=== PATIENT | male | born 1975 | race Two or more races ===

== ENCOUNTER 2021-11-24 13:25 | Outpatient (CLI) | payer OTHER, SELFPAY ==
--- NOTE | ~2021-11-24 | XR_ITS ---
EXAM: XR knee RT min 4V DATE: 11/24/2021 14:03 HISTORY: TWISTING KNEE INJURY PAIN MEDIAL SIDE . COMPARISON: None available. FINDINGS: Normal mineralization. No fracture or dislocation. No lytic or blastic lesion. Mild medial and lateral joint space narrowing. Mild tricompartmental osteophytosis. Enthesopathy at the patellar tendon insertion. No erosion or periosteal change. Large volume joint effusion. Soft tissues within normal limits. IMPRESSION: Large right knee joint effusion. Mild tricompartmental osteoarthritis. Reviewed, dictated and finalized at location K. IMPRESSION: Large right knee joint effusion. Mild tricompartmental osteoarthrit is.
== END 2021-11-24 13:26 | disposition home or self-care (01) ==
LOC: ANHLAB 13:40 → ANHIMG 13:41
PROVIDERS: Visit Provider Nurse Practitioner
DX: M25.461 Effusion, right knee (principal)
CPT/HCPCS: 73564

== ENCOUNTER 2021-12-14 16:50 | Outpatient (CLI) | payer OTHER, SELFPAY ==
--- NOTE | ~2021-12-14 | MR_ITS ---
EXAMINATION: MR knee RT wo con DATE: 12/14/2021 17:40 INDICATION: Right knee pain. Twisting injury 3 weeks ago with persistent swelling, decreased range of motion, unable to extend completely. TECHNIQUE: Magnetic resonance imaging (MRI) of the right knee was performed without intravenous contr ast. Sequences included axial PD-weighted FS FSE, coronal PD-weighted FSE and PD-weighted FS FSE, sag ittal PD-weighted FSE, and sagittal T2-weighted FS FSE. COMPARISON: X-ray right knee 11/24/2021 FINDINGS: Medial compartment: Vertically oriented tear of the posterior horn, medial meniscus, likely with interposed granulation t issue. Mild diffuse thinning of cartilage and osteophytosis. Lateral compartment: Mild fraying of the meniscal apex, without focal tear. Mild diffuse cartilage thinning and osteophyto sis. Patellofemoral compartment: Full-thickness cartilage signal abnormality on the medial facet, with elevated flap of cartilage. Whit r full-thickness lateral facet cartilage fissure. Retinacula are intact. Ligaments and tendons: Abnormal signal and thickening in the ACL, with discontinuity of the ligament fibers. Mild thickening with abnormal signal superficial and deep to the proximal MCL. PCL and LCL are intact. Abnormal sign al and irregularity of the semimembranous tendon. Minimal abnormal signal superficial and deep to the IT band. Remaining flexor and extensor tendons are intact. Fluid: Moderate volume joint fluid. Osseous/other: Marrow edema in the medial condyle with scattered marrow hyperintensity in the posterior lateral tibi al plateau. IMPRESSION: 1. High-grade ACL tear. 2. Vertical tear of the posterior horn, medial meniscus, with some healing change. 3. Partial MCL tear. 4. Semimembranosus strain. 5. Mild strain/inflammation of the IT band. 6. Moderate knee joint effusion. 7. Moderate chondromalacia patellae, with a displaced cartilage flap along the medial facet. Reviewed, dictated and finalized at location K. IMPRESSION: 1. High-grade ACL tear. 2. Vertical tear of the posterior horn, medial meniscus, with some healing navarro ge. 3. Partial MCL tear. 4. Semimembranosus strain. 5. Mild strain/inflammation of the IT band. 6. Moderate knee joint effusion. 7. Moderate chondromalacia patellae, with a displaced cartilage flap along the medial facet.
== END 2021-12-14 16:51 | disposition home or self-care (01) ==
PROVIDERS: Visit Provider Orthopaedic Surgery
DX: S83.511A Sprain of anterior cruciate ligament of right knee, initial encounter (principal); S83.241A Other tear of medial meniscus, current injury, right knee, initial encounter; M25.461 Effusion, right knee; S83.411A Sprain of medial collateral ligament of right knee, initial encounter; X58.XXXA Exposure to other specified factors, initial encounter
CPT/HCPCS: 73721

== ENCOUNTER → 2022-06-30 15:58 | Outpatient (CLI) | payer OTHER, SELFPAY ==
--- NOTE | ~2022-06-30 | MR_ITS ---
MRI of the right knee Clinical history: Effusion, prior ACL reconstruction Technique: Coronal proton density and proton density-weighted images, sagittal proton-density and T2 fat-sat images, and axial proton-density fat-saturated images were acquired. COMPARISON: 12/14/2021 Findings: Patient is status post ACL reconstruction. Graft appears to be intact, with low signal fibe rs with normal orientation. Posterior cruciate ligament is intact, though mildly buckled in appearanc e. There is approximately 12 mm anterior translation of the tibia. Medial collateral ligament is intact, soft tissue edema about the MCL. Lateral collateral ligament co mplex is intact. Popliteus tendon is intact. There is complex tearing of the posterior horn of the medial meniscus, with both radial and horizonta l tear components. There is horizontal/oblique tear involving the posterior horn and body of the late ral meniscus. Articular cartilage in the lateral compartment is well preserved. There is focal moderate chondromala simran of the medial femoral condyle, with subchondral cystic change and reactive marrow edema. Femoral trochlear cartilage is intact. There is a grade 3 chondral lesion along the medial patellar facet. There is diffuse thickening of the patellar tendon, with increased signal at the distal portion, efraín cially in the central portion. There is also abnormal signal and irregularity in the patella. Distal quadriceps tendon is intact. Small joint effusion present. No Green's cyst. Impression: Status post ACL reconstruction. ACL graft appears intact, however there is buckled appearance of the PCL with 12 mm anterior translation of the tibia. Correlate for ACL laxity. Marked thickening and increased signal of the distal patellar tendon especially, with full-thickness tearing at the central portion of the distal patellar tendon. These findings could reflect postoperat candace change related to ACL graft harvesting versus the possibility of traumatic patellar tendon tear. Correlate with clinical history and patient's symptomatology. Complex tearing of the posterior horn of the medial meniscus, as detailed above. Horizontal/oblique tear of the posterior horn and body of the lateral meniscus. Soft tissue edema about the MCL. Correlate for grade 1 sprain versus reactive soft tissue edema due t o underlying meniscal tear. Focal moderate chondromalacia the medial femoral condyle with underlying subchondral cystic change an d reactive marrow edema. Small joint effusion. Reviewed, dictated and finalized at location . 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 ACL graft appears intact, however there is belle led appearance of the PCL with 12 mm anterior translation of the tibia. Correla te for ACL laxity. Marked thickening and increased signal of the distal patellar tendon especially , with full-thickness tearing at the central portion of the distal patellar ten don. These findings could reflect postoperative change related to ACL graft sarina vesting versus the possibility of traumatic patellar tendon tear. Correlate wit h clinical history and patient's symptomatology. Complex tearing of the posterior horn of the medial meniscus, as detailed above . Horizontal/oblique tear of the posterior horn and body of the lateral meniscus. Soft tissue edema about the MCL. Correlate for grade 1 sprain versus reactive s oft tissue edema due to underlying meniscal tear. Focal moderate chondromalacia the medial femoral condyle with underlying subcho ndral cystic change and reactive marrow edema. Small joint effusion.
== END ==
DX: M25.461 Effusion, right knee (principal); Z98.890 Other specified postprocedural states; S83.231A Complex tear of medial meniscus, current injury, right knee, initial encounter; X58.XXXA Exposure to other specified factors, initial encounter; S83.281A Other tear of lateral meniscus, current injury, right knee, initial encounter
CPT/HCPCS: 73721

== ENCOUNTER → 2023-01-03 11:33 | Outpatient (CLI) | payer OTHER, SELFPAY ==
--- NOTE | ~2023-01-03 | MR_ITS ---
EXAMINATION: MR knee RT wo con DATE: 01/03/2023 12:17 INDICATION: Right knee pain 5 months post ACL reconstruction TECHNIQUE: Magnetic resonance imaging (MRI) of the right knee was performed without intravenous contr ast. Sequences included coronal PD-weighted FSE, coronal PD-weighted FS FSE, sagittal T2-weighted FS E, sagittal PD-weighted FS FSE and axial PD weighted fat saturated FSE. COMPARISON: None. FINDINGS: Medial compartment: Complex tear of the posterior body and posterior horn of the medial meniscus. There is prominent suba rticular edema-like and cystlike changes underlying a region of partial-thickness chondral ulceration and deep fissuring at the lateral half of the anterior to central weightbearing medial femoral condy le. Lateral compartment: There is a longitudinal tear extending obliquely to the inferior articular surface of the body and po sterior horn of the lateral meniscus. There is some additional mild fraying along the inner free edge of the body and posterior horn. Small focus of susceptibility artifact in the posterior recess likel y related to prior arthroscopy which obscures a small region of the cartilage along the posterior garrett ghtbearing lateral femoral condyle. Articular cartilage is otherwise normal. Patellofemoral compartment: Deep chondral fissuring at the lateral margin of the lateral patellar facet. Small region of deep cho ndral ulceration at the central aspect of the medial patellar facet with additional deep fissuring al ok the medial margin of the medial facet. Trochlear cartilage is normal. Ligaments and tendons: Anterior cruciate ligament reconstruction utilizing a patellar tendon autograft with sagittally orien james defect extending the length of the patellar tendon and small shallow osteotomies at the central p atellar and intertibial footplates of the tendon. The ligament graft appears intact with low signal a nd normal orientation relative to Blumensaat line. The posterior cruciate ligament is normal. The med ial collateral ligament and fibular collateral ligament complex are normal. Quadriceps tendon is norm al. The visualized medial and lateral hamstring tendons as well as the iliotibial band are normal. Fluid: Physiologic amount of fluid in the joint space. No loose osteochondral bodies identified. Osseous/other: Bone alignment is normal. No fracture or pathologic marrow replacing process. Sagittally oriented pos toperative scarring along skin and subcutaneous tissues of the anterior knee. Additional postoperativ e scarring along likely arthroscopy port tracks at the medial and lateral aspect of Hoffa's fat pad. IMPRESSION: 1. Intact patellar tendon autograft utilizing anterior cruciate ligament reconstruction. 2. Medial and lateral meniscal tears. 3. Mild osteoarthritis with high-grade chondromalacia in the medial compartment and with moderate gra de chondromalacia in the patellofemoral compartment. Reviewed, dictated and finalized at location A. IMPRESSION: 1. Intact patellar tendon autograft utilizing anterior cruciate ligament recons truction. 2. Medial and lateral meniscal tears. 3. Mild osteoarthritis with high-grade chondromalacia in the medial compartment and with moderate grade chondromalacia in the patellofemoral compartment.
== END ==
PROVIDERS: PCP Orthopaedic Surgery Sports Medicine; Visit Provider Orthopaedic Surgery Sports Medicine
DX: S83.281A Other tear of lateral meniscus, current injury, right knee, initial encounter (principal); S83.241A Other tear of medial meniscus, current injury, right knee, initial encounter; M17.11 Unilateral primary osteoarthritis, right knee; Z98.890 Other specified postprocedural states; X58.XXXA Exposure to other specified factors, initial encounter
CPT/HCPCS: 73721

== ENCOUNTER → 2023-01-26 12:26 | Outpatient (CLI) | payer OTHER, SELFPAY ==
--- NOTE | ~2023-01-26 | XR_ITS ---
EXAMINATION: XR knee RT min 4V DATE: 01/26/2023 12:41 INDICATION: Right knee pain TECHNIQUE: Four views of the right knee were obtained. COMPARISON: MRI, 01/03/2023 FINDINGS: Alignment is normal. No fracture or osteochondral lesion. There is mild tricompartmental os teoarthritis. There is edema of the patellar tendon. A small knee joint effusion is present. Surgical changes are noted. Soft tissues are unremarkable. IMPRESSION: 1. Edema of the patellar tendon. Small knee joint effusion. Reviewed, dictated and finalized at location F.
== END ==
PROVIDERS: PCP Orthopaedic Surgery; Visit Provider Orthopaedic Surgery
DX: M25.561 Pain in right knee (principal); M25.461 Effusion, right knee
CPT/HCPCS: 73564

== ENCOUNTER → 2023-04-21 15:05 | Outpatient (CLI) | payer OTHER, SELFPAY ==
--- NOTE | ~2023-04-21 | XR_ITS ---
EXAMINATION: XR wrist LT min 3V DATE: 04/21/2023 15:17 INDICATION: Left wrist pain. TECHNIQUE: 4 views of left wrist were obtained. COMPARISON: None. FINDINGS: Bone alignment is normal. No fracture. There is mild osteoarthritis of first carpometacarpa l joint and first interphalangeal joint. IMPRESSION: 1. Mild polyarticular osteoarthritis. Reviewed, dictated and finalized at location A. RIOR PANELER
--- NOTE | ~2023-04-21 | XR_ITS ---
EXAMINATION: XR shoulder LT min 2V DATE: 04/21/2023 15:16 INDICATION: Left shoulder pain. TECHNIQUE: 4 views of left shoulder were obtained. COMPARISON: None. FINDINGS: Bone alignment is normal. No fracture. There is mild osteoarthritis of glenohumeral joint a nd acromioclavicular joint. IMPRESSION: 1. Mild polyarticular osteoarthritis. Reviewed, dictated and finalized at location A. ICAL GARMENT FITTER
== END ==
PROVIDERS: PCP Family Medicine; Visit Provider Family Medicine
DX: M19.032 Primary osteoarthritis, left wrist (principal); M19.012 Primary osteoarthritis, left shoulder
CPT/HCPCS: 73030; 73110

== ENCOUNTER 2023-04-25 15:59 | Outpatient (CLI) | payer OTHER, SELFPAY ==
[2023-04-25 19:24] LABS: Hematocrit 50.8 % (42.0-52.0); Mean Corpuscular HGB Conc 33.5 g/dl (32-36); Mean Corpuscular Hemoglobin 28.3 pg (26-34); Mean Corpuscular Volume 84.7 fl (80-100); Mean Platelet Volume 9.5 fl (7.4-10.4); Platelet Count Result 289 k/mm3 (150-375); Red Cell Distribution Width 12.4 % (11.5-14.5); White Blood Count 8.5 K/mm3 (4.5-10.0)
[2023-04-25 21:06] LABS: Alanine Aminotransferase 35 U/L (6-50); Albumin Level 4.8 g/dL (3.5-5.1); Alkaline Phosphatase 81 U/L (38-126); Anion Gap 11 mmol/L (8-16); Aspartate Amino Transferase 39 U/L (17-59); Bilirubin,Total 0.9 mg/dL (0.2-1.3); Blood Urea Nitrogen 12 mg/dL (9-20); Calcium 9.8 mg/dL (8.4-10.2); Carbon Dioxide 27 mmol/L (22-30); Chloride 101 mmol/L (98-107); Cholesterol 209 mg/dL (0-200); Estimated Glomerular Filt Rate > 60; Glucose 99 mg/dL (65-110); HDL Direct 50 mg/dL; Potassium 4.1 mmol/L (3.4-5.0); Sodium 139 mmol/L (137-145); Triglycerides 121 mg/dL (<150)
[2023-04-25 21:26] LABS: LDL Cholesterol Direct 123 mg/dL
[2023-04-25 21:46] LABS: Prostate Specific Antigen 0.9 ng/mL (< OR = 4.0)
[2023-04-25 21:54] LABS: Folic Acid 4.3 ng/mL (2.76->20)
[2023-04-25 22:17] LABS: Hemoglobin A1C 5.4 % (<5.7)
[2023-04-28 17:10] LABS: Vitamin D 1,25 (OH)2 Total 62 pg/mL (18-72); Vitamin D2 1,25 (OH)2 <8 pg/mL; Vitamin D3 1,25 (OH)2 62 pg/mL
== END 2023-04-25 16:00 | disposition home or self-care (01) ==
PROVIDERS: PCP Family Medicine; Visit Provider Family Medicine
DX: E53.8 Deficiency of other specified B group vitamins (principal); E55.9 Vitamin D deficiency, unspecified; E66.9 Obesity, unspecified; Z12.5 Encounter for screening for malignant neoplasm of prostate; Z79.899 Other long term (current) drug therapy; R73.09 Other abnormal glucose; Z13.1 Encounter for screening for diabetes mellitus
CPT/HCPCS: 36415; 80053; 80061; 82607; 82652; 82746; 83036; 84153; 84443; 85027; G0103

== ENCOUNTER 2023-05-09 08:28 | Outpatient (CLI) | payer OTHER, SELFPAY ==
--- NOTE | ~2023-05-09 | MR_ITS ---
MRI of the right knee Clinical history: Osteochondral lesion Technique: Coronal proton density and proton density-weighted images, sagittal proton-density and T2 fat-sat images, and axial proton-density fat-saturated images were acquired. COMPARISON: 01/03/2023 Findings: Patient is status post ACL reconstruction surgery. ACL graft is intact, with normal orienta tion and signal. Posterior cruciate ligament is intact. Medial collateral ligament and the lateral co llateral ligament complex are intact. Popliteus tendon is intact, with prominent tendinosis near its proximal insertion. There is progressive complex tearing of the posterior horn of the medial meniscus, probably extending into the body segment. There is horizontal undersurface tear of the body segment of the lateral meni scus, similar to prior exam. There is high-grade chondromalacia of the medial femoral condyle with focal cortical irregularity and subchondral cystic change, similar overall to prior exam. Articular cartilage in the lateral compart ment and along the femoral trochlea is well preserved. There are focal grade 4 chondral fissures samantha g the patella. Extensor mechanism is intact. No joint effusion or Green's cyst. Impression: Progressive complex tearing of the posterior horn of the medial meniscus, probably extending to the b kendra segment. Stable horizontal undersurface tear of the body segment of the lateral meniscus. High-grade chondromalacia medial femoral condyle with some chondral cystic change and reactive marrow edema, similar overall appearance to prior exam. Focal areas of grade IV chondromalacia patella, similar to prior exam. ACL graft is intact. Reviewed, dictated and finalized at [facility]. 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 Stable horizontal undersurface tear of the body segment of the lateral meniscus . High-grade chondromalacia medial femoral condyle with some chondral cystic navarro ge and reactive marrow edema, similar overall appearance to prior exam. Focal areas of grade IV chondromalacia patella, similar to prior exam. ACL graft is intact.
== END 2023-05-09 08:29 ==
PROVIDERS: PCP Family Medicine
DX: S83.281D Other tear of lateral meniscus, current injury, right knee, subsequent encounter (principal); S83.231D Complex tear of medial meniscus, current injury, right knee, subsequent encounter; X58.XXXD Exposure to other specified factors, subsequent encounter
CPT/HCPCS: 73721

== ENCOUNTER 2023-07-19 16:08 | Outpatient (CLI) | payer OTHER, SELFPAY ==
--- NOTE | ~2023-07-19 | MR_ITS ---
EXAMINATION: MR shoulder LT wo con DATE: 07/19/2023 16:43 INDICATION: Left shoulder pain . TECHNIQUE: Magnetic resonance imaging (MRI) of the left shoulder was performed without intravenous co ntrast. Sequences included axial PD-weighted FS FSE, coronal oblique PD-weighted FS FSE and T2-weight ed FS FSE, and sagittal oblique T2-weighted FS FSE and T1-weighted FSE. COMPARISON: X-ray left shoulder 04/21/2023. FINDINGS: Examination is mildly limited by motion and multiple sequences. Coracoacromial arch: No significant anterolateral downsloping of the type II acromion. No significant inferior AC joint os teophytosis or acromial tip enthesopathy. No significant subacromial or subcoracoid narrowing. Rotator cuff: 3 mm focal rim rent type tear at the insertion of the supraspinous tendon. Supraspinatus and infraspi natus thickening with abnormal intrasubstance signal. Focal fatty infiltration of the posterior aspec t of the supraspinatus. The teres minor and subscapularis are intact. Biceps tendon and glenoid labrum: Focal superoposterior aspect of the labrum. Long head of biceps tendon is intact. Fluid: No significant fluid collection. Bones/cartilage: Mild degenerative change at the AC joint and glenohumeral joint. Degenerative subcortical cysts in th e superolateral aspect of the humeral head, marrow signal otherwise benign and homogenous. IMPRESSION: 3 mm rim rent type tear of the supraspinatus, in a background of moderate supraspinatus and infraspin atus tendinopathy. Focal fatty atrophy of the supraspinatus. Tiny focal tear of the superoposterior aspect of the labrum. Reviewed, dictated and finalized at location K. UTER SYSTEMS INTEGRATOR IMPRESSION: 3 mm rim rent type tear of the supraspinatus, in a background of moderate supra spinatus and infraspinatus tendinopathy. Focal fatty atrophy of the supraspinat us. Tiny focal tear of the superoposterior aspect of the labrum.
== END 2023-07-19 16:09 | disposition home or self-care (01) ==
LOC: ANHIMG 16:11
PROVIDERS: PCP Family Medicine; Visit Provider Family Medicine
DX: S43.432D Superior glenoid labrum lesion of left shoulder, subsequent encounter (principal); X58.XXXD Exposure to other specified factors, subsequent encounter
CPT/HCPCS: 73221

== ENCOUNTER 2024-02-20 07:52 | Outpatient (CLI) | payer OTHER, SELFPAY ==
--- NOTE | ~2024-02-20 | MR_ITS ---
MRI of the right knee Clinical history: Swelling Technique: Coronal proton density and STIR images, sagittal proton-density and STIR images, and axial proton-density fat-saturated images were acquired. COMPARISON: 05/09/2023 Findings: Patient is again status post ACL reconstruction surgery, though there is increased hardware , possibly status post graft revision. ACL graft appears intact, though diffusely somewhat hyperinten se. Posterior cruciate ligament intact. Medial collateral ligament and the lateral collateral ligamen t complex are intact. Popliteus tendon is intact. There is complex tearing of the posterior horn and body of the medial meniscus, overall similar to pr ior exam. No definite lateral meniscal tear seen. Status post interval placement of osteochondral plug at the medial femoral condyle, at site of the pr eviously noted high-grade chondromalacia. There is thin T2 hyperintense signal along the base of the plug, no gross evidence of instability. Stable patchy chondromalacia of the patella. Extensor mechanism is intact. No Green's cyst. Small joint effusion. Impression: Status post interval posterior osteochondral plug at the medial femoral condyle, at site of previousl y noted high-grade chondral malacia. No gross evidence of instability. Status post ACL graft, with possible interval revision since prior exam, with increased hardware, giuseppe ecially at the proximal tibia. Correlate with surgical history. Increased signal of the ACL graft cou ld reflect impingement, though there is no evidence of recurrent tear. Stable complex tearing of the posterior horn and body of medial meniscus. Stable chondromalacia patella. Reviewed, dictated and finalized at [facility]. Impression: Status post interval posterior osteochondral plug at the medial femoral condyle , at site of previously noted high-grade chondral malacia. No gross evidence of instability. Status post ACL graft, with possible interval revision since prior exam, with i ncreased hardware, especially at the proximal tibia. Correlate with surgical hi story. Increased signal of the ACL graft could reflect impingement, though ther e is no evidence of recurrent tear. Stable complex tearing of the posterior horn and body of medial meniscus. Stable chondromalacia patella.
== END 2024-02-20 07:53 | disposition home or self-care (01) ==
LOC: GOSHIMG 07:55
DX: S83.231D Complex tear of medial meniscus, current injury, right knee, subsequent encounter (principal); M22.41 Chondromalacia patellae, right knee; X58.XXXD Exposure to other specified factors, subsequent encounter; Z98.890 Other specified postprocedural states
CPT/HCPCS: 73721

== ENCOUNTER 2024-05-15 07:52 | Outpatient (CLI) | payer OTHER, SELFPAY ==
[2024-05-15 14:29] LABS: Hematocrit 49.9 % (42.0-52.0); Mean Corpuscular HGB Conc 32.1 g/dl (32-36); Mean Corpuscular Volume 87.4 fl (80-100); Mean Platelet Volume 10.3 fl (7.4-10.4); Platelet Count Result 252 k/mm3 (150-375); Red Blood Count 5.71 M/mm3 (4.6-6.20); Red Cell Distribution Width 12.6 % (11.5-14.5); White Blood Count 7.1 K/mm3 (4.5-10.0)
[2024-05-15 14:42] LABS: Alanine Aminotransferase 23 U/L (6-50); Albumin Level 4.4 g/dL (3.5-5.1); Alkaline Phosphatase 72 U/L (38-126); Anion Gap 5 mmol/L (4-12); Aspartate Amino Transferase 48 U/L (17-59); Bilirubin,Total 0.8 mg/dL (0.2-1.3); Blood Urea Nitrogen 12 mg/dL (9-20); Calcium 9.4 mg/dL (8.4-10.2); Carbon Dioxide 25 mmol/L (22-30); Chloride 106 mmol/L (98-107); Cholesterol 180 mg/dL (0-200); Estimated Glomerular Filt Rate > 60; Glucose 126 mg/dL (65-110); HDL Direct 43 mg/dL; Potassium 3.8 mmol/L (3.4-5.0); Sodium 136 mmol/L (137-145); Triglycerides 94 mg/dL (<150)
[2024-05-15 14:52] LABS: LDL Cholesterol Direct 102 mg/dL
[2024-05-15 14:58] LABS: Hemoglobin A1C 5.6 % (<5.7)
[2024-05-15 14:59] LABS: Vitamin D 25 Hydroxy 30.9 ng/mL
[2024-05-15 15:06] LABS: Prostate Specific Antigen 0.6 ng/mL (< OR = 4.0)
[2024-05-18 12:24] LABS: Lipoprotein A 60 nmol/L
--- OUTSIDE RECORDS SUMMARY | 2024-05-22 05:23 | XMS_ITS | Encounter Summary ---
Author Organization [facility] Address [address] [place] [address] Phone Care Team Providers Care Data Compiler Name Role Phone No, Physician Primary Care Provider [phone] Zach Reyez PT Unavailable Unavailable Teresa Leach PT Unavailable [phone] Hussain Lopez RETAIL CLIENT MANAGER Unavailable Unavailabl e Encounter Details Date Type Department Care Team (Late st Contact Info) Description 03/01/2024 Orders Only [facility] Orthopaedic Surgery [address] [place] [address] [place] [address] [place] [address] Right knee pain, unspecified chronicity Social History Tobacco Use Types Packs/Day Years Used Date Smoking Tobacco: Never Passive Smoke Exposure: Never Smokeless Tobacco: Never AUDIT-C Answer Date Recorded Q1: How often do you have a drink containing alc ohol? 2-3 times a week 09/13/2023 Q2: How many drinks containi ng alcohol do you have on a typical day when you are drinking? 3 or 4 09/13/2023 Q3: How often do you have si x or more drinks on one occasion? Monthly 09/13/2023 Personal Safety Answer Date Recorded Have you ever been in or are you currently in a harmful physical or emotional relationship or is someone making you feel afraid or unsafe? 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 Gender Identity Not on file Sexual Orientation Not on file documented as of this encounter Plan of Treatment Not on file documented as of this encounter Procedures Procedure Name Priority Date/Time Associated Diagnosis Comments MRI KNEE RIGHT WO CONTRAST Schedule Routine, Read Routine (OP Routine) 03/01/2024 11:59 AM CDT Right knee pain, unspecified chronicity documented in this encounter Results * MRI Knee Right WO Contrast (03/01/2024 11:59 AM CDT) Anatomical Region Laterality Modality Lower Extremities Right Magnetic Reson ance us Mikey Hawkins MD IMG MRI PROCEDURES Final Re sult documented in this encounter Visit Diagnoses Diagnosis Right knee pain, unspecified chronicity documented in this encounter Care Teams Data Compiler Relationship Specialty Start Date End Date No, Physician PCP - General 12/21/21 Zach Reyez, PT Physical Therapist Physical Therapy 01/20/22 [place] [address] [place] [address] Physical Therapist Physical Therapy 01/30/22 Hussain Lopez, TRIPP Endless Track Vehicle Supervisor Physical Therapy 02/03/22 documented as of this encounter
--- OUTSIDE RECORDS SUMMARY | 2024-05-22 05:23 | XMS_ITS | Encounter Summary ---
Author Organization [facility] Healthcare Address [address] [place] [address] Care Team Providers Care Circulation Man Name Role Phone No, Physician Primary Care Provider [phone] Zach Reyez PT Unavailable Unavailable Teresa Leach PT Unavailable [phone] Hussain Lopez DIRECTOR PUBLIC POLICY Unavailable Unavailabl e Reason for Visit * Reason Comments PT Treatment * Consultation (Routine) - Authorized Specialty Diagnoses / Procedures Referred By Contac t Referred To Contact Physical Therapy Diagnoses Osteochondral [place] [id number] [place] [address] Phone: tel: fax: [facility] at [facility] [id number] [place] [address] [address] [place] [address] Phone: tel: fax: Referral ID Status Reason Start Date Expiration Date Visits Requested Visits Authorized [id number] Authorized Specialty Services Required 09/15/2023 10/14/2024 24 24 Encounter Details Date Type Department Care Team (Late st Contact Info) Description 03/16/2024 4:15 PM CDT Therapy [facility] at [address] [address] [place] [address] [place], [place] [id number] Osteochondral defect of femoral condyle (Primary Dx) Social History Tobacco Use Types Packs/Day Years [...] on file 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 / male Referring Practitioner: Mikey Hawkins MD MD Follow-Up: 09/26/23 Diagnosis(es): 1. Osteochondral defect of femoral condyle Date of Onset: 09/16/2023 Visit #: 20 Progress Report Due: Visit #20 Date: 03/16/2024 Start Time: 4:15 pm End Time: 5:00 pm Start Pain: 1-07/02 End Pain: -07/02 SUBJECTIVE: Pt reports he has been doing a lot better with walking and general weight bearing activities. He has not been using the greeting card writer brace as he felt that increased his pain. He is still being cautious about progressing squatting/bending/lifting activities. Pt reports Dr Hawkins discussed with him that he will not be able to achieve full knee ext due to surgery. OBJECTIVE: Gait: Pt amb with less antalgic gait R knee/LE. Effusion: mod swelling R knee today Knee ROM: (03/16/24) (ROM decreased due to increased swelling) Left: Right: - Extension 0?? (-3)?? - supine/seated Flexion 140?? 135?? Prone knee flexion with strap:(L knee 130 degrees) Muscle Length: Tight hamstring, gastroc and quad mm Lower Extremity Strength: 5/5 throughout TREATMENT: TREATMENT 1) bike for 5 min for warm up 2) reviewed HEP per flow sheet with verbal and manual cues. See also modifications/additions 3) reassessed R knee ROM: see above Exercise/ Activity 12/01 12/13 01/12 02/02 02/23 03/16 BFR Bike 5 min X 5 min 10 min X 5 min 5 min Seated knee ext 90-20 degrees, 10# x20 X 90-20, 10# bilat to unilat 90-0# x10 10# 3x10 bilat with unilat ecc Seated knee ext bilat conc and unilat ecc 90-20 degrees x20 Leg press 3 plates bilat x 10 reps 1 plate unilat x 10 (full ROM today) X 4.5 plates 3x20 bilat to unilat With greeting card writer brace 4 plates 2x20 reps 5 plates bilat 4x10 SLS with opp LE triplanar sliders init X x 10 each direction SL lift Init with 0# with greeting card writer brace (reaching hip height for now) 0# x10 Standing TKE with band X20 with black band Mini squats on BOSU and air ex Init x 10 (much quivering noted) Not today Long sitting VMO bj/quad contraction Long sitting hip adductor stretch Supine knee flexion Supine SLR SLR all planes Prone knee flexion with strap X modified with opp LE on floor X Supine/SL hip adduction with strap for lateral hamstring/ITB Init x3 X Prone hip ext with knee flexed X Seated knee ext 5# x20 with VMO bj/ball squeeze Supine SAQ Standing leg curl Standing heel raises partial weight bearing Standing TKE with band X Prone hangs X X Heel props Patellar mobs and MFR to quad/adductors and knee ext mobs X X X Flowsheet [place]: X = performed, x = times/multiply, s = seconds, ea = each, st = stretch SL= side lying, SLS= single leg stance Timed Treatment: Thera ex for 45 minutes: see above Un-timed Treatment: none Total of Timed Treatment Codes: 45 minutes Total Treatment Time: 45 minutes ASSESSMENT: Patient is able to weight bear with amb and light ex without pain. Goals: Short Term Goals: 2 weeks Pt to be indep with HEP to be able to: improve bed mobility and transfers, achieved Decrease gait deviations, progressing weight bearing status per MD's orders, progressing Pt to be able to transfer in an and out of bed, get dressed and shower with normal pain free mobility, achieved Drop Wire Aliner Goals: 12 weeks Pt to continue to be indep with HEP to be able to: return to an exercise program with normal pain free mobility, progressing Normalize gait to be able to walk 1-2 hours with normal pain free mobility, progressing Pt to have WNL R knee ROM to be able to work a full work week on his feet with normal pain free mobility, progressing Pt to have 5/5 strength throughout LE mm to be able to amb stairs and cotton picker operator 30# with normal pain free mobility, progressing PLAN: Continue skilled physical therapy per plan of care Teresa Leach, [facility] AT [address] [address] Dept: [phone] Dept documented in this encounter Plan of Treatment Not on file documented as of this encounter Visit Diagnoses Diagnosis Osteochondral defect of femoral condyle- Primary documented in this encounter Care Teams Circulation Man Relationship Specialty Start Date End Date No, Physician PCP - General 12/21/21 Zach Reyez, PT Physical Therapist Physical Therapy 01/20/22 [place] [address] [place] [address] Physical Therapist Physical Therapy 01/30/22 Hussain Lopez, DIRECTOR PUBLIC POLICY Paper Tube Machine Operator Physical Therapy 02/03/22 documented as of this encounter
--- OUTSIDE RECORDS SUMMARY | 2024-05-22 05:23 | XMS_ITS | Encounter Summary ---
Author Organization [facility] Address [address] [place] [address] Phone Care Team Providers Care Sole Stitcher Hand Name Role Phone No, Physician Primary Care Provider [phone] Zach Reyez PT Unavailable Unavailable Teresa Leach PT Unavailable [phone] Hussain Lopez MANAGER OF CASE MANAGEMENT Unavailable Unavailabl e Reason for Referral * Diagnostic Imaging (Routine) - Closed Specialty Diagnoses / Procedures Referred By Contac t Referred To Contact Diagnoses Osteochondral defect of femoral condyle Procedures XR Knee Right 1 [place] [id number] [place] [address] Phone: tel: fax: [facility] Referral ID Status Reason Start Date Expiration Date Visits Re quested Visits Authorized [id number] Closed 05/09/2024 06/08/2025 1 1 O SOFTWARE ENGINEER Reason for Visit * Reason Comments Follow-up Encounter Details Date Type Department Care Team (Latest Contact Info) Description 05/10/2024 4:20 PM VIDEO SOFTWARE ENGINEER Office Visit [facility] Orthopaedic Surgery [address] [place] [id number] [place] [id number] [place], [place] [id number] Osteochondral defect of femoral condyle (Primary Dx); 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 ESTABLISHED PATIENT VISIT INTERIM HISTORY: Returns to the office now almost eight months status post right knee opening wedge high tibial osteotomy and osteochondral allograft to the medial femoral condyle. He was last in the office on February. He has continued with some physical therapy, and now can walk at a normal pace without much issue. He does still endorse some discomfort if he walks at a faster pace. Also endorses some grinding and clicking sensations localized to the lateral joint. No real swelling, no instability otherwise. Has stopped taking meloxicam. Believes he was overall improving. With regard to his left shoulder, he is also improving and has no complaints today. PHYSICAL EXAMINATION: Age-appropriate male sitting on examination table in no acute distress. Nonlabored breathing symmetric chest rise on room air. He was spoken word. Focused examination of the right knee demonstrates no gross deformity. Surgical incisions are well healed without signs of infection including erythema, induration, or fluctuance. He has mild tenderness palpation over the lateral femoral condyle, no tenderness medially either over the joint line or medial femoral condyle. Range motion is from 0-130 degrees without pain. Mild crepitus laterally. Grossly neurovascularly intact distally. REVIEW OF IMAGING: Plain films of the knee were reviewed by Dr. Hawkins today which demonstrates healed high tibial osteotomy and medial femoral condyle osteochondral allograft. Alignment is maintained. IMPRESSION: 48-year-old male now almost eight months status post right knee opening wedge high tibial osteotomyand osteochondral allograft to the medial femoral condyle, doing well and progressing appropriately. TREATMENT PLAN: At this point in time, he will continue with physical therapy and eating exercises. We encouraged him to continue with exercises such as the stationary bike. We will see him back in the office in sixmonths' time, no plain films needed. Jose White MD Resident, Department of Orthopaedic Surgery [facility] in [place] Dr. Jose White dictating using [employer]. Dictation variances may occur I was present for the critical portion of the history, physical examination, and participated in the radiographic review and medical decision making for this patient. I agree with the findings in [place] of the above residence/fellow dictating using sfilatino software. Professor of Orthopaedic Surgery Director, Sports Medicine Fellowship [facility] . O SOFTWARE ENGINEER documented in this encounter Plan of Treatment Not on file documented as of this encounter Results * XR Knee Right 1 or 2 Views (05/10/2024 4:52 PM VIDEO SOFTWARE ENGINEER) Anatomical Region Laterality Modality Lower Extremities, Knee Right Computed Radiography 05/10/2024 4:56 PM VIDEO SOFTWARE ENGINEER Impressions 05/10/2024 4:56 PM VIDEO SOFTWARE ENGINEER Healing instrumented right high tibial osteotomy. Healing osteochondral allograft to the medial femoral condyle. Electronically signed by: Shane Sprague M.D. Narrative 05/10/2024 4:56 PM VIDEO SOFTWARE ENGINEER EXAMINATION: XR KNEE RIGHT 1 OR 2 VIEWS HISTORY: Knee pain FINDINGS: 2 views of the right knee were performed with comparison made to 02/09/2024. ??There is a healing instrumented right high tibial osteotomy. ??Instrumentation is intact. ??Osteochondral allograft to the medial femoral condyle is also likely healing. There is a trace effusion. ??There is no acute fracture. Procedure Note Shane Sprague MD PhD - 05/10/2024 EXAMINATION: XR KNEE RIGHT 1 OR 2 VIEWS HISTORY: Knee pain FINDINGS: 2 views of the right knee were performed with comparison made to 02/09/2024. There is a healing instrumented right high tibial osteotomy. Instrumentation is intact. Osteochondral allograft to the medial femoral condyle is also likely healing. There is a trace effusion. There is no acute fracture. IMPRESSION: Healing instrumented right high tibial osteotomy. Healing osteochondral allograft to the medial femoral condyle. Electronically signed by: Shane Sprague M.D. 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
--- OUTSIDE RECORDS SUMMARY | 2024-05-22 05:23 | XMS_ITS | Encounter Summary ---
Author Organization [facility] Healthcare Address [address] [place] [address] Care Team Providers Care Safety Assistant Name Role Phone No, Physician Primary Care Provider Zach Reyez PT Unavailable Unavailable Teresa Leach PT Unavailable [phone] Hussain Lopez GENERAL COUNSELOR Unavailable Unavailabl e Reason for Visit * Reason Comments PT Initial Eval * Consultation (Routine) - Authorized Specialty Diagnoses / Procedures Referred By Contac t Referred To Contact Physical Therapy Diagnoses Osteochondral [place] [id number] [place] [address] Phone: tel: fax: [facility] at [address] [place] [address] Phone: tel: fax: Referral ID Status Reason Start Date Expiration Date Visits Requested Visits Authorized [id number] Authorized Specialty Services Required 09/15/2023 10/14/2024 24 24 Encounter Details Date Type Department Care Team (Late st Contact Info) Description 03/30/2024 4:45 PM HAND PATCHER Therapy 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 / male Referring Practitioner: Mikey Hawkins MD MD Follow-Up: none scheduled Referring Diagnosis: 1. Nontraumatic complete tear of rotator cuff, unspecified laterality Date of Onset: No date available Date: 03/30/2024 Start Time: 4:45 pm End Time: 5:30 pm Start Pain: 210 End Pain: 210 Medical screening was completed and the patient is appropriate for physical therapy. SUBJECTIVE: History: Onset/Injury: 01/2023 pain started L shoulder, had PT in apr 2023. Then he got an injection in 2022 and then again 6 weeks ago and stopped PT due to feeling better. He reports he doesn't have muchpain since injection but would like to review the strengthening again due to feeling weak and painful into flexion and abd and reaching for things on a higher shelf and has not tried lifting heavy objects Chief Complaint: see above Previous therapy for this condition? Yes What were the dates of the prior therapy? 05/14 What was the outcome of the prior therapy? Decreased pain after injection with PT Pain Description: Location: L ant/lateral shoulder Quality: Aching , Dull, and Throbbing Current Intensity: 2/10 Minimal Intensity: 0/10 but usually has some level of soreness Maximal Intensity: 4-5/10 (was an 8/10 prior to recent injection) (using 0-10 numerical scale) Aggravating factors: see above Relieving factors: change of position, rest Function: Prior Level of Function: independent with ADLs (household/community activities, driving, and all work-related responsibilities). Patient Goals: All ADLs without pain or limitation. 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 Yes Patient is able to transfer independently or modified independently? Yes Fall Risk Screening: Is the patient > 65 year of age? (48 y.o. ) Is the reason for the visit related to balance or falls? No Does the patient have a history of neurological impairment? No Stay Independent Brochure Score: N/A (> 4 helps identify those at risk for falls) Is this patient a fall risk?: No. Posture: Spinal Alignment: flat thoracic spine Scapular Alignment: slight scapular elevation L Cervical Clearing: (-) Active ROM: * = increase in symptoms, ER and IR = external and internal rotation, abd = abduction, NT = not tested Active Range of Motion: (standing) Flexion: Left 0-150?? Right WNL?? Abduction: Left 0-162?? Right WNL?? Functional Abd/ER: Left WNL with pain Right WNL IR up back: Left T8 Right T8 Movement Faults: sone delayed upward scapular rotation Strength: * = increase in symptoms, ER and IR= external and internal rotation, NT = not tested Strength (Manual Muscle Test) Shoulder flex: left 4/5 right 5/5 Abduction: Left 4+/5 Right 5/5 Supraspinatus: Left 4+/5 Right 5/5 ER: Left 4-/5 Right 4+/5 IR: Left 5/5 Right 5/5 Scapular Serratus: Left 4+/5 Right 5/5 Mid Trapezius: Left 3+/5 Right 4/5 Low Trapezius: Left 3+ /5 Right 4/5 Passive ROM: * = increase in symptoms, ER and IR = external and internal rotation, abd= abduction, NT = not tested Passive Range of Motion (supine) Shoulder Flexion: Left 0-160?? Right NT?? Abduction: Left 0-120?? (pain/pinching) Right NT?? ER at side: Left 0-75?? Right NT?? ER at 90/90: Left 0-90?? Right NT?? IR at 90/90: Left 0-65?? Right NT?? Muscle Length: Slightly Stiff pecs and lats Mobility Joint Play: good overall mobility TREATMENT: TREATMENT 1) instructed in HEP per flow sheet to address above problems. 2) instructed in proper posture and UE mechanics Exercise/ Activity Date: 03/30 Date: Date: Date: Date: Date: SL ER 7 oz x10 1# x10 Prone sh ext with ER 7oz x15 Prone Hori abd 0# x15 Seated ER at 90 abd with arm on table 2# x15 Standing shoulder flex, abd, scaption 7 oz x15 Row with band Init with black band Flowsheet [place]: X = performed, x = times/multiply, s = seconds, ea = each, st = stretch Timed Treatment: Therapeutic Exercise for 25 minutes Un-Timed Treatment: Initial Evaluation-Low Complexity No modalities performed at this date Total of Timed Treatment Codes: 25 minutes Total Treatment Time: 45 minutes ASSESSMENT: Impression: Patient is a 48 y.o. male referred by Mikey Hawkins MD to physical therapy for the followin. Nontraumatic complete tear of rotator cuff, unspecified laterality Physical Impairments: scapular strength, rotator cuff strength, and movement impairment(s). Functional Limitations: lifting, reaching, and ADL functions. Patient will benefit from skilled PT to address the above physical impairments and functional limitations. Factors Impacting Physical Therapy: Comorbidities impacting physical therapy treatment: none Personal factors: None. No personal factors, living environment, or support system considerations impacting the physical therapy plan of care. Persons Involved:Patient Patient/Patient Family Understands and Agrees: Yes Prognosis: good Goals: Short Term Goals: 2 weeks Pt to be indep with HEP to be able to:have intermittent vs constant daily pain with self care Pt to have improved posture and UE mechanics [facility] Goals: 12 weeks Pt to be indep with HEP to be able to perform all household activities with normal pain free mobility Pt to have 4+/5 to 5/5 strength throughout L shoulder to be able to lift 30-50# with normal pain free mobility Pt to have WNL AROM throughout L shoulder to be able to reach overhead onto shelf with normal pain free mobility PLAN: Frequency/Duration: 1 time every 1-2 weeks for 8-12 weeks. Patient will receive the following treatments: [x] Home Exercise Program [x] Therapeutic Exercise [x] Therapeutic Activity [x] Manual Therapy PRN [x] Gait Training PRN [x] Neuromuscular Re-Education PRN [x] Modalities PRN Thank you for this referral. Teresa Leach, PT [facility] AT [address] [place] [address] Dept: [phone] Dept PATCHER documented in this encounter Plan of Treatment Not on file documented as of this encounter Visit Diagnoses Diagnosis Nontraumatic complete tear of rotator cuff, unspecified laterality- Primary documented in this encounter Orders Outpatient Referral Count Last Ordered Date Fir st Ordered Date AMB REFERRAL ORDER TO PHYSICAL THERAPY 1 documented in this encounter Care Teams Safety Assistant Relationship Specialty Start Date End Date No, Physician PCP - General 12/21/21 Zach Reyez, PT Physical Therapist Physical Therapy 01/20/22 [place] [address] [place] [address] Physical Therapist Physical Therapy 01/30/22 Hussain Lopez, TRIPP Plating Technician Physical Therapy 02/03/22 documented as of this encounter
--- OUTSIDE RECORDS SUMMARY | 2024-05-22 05:23 | XMS_ITS | Encounter Summary ---
Author Organization [facility] Address [address] [place] [address] Phone Care Team Providers Care Sign Language Interpreter Name Role Phone No, Physician Primary Care Provider [phone] Zach Reyez PT Unavailable Unavailable Teresa Leach PT Unavailable [phone] Hussain Lopez BROOM WORKER Unavailable Unavailabl e Reason for Referral * Consultation (Routine) - Pending Review Specialty Diagnoses / Procedures Referred By Contac t Referred To Contact Physical Therapy Diagnoses Nontraumatic complete tear of rotator [place], [place] [address] [place] [address] Phone: tel: fax: [facility] at [facility] [address] [place] [address] Phone: tel: fax: Referral ID Status Reason Start Date Expiration Date Visits Requested Visits Authorized [id number] Pending Review Evaluate and Treat 03/23/2024 04/22/2025 24 24 Question Answer PTRFR PT Evaluate and Treat Therapy options discussed with patient? Yes Location provided for therapy services is: Patient requested/Patient preferred Please select the performing region: [facility] [[id number]] Please select the performing department: [facility] [[id number]] # of visits: 24 Comments SHOULD[facility] REHABIL[facility] Zayda Torres 1975 03/23/24 Dx: full-thickness tear of his rotator cuf Continue RC strengthening exercises with the avoidance of overhead lifting as necessary Physical Therapy Evaluation and Treatment Twice Weekly for 6 Weeks Rotator cuff strengthening exercises ROM Modalities prn Home exercise program For all PT reports that require a signature-please fax to [phone] For all other PT progress notes-please fax to [phone] Mikey Hawkins MD Encounter Details Date Type Department Care Team (Late st Contact Info) Description 03/23/2024 Orders Only [facility] Orthopaedic Surgery [address] [place] [address] [place] [address] [place], [place] [id number] Nontraumatic complete tear of rotator cuff, unspecified [...] on file 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 Gender Identity Not on file Sexual Orientation Not on file documented as of this encounter Plan of Treatment Scheduled Referrals Name Type Priority Associated Diagnoses Orde r Schedule Ambulatory referral order to Physical Therapy - Outpatient Referral Routine Nontraumatic complete tear of rotator cuff, unspecified laterality Expected: 04/06/2024 (Approximate), Expires: 03/23/2025 documented as of this encounter Visit Diagnoses Diagnosis Nontraumatic complete tear of rotator cuff, unspecified laterality- Primary documented in this encounter Care Teams Sign Language Interpreter Relationship Specialty Start Date End Date No, Physician PCP - General 12/21/21 Zach Reyez, PT Physical Therapist Physical Therapy 01/20/22 [place] [address] [place] [address] Physical Therapist Physical Therapy 01/30/22 Hussain Lopez PTA Boat Engine Mechanic Physical Therapy 02/03/22 documented as of this encounter
--- OUTSIDE RECORDS SUMMARY | 2024-05-22 05:23 | XMS_ITS | Clinical Summary ---
Author Organization [facility] Address [address] [place] [address] Care Team Providers Care Rn Transition Name Role Phone No, Physician Primary Care Provider [phone] Zach Reyez PT Unavailable Unavailable Teresa Leach PT Unavailable [phone] Hussain Lopez PARAMEDIC INSTRUCTOR Unavailable Unavailabl e Allergies No known active allergies Medications ketorolac (TORADOL) 10 mg tablet Take 1 tablet (10 mg total) by mouth every 6 (six) hours as needed for pain 20 tablet 09/15/2023 Active oxyCODONE-acetam inophen (PERCOCET) 10-325 mg per tabletIndication s:Pain Take 1 tablet by mouth every 4 (four) hours as needed for pain 30 tablet 09/15/2023 Active aspirin 81 mg enteric coated tablet Take 1 tablet (81 mg total) by mouth daily 30 tablet 09/16/2023 Active traMADoL (ULTRAM) 50 mg tablet Take 1 tablet (50 mg total) by mouth every 6 (six) hours 30 tablet 09/30/2023 Active HYDROcodone-acet aminophen (NORCO) 5-325 mg per tabletIndication s:Pain Take 1 tablet by mouth every 6 (six) hours as needed for pain 30 tablet 02/23/2024 Active meloxicam (MOBIC) 15 mg tablet TAKE 1 TABLET(15 MG) BY MOUTH DAILY 30 tablet 04/04/2024 Active Active Problems Problem Noted Date Diagnosed Date Pain 09/16/2023 Osteochondral lesion 02/04/2023 Popping of right knee joint 01/20/2023 Chronic pain of right knee 01/20/2023 S/P arthroscopy of right knee 07/22/2022 Arthrofibrosis of knee joint, right 07/06/2022 Overview (07/06/2022): Added automatically from request for surgery [id number] Effusion of right knee 02/25/2022 S/P ACL reconstruction 01/28/2022 S/P medial meniscus repair of right knee S/P lateral meniscus repair of left knee Complete tear of right ACL, subsequent encounter 01/01/2022 Overview (01/01/2022): Added automatically from request for surgery [id number] Complex tear of medial menis cus of right knee as current injury 01/01/2022 Overview (01/01/2022): Added automatically from request for surgery [id number] Elbow pain 05/05/2016 Arthralgia of shoulder 09/06/2013 Encounters Date Type Department Care Team Description 05/10/2024 4:30 PM BATTERY STACKER - 05/10/2024 11:59 PM BATTERY STACKER Hospital Encounter [facility] [address] [place] [address] Osteochondral defect of femoral condyle Discharge Disposition: Discharge to home or self care 05/10/2024 4:20 PM BATTERY STACKER Office Visit [facility] Orthopaedic Surgery [address] [place] [address] [address] [place] [phone] Mikey Hawkins MD Osteochondral defect of femoral condyle (Primary Dx); 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 04/01/2024 Plan of Care Documentation [facility] at [address] [place] [address] 03/30/2024 4:45 PM BATTERY STACKER Therapy [facility] at [address] [place] [address] Teresa Leach, PT Nontraumatic complete tear of rotator cuff, unspecified laterality (Primary Dx) 03/23/2024 Orders Only [facility] Orthopaedic Surgery [id number] [place] [address] [address] [place] [address] Mikey Hawkins MD Nontraumatic complete tear of rotator cuff, unspecified laterality (Primary Dx) 03/16/2024 4:15 PM CDT Therapy [facility] at [facility] [id number] [place] [address] [place] [address] Teresa Leach, PT Osteochondral defect of femoral condyle (Primary Dx) 03/01/2024 4:00 PM CDT Office Visit [facility] Orthopaedic Surgery [address] [place] [address] [address] [place] [phone] Mikey Hawkins MD 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 (Primary Dx); Nontraumatic complete tear of rotator cuff, unspecified laterality 03/01/2024 Orders Only [facility] Orthopaedic Surgery [facility] [place] [address] Mikey Hawkins MD Right knee pain, unspecified chronicity 02/24/2024 11:30 AM CDT Therapy [facility] at [address] [place] [address] Teresa Leach, PT Osteochondral defect of femoral condyle (Primary Dx) from Last 3 Months Surgical History Surgery Date Site/Laterality Comments ROTATOR CUFF REPAIR 05/23/2013 - 05/22/2014 Right x2, 2014 ANTERIOR CRUCIATE LIGAMENT REPAIR 01/15/2022 Right reconstruction KNEE ARTHROSCOPY W/ DEBRIDEMENT 07/09/2022 Right KNEE SURGERY 02/11/2023 Right Chondroplasty Family History Medical History Relation Name Comments Anesthesia problems Neg Hx Social History Tobacco Use Types Packs/Day Years [...] on file Legal 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 Gender Identity Not on file Sexual Orientation Not on file Obstetrics History Last Filed Vital Signs Vital Sign Reading Time Taken Comments Blood Pressure 92/60 09/16/2023 3:25 PM CDT Pulse 79 09/16/2023 3:35 PM CDT Temperature 36.3 ??C (97.3 ??F) 09/16/2023 3:20 PM CD T Respiratory Rate 18 09/16/2023 3:35 PM CDT Oxygen Saturation 99% 09/16/2023 3:35 PM CDT Inhaled Oxygen Concentration - - Weight 89.4 kg (197 lb) 03/01/2024 4:22 PM CDT Height 175.3 cm (5' 9 ) 03/01/2024 4:22 PM CDT Body Mass Index 29.09 03/01/2024 4:22 PM CDT Plan of Treatment Health Maintenance Due Date Last Done Comments Colon Cancer Screening-Colonoscopy 1975 Depression Screening 1975 Hepatitis C Screening 1974 DTaP/Tdap/Td Vaccine (1 - Tdap) 1985 Hepatitis B Screening 1992 Regular Well Visit/Exam 18-64 1992 Covid-19 Vaccine (2 - 2023-2 5 season) 2024 04/15/2021 Influenza Vaccine (#1) 2024 Pneumococcal vaccine <65 Aged Out No longer eligible based on patient's age to complete this topic Medical Devices Implanted Type Area Cloth Desizing Range Tender Device Identifier Shelf Expiration Date Model / Serial / Lot Joint [employer] Allograft Aseptic Fresh Graft Bone Right Medial Femoral [id number] - [id number] Implanted:Qty: 1 on 09/16/2023 by Mikey Hawkins MD at [facility] Graft Right: Knee Joint [employer] 09/20/2023 [id number] / / [id number] [employer] 9mm Tibia Low Profile Plate Bone Titanium 6.5mm Cancellous 4.5mm [id number]-13287o-70.0 - [id number] Implanted:Qty: 1 on 09/16/2023 by Mikey Hawkins MD at [facility] [place] Plate Right: Tibia [employer] [id number] 05/22/2028 AR-69497T-7 9.0 / / [id number] [employer] 4.5mm 40mm Tibia Cortical Screw Bone Titanium Opening Wedge Ar-86207-57 - [id number] Implanted:Qty: 1 on 09/16/2023 by Mikey Hawkins MD at [facility] Screw Right: Tibia [employer] [id number] 09/20/2027 AR-76000-54 / / [id number] [employer] 4.5mm 38mm Tibia Cortical Screw Bone Titanium Opening Wedge Ar-26979-31 - [id number] Implanted:Qty: 1 on 09/16/2023 by Mikey Hawkins MD at [facility] Screw Right: Tibia [employer] [id number] 02/20/2028 AR-22188-23 / / [id number] [employer] 6.5mm 65mm Tibia Cancellous Screw Bone Titanium Opening Wedge Ar-88639-72 - [id number] Implanted:Qty: 1 on 09/16/2023 by Mikey Hawkins MD at [facility] Screw Right: Tibia [employer] [id number] 02/19/2027 AR-78695-54 / / [id number] [employer] 6.5mm 60mm Tibia Cancellous Screw Bone Titanium Opening Wedge Ar-67543-20 - [id number] Implanted:Qty: 1 on 09/16/2023 by Mikey Hawkins MD at [facility] Screw Right: Tibia [employer] [id number] 10/20/2026 AR-86132-99 / / [id number] [employer] Implant Menicus Repair Fiberstitch Curved Ar-4570 - [id number] Implanted:Qty: 1 on 01/15/2022 by Antonio Suh IV, MD at [facility] Right: Knee [employer] 12/20/2025 AR-4570 / / [id number] [employer] Implant Menicus Repair Fiberstitch Curved Ar-4570 - [id number] Implanted:Qty: 1 on 01/15/2022 by Antonio Suh IV, MD at [facility] Right: Knee [employer] 01/20/2026 AR-4570 / / [id number] [employer] Screw Fastthread Biocomposite Interference 8mm X 20mm Ar-4020c-08 - [id number] Implanted:Qty: 1 on 01/15/2022 by Antonio Suh IV, MD at [facility] Right: Knee [employer] 09/19/2024 AR-4020C-08 / / [id number] [employer] Screw Fastthread Biocomposite Interference 10mm X 20mm Ar-4020c-10 - [id number] Implanted:Qty: 1 on 01/15/2022 by Antonio Suh IV, MD at [facility] Right: Knee [employer] 02/19/2025 AR-4020C-10 / / [id number] Procedures Procedure Name Priority Date/Time Associated Diagnosis Comments XR KNEE RIGHT 1 OR 2 VIEWS Schedule Routine, Read Routine (OP Routine) 05/10/2024 4:52 PM BATTERY STACKER Osteochondral defect of femoral condyle MRI KNEE RIGHT WO CONTRAST Schedule Routine, Read Routine (OP Routine) 03/01/2024 11:59 AM CDT Right knee pain, unspecified chronicity from Last 3 Months Results * XR Knee Right 1 or 2 Views (05/10/2024 4:52 PM BATTERY STACKER) Anatomical Region Laterality Modality Lower Extremities, Knee Right Computed Radiography 05/10/2024 4:56 PM BATTERY STACKER Impressions 05/10/2024 4:56 PM BATTERY STACKER Healing instrumented right high tibial osteotomy. Healing osteochondral allograft to the medial femoral condyle. Electronically signed by: Shane Sprague M.D. Narrative 05/10/2024 4:56 PM BATTERY STACKER EXAMINATION: XR KNEE RIGHT 1 OR 2 [...] condyle. Electronically signed by: Shane Sprague M.D. Mikey Hawkins MD IMG XR PROCEDURES Final Res ult * MRI Knee Right WO Contrast (03/01/2024 11:59 AM CDT) Anatomical Region Laterality Modality Lower Extremities Right Magnetic Reson ance Mikey Hawkins MD IMG MRI PROCEDURES Final Re sult from Last 3 Months Insurance [facility] Advance Directives For more information, please contact: [phone] * Full Code (Latest Code Status on File) Date Activated Date Inactivated Comments 09/16/2023 2:47 PM 09/16/2023 7:57 PM * Full Code Date Activated Date Inactivated Comments 07/09/2022 12:57 PM 07/09/2022 6:09 PM * Full Code Date Activated Date Inactivated Comments 01/15/2022 5:38 PM 01/15/2022 10:38 PM Care Teams Rn Transition Relationship Specialty Start Date End Date No, Physician PCP - General 12/21/21 Zach Reyez, PT Physical Therapist Physical Therapy 01/20/22 [place] [address] [place] [address] Physical Therapist Physical Therapy 01/30/22 Hussain Lopez, TRIPP Head Tennis Coach Physical Therapy 02/03/22
--- OUTSIDE RECORDS SUMMARY | 2024-05-22 05:23 | XMS_ITS | Encounter Summary ---
Author Organization [facility] Address [address] [place] [address] Phone Care Team Providers Care Sales Representative Printing Supplies Name Role Phone No, Physician Primary Care Provider [phone] Zach Reyez PT Unavailable Unavailable Teresa Leach PT Unavailable [phone] Hussain Lopez LABORATORY CHIEF Unavailable Unavailabl e Reason for Visit * Reason Comments Follow-up Encounter Details Date Type Department Care Team (Late st Contact Info) Description 03/01/2024 4:00 PM CDT Office Visit [facility] Orthopaedic Surgery [address] [place] [phone] [place] [address] [address] [place] [address] 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 (Primary Dx); Nontraumatic complete tear of rotator cuff, unspecified laterality Social History Tobacco Use Types Packs/Day Years [...] on file 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 ESTABLISHED PATIENT VISIT INTERIM HISTORY: He returns following his MRI that showed his osteochondral plug of the medial femoral condyle with no evidence of grossly stability. There was no evidence of recurrent injury to his ACL. His medial meniscus was stable compared to his prior examination. 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 He also complains of recurrent pain in the left shoulder. Has a history of a full-thickness tear of his rotator cuff. He did well for approximately 6 months. He has pain with overhead activities as well as any sleeps on the shoulder at night. He would like to consider a repeat subacromial injection has had excellent relief when he received 1 several months ago. PHYSICAL EXAMINATION: Right knee range motion is approximately 5-125 degrees of knee flexion. He has no tenderness over the medial femoral condyle to direct palpation. He has endpoint with anterior drawer and Ed testing. He has no tenderness over the HTO site Under sterile conditions the left shoulder was injected via this lateral approach with 1 cc of Depo-Medrol, 40 milligrams/cc, and 5 cc of 1% lidocaine. This is into the subacromial space. He tolerated the procedure well complication and was apprised of risks for flare reaction. REVIEW OF IMAGING: His MRI was reviewed and is consistent with the above findings. IMPRESSION: Full-thickness tear left supraspinatus Status post osteochondral implantation right medial femoral condyle with high tibial osteotomy TREATMENT PLAN: He is to continue to use his medial tube lancer brace as necessary for pain control. He can wean out of it as he improves. He can use meloxicam as necessary. He is to avoid high impact activities. We discussed the benefits of aqua therapy. He has returned to see me in the next 2 months for follow-up. He is comfortable with this plan. In terms of his shoulder, I recommended he resume his rotator cuffstrengthening exercises with the avoidance of overhead lifting as necessary. He is notify me for any increasing pain, loss of motion, or loss of strength. I was present for the critical portion of the history, physical examination, and participated in the radiographic review and medical decision making for this patient. I agree with the findings in [place] of the above residence/fellow dictating using [employer] Direct software. Professor of Orthopaedic Surgery Director, Sports Medicine Fellowship [facility] documented in this encounter Plan of Treatment Not on file documented as of this encounter Visit Diagnoses Diagnosis 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- Primary Nontraumatic complete tear of rotator cuff, unspecified laterality documented in this encounter Care Teams Sales Representative Printing Supplies Relationship Specialty Start Date End Date No, Physician PCP - General 12/21/21 Zach Reyez, PT Physical Therapist Physical Therapy 01/20/22 [place] [address] [place] [address] Physical Therapist Physical Therapy 01/30/22 Hussain Lopez PTA Jewel Bearing Grinder Physical Therapy 02/03/22 documented as of this encounter
--- OUTSIDE RECORDS SUMMARY | 2024-05-22 05:23 | XMS_ITS | Encounter Summary ---
Author Organization [facility] Address [address] [place] [address] Care Team Providers Care Coil Maker Name Role Phone No, Physician Primary Care Provider [phone] Zach Reyez PT Unavailable Unavailable Teresa Leach PT Unavailable [phone] Hussain Lopez VISUAL ARTS TEACHER Unavailable Unavailabl e Reason for Referral * Diagnostic Imaging (Routine) - Closed Specialty Diagnoses / Procedures Referred By Contac t Referred To Contact Diagnoses Osteochondral defect of femoral condyle Procedures XR Knee Right 1 [place] [address] [place] [address] Phone: tel: fax: [facility] [place] Referral ID Status Reason Start Date Expiration Date Visits Re quested Visits Authorized [id number] Closed 05/09/2024 06/08/2025 1 1 GER SITE Reason for Visit * Diagnostic Imaging (Routine) - Closed Specialty Diagnoses / Procedures Referred By Contac t Referred To Contact Diagnoses Osteochondral defect of femoral condyle Procedures XR Knee Right 1 [place] [address] [place] [address] Phone: tel: fax: [facility] Referral ID Status Reason Start Date Expiration Date Visits Re quested Visits Authorized [id number] Closed 05/09/2024 06/08/2025 1 1 Encounter Details Date Type Department Care Team (Latest Contact Info) Description 05/10/2024 4:30 PM MANAGER SITE - 05/10/2024 11:59 PM MANAGER SITE Hospital Encounter [facility] [address] [place] [address] Osteochondral defect of femoral condyle Discharge Disposition: Discharge to home or self care Social History Tobacco Use Types Packs/Day Years [...] on file Legal Sex Male 6:31 AM MANAGER SITE Gender Identity Not on file Sexual Orientation Not on file documented as of this encounter Medications at Time of Discharge aspirin 81 mg enteric coated tablet Take 1 tablet (81 mg total) by mouth daily 30 tablet 09/16/2023 09/15/2024 HYDROcodone-aceta minophen (NORCO) 5-325 mg per tabletIndications :Pain Take 1 tablet by mouth every 6 (six) hours as needed for pain 30 tablet 02/23/2024 ketorolac (TORADOL) 10 mg tablet Take 1 tablet (10 mg total) by mouth every 6 (six) hours as needed for pain 20 tablet 09/15/2023 meloxicam (MOBIC) 15 mg tablet TAKE 1 TABLET(15 MG) BY MOUTH DAILY 30 tablet 04/04/2024 oxyCODONE-acetami nophen (PERCOCET) 10-325 mg per tabletIndications :Pain Take 1 tablet by mouth every 4 (four) hours as needed for pain 30 tablet 09/15/2023 traMADoL (ULTRAM) 50 mg tablet Take 1 tablet (50 mg total) by mouth every 6 (six) hours 30 tablet 09/30/2023 documented as of this encounter Discharge Disposition Disposition Code Departure Means Destination Discharge to home or self care documented in this encounter Plan of Treatment Not on file documented as of this encounter Procedures Procedure Name Priority Date/Time Associated Diagnosis Comments XR KNEE RIGHT 1 OR 2 VIEWS Schedule Routine, Read Routine (OP Routine) 05/10/2024 4:52 PM MANAGER SITE Osteochondral defect of femoral condyle documented in this encounter Results * XR Knee Right 1 or 2 Views (05/10/2024 4:52 PM MANAGER SITE) Anatomical Region Laterality Modality Lower Extremities, Knee Right Computed Radiography 05/10/2024 4:56 PM MANAGER SITE Impressions 05/10/2024 4:56 PM MANAGER SITE Healing instrumented right high tibial osteotomy. Healing osteochondral allograft to the medial femoral condyle. Electronically signed by: Shane Sprague M.D. Narrative 05/10/2024 4:56 PM MANAGER SITE EXAMINATION: XR KNEE RIGHT 1 OR 2 [...] Visit Diagnoses Diagnosis Osteochondral defect of femoral condyle documented in this encounter Care Teams Coil Maker Relationship Specialty Start Date End Date No, Physician PCP - General 12/21/21 Zach Reyez, PT Physical Therapist Physical Therapy 01/20/22 [place] [address] [place] [address] Physical Therapist Physical Therapy 01/30/22 Hussain Lopez, TRIPP Sorter Lumber Straightener Physical Therapy 02/03/22 documented as of this encounter
--- OUTSIDE RECORDS SUMMARY | 2024-05-22 05:23 | XMS_ITS | Encounter Summary ---
Author Organization [facility] Healthcare Address [address] [place] [address] Care Team Providers Care Application Packaging Consultant Name Role Phone No, Physician Primary Care Provider [phone] Zach Reyez PT Unavailable Unavailable Teresa Leach PT Unavailable Hussain Lopez VITREO RETINAL SURGEON Unavailable Unavailabl e Encounter Details Date Type Department Care Team (Late st Contact Info) Description 04/01/2024 Plan of Care Documentation [facility] at [facility] [address] [facility] [address] [place], [place] [id number] Social History Tobacco Use Types Packs/Day Years [...] on file 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
--- OUTSIDE RECORDS SUMMARY | 2024-05-22 05:23 | XMS_ITS | Referral Summary ---
Author Organization [facility] Address [address] [place] [address] Care Team Providers Care Cma Name Role Phone No, Physician Primary Care Provider [phone] Zach Reyez PT Unavailable Unavailable Teresa Leach PT Unavailable [phone] Hussain Lopez CLERICAL ADMINISTRATIVE ASSISTANT Unavailable Unavailabl e Encounters Date Type Department Care Team Description 05/10/2024 4:30 PM BREAK OUT WORKER - 05/10/2024 11:59 PM BREAK OUT WORKER Hospital Encounter [facility] [address] [place] [address] [phone] Osteochondral defect of femoral condyle Discharge Disposition: Discharge to home or self care 05/10/2024 4:20 PM BREAK OUT WORKER Office Visit [facility] [address] [place] [address] [address] [place] [address] Mikey Hawkins MD Osteochondral defect of femoral condyle (Primary Dx); 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 04/01/2024 Plan of Care Documentation [facility] at [address] [place] [address] [phone] 03/30/2024 4:45 PM BREAK OUT WORKER Therapy [facility] at [address] [place] [address] [phone] Teresa Leach, PT Nontraumatic complete tear of rotator cuff, unspecified laterality (Primary Dx) 03/23/2024 Orders Only [facility] [address] [place] [address] [address] [place] [phone] Mikey Hawkins MD Nontraumatic complete tear of rotator cuff, unspecified laterality (Primary Dx) 03/16/2024 4:15 PM CDT Therapy [facility] at [address] [place] [phone] Teresa Leach, PT Osteochondral defect of femoral condyle (Primary Dx) 03/01/2024 Orders Only [facility] [address] [place] [phone] Mikey Hawkins MD Right knee pain, unspecified chronicity 03/01/2024 4:00 PM CDT Office Visit [facility] [address] [place] [address] [address] [place] [phone] Mikey Hawkins MD 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 (Primary Dx); Nontraumatic complete tear of rotator cuff, unspecified laterality 02/24/2024 11:30 AM CDT Therapy [facility] at [address] [address] Teresa Leach, PT Osteochondral defect of femoral condyle (Primary Dx) from Last 3 Months Allergies No known active allergies Medications ketorolac [...] (07/06/2022): Added automatically from request for surgery [id number] Effusion of right knee 02/25/2022 S/P ACL reconstruction 01/28/2022 S/P medial meniscus repair of right knee S/P lateral meniscus repair of left knee Complete tear of right ACL, subsequent encounter 01/01/2022 Overview (01/01/2022): Added automatically from request for surgery [id number] Complex tear of medial menis cus of right knee as current injury 01/01/2022 Overview (01/01/2022): Added automatically from request for surgery [id number] Elbow pain 05/05/2016 Arthralgia of shoulder 09/06/2013 Social History Tobacco Use Types Packs/Day Years [...] on file Legal Sex 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 Gender Identity Not on file Sexual Orientation Not on file Last Filed Vital Signs Vital Sign Reading [...] 03/01/2024 4:22 PM CDT Plan of Treatment Not on file Medical Devices Implanted Type Area Spot Welder Line Device Identifier Shelf Expiration Date Model / Serial / Lot Joint [employer] Allograft Aseptic Fresh Graft Bone Right Medial Femoral [id number] - [id number] Implanted:Qty: 1 on 09/16/2023 by Mikey Hawkins MD at [facility] Graft Right: Knee Joint [employer] 09/20/2023 [id number] / / [id number] [employer] 9mm Tibia Low Profile Plate Bone Titanium 6.5mm Cancellous 4.5mm [id number]-92.0 - [id number] Implanted:Qty: 1 on 09/16/2023 by Mikey Hawkins MD at [facility] Plate Right: Tibia [employer] [id number] 05/22/2028 AR-34488N-5 9.0 / / [id number] [employer] 4.5mm 40mm Tibia Cortical Screw Bone Titanium Opening Wedge Ar-64524-58 - [id number] Implanted:Qty: 1 on 09/16/2023 by Mikey Hawkins MD at [facility] [place] Screw Right: Tibia [employer] [id number] 09/20/2027 AR-56545-52 / / [id number] [employer] 4.5mm 38mm Tibia Cortical Screw Bone Titanium Opening Wedge Ar-43307-79 - [id number] Implanted:Qty: 1 on 09/16/2023 by Mikey Hawkins MD at [facility] Screw Right: Tibia [employer] [id number] 02/20/2028 AR-74633-99 / / [id number] [employer] 6.5mm 65mm Tibia Cancellous Screw Bone Titanium Opening Wedge Ar-68376-29 - [id number] Implanted:Qty: 1 on 09/16/2023 by Mikey Hawkins MD at [facility] Screw Right: Tibia [employer] [id number] 02/19/2027 AR-69382-46 / / [id number] [employer] 6.5mm 60mm Tibia Cancellous Screw Bone Titanium Opening Wedge Ar-84625-63 - [id number] Implanted:Qty: 1 on 09/16/2023 by Mikey Hawkins MD at [facility] Screw Right: Tibia [employer] [id number] 10/20/2026 AR-05676-23 / / [id number] [employer] Implant Menicus Repair Fiberstitch Curved Ar-4570 - [id number] Implanted:Qty: 1 on 01/15/2022 by Antonio Suh IV, MD at [facility] Right: Knee [employer] 12/20/2025 AR-4570 / / [id number] [employer] Implant Menicus Repair Fiberstitch Curved Ar-4570 - [id number] Implanted:Qty: 1 on 01/15/2022 by Antonio Suh IV, MD at [facility] Right: Knee [employer] 01/20/2026 AR-4570 / / [id number] [employer] Screw Fastthread Biocomposite Interference 8mm X 20mm Ar-4020c-08 - [id number] Implanted:Qty: 1 on 01/15/2022 by Antonio Suh IV, MD at [facility] Right: Knee [employer] 09/19/2024 AR-4020C-08 / / [id number] [employer] Screw Fastthread Biocomposite Interference 10mm X 20mm Ar-4020c-10 - [id number] Implanted:Qty: 1 on 01/15/2022 by Antonio Suh IV, MD at [facility] Right: Knee [employer] 02/19/2025 AR-4020C-10 / / [id number] Procedures Procedure Name Priority Date/Time Associated Diagnosis Comments XR KNEE RIGHT 1 OR 2 VIEWS Schedule Routine, Read Routine (OP Routine) 05/10/2024 4:52 PM BREAK OUT WORKER Osteochondral defect of femoral condyle MRI KNEE RIGHT WO CONTRAST Schedule Routine, Read Routine (OP Routine) 03/01/2024 11:59 AM CDT Right knee pain, unspecified chronicity from Last 3 Months Results * XR Knee Right 1 or 2 Views (05/10/2024 4:52 PM BREAK OUT WORKER) Anatomical Region Laterality Modality Lower Extremities, Knee Right Computed Radiography 05/10/2024 4:56 PM BREAK OUT WORKER Impressions 05/10/2024 4:56 PM BREAK OUT WORKER Healing instrumented right high tibial osteotomy. Healing osteochondral allograft to the medial femoral condyle. Electronically signed by: Shane Sprague M.D. Narrative 05/10/2024 4:56 PM BREAK OUT WORKER EXAMINATION: XR KNEE RIGHT 1 OR 2 [...] Re sult from Last 3 Months Insurance [facility] Member Subscriber Plan / Payer (Ef fective 2016-Present) Name:Zayda Torres Relation to Subscriber:Self Name:Zayda Torres Payer ID:[id number] (NAIC) Type:[facility] [employer] Address: [address] Advance Directives For more information, please contact: [phone] * Full Code (Latest Code Status on File) Date Activated Date Inactivated Comments 09/16/2023 2:47 PM 09/16/2023 7:57 PM * Full Code Date Activated Date Inactivated Comments 07/09/2022 12:57 PM 07/09/2022 6:09 PM * Full Code Date Activated Date Inactivated Comments 01/15/2022 5:38 PM 01/15/2022 10:38 PM Care Teams Cma Relationship Specialty Start Date End Date No, Physician PCP - General 12/21/21 Zach Reyez, PT Physical Therapist Physical Therapy 01/20/22 [place] [address] [place] [address] Physical Therapist Physical Therapy 01/30/22 Hussain Lopez, TRIPP Section Gang Worker Physical Therapy 02/03/22
--- OUTSIDE RECORDS SUMMARY | 2024-05-22 05:24 | XMS_ITS | Encounter Summary ---
Author Organization [facility] Healthcare Address [address] [place] [address] Care Team Providers Care Tool Worker Name Role Phone No, Physician Primary Care Provider [phone] Zach Reyez PT Unavailable Unavailable Teresa Leach PT Unavailable [phone] Hussain Lopez MEDICAL AUDITOR Unavailable Unavailabl e Reason for Visit * Reason Comments PT Treatment * Consultation (Routine) - Authorized Specialty Diagnoses / Procedures Referred By Contac t Referred To Contact Physical Therapy Diagnoses Osteochondral [place] [address] [place] [address] Phone: tel: fax: [facility] at [facility] [id number] [place] [address] [address] [place] [address] Phone: tel: fax: Referral ID Status Reason Start Date Expiration Date Visits Requested Visits Authorized [id number] Authorized Specialty Services Required 09/15/2023 10/14/2024 24 Encounter Details Date Type Department Care Team (Late st Contact Info) Description 12/14/2023 5:[address] 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 / male Referring Practitioner: Mikey Hawkins MD MD Follow-Up: 09/26/23 Diagnosis(es): 1. Osteochondral defect of femoral condyle Date of Onset: 09/16/2023 Visit #: 15 Progress Report Due: Visit #20 Date: 12/14/2023 Start Time: 5:30 pm End Time: 6:15 pm Start Pain: 1-2/10 End Pain: 1-2/10 SUBJECTIVE: Pt reports pain and swelling continue with increased activity level, being on feet too long. He sawDr Shruthi who offered him an injection but declined and today plans on reaching out to him for a injection due to continued swelling and medial knee pain and is to start back to work tomorrow. OBJECTIVE: Gait: Pt amb with or without one crutch with antalgic gait in R stance phase Effusion: Mild to Moderate R knee today,decreased from last visit Knee ROM: (12/02/23) (ROM decreased due to increased swelling) Left: Right: - Extension 0?? (-1)?? Prior to and 0 to +1degrees after stretching/ex - supine/seated Flexion 140?? 130?? Prone knee flexion with strap:(L knee 130 degrees) Muscle Length: Tight hamstring, gastroc and quad mm Lower Extremity Strength: Manual Muscle Test (MMT) Left: Right: - Knee extension 5/5 5/5 - Knee flexion 5/5 5/5 - Hip flexors 5/5 5/5 - Hip abduction 5/5 5/5 - Hip adduction 5/5 5/5 - Hip extension 5/5 5/5 Palpation: Quad contraction: good (+) with decreased VMO contraction TREATMENT: TREATMENT 1) reviewed HEP per flow sheet with verbal and manual cues. Pt wants to hold on all exercises todayexcept ROM to prevent increased swelling since he is back to work tomorrow 2) performed manual rx manual knee ext mobs, knee ext with passive gastroc stretch, and patellar mobs, scar massage 3) measured knee ext ROM: see above 4) pt required no cues with proper gait 5) applied vasopneumatic with ice for 15 min at high pressure and 34 degrees Exercise/ Activity 10/30 11/08 11/17 11/27 12/01 12/13 Bike 10 min 5 min 5 min 5 min 5 min X 5 min E stim Long sitting gastroc stretch xX Long sitting quad contraction X Long sitting VMO bj/quad contraction 10 reps, 10 sec holds Long sitting hip adductor stretch Supine knee flexion X with strap X X Supine SLR X 2# x10 1#-2# x10 SLR all planes X 2# Prone knee flexion with strap X with strap X and added opp LE on floor X X Prone AROM knee flexion Standing leg curl Standing leg curl Prone hip ext with knee flexed Prone over counter hip ext Seated knee ext X 2# x15 3# x15 5# x20 5# x20 5# x20 with VMO bj/ball squeeze Supine SAQ 2# x15 3# x20 5# x20 Standing leg curl 0# x15 Standing heel raises partial weight bearing Init x10 X Standing TKE with band Init with blue band Long sitting ankle PF with band LAQ (assisted) (PROM) X Seated hip flexion Prone hangs X home 2# x 5 min Verbally reviewed X Heel props Verbally reviewed Patellar mobs and MFR to quad/adductors and knee ext mobs X X X Effleurage Flowsheet [place]: X = performed, x = times/multiply, s = seconds, ea = each, st = stretch SL= side lying, SLS= single leg stance Timed Treatment: Thera ex for 15 minutes: see above Manual rx for 15 min: see above Un-timed Treatment: ice Total of Timed Treatment Codes: 30 minutes Total Treatment Time: 45 minutes ASSESSMENT: Patient 's ROM and swelling improved today. Goals: Short Term Goals: 2 weeks Pt to be indep with HEP to be able to: improve bed mobility and transfers, achieved Decrease gait deviations, progressing weight bearing status per MD's orders, progressing Pt to be able to transfer in an and out of bed, get dressed and shower with normal pain free mobility, achieved Oil Dipper Goals: 12 weeks Pt to continue to be indep with HEP to be able to: return to an exercise program with normal pain free mobility, progressing, Normalize gait to be able to walk 1-2 hours with normal pain free mobility, progressing Pt to have WNL R knee ROM to be able to work a full work week on his feet with normal pain free mobility, progressing Pt to have 5/5 strength throughout LE mm to be 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 AT [address] [address] Dept: [phone] Dept documented in this encounter Plan of Treatment Not on file documented as of this encounter Visit Diagnoses Diagnosis Osteochondral defect of femoral condyle- Primary documented in this encounter Care Teams Tool Worker Relationship Specialty Start Date End Date No, Physician PCP - General 12/21/21 Zach Reyez, PT Physical Therapist Physical Therapy 01/20/22 [place] [address] [place] [address] Physical Therapist Physical Therapy 01/30/22 Hussain Lopez, MEDICAL AUDITOR Striker Off Physical Therapy 02/03/22 documented as of this encounter
--- OUTSIDE RECORDS SUMMARY | 2024-05-22 05:24 | XMS_ITS | Encounter Summary ---
Author Organization [facility] Healthcare Address [address] [place] [address] Care Team Providers Care Creative Services Designer Name Role Phone No, Physician Primary Care Provider [phone] Zach Reyez PT Unavailable Unavailable Teresa Leach PT Unavailable [phone] Hussain Lopez ROCK SPLITTER Unavailable Unavailabl e Reason for Visit * Reason Comments PT Initial Eval * Consultation (Routine) - Authorized Specialty Diagnoses / Procedures Referred By Contac t Referred To Contact Physical Therapy Diagnoses Osteochondral [place] [address] [place] [address] Phone: tel: fax: [facility] at [facility] [id number] [place] [address] [address] [place] [address] Phone: tel: fax: Referral ID Status Reason Start Date Expiration Date Visits Requested Visits Authorized [id number] Authorized Specialty Services Required 09/15/2023 10/14/2024 24 24 Encounter Details Date Type Department Care Team (Late st Contact Info) Description 09/21/2023 5:00 PM CDT Therapy [facility] at [address] [address] [place] [address] [place] [address] Osteochondral defect of femoral condyle (Primary Dx) [...] on file 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 / male Referring Practitioner: Mikey Hawkins MD MD Follow-Up: 09/26/23 Referring Diagnosis: 1. Osteochondral defect of femoral condyle Date of Onset: No date available Date: 09/21/2023 Start Time: 5:00 pm End Time: 5:45 pm Start Pain:6/10 End Pain: 6/10 Medical screening was completed and the patient is appropriate for physical therapy. SUBJECTIVE: History: Onset/Injury: 09/16/23 R knee surgery for HIGH TIBIAL OSTEOTOMY/OSTEOCHONDRAL ALLOGRAFT Chief Complaint: pt taking percacet and toradol Previous therapy for this condition? Yes What were the dates of the prior therapy? 01/22/2022-11/10/22 What was the outcome of the prior therapy? Pain continued. Pt had an osteochondral defect Pain Description: Location: medial and lateral knee pain Quality: Aching and Dull Current Intensity: 3/10 Minimal Intensity: 3/10 Maximal Intensity: 5/10 (using 0-10 numerical scale) Aggravating factors: weight bearing, and general mobility of R leg Function: Prior Level of Function: independent with ADLs (household/community activities, driving, and all work-related responsibilities). 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 Patient Reported Outcome Measure: Knee Injury and Osteoarthritis Outcome Score: 8.9% OBJECTIVE: Outpatient Transfer Needs Assessment: Patient is [...] Is this patient a fall risk?: No. Posture/Alignment: Pt stands with crutches and long leg brace R LE NWB Gait: Pt amb with crutches and long leg brace NWB R LE Effusion: moderate Knee ROM: * = increase in symptoms, NT=not tested Left: Right: - Extension 0?? (-)2?? - supine Flexion 140?? 57?? Muscle Length: Tight hamstring, gastroc and quad mm Lower Extremity Strength: * = increase in symptoms, NT = not tested Manual Muscle Test (MMT) Left: Right: - Knee extension 5/5 3-/5 - Knee flexion 5/5 3-/5 - Hip flexors 5/5 5/5 - Hip abduction 5/5 3-/5 - Hip adduction 5/5 3-/5 - Hip extension 5/5 3-/5 Palpation: Incision is not visible but there is no active drainage TREATMENT: TREATMENT 1) instructed in HEP per flow sheet to address above problems. 2) removed acr wrap and replaces with compressogrip size F for calf and size G for knee/thigh 3) encouraged pt to continue use of ice at home Exercise/ Activity Date: 09/20 Date: Date: Date: Date: Date: Long sitting gastroc stretch X Long sitting quad contraction X Long sitting hip adductor stretch X Supine knee flexion X Supine SLR X Seated knee ext X Long sitting ankle PF with band X LAQ X Patellar mobs and MFR to quad/adductors X Flowsheet [place]: X = performed, x = times/multiply, s = seconds, ea = each, st = stretch SL= side lying, SLS= single leg stance Timed Treatment: Therapeutic Exercise for 30 minutes Un-Timed Treatment: Initial Evaluation-Low Complexity None performed this date Total of Timed Treatment Codes: 30 minutes Total Treatment Time: 45 minutes ASSESSMENT: Impression: Patient is a 48 y.o. male referred by Mikey Hawkins MD to physical therapy for the followin. Osteochondral defect of femoral condyle Physical Impairments: decreased knee ROM, decreased strength, impaired motor control, decreased flexibility, swelling, and non weight bearing gait R LE with crutches Functional Limitations: sitting, standing, walking, stairs, kneeling, squatting, bending, lifting, twisting, transfers, sleeping, nut threader, self-care ADLs, dressing, bathing, recreational activity, and jumping Patient will benefit from skilled PT to address the above physical impairments and functional limitations. Factors Impacting Physical Therapy: Comorbidities impacting physical therapy treatment: none Personal factors: None. Patient alert and oriented x4. No living environment considerations affecting plan of care. No support system considerations affecting plan of care. Barriers & Interventions: None - No Interventions Required. Persons Involved:Patient Patient/Patient Family Understands and Agrees: Yes Prognosis: good Goals: Short Term Goals: 2 weeks Pt to be indep with HEP to be able to: Decrease gait deviations, progressing weight bearing status per MD's orders Pt to be able to transfer in an and out of bed, get dressed and shower with normal pain free mobility Lmsw Goals: 12 weeks Pt to continue to be indep with HEP to be able to: return to an exercise program with normal pain free mobility Normalize gait to be able to walk 1-2 hours with normal pain free mobiliy Pt to have WNL R knee ROM to be able to work a full work week on his feet with normal pain free mobiliy Pt to have 5/5 strength throughout LE mm to be able to amb stairs and pick out hand 30# with normal pain free mobility PLAN: Frequency/Duration: 1-2 times per week for 8-12 weeks. Patient will receive the following treatments: [x] Home Exercise Program [x] Therapeutic Exercise [x] Therapeutic Activity [x] Manual Therapy PRN [x] Gait Training PRN [x] Neuromuscular Re-Education PRN [x] Modalities PRN Thank you for this referral. Teresa Leach, PT [facility] AT [place] [id number] [facility] [address] [facility] [address] Dept: [phone] Dept documented in this encounter Plan of Treatment Not on file documented as of this encounter Visit Diagnoses Diagnosis Osteochondral defect of femoral condyle- Primary documented in this encounter Orders Outpatient Referral Count Last Ordered Date Fir st Ordered Date AMB REFERRAL ORDER TO PHYSICAL THERAPY 1 documented in this encounter Care Teams Creative Services Designer Relationship Specialty Start Date End Date No, Physician PCP - General 12/21/21 Zach Reyez, PT Physical Therapist Physical Therapy 01/20/22 [place] [address] [place] [address] Physical Therapist Physical Therapy 01/30/22 Hussain Lopez, ROCK SPLITTER Balance Engineer Physical Therapy 02/03/22 documented as of this encounter
--- OUTSIDE RECORDS SUMMARY | 2024-05-22 05:24 | XMS_ITS | Encounter Summary ---
Author Organization [facility] Healthcare Address [address] [place] [address] Care Team Providers Care Channel Cementer Insole Machine Name Role Phone No, Physician Primary Care Provider [phone] Zach Reyez PT Unavailable Unavailable Teresa Leach PT Unavailable [phone] Hussain Lopez SLACK LINE YARDER Unavailable Unavailabl e Reason for Visit * Auth/Cert (Routine) Specialty Diagnoses / Procedures Referred By Danny t Referred To Contact Diagnoses Osteochondral lesion Osteochondral lesion [M89.9, M94.9] Procedures AZ ARTHROSCOPY KNEE OSTEOCHONDRAL ALLOGRAFT AZ OSTEOTOMY TIBIA RIGHT ARTHROTOMY KNEE OSTEOCHONDRAL ALLOGRAFT MEDIAL FEMORAL CONDYLE, OPEN HIGH TIBIAL OSTEOTOMY- OPENING WEDGE RIGHT Referral ID Status Reason Start Date Expiration Date Visits Re quested Visits Authorized [id number] 1 1 Encounter Details Date Type Department Care Team (Latest Contact Info) Description 09/16/2023 9:52 AM CDT - 09/16/2023 3:56 PM CDT Hospital Encounter [facility] [address] [place] [address] Mikey Hawkins MD [address] [place] [id number] Pain (Primary Dx) Discharge Disposition: Discharge to home or self [...] on file 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 Gender Identity Not on file Sexual [...] CDT Inhaled Oxygen Concentration - - Weight 89.6 kg (197 lb 8 oz) 09/16/2023 10:18 AM CDT Height 175.3 cm (5' 9 ) 09/16/2023 10:18 AM CDT Body Mass Index 29.17 09/16/2023 10:18 AM CDT documented in this encounter Discharge Instructions * Discharge Instructions* Mikey Tong MD - 09/16/2023 2:39 PM CDT Diagnosis: Right Medial femoral OCD Procedure: Right Medial femoral condyle OATs and Right proximal tibia valgus producing osteotomy Significant Findings: R femoral condyle OCD Condition on Discharge: Stable Discharge: Home Activity: Keep right lower extremity elevated for 3 days Rest today, increase activity tomorrow as tolerated Non Weight bearing Right lower extremity In HKB at all time unlocked to 0-40 degress of flexion Use the following Assistive Devices: Keep right lower elevated as much as possible over the next two weeks Diet: Light diet, advance to regular as tolerated In case of nausea or vomiting, reduce diet to clear liquids. As you are able to tolerated fluids, gradually increase your diet to solid foods. If nausea and/or vomiting continue, call your doctor. Do not drink alcoholic beverages for 24 hours. Medications: Medications have been prescribed because of today???s procedures. Continue Home Medications as you were taking them. Wound Care: Keep dressing dry. Contact your doctor if the dressing becomes wet or soiled. You may remove the dressing in 3 days. Do not remove steri strips, let them fall off on their own. You may shower after the dressing is removed, but do not rub or scrub over the wound. Do not soak in a tub. Apply ice to operative site for the next 6 weeks. Please follow Pre-printed instructions for: Dr. Hawkins Make an appointment to see: Dr. Hawkins as scheduled. Notify your doctor for excessive bleeding from the wound, constant or increasing pain, fever over 100 degrees, numbness, tingling or changes in the color of the extremity, difficulty breathing, difficulty urinating or any concerns. If you are unable to reach your doctor please call the [facility] [phone]. Your physician or designated telephone service representative will contact you. documented in this encounter Medications at Time of Discharge aspirin 81 mg enteric coated tablet Take 1 tablet (81 mg total) by mouth daily 30 tablet 09/16/2023 5 ketorolac (TORADOL) 10 mg tablet Take 1 tablet (10 mg total) by mouth every 6 (six) hours as needed for pain 20 tablet 09/15/2023 oxyCODONE-acetaminop hen (PERCOCET) 10-325 mg per tabletIndications:Pa in Take 1 tablet by mouth every 4 (four) hours as needed for pain 30 tablet 09/15/2023 HYDROcodone-acetamin ophen (NORCO) 5-325 mg per tabletIndications:Pa in Take 1 tablet by mouth every 6 (six) hours as needed for pain 30 tablet 05/05/2023 4 meloxicam (MOBIC) 15 mg tablet Take 1 tablet (15 mg total) by mouth daily 30 tablet 09/06/2023 4 ondansetron ODT (ZOFRAN-ODT) 4 mg disintegrating tablet Take 1 tablet (4 mg total) by mouth every 8 (eight) hours as needed for nausea or vomiting 12 tablet 09/15/2023 documented as of this encounter Ordered Prescriptions Prescription Sig Dispense Quantity Refills Last Filled Start Date End Date aspirin 81 mg enteric coated tablet Take 1 tablet (81 mg total) by mouth daily 30 tablet 09/16/2023 09/15/2024 documented in this encounter Discharge Disposition Disposition Code Departure Means Destination Comment s Discharge to home or self care documented in this encounter Progress Notes * Allie Harris NP - 09/16/2023 10:46 AM CDT Zayda Torres [phone] 09/16/2023 Surgeons and Role: * Mikey Hawkins MD - Primary Block Type: Femoral/IPACK Procedure: RIGHT ARTHROTOMY KNEE OSTEOCHONDRAL ALLOGRAFT MEDIAL FEMORAL CONDYLE, OPEN HIGH TIBIAL OSTEOTOMY- OPENING WEDGE (R), RIGHT (R) Anesthesiologist: Jono Catheter and pump education completed with patient and family member present. Written instructions provided. POD #1 Date: 09/17/23 1515 Basal Rate: 6 Bolus Frequency: q 2 hrs Pain Scale: 3 Frequency of PO pills: alternating between NSAID and Narcotic Catheter site free from erythema, drainage, not dislodged, not leaking. Comments: Reviewed use of pain pump and narcotics. POD #2 Date: 09/18/23 1800 Basal Rate: 6 Bolus Frequency: q hr Pain Scale: 3 Frequency of PO pills: 1 tab every 6 hrs Catheter site free from erythema, drainage, not dislodged, not leaking. POD #3 Date: 09/19/23 Catheter removed without difficulty at home. Site free from erythema or edema per pt. Allie Harris NP documented in this encounter H&P Notes * Mikey Hawkins MD - 09/16/2023 9:02 AM CDT Outpatient Pre-Procedure History and Physical Subjective Patient is a 48 y.o. male with chief complaint of right knee pain. Indication For Procedure: right knee osteochondral defect Pre-op Diagnosis * Osteochondral lesion [M89.9, M94.9] Planned Procedure RIGHT ARTHROTOMY KNEE OSTEOCHONDRAL ALLOGRAFT MEDIAL FEMORAL CONDYLE, OPEN HIGH TIBIAL OSTEOTOMY- OPENING WEDGE (R), RIGHT (R) HPI: History reviewed. No pertinent past medical history. Past Surgical History: Procedure Laterality Date ANTERIOR CRUCIATE LIGAMENT REPAIR Right 01/15/2022 reconstruction KNEE ARTHROSCOPY W/ DEBRIDEMENT Right 07/09/2022 KNEE SURGERY Right 02/11/2023 Chondroplasty ROTATOR CUFF REPAIR Right 2013 No medications prior to admission. No Known Allergies Social History Tobacco Use Smoking status: Never Passive exposure: Never Smokeless tobacco: Never Substance and Sexual Activity Drug use: Not Currently Sexual activity: Yes Partners: Female Alcohol Use: Alcohol Misuse (09/13/2023) AUDIT-C Frequency of Alcohol Consumption: 2-3 times a week Average Number of Drinks: 3 or 4 Frequency of Binge Drinking: Monthly Social History Substance and Sexual Activity Drug Use Not Currently Vitals: 09/13/23 0845 Weight: 88.5 kg (195 lb) Height: 175.3 cm (5' 9 ) Review of Systems: Review of systems per HPI and otherwise all other systems are negative Physical exam: Lungs: clear to auscultation bilaterally Heart: regular rate and rhythm, S1, S2 normal, no murmur, click, rub or gallop Neurologic: Alert and oriented x4, grossly intact Mikey Hawkins MD documented in this encounter Miscellaneous Notes * Brief Op Note - Mikey Hawkins MD - 09/16/2023 12:06 PM CDT Operative Progress Note Surgical Team: Surgeons and Role: * Mikey Hawkins MD - Primary * Mikey Tong MD - Resident - Assisting * Segun Olvera DO - Fellow Anesthesiologist: Flakito De La Cruz MD THREAD WINDER AUTOMATIC: Yanira Tejeda CRNA Glove Operator: Sandra Nichols RN Scrub: Marnie Salcido RN DATE OF SURGERY : 09/16/2023 Preoperative Diagnosis: Pre-op Diagnosis * Osteochondral lesion [M89.9, M94.9] Postoperative Diagnosis: Post-op Diagnosis * Osteochondral lesion [M89.9, M94.9] Procedure(s): Procedure(s) (LRB): RIGHT ARTHROTOMY KNEE OSTEOCHONDRAL ALLOGRAFT MEDIAL FEMORAL CONDYLE, OPEN HIGH TIBIAL OSTEOTOMY- OPENING WEDGE (Right) Operative Findings: Chondral defect medial femoral condyle Estimated Blood Loss: 25 mL Intraoperative Fluids: 1600 mls Specimens: No specimen collected in procedure Implants: Implant Name Type Inv. Item Serial No. Central Sterile Technician Lot No. [id number] No. Used Action [employer] Allograft Aseptic Fresh Graft Bone Right Medial Femoral [id number] - [id number] [employer] Allograft Aseptic Fresh Graft Bone Right Medial Femoral [id number] [employer] [id number] Right 1 Implanted [employer] 9mm Tibia Low Profile Plate Bone Titanium 6.5mm Cancellous 4.5mm [id number] - [id number] [employer] 9mm Tibia Low Profile Plate Bone Titanium 6.5mm Cancellous 4.5mm [id number] [employer] [id number] Right 1 Implanted [employer] 4.5mm 38mm Tibia Cortical Screw Bone Titanium Opening Wedge [id number] - [id number] [employer] 4.5mm 38mm Tibia Cortical Screw Bone Titanium Opening Wedge [id number] [employer] Right1 Implanted [employer] 6.5mm 65mm Tibia Cancellous Screw Bone Titanium Opening Wedge [id number] - [id number] 6.5mm 65mm Tibia Cancellous Screw Bone Titanium Opening Wedge [id number] [employer] [id number] Right 1 Implanted [employer] 6.5mm 60mm Tibia Cancellous Screw Bone Titanium Opening Wedge [id number] - [id number] 6.5mm 60mm Tibia Cancellous Screw Bone Titanium Opening Wedge [id number] [employer] Inc [id number] Right 1 Implanted [employer] 4.5mm 40mm Tibia Cortical Screw Bone Titanium Opening Wedge [id number] - [id number] [employer] 4.5mm 40mm Tibia Cortical Screw Bone Titanium Opening Wedge [id number] [employer] Inc [id number] Right 1 Implanted Blood/Blood Products Transfused: 0 mls Complications: None Condition on Discharge from the operating room was stable Mikey Hawkins MD Date: 09/16/2023 Time: 2:05 PM TEACHING ATTESTATION : I was present and directly participated in the entire procedure (including opening and closing). * Perioperative Nursing Note - Yvette Sharpe RN - 09/16/2023 10:20 AM CDT Pt's will pick pt up and care for pt for 24 hours post surgery. Crutches given, sized and pt. used them in pre-op. Verbalized feeling safe on them. * Op Note - Mikey Hawkins MD - 09/16/2023 12:00 AM CDT PREOP DIAGNOSES 1. Chondral defect, right medial femoral condyle. 2. Varus alignment, right knee. PROCEDURES DONE 1. Open osteochondral allograft implantation right medial femoral condyle with 18 mm osteochondral allograft plug. 2. Medial opening wedge high tibial osteotomy. POSTOP DIAGNOSES 1. Chondral defect, right medial femoral condyle. 2. Varus alignment, right knee. SURGEON Mikey Hawkins MD. TRUCK SALES MANAGER Segun Olvera D.O. SECOND QUILL FIXER Mikey Tong MD. ANESTHESIA General endotracheal. FLUIDS 1600 mL crystalloid. ESTIMATED BLOOD LOSS Minimal. SPECIMENS None. COMPLICATIONS None apparent. INDICATION The patient is a 48-year-old male with a history of pain along the medial aspect of the right knee.Previous MRI and arthroscopic examination was consistent with an osteochondral defect of the right medial femoral condyle. He presents at this time for an osteochondral allograft implant with openingwedge high tibial osteotomy because of the varus alignment he exhibited on long cassette radiographs. He was apprised of the nature of the operation as well as the risks associated with the procedureincluding bleeding, infection, anesthesia complications, neurovascular injury, motion loss, and persistent pain, delayed union, malunion and nonunion. Informed consent was obtained. PROCEDURE After adequate anesthesia was obtained, a timeout was performed confirming that the right lower extremity was correct operative side. The limb was prepped with DuraPrep and draped in a sterile fashion. A midline longitudinal incision was made followed by a medial parapatellar arthrotomy using a midvastus split. The patella was everted. The articular cartilage was pristine with the exception of the defect in the mid medial femoral condyle. This measured 18 mm in diameter using the Ar[employer] sizing dowels. A guidepin was drilled through the center of the 18 mm dowel and the defect was scored. This was then reamed to a depth of 9- 10 mm using the Arthrex reamer over the guidewire. The base of the defect was drilled with a 2 mm drill. There was a abundant bleeding evident with no obvious cyst formation. The previously sized osteochondral jean-claude condyle sized to the patient was then placed in the Ar[employer] cutting jig and an 18 mm cylindrical dowel was harvested using the coring reamer. It was cut to a depth of between 9 and 11 mm based on the depths of the defect. The defect was then dilated 1 mm and the graft was thoroughly irrigated with pulsatile lavage and then manually manipulated in place and then packed into position using the impaction tamps until the plug was flush with the surrounding articular cartilage. The knee was cycled from 0-90 degrees of flexion. There was no mechanical impingement or displacement of the graft. The wound was copiously irrigated with pulsatile lavage.The arthrotomy was closed with azprga-rl-fyvnb suture of #1 Vicryl. The skin incision was extended distally. The pes anserine and MCL were then sharply reflected off the medial proximal tibia using aneedle-tipped Bovie and a Stockton elevator. Two guide pins were then drilled in oblique angle just proximal to the insertion of the patellar tendon and the tibial tubercle aiming to the tip of the fibulaas confirmed with both AP and lateral fluoroscopic images. The Ar[employer]rex cutting guide was placed on these pins that were then cut short. An oscillating saw was then used to perform an osteotomy of theproximal tibia above the insertion of the patellar tendon across approximately 95% of the proximal tibia leaving the lateral cortical hinge intact. The osteotomy was noted to be somewhat springy whenthe osteotome was used to open it. The wedge osteotome was then gently impacted into the osteotomy until the opening wedge was to 9 mm based on preoperative calculations to place his mechanical axis at the 50th percentile of the articular surface of the proximal tibia. A 9 mm Arthrex Puddu titaniumplate was then placed into the osteotomy as far posterior as possible. It was held in place with two 6.5 mm unicortical cancellous screws proximally and two 4.5 mm bicortical screws distally. Excellent fixation was achieved. AP and lateral fluoroscopic images were obtained to confirm adequate placement of the plate. There was no obvious disruption of the lateral tibial cortical hinge. The wound was copiously irrigated with pulsatile lavage. The cancellous bone taken from the jean-claude condyle used previously was then morcellized and packed into the osteotomy. The pes anserine and MCL were then reapproximated to the proximal tibia using dqybog-id-gqsdz suture of #1 Vicryl. The subcutaneous layer was closed with a combination of both 2-0 and 3-0 Monocryl, and the skin was closed with a running subcuticular suture of 4-0 Monocryl. A Prineo dressing with Dermabond was then applied to the wounds and a sterile compressive dressing was used over the wound as well. The limb was then wrapped with combination of Webril and an Lizandro wrap. The knee was placed in a hinged knee brace open from 0- 40 degrees of flexion. The patient was awakened, extubated, and transferred to the recovery room in stable condition. There were no complications evident. I was present during the operation from the induction of anesthesia through final dressing placement. Job ID/Internal Job ID: [id number] * Perioperative Nursing Note - Almaz Simon RN - 09/15/2023 11:39 AM CDT We are pleased that you and your doctor have chosen [facility] for your surgery. We hope the following information will help make your visit a pleasant one. The name of the building is [facility] in [place]. Directions to facility (address is [address] [place] [address] [address] [facility] exit. Zip [address] When you enter the building, look directly to your left, you will see 2 glass double doors. These double doors say [address]. Go through those double doors and check in with the call center receptionist. Pt. Needs crutches and needs to learn how to use them. Bring pillows, leave in car. Patient has ice/gel packs for home. Shower the night before and morning of surgery with anti-bacterial soap such as Dial or Phisohex/ Hibiclens. Any soap that says Anti-bacterial. Change linens and pillow cases on bed. Wear clean pajamas to bed. This is for infection prevention. All jewelry and piercings MUST be removed prior to arrival for surgery. Leave jewelry and valuables at home EXCEPT Strategic Marketing Specialist's license and Insurance card. You may bring your cell phone, family will hold onto it while you have your procedure. Wear loose-fitting clothes. Something with an elastic waist on the bottom, such as gym shorts or sweat pants depending on the weather. T-shirt on top or a shirt with a loose sleeve unless you are having shoulder surgery then wear a loose fitting button down shirt or a shirt that zips up the front. You may have clear liquids on the day of surgery until two hours before your arrival to the Orthopedic center-[id number]. Acceptable clear liquids include water, clear sports drinks, unsweetened tea, blackcoffee or clear soda. Do Not drink Milk, creamer or Alcohol. You MUST STOP drinking two hours before you arrive to the Orthopedic center. No gums, mints, candy, cough drops, CBD oil, marijuana or chewing tobacco. No ice or water. You may brush your teeth, just make sure you spit it all out. For medications that the Nurse Practitioner instructed you to take on the morning of surgery, take the medications with a few sips of water. Hold Ibuprofen, Aleve, Advil, Motrin, Naproxen and any aspirin containing products until after surgery. If you need something for pain you may take Tylenol. Pt's. spouse will be with patient and care for patient for the first 24 hours post-op. Pt. Instructed to arrive at 0945 for 1145 procedure. Procedure is scheduled for 3 hour(s). Explained to patient, if you develop any symptoms of fever, chills, headache, cough, sore throat, body aches or is exposed to anyone that has been diagnosed, tested or quarantined for the COVID-19 you will not be allowed to enter the building or to have your surgery per anesthesia's guidelines. Explained to patient to please call the morning of surgery, any time after 5:30 a.m. if you or your caregiver develops any of these symptoms or is exposed to anyone that has been diagnosed, tested or quarantined for COVID-19. Pt. Reports understanding. Once your physician has completed your surgery, he will call your caregiver to notify them your surgery is complete, and you are heading to the Recovery room. Your caregiver will not be called back to be with you until you are awake and ready for discharge. The nurse who is caring for you will callyour caregiver to come back to be with you for discharge instructions. Explained to patient that the self-serve cafe is across the [place] from the surgery center. Explainedto patient if their caregiver would like anything to eat or drink, they may bring their own or purchase it from the refreshment area. * Pre-Procedure Instructions - Radha Juarez NP - 09/13/2023 1:26 PM CDT Center for Preoperative Assessment and Planning CPAP Clinic Location: [facility] The night before your surgery: * Do not eat anything after midnight the night before your procedure. The morning of your surgery: * You may have clear liquids on your surgery day. You must stop drinking two hours before you arrive to the surgery facility. Acceptable clear liquids include water, clear sports drinks, black coffee, tea, or clear soda. DO NOT drink any milk, creamer, or alcohol. * Your surgeon's office may have provided additional instructions or restrictions. Please follow those instructions. * You may brush your teeth and rinse your mouth out. * Do not glue your dentures. * Do not wear jewelry, body piercings, makeup, hairpins, false eyelashes or contact lenses to the hospital. * Leave any valuables at home or with your family. * If you have an implantable device with a remote, bring the remote with you on the day of surgery. * If you use home oxygen, bring your portable oxygen tank with you on the day of surgery Outpatient Surgery: * You must have a responsible adult drive you home and stay with you for 24 hours after your surgery * You cannot be alone at home or in a hotel * Please call your surgeon's office if you do not have someone to drive you home and/or stay with you after surgery Instructions For Your Medications: Pre-Surgery Instructions: Medication Instructions HYDROcodone-acetaminophen (NORCO) 5-325 mg per tablet Take on day of surgery if needed meloxicam (MOBIC) 15 mg tablet Take morning of surgery- unless directed otherwise by surgeons office General Instructions For Medications: * You may continue your non-steroidal anti-inflammatory medication: Meloxicam For medications that you are instructed to take on the morning of surgery, take the medications with a few sips of water. Stop all of these medications 7-14 days prior to your surgery: Vitamin E, Herbal medicines, Diet Pills If you have pain, you may take tylenol (acetaminophen). Do not take more than 6 tablets or 3000 mg (3 g) within a 24 period. Call your surgeon and the CPAP clinic if any of the following happens before surgery: Any changes in your health You have a fever You have any signs of an infection (chest, urinary tract or tooth) You have been to the Emergency Room or were in the hospital You have started taking any new medications You have questions about a bowel prep or special diet before surgery You have symptoms of COVID-19 such as a new or worsening cough, shortness of breath, fever, body aches, loss of taste or smell, diarrhea or vomiting, or sore throat. You have a household contact with COVID-19. You test positive for COVID-19. * Perioperative Nursing Note - Nguyễn Crowley RN - 09/13/2023 8:49 AM CDT Center for Preoperative Assessment and Planning Perioperative Nursing Note Telephone Preoperative Evaluation ([facility]) - TELEPHONE ONLY, NO PHYSICAL EXAM Date: 09/13/23 This assessment was completed with the patient. Vitals: 09/13/23 0845 Weight: 88.5 kg (195 lb) Height: 175.3 cm (5' 9 ) CHEST CIRCUMFERENCE: NA Social History Tobacco Use Smoking Status Never Passive exposure: Never Smokeless Tobacco Never Substance and Sexual Activity Drug Use Not Currently Alcohol Use Q1: How often do you have a drink containing alcohol?: 2-3 times a week Q2: How many drinks containing alcohol do you have on a typical day when you are drinking?: 3 or 4 Q3: How often do you have six or more drinks on one occasion?: Monthly Outpatient Medications Marked as Taking for the 09/16/23 encounter (Hospital Encounter) Medication Sig Dispense Refill HYDROcodone-acetaminophen (NORCO) 5-325 mg per tablet Take 1 tablet by mouth every 6 (six) hours asneeded for pain 30 tablet 0 meloxicam (MOBIC) 15 mg tablet Take 1 tablet (15 mg total) by mouth daily 30 tablet 0 Implants Type Not Specified [employer] Implant Menicus Repair Fiberstitch Curved [id number] - [id number] - Implanted (Right) Knee Inventory item: [employer] [place] Meniscal Repair Curved 2 0 Fiberwire Fiberstitch [id number] Model/Cat number: [id number] Central Sterile Technician: [employer] Lot number: [id number] As of 01/15/2022 Status: Implanted [employer] Implant Menicus Repair Fiberstitch Curved Ar-[id number] - [id number] - Implanted (Right) Knee Inventory item: [employer] [place] Meniscal Repair Curved 2 0 Fiberwire Fiberstitch AR-[id number] Model/Cat number: [id number] Central Sterile Technician: [employer] Lot number: [id number] As of 01/15/2022 Status: Implanted [employer] Screw Fastthread Biocomposite Interference 8mm X 20mm [id number]-08 - [id number] - Implanted (Right) Knee Inventory item: [employer] Screw Fastthread Biocomposite Interference 8mm X 20mm AR-4020C-08 Model/Cat number: [id number] Central Sterile Technician: [employer] Lot number: [id number] As of 01/15/2022 Status: Implanted [employer] Screw Fastthread Biocomposite Interference 10mm X 20mm [id number]-10 - [id number] - Implanted (Right) Knee Inventory item: [employer] Screw Fastthread Biocomposite Interference 10mm X 20mm AR-4020C-10 Model/Cat number: [id number] Central Sterile Technician: [employer] Lot number: [id number] As of 01/15/2022 Status: Implanted SKIN Piercings Remaining: No Wound (LDAs) Type of Wound (LDA): (denies) SCREENINGS Adriel index score: 95 NUTRITION PATIENT CARE PLANNING Advance Directives (For Healthcare) Have you reviewed your Advance Directive and is it valid for this stay?: Not applicable Advance Directive: Patient does not have advance directive Information Provided on Healthcare Directives: No Pre-existing DNR/DNI Order: No Patient Requests Assistance: No Communication/Hosted Services Analyst Needs Communication Needs: None Assistive Devices/DME: None Hearing - Right Ear: Functional Hearing - Left Ear: Functional Discharge Planning Type of Residence: Private residence Living Arrangements: Spouse/significant other Support Systems: Spouse/significant other Assistance Needed: His will drive him and help care for him after surgery. Patient expects to be discharged to:: Private residence FRAME EXPANDER NO ADDITIONAL COMMENTS/ FOLLOW UP * Pre-Procedure Instructions - Nguyễn Crowley RN - 09/13/2023 8:48 AM CDT [facility] PRE-SURGICAL NURSING INSTRUCTIONS Telephone Assessment General Information Discussed with Patient: Surgery location provided to patient. Arrival time and surgical time will be provided to the patient by their surgeon. You should wear clothing that is clean, loose, comfortable and easy to get in and out of on the dayof surgery. You should remove nail coverings, artificial nails and nail kinyarwanda prior to the day of surgery. You should leave your valuables and any jewelry at home. No metal or piercings are allowed in the operating room. You should bring your insurance card, a photo ID (example: Strategic Marketing Specialist's License) and a method of payment for any insurance copay, deductible or copay for discharge medications. You should bring a complete, up-to-date, list of all your medications on the day of surgery, including any over the counter medications or supplements you may take. Please note on your medication list, the last date & time you took each medication. The healthcare team, on the day of surgery, will ask for this information. You should bring your Advanced Directive and/or Living Will with you on the day of surgery if you have not verified a copy is already in your Epic Chart. If you are having surgery at [facility], please arrive on the day of surgery with the name and phone number of your local 24 hour pharmacy. Due to evening discharges, your routine pharmacy may be closed. In order to obtain your prescriptions that evening, your surgeon may need to send prescriptions to this pharmacy or have you take prescriptions to this pharmacy when you are discharged. Without this information, you may not be able to obtain your prescriptions that evening. A Guide for Patients Having Surgery: Your Pathway to Excellent Care OUR GOAL IS TO PROVIDE YOU WITH EXCELLENT CARE Use this guide to learn about what you can do before, during and after surgery to help your recovery. You are the most important person on your health care team. By becoming informed and involved, you can contribute to the success of your surgery. If your surgeon's directions are different than those in this guide, talk with your nurse or surgeon to confirm the information. It is important that you understand how to take care of yourself at home after surgery. Be sure to bring this guide with you on the day of surgery and take it home with you after surgery. Write down questions for your nurse or surgeon on the last page of this booklet. Important pages to be reviewed BEFORE surgery: Page 1: QR codes for Surgery Center maps Page 3: Types of Anesthesia Page 5: Tips for the day & night before surgery Page 6: When to stop eating BEFORE surgery and examples of clear liquids Page 7-10: Preventing Infection: Chlorhexidine Gluconate (CHG) Bathing Instructions You may access A Guide for Patients Having Surgery: Your Pathway to Excellent Care by the followinglink: [email or web address] How To Prepare Your Skin For Surgery Below is the Pre-Surgical Bathing Protocol you should follow for your surgery. If your surgeon provides you different bathing instructions, please follow your surgeon's orders. 2 Day CHG Bathing Protocol (no nasal ointment) PREVENTING INFECTION (DECOLONIZATION): Decolonization is the use of a topical antiseptic soap and sometimes a nasal ointment to remove bacteria (germs) from the skin's surface. Antiseptic soap: Chlorhexidine gluconate or CHG (brand name: Hibiclens??) Before surgery, your entire body must be thoroughly cleaned. CHG helps to reduce the bacteria on your skin. You may be given one or more bottles of CHG or you may be asked to obtain from your preferred pharmacy. Be sure to ask your pharmacist if you need help finding this product. SHOWERING WITH ANTISEPTIC SOAP (CHG) What You Need For Each Shower 60 mL (?? cup) of CHG 2 clean washcloths CHG Bathing Instructions First, shampoo and rinse your hair with your own shampoo (no conditioners). Do this so the antiseptic soap isn't washed off by your shampoo. Wash face with warm water. Turn off shower and stand away from the water. Use 2 clean washcloths to apply the antiseptic soap to all areas as described below: Pour 30 mL (1/8 cup) of CHG on washcloth #1: Using washcloth- start at jawline and firmly massage the soap into the skin in a circular motion to clean neck, shoulders, chest, back, both armpits, arms, hands and abdomen. Finish with legs and feet. Pour 30 mL (1/8 cup) of CHG on washcloth #2: Using washcloth- firmly massage the soap into the skinin a circular motion to clean groin area, perineum and buttocks. (Do not use CHG on genital area.) [place] Points: The CHG antiseptic soap will not bubble or lather very much. If you get soap in your eyes, ears or mouth, rinse well with cool water. When finished, leave the soap on your skin for 2 minutes before rinsing. Dry off with a clean fresh towel. Wear clean clothes or pajamas to sleep in. After showering DO NOT put on deodorant, hair products or conditioners, lotions or creams, powders,Vaseline or any non-essential products. If you cannot reach the surgical site, such as the back, please have someone help you. Shaving: You may shave your face, legs and underarms during your evening shower before you apply the CHG antiseptic soap. Be careful not to cut or lesvia your skin. Avoid shaving on the day of surgery. Deodorant: None the day of surgery. 2-Day CHG Bathing Protocol The Evening Before Surgery: Take a shower with Antiseptic soap (CHG). Follow the steps for ???Showering with Antiseptic Soap (CHG)?? above. Change all linens on your bed so you are sleeping in clean fresh sheets and pillowcases. Remove nail coverings, artificial nails and nail kinyarwanda. The Morning of Surgery: Take a shower with Antiseptic soap (CHG). Follow the steps for ???Showering with Antiseptic Soap (CHG)?? above. Put clean clothes on after you shower. Travel/Exposure Screening: Travel Screening Have you traveled outside the [place] in the last 6 months?: No Exposure Screening Have you been exposed to anyone who is sick in the last 30 days?: No Have you been exposed to or tested positive for COVID-19 within the last 10 days?: No Infectious Disease Screening Are you having any of the following:: None As of 03/16/2022 any COVID TESTING required for surgery will be set up by your surgeon's office. Please reach out to your surgeon's office if you develop any COVID symptoms, test positive for COVID or are exposed to a COVID positive person. If you have questions, please call the [facility] Staff at [phone], Tuesday-Tuesday 8am-4:30pm. All patients should read the below section: COVID 19 Updates & Visitor Policy: Please access [email or web address] for the most updated information. Information on [facility] the [facility]: Please view [email or web address] (Patient & Visitor Information) for additional details regarding Advanced Directive forms, AWARE, directions, parking information, lodging, Internet access, dining and more. Information on [facility] or [facility] ([facility]): Please view [email or web address] (Patient and Visitor Information) for parking/directions and more. For MyChart information, to activate account or password recovery, please go to [email or web address] or call [phone] (toll-free: [phone]), Tue- Tuesday 8am-5pm. Information for Suicide Prevention: National Suicide Prevention Lifeline (0-799- 586-JSOC (2230)) or call or text [employer]ed. Chat resources: [employer]. Surgery Times: For patients having [facility] @ [facility], if your surgeon's office has not notified you of your surgery time by NOON THE BUSINESS DAY BEFORE your surgery, please call the surgery center [phone]. [facility] ([facility]) does not provide arrival times for the day of surgery or provide the duration of surgery. This information is provided by your surgeon'soffice or by the center where you are having surgery. We appreciate your understanding. documented in this encounter Plan of Treatment Not on file documented as of this encounter Procedures Procedure Name Priority Date/Time Associated Diagnosis Comments FL FLUOROSCOPY < 1 HOUR IP Routine 09/16/2023 2:04 PM CDT Pain ARTHROTOMY KNEE OSTEOCHONDRAL ALLOGRAFT 09/16/2023 11:45 AM CDT Osteochondral lesion Special Needs JRF ALLOGRAFT - [id number] Femoral Condyle, Medial Right. Graft ID [id number] to be delivered 09/15 by 0630. Ordered 09/12/23 documented in this encounter Results * FL Fluoroscopy < 1 Hour (09/16/2023 2:04 PM CDT) Narrative [facility] - 09/16/2023 2:05 PM CDT The images from this study are not interpreted by Radiology. ??Please refer to the physician's procedure / OR operative note. us Mikey Hawkins MD IMG FLUOROSCOPY PROCEDURES Final Result [facility] documented in this encounter Visit Diagnoses Diagnosis Osteochondral lesion- Primary Pain Generalized pain documented in this encounter Admitting Diagnoses Diagnosis Osteochondral lesion documented in this encounter Administered Medications Inactive Administered Medications - up to 3 most recent administrations Medication Order MAR Action Action Date Dose Rate Site BUPivacaine preservative free 1,000 mg/500 mL (0.2%) infusion (premix) Continuous Rate (mL/hr): 6 mL, Intermittent Bolus (mL): none, REVIEW SCHEDULING COORDINATOR Bolus (mL): 4, REVIEW SCHEDULING COORDINATOR Bolus Lockout (minutes/hours): 30 Minutes, Catheter Site: Saphenous, Catheter Side: Right, perineural, Continuous, Starting on Tue09/16/23 at 1530, Until Tue09/16/23 at 2001, 500 mL, Indications: Pain Treatment Adjunct, RoutineIndications:Pain Treatment Adjunct New Bag 09/16/2023 2:53 PM CDT Lactated Ringer's (LR) infusion 30 mL/hr, intravenous, Continuous, Starting on Tue09/16/23 at 1030, Pre-Op, Use a 500 ml bag for End Stage Renal Disease Patients Restarted 09/16/2023 12:24 PM CDT Rate/Dose Verify 09/16/2023 11:42 AM CDT 30 mL/ hr New Bag 09/16/2023 10:26 AM CDT 30 mL/hr 30 mL/hr lidocaine (PF) (XYLOCAINE) 10 mg/mL (1 %) preservative free injection 2-10 mg 2-10 mg (0.2-1 mL), subcutaneous, Once as needed, pain with IV placement, Starting on Tue09/16/23 at 0953, For 1 dose, Pre-Op, Administer volume needed to infiltrate IV site. Given 09/16/2023 10:25 AM CDT 2 mg Left Hand oxyCODONE-acetaminophen (PERCOCET) 5-325 mg per tablet 2 tablet 2 tablet, oral, Once, On Tue09/16/23 at 1530, For 1 dose, Phase I & Post-op Floor, Indications: PainIndications:Pain Given 09/16/2023 2:57 PM CDT 2 tablets documented in this encounter Discontinued Medications Medication Sig Discontinue Reason Start Date End Da te ondansetron (ZOFRAN) 4 mg tablet Take 1 tablet (4 mg total) by mouth every 8 (eight) hours as needed for nausea Error 02/11/2023 09/13/2023 HYDROcodone-acetaminophe n (NORCO) 5-325 mg per tabletIndications:Pain Take 1 tablet by mouth every 6 (six) hours as needed for pain Error 02/11/2023 09/13/2023 meloxicam (MOBIC) 15 mg tablet Take 1 tablet (15 mg total) by mouth daily Error 05/05/2023 09/13/2023 documented as of this encounter Active and Recently Administered Medications Times are shown in CDT. Scheduled Medication Order 09/14/2023 09/15/2023 09/16/2023 ceFAZolin (ANCEF) 2,000 mg/50 mL in dextrose (premix) 2,000 mg (COMPLETED) 2,000 mg, intravenous, at 100 mL/hr, Administer over 30 Minutes, Once, On Tue09/16/23 at 1030, For 1 dose, Pre-Op, Administer within 60 minutes of incision. Duplex bag - activate before hanging., Indications: Prophylaxis, Surgical 1151 (Given - Provid er: Yanira Tejeda CRNA) oxyCODONE-acetaminophen (PERCOCET) 5-325 mg per tablet 2 tablet (COMPLETED) 2 tablet, oral, Once, On Tue09/16/23 at 1530, For 1 dose, Phase I & Post-op Floor, Indications: Pain 1457 (Given - Provid er: Arline Hardin RN) scopolamine patch 72 hour 1 patch 1 patch, transdermal, Administer over 72 Hours, Once, On Tue09/16/23 at 1030, For 1 dose, Pre-Op, Apply to beach-chair position shoulder surgery patients, and to patients with a history of PONV and/or Motion Sickness. Do NOT administer to patients with a history of BPH or Glaucoma. Consult Anesthesiologist with any questions. In case of urinary retention, remove patch immediately and clean patch site with alcohol., Indications: Motion Sickness, Prevention of Motion Sickness, Prevention of Post-Operative Nausea and Vomiting 1030 (Due) Continuous Medication Order 09/14/2023 09/15/2023 09/16/2023 BUPivacaine preservative free 1,000 mg/500 mL (0.2%) infusion (premix) Continuous Rate (mL/hr): 6 mL, Intermittent Bolus (mL): none, REVIEW SCHEDULING COORDINATOR Bolus (mL): 4, REVIEW SCHEDULING COORDINATOR Bolus Lockout (minutes/hours): 30 Minutes, Catheter Site: Saphenous, Catheter Side: Right, perineural, Continuous, Starting on Tue09/16/23 at 1530, Until Tue09/16/23 at 2002, 500 mL, Indications: Pain Treatment Adjunct, Routine 1453 (New Bag - Prov ider: Arline Hardin RN - Comment: tubing remains unclamped and negative blood return upon aspiraton/verfied 2 rns ( nii))1545 (Continued after Discharge - Provider: Arline Hardin RN) Lactated Ringer's (LR) infusion 30 mL/hr, intravenous, Continuous, Starting on Tue09/16/23 at 1030, Pre-Op, Use a 500 ml bag for End Stage Renal Disease Patients 0956 (Due)1026 (New Bag - Provider: Yvette Sharpe RN)1142 (Rate/Dose Verify - Provider: Yanira Tejeda CRNA)1223 (Paused - Provider: Yanira Tejeda CRNA - Comment: Switch to gravity)1224 (Restarted - Provider: Yanira Tejeda CRNA)1355 (Anesthesia Volume Adjustment - Provider: Yanira Tejeda CRNA)1436 (Stopped - Provider: Arline Hardin RN) Lactated Ringer's (LR) infusion 125 mL/hr, intravenous, Continuous, Starting on Tue09/16/23 at 1530, Phase I 1436 (Continued from OR - Provider: Arline Hardin RN - Comment: 400 ml to start)1545 (Stopped - Provider: Arline Hardin RN) PRN Medication Order 09/14/2023 09/15/202309/16/2023 diphenhydrAMINE (BENADRYL) 50 mg/mL injection 12.5 mg 12.5 mg, intravenous, Administer over 1 Minutes, Every 5 min PRN, itching, other, For Nausea, administer 25 mg IV., Starting on Tue09/16/23 at 1446, For 4 doses, Phase I, Max cumulative dose 50 mg., Indications: Itching fentaNYL (SUBLIMAZE) preservative free syringe 25 mcg 25 mcg, intravenous, Every 10 min PRN, 1st line for pain, Starting on Tue09/16/23 at 1446, For 4 doses, Phase I, Notify anesthesiologist if total PACU dose reaches 100 mcg AND pain score 5/10 or more. When patient able to tolerate PO, proceed to 2nd line analgesic agent for pain management., Indications: Pain hydrALAZINE (APRESOLINE) injection 5 mg 5 mg, intravenous, Administer over 2 Minutes, Every 5 min PRN, high blood pressure, Starting on Tue09/16/23 at 1446, Phase I, Max cumulative dose 20 mg. Dose if systolic BP greater than 180 AND heart rate less than 70., Indications: hypertension HYDROcodone-acetaminophen (NORCO) 5-325 mg per tablet 1 tablet 1 tablet, oral, Every 30 min PRN, 2nd line for pain, Starting on Tue09/16/23 at 1446, For 2 doses, Phase I, Indications: Pain labetaloL (NORMODYNE,TRANDATE) injection 5 mg 5 mg, intravenous, Every 5 min PRN, high blood pressure, Starting on Tue09/16/23 at 1446, For 4 doses, Phase I, Max cumulative dose 20 mg. Dose if systolic blood pressure greater than 180 AND HR greater than 70. Lactated Ringer's (LR) irrigation (CANCELED) As needed, Starting on Tue09/16/23 at 1342, Intra-Op 1342 (Given - Provid er: Mikey Hawkins MD) lidocaine (PF) (XYLOCAINE) 10 mg/mL (1 %) preservative free injection 2-10 mg (COMPLETED) 2-10 mg (0.2-1 mL), subcutaneous, Once as needed, pain with IV placement, Starting on Tue09/16/23 at 0953, For 1 dose, Pre-Op, Administer volume needed to infiltrate IV site. 1025 (Given - Provid er: Yvette Sharpe RN) meperidine (DEMEROL) preservative free injection 12.5 mg 12.5 mg, intravenous, Administer over 5 Minutes, Every 10 min PRN, shivering, Starting on Tue09/16/23 at 1446, For 2 doses, Phase I, Max cumulative dose 25 mg., Indications: Shivering naloxone (NARCAN) 0.4 mg/mL injection 0.04-0.4 mg 0.04-0.4 mg, intravenous, Once as needed, other, excessive sedation/respiratory depression, Starting on Tue09/16/23 at 1446, For 1 dose, Phase I, Dilute 0.4 mg with 9 mL NS (final concentration 0.04 mg/mL). For respiratory depression (respiratory rate less than 6), administer 0.4 mg IVP over 30 seconds. For excessive sedation administer 0.04 mg (1 mL) every 1 minute until desired level of alertness. Consult with Anesthesiologist before administration. Administer 40 mics at a time. For IV, administer over 30 seconds., Indications: Opioid Toxicity ondansetron (ZOFRAN) injection 4 mg 4 mg, intravenous, Administer over 2 Minutes, Once as needed, nausea, vomiting, Starting on Tue09/16/23 at 1446, For 1 dose, Phase I, Proceed to prochlorperazine if ondansetron has been given within the last 6 hours. prochlorperazine (COMPAZINE) injection 5 mg 5 mg, intravenous, Administer over 2 Minutes, Once as needed, nausea, vomiting, May give second 5 mg dose if nausea not improved after 15 minutes., Starting on Tue09/16/23 at 1446, For 2 doses, Phase I, If nausea/vomiting not relieved by ondansetron within 30 minutes or if ondansetron has been given within the last 6 hours. sodium chloride 0.9% flush 0.5-20 mL 0.5-20 mL, intra-catheter, As needed, line care, Flush [place] Block Hep [place]ocks to keep vein open., Starting on Tue09/16/23 at 0953, Pre-Op, Flush volume based on line type and size. Flush before and after each use. , Indications: Flushing sodium chloride 0.9% irrigation (CANCELED) As needed, Starting on Tue09/16/23 at 1342, Intra-Op 1342 (Given - Provid er: Mikey Hawkins MD) documented in this encounter Orders Medications Ordered That John ht Not Have Been Administered Count Last Ordered Date First Ordered Date ceFAZolin (ANCEF) 2,000 mg/5 0 mL in dextrose (premix) 2,000 mg 1 09/16/2023 diphenhydrAMINE (BENADRYL) 5 0 mg/mL injection 12.5 mg 1 09/16/2023 fentaNYL (SUBLIMAZE) preserv ative free syringe 25 mcg 1 09/16/2023 hydrALAZINE (APRESOLINE) injection 5 mg 1 0 09/16/2023 HYDROcodone-acetaminophen (N ORCO) 5-325 mg per tablet 1 tablet 1 09/16/2023 labetaloL (NORMODYNE,TRANDAT E) injection 5 mg 1 09/16/2023 Lactated Ringer's (LR) infusion 1 Lactated Ringer's (LR) irrigation 1 024 meperidine (DEMEROL) preserv ative free injection 12.5 mg 1 09/16/2023 naloxone (NARCAN) 0.4 mg/mL injection 0.04-0.4 mg 1 09/16/2023 ondansetron (ZOFRAN) injection 4 mg 1 09/15 prochlorperazine (COMPAZINE) injection 5 mg 1 09/16/2023 scopolamine patch 72 hour 1 patch 1 024 sodium chloride 0.9% flush 0.5-20 mL 1 08/22 sodium chloride 0.9% irrigation 1 Diet Count Last Ordered Date First Orde red Date ADULT DISCHARGE DIET 1 09/16/2023 Nursing Count Last Ordered Date First Orde red Date ACTIVITY 2 09/16/2023 APPLY ICE TO AFFECTED AREA 1 09/16/2023 DISCHARGE INSTRUCTIONS 7 09/16/2023 ELEVATE EXTREMITY 1 09/16/2023 NURSING COMMUNICATION 3 09/16/2023 PATIENT MAY SHOWER 1 09/16/2023 WOUND CARE 3 09/16/2023 Discharge Count Last Ordered Date First Orde red Date DISCHARGE PATIENT 1 09/16/2023 documented in this encounter Care Teams Channel Cementer Insole Machine Relationship Specialty Start Date End Date No, Physician PCP - General 12/21/21 Zach Reyez, PT Physical Therapist Physical Therapy 01/20/22 [place] [id number] [place] [address] Physical Therapist Physical Therapy 01/30/22 Hussain Lopez, SL[employer]ER Software Reverse Engineer Physical Therapy 02/03/22 documented as of this encounter
--- OUTSIDE RECORDS SUMMARY | 2024-05-22 05:24 | XMS_ITS | Encounter Summary ---
Author Organization [facility] Healthcare Address [address] [place] [address] Care Team Providers Care Touch Up Painter Name Role Phone No, Physician Primary Care Provider [phone] Zach Reyez PT Unavailable Unavailable Teresa Leach PT Unavailable [phone] Hussain Lopez STEEL FINISHER Unavailable Unavailabl e Reason for Visit * Reason Comments PT Treatment * Consultation (Routine) - Authorized Specialty Diagnoses / Procedures Referred By Contac t Referred To Contact Physical Therapy Diagnoses Osteochondral [place] [id number] [place] [address] Phone: tel: fax: [facility] at [facility] [address] [place] [address] [address] [place] [address] Phone: tel: fax: Referral ID Status Reason Start Date Expiration Date Visits Requested Visits Authorized [id number] Authorized Specialty Services Required 09/15/2023 10/14/2024 24 24 Encounter Details Date Type Department Care Team (Late st Contact Info) Description 10/12/2023 1:00 PM CDT Therapy [facility] at [address] [address] [place] [address] [place], [place] [id number] Osteochondral defect of femoral condyle (Primary Dx) [...] file 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 / male Referring Practitioner: Mikey Hawkins MD MD Follow-Up: 09/26/23 Diagnosis(es): 1. Osteochondral defect of femoral condyle Date of Onset: 09/16/2023 Visit #: 7 Progress Report Due: Visit #10 Date: 10/12/2023 Start Time: 1:00 pm End Time: 1:45 pm Start Pain: 3 End Pain: 07/30 SUBJECTIVE: Pt reports ant/lat knee pain continues with quad contraction, but lower leg pain is decreasing, tissue mobility and swelling are improving OBJECTIVE: Gait: Pt amb with crutches and long leg brace NWB R LE (brace unlocked fully now) Effusion: Moderate R knee only. Knee ROM: (10/12/23) after manual rx and stretching Left: Right: - Extension 0?? (-)1?? - supine/seated Flexion 140?? 120?? Prone knee flexion with strap: 0-130 degrees Muscle Length: Tight hamstring, gastroc and quad mm Lower Extremity Strength: Manual Muscle Test (MMT) Left: Right: - Knee extension 5/5 4/5 - Knee flexion 5/ 4/5 - Hip flexors / 5/5 - Hip abduction / 3+/5 - Hip adduction / 3+/5 - Hip extension 5/ 3+/5 Palpation: Incision: healing well Quad contraction: good (-) TREATMENT: TREATMENT 1) reviewed HEP per flow sheet with verbal and manual cues; emphasis still on end-range knee ext ROM 2) performed manual rx for effleurage massage and patellar mobs, MFR to sourrounding knee tissue, manual knee ext mobs and gastroc stretch with manual knee ext 3) applied heat pack to quad and knee with prone quad stretch and knee flexion ROM 4) not needed today: e stim to quads with long sitting, seated knee ext and supine SLR (10/10 on/off sec, 18 min, 38 MA) --not today ;applied vasopneumatic with ice for 15 min at 34 degrees and med pressure (pt to ice athome) Exercise/ Activity Date: 09/20 Date: 09/22 Date: 09/27 Date: 09/29 Date: 10/04 Date: 10/06 10/11 E stim Init with long sitting quad bj, seated LAQ and supine SLR No e stim today Long sitting gastroc stretch X X X x3 X with manual self knee ext X Long sitting quad contraction X X X X X 6 min with e stim X Long sitting VMO bj/quad contraction init Long sitting hip adductor stretch X X Supine knee flexion X X X Supine SLR X X X 6 min with e stim X SLR all planes Instructed for home Reviewed X Prone knee flexion with strap Init 0-52 X 0-75 Manual x3 X Prone AROM knee flexion X Prone hip ext with knee flexed X Seated knee ext X X AROM x10 X x10 6 min with 2# X Long sitting ankle PF with band X X home LAQ (assisted) (PROM) X X X 10 X 92 degrees X Seated hip flexion init Prone hangs 1# with heat pack x 5 min 1 lb, 5 min X home Heel props X X X home Patellar mobs and MFR to quad/adductors and knee ext mobs X X X X Effleurage R distal LE Foot>knee X Flowsheet [place]: X = performed, x = times/multiply, s = seconds, ea = each, st = stretch SL= side lying, SLS= single leg stance Timed Treatment: Thera ex for 25 minutes: see above Manual rx for 20 min: see above Un-timed Treatment: Heat pack Total of Timed Treatment Codes: 45 minutes Total Treatment Time: 45 minutes ASSESSMENT: Patient remains stiff at his endpoint of extension but shows significant progress with his knee flexion today Goals: Short Term Goals: 2 weeks Pt to be indep with HEP to be able to: improve bed mobility and transfers, achieved Decrease gait deviations, progressing weight bearing status per MD's orders, progressing Pt to be able to transfer in an and out of bed, get dressed and shower with normal pain free mobility, achieved Lacer And Tier Goals: 12 weeks Pt to continue to [...] to be able to amb stairs and fish bait picker 30# with normal painfree mobility PLAN: Continue skilled physical therapy per plan of care Teresa Leach, JACOB [facility] [place] [address] Dept: [phone] Dept documented in this encounter Plan of Treatment Not on file documented as of this encounter Visit Diagnoses Diagnosis Osteochondral defect of femoral condyle- Primary documented in this encounter Care Teams Touch Up Painter Relationship Specialty Start Date End Date No, Physician PCP - General 12/21/21 Zach Reyez, PT Physical Therapist Physical Therapy 01/20/22 [place] [address] [place] [address] Physical Therapist Physical Therapy 01/30/22 Hussain Lopez, STEEL FINISHER Mill Operator Head Physical Therapy 02/03/22 documented as of this encounter
--- OUTSIDE RECORDS SUMMARY | 2024-05-22 05:24 | XMS_ITS | Encounter Summary ---
Author Organization [facility] Address [address] [place] [address] Phone Care Team Providers Care Engineer Technician Name Role Phone No, Physician Primary Care Provider [phone] Zach Reyez PT Unavailable Unavailable Teresa Leach PT Unavailable [phone] Hussain Lopez PUDDLER PILE DRIVING Unavailable Unavailabl e Encounter Details Date Type Department Care Team (Late st Contact Info) Description 04/28/2023 Plan of Care Documentation [facility] Occupational Therapy [address] [place] [address] Social History Tobacco Use Types Packs/Day Years Used Date Smoking Tobacco: Never Passive Smoke Exposure: Never Smokeless Tobacco: Never AUDIT-C Answer Date Recorded Q1: How often do you have a drink containing alc ohol? 2-4 times a month 02/09/2023 Q2: How many drinks containi ng alcohol do you have on a typical day when you are drinking? 1 or 2 02/09/2023 Q3: How often do you have si x or more drinks on one occasion? Never 02/09/2023 Personal Safety Answer Date Recorded Have you ever been in or are you currently in a harmful physical or emotional relationship or is someone making you feel afraid or unsafe? 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
--- OUTSIDE RECORDS SUMMARY | 2024-05-22 05:24 | XMS_ITS | Encounter Summary ---
Author Organization [facility] Address [address] [place] [address] Phone Care Team Providers Care It Account Manager Name Role Phone No, Physician Primary Care Provider [phone] Zach Reyez PT Unavailable Unavailable Teresa Leach PT Unavailable [phone] Hussain Lopez TOOL REPAIRER Unavailable Unavailabl e Reason for Referral * Diagnostic Imaging (Routine) - Closed Specialty Diagnoses / Procedures Referred By Contac t Referred To Contact Diagnoses Osteochondral defect of femoral condyle Procedures XR Knee Right 1 [place] [address] [place] [address] Phone: tel: fax: [facility] Orthopedic Center Referral ID Status Reason Start Date Expiration Date Visits Re quested Visits Authorized [id number] Closed 09/20/2023 10/19/2024 1 1 Reason for Visit * Reason Comments Follow-up Post-op Encounter Details Date Type Department Care Team (Latest Contact Info) Description 09/26/2023 4:00 PM CDT Office Visit [facility] Orthopaedic Surgery [address] 2nd [address] [place] [id number] [place] [address] [place], [place] [id number] Osteochondral defect of femoral condyle (Primary Dx) [...] on file 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 ESTABLISHED PATIENT VISIT INTERIM HISTORY: Patient is a 44-year-old male 10 days status post an open OCD allograft to right medial femoral condyle an opening wedge high tibial osteotomy. Overall the patient is doing very well his pain is wellcontrolled. He does have some pain along his mid incision. He denies any erythema acute increase inpain or any trauma. He has been working with physical therapy and obtain 57?? of flexion. PHYSICAL EXAMINATION: Focused physical examination right knee: Dressings were removed and incision is intact without erythema or drainage Range of motion of the knee is 0 to 50 Sensation intact to light touch over all distributions Warm well perfused distal REVIEW OF IMAGING: I have ordered reviewed three-view x-rays of the right knee which straight a stable allograft and stable hardware. There is interval healing of the osteotomy IMPRESSION: Patient is a 44-year-old male 10 days status post an open OCD allograft to the right medial femoralcondyle and opening wedge high tibial osteotomy progressing approach TREATMENT PLAN: We discussed with the patient what went on in the surgery. He overall is doing very well at this point and there is no concern for his incision. His pain is well controlled but we are going to prescribe the patient some meloxicam and tramadol for his nighttime pain. Patient can begin to increase his range of motion of his knee and we will set his hinged knee brace to 70??. Patient return to clinic in 4 weeks. Mikey Tong MD MS PGY-5, Orthopaedic Surgery [facility] P: [phone] I was present for the critical portion of the history, physical examination, and participated in the radiographic review and medical decision making for this patient. I agree with the findings in thereport of the above residence/fellow dictating using [email or web address] software. Professor of Orthopaedic Surgery Director, Sports Medicine Fellowship [facility] Orthopa[facility]ics documented in this encounter Plan of Treatment Not on file documented as of this encounter Results * XR Knee Right 1 or 2 Views (09/26/2023 4:16 PM CDT) Anatomical Region Laterality Modality Lower Extremities, Knee Right Computed Radiography 09/26/2023 4:56 PM CDT Impressions 09/26/2023 4:56 PM CDT 1. ??Interval osteochondral allograft placement at the right medial femoral condyle. ?? 2. ??Interval internally fixated opening medial tibial wedge osteotomy. Electronically signed by: Dominick Matthews MD Narrative 09/26/2023 4:56 PM CDT EXAMINATION: XR KNEE RIGHT 1 OR 2 VIEWS HISTORY: Osteochondral defect, right femoral condyle FINDINGS: 2 views of the right knee are compared to the examinations dated 01/26/2023 and 02/03/2023. There has been interval open osteochondral defect allograft placement at the right medial femoral condyle and opening wedge tibial osteotomy (medially). ??This osteotomy is internally fixated by an anteromedial plate and screws. ??Alignment is improved. ??There is minimal articular surface incongruence (<1 mm each) at the mesial and medial margins of the allograft. ??Moderate to severe anteromedial soft tissue swelling. ??Small right knee joint effusion. ??Joint spaces remain normal. ??No acute fracture. Procedure Note Dominick Matthews MD - 09/26/2023 EXAMINATION: XR KNEE RIGHT 1 OR 2 VIEWS HISTORY: Osteochondral defect, right femoral condyle FINDINGS: 2 views of the right knee are compared to the examinations dated 01/26/2023 and 02/03/2023. There has been interval open osteochondral defect allograft placement at the right medial femoral condyle and opening wedge tibial osteotomy (medially). This osteotomy is internally fixated by an anteromedial plate and screws. Alignment is improved. There is minimal articular surface incongruence (<1 mm each) at the mesial and medial margins of the allograft. Moderate to severe anteromedial soft tissue swelling. Small right knee joint effusion. Joint spaces remain normal. No acute fracture. IMPRESSION: 1. Interval osteochondral allograft placement at the right medial femoral condyle. 2. Interval internally fixated opening medial tibial wedge osteotomy. Electronically signed by: Dominick Matthews MD us Mikey Hawkins MD IMG XR PROCEDURES Final Res ult documented in this encounter Visit Diagnoses Diagnosis Osteochondral defect of femoral condyle- Primary Osteochondral defect of femoral condyle documented in this encounter Discontinued Medications Medication Sig Discontinue Reason Start Date End Da te ondansetron ODT (ZOFRAN-ODT) 4 mg disintegrating tablet Take 1 tablet (4 mg total) by mouth every 8 (eight) hours as needed for nausea or vomiting Therapy completed 09/15/2023 09/26/2023 documented as of this encounter Care Teams It Account Manager Relationship Specialty Start Date End Date No, Physician PCP - General 12/21/21 Zach Reyez, PT Physical Therapist Physical Therapy 01/20/22 [place] [address] [place] [address] Physical Therapist Physical Therapy 01/30/22 Hussain Lopez, TRIPP Composition Weatherboard Applier Physical Therapy 02/03/22 documented as of this encounter
--- OUTSIDE RECORDS SUMMARY | 2024-05-22 05:24 | XMS_ITS | Encounter Summary ---
Author Organization [facility] Address [address] [place] [address] Phone Care Team Providers Care Moderate Needs Teacher Name Role Phone No, Physician Primary Care Provider [phone] Zach Reyez PT Unavailable Unavailable Teresa Leach PT Unavailable [phone] Hussain Lopez SITE PHYSICIAN Unavailable Unavailabl e Encounter Details Date Type Department Care Team (Late st Contact Info) Description 09/19/2023 Telephone [facility] Orthopaedic Surgery [address] [place] [address] Sylvia Persaud CMA Social History Tobacco Use Types Packs/Day Years [...] on file 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 No answer, lvm explaining this along with call back number. documented in this encounter Plan of Treatment Not on file documented as of this encounter Visit Diagnoses Not on filedocumented in this encounter Care Teams Moderate Needs Teacher Relationship Specialty Start Date End Date No, Physician PCP - General 12/21/21 Zach Reyez, PT Physical Therapist Physical Therapy 01/20/22 [place] [address] [place] [address] Physical Therapist Physical Therapy 01/30/22 Hussain Lopez, TRIPP Pipeline Inspector Physical Therapy 02/03/22 documented as of this encounter
--- OUTSIDE RECORDS SUMMARY | 2024-05-22 05:24 | XMS_ITS | Encounter Summary ---
Author Organization [facility] Healthcare Address [address] [place] [address] Care Team Providers Care Land Development Project Manager Name Role Phone No, Physician Primary Care Provider [phone] Zach Reyez PT Unavailable Unavailable Teresa Leach PT Unavailable [phone] Hussain Lopez SURFACE LOGGING SYSTEMS LOGGER Unavailable Unavailabl e Reason for Visit * Reason Comments PT Treatment * Consultation (Routine) - Authorized Specialty Diagnoses / Procedures Referred By Contac t Referred To Contact Physical Therapy Diagnoses Osteochondral [place] [address] [place] [address] Phone: tel: fax: [facility] at [facility] [address] [place] [address] [address] [place] [address] Phone: tel: fax: Referral ID Status Reason Start Date Expiration Date Visits Requested Visits Authorized [id number] Authorized Specialty Services Required 09/15/2023 10/14/2024 24 24 Encounter Details Date Type Department Care Team (Late st Contact Info) Description 02/03/2024 4:15 PM CDT Therapy [facility] at [address] [address] [place] [address] [place], [place] [id number] Osteochondral defect of femoral condyle (Primary Dx) [...] on file 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 / male Referring Practitioner: Mikey Hawkins MD MD Follow-Up: 09/26/23 Diagnosis(es): 1. Osteochondral defect of femoral condyle Date of Onset: 09/16/2023 Visit #: 18 Progress Report Due: Visit #20 Date: 02/03/2024 Start Time: 4:20 pm End Time: 5:05 pm Start Pain: 1-2 End Pain: 1-2 SUBJECTIVE: Pt reports R ant/medial knee pain with gait. Pt only using bike mainly and not using LE machines athis gym due to the pain. With the stabilizing knee brace, the lateral knee pain decreases. When pt sifts weight more laterally it decreases his medial knee pain Pt has less pain in the am and increased pain in the evening after work when swelling is increased. He has been cautious with strengthening weight bearing to not cause pain and swelling. OBJECTIVE: Gait: Pt amb with improved mechanics level surfaces. He stopped laterally shifting to unload medial knee which was causing lateral knee pain. Effusion: mod swelling R knee today Knee ROM: (02/03/24) (ROM decreased due to increased swelling) Left: Right: - Extension 0?? (-5)?? Prior to and 0 degrees after stretching/ex - supine/seated Flexion 140?? 135?? Prone knee flexion with strap:(L knee 130 degrees) Muscle Length: Tight hamstring, gastroc and quad mm Lower Extremity Strength: 5/5 throughout TREATMENT: TREATMENT 1) bike for 10 min for warm up 2) reviewed HEP per flow sheet with verbal and manual cues. Init seated knee ext 90-20 and leg press, bilat/unilat (pt again for the 2nd time pt does not had medial knee pain with leg press!!!) 3) performed manual rx for manual knee ext mobs, knee ext with passive gastroc stretch, and patellar mobs, scar massage 4) reviewed proper gait Exercise/ Activity 11/27 12/01 12/13 01/12 02/02 BFR Bike 5 min 5 min X 5 min 10 min X Seated knee ext 90-20 degrees, 10# x20 X 90-20, 10# bilat to unilat Leg press 3 plates bilat x 10 reps 1 plate unilat x 10 (full ROM today) X 4.5 plates 3x20 bilat to unilat Long sitting VMO bj/quad contraction Long sitting hip adductor stretch Supine knee flexion X Supine SLR SLR all planes Prone knee flexion with strap X X modified with opp LE on floor X Supine/SL hip adduction with strap for lateral hamstring/ITB Init x3 X Prone hip ext with knee flexed X Seated knee ext 5# x20 5# x20 with VMO bj/ball squeeze Supine SAQ 5# x20 Standing leg curl Standing heel raises partial weight bearing X Standing TKE with band Init with blue band X Prone hangs X X Heel props Patellar mobs and MFR to quad/adductors and knee ext mobs X X X X Flowsheet [place]: X = performed, x = times/multiply, s = seconds, ea = each, st = stretch SL= side lying, SLS= single leg stance Timed Treatment: Thera ex for 35 minutes: see above Manual rx for 5 min: see above Un-timed Treatment: Lateral knee tape x 3 min Total of Timed Treatment Codes: 40 minutes Total Treatment Time: 45 minutes ASSESSMENT: [...] shower with normal pain free mobility, achieved Process Lead Goals: 12 weeks Pt to continue to [...] to be able to amb stairs and hand picker 30# with normal pain free mobility, progressing PLAN: Continue skilled physical therapy per plan of care Teresa Leach, JACOB [facility] AT [address] [address] Dept: [phone] Dept documented in this encounter Plan of Treatment Not on file documented as of this encounter Visit Diagnoses Diagnosis Osteochondral defect of femoral condyle- Primary documented in this encounter Care Teams Land Development Project Manager Relationship Specialty Start Date End Date No, Physician PCP - General 12/21/21 Zach Reyez, PT Physical Therapist Physical Therapy 01/20/22 [place] [address] [place] [address] Physical Therapist Physical Therapy 01/30/22 Hussain Lopez, TRIPP Energy Efficient Site Manager Physical Therapy 02/03/22 documented as of this encounter
--- OUTSIDE RECORDS SUMMARY | 2024-05-22 05:24 | XMS_ITS | Encounter Summary ---
Author Organization [facility] Healthcare Address [address] [place] [address] Care Team Providers Care Water Service Supervisor Name Role Phone No, Physician Primary Care Provider [phone] Zach Reyez PT Unavailable Unavailable Teresa Leach PT Unavailable Hussain Lopez SENIOR POLICY ASSOCIATE Unavailable Unavailabl e Encounter Details Date Type Department Care Team (Late st Contact Info) Description 01/14/2024 Plan of Care Documentation [facility] at [facility] [address] [place], [place] [id number] Social History Tobacco Use Types Packs/Day Years [...] on file 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
--- OUTSIDE RECORDS SUMMARY | 2024-05-22 05:24 | XMS_ITS | Encounter Summary ---
Author Organization [facility] Healthcare Address [address] [address] Care Team Providers Care Soft Top Installer Name Role Phone No, Physician Primary Care Provider [phone] Zach Reyez PT Unavailable Unavailable Teresa Leach PT Unavailable [phone] Hussain Lopez MARINE MECHANIC Unavailable Unavailabl e Reason for Referral * Diagnostic Imaging (Routine) - Closed Specialty Diagnoses / Procedures Referred By Danny cannon Referred To Contact Diagnoses S/P arthroscopy of right knee Osteochondral defect of femoral condyle Procedures XR Knee Right 1 [place] [address] [place] [address] Phone: tel: fax: [facility] Referral ID Status Reason Start Date Expiration Date Visits Re quested Visits Authorized [id number] Closed 11/11/2023 12/10/2024 1 1 Reason for Visit * Diagnostic Imaging (Routine) - Closed Specialty Diagnoses / Procedures Referred By Contsom t Referred To Contact Diagnoses S/P arthroscopy of right knee Osteochondral defect of femoral condyle Procedures XR Knee Right 1 [place] [address] [place] [address] Phone: tel: fax: [facility] Referral ID Status Reason Start Date Expiration Date Visits Re quested Visits Authorized [id number] Closed 11/11/2023 12/10/2024 1 1 Encounter Details Date Type Department Care Team (Latest Contact Info) Description 11/14/2023 4:10 PM CDT - 11/14/2023 11:59 PM CDT Hospital Encounter [facility] [id number] [place] [id number] S/P arthroscopy of right knee; Osteochondral defect of femoral condyle Discharge Disposition: [...] on file 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 Gender Identity Not on file Sexual Orientation Not on file documented as of this encounter Medications at Time of Discharge aspirin 81 mg enteric coated tablet Take 1 tablet (81 mg total) by mouth daily 30 tablet 09/16/2023 09/15/2024 ketorolac (TORADOL) 10 mg tablet Take 1 tablet (10 mg total) by mouth every 6 (six) hours as needed for pain 20 tablet 09/15/2023 oxyCODONE-acetami nophen (PERCOCET) 10-325 mg per tabletIndications :Pain Take 1 tablet by mouth every 4 (four) hours as needed for pain 30 tablet 09/15/2023 traMADoL (ULTRAM) 50 mg tablet Take 1 tablet (50 mg total) by mouth every 6 (six) hours 30 tablet 09/30/2023 HYDROcodone-aceta minophen (NORCO) 5-325 mg per tabletIndications :Pain Take 1 tablet by mouth every 6 (six) hours as needed for pain 30 tablet 05/05/2023 11/18/2023 meloxicam (MOBIC) 15 mg tablet Take 1 tablet (15 mg total) by mouth daily 30 tablet 09/06/2023 02/15/2024 meloxicam (MOBIC) 15 mg tablet Take 1 tablet (15 mg total) by mouth daily 30 tablet 11 09/26/2023 04/04/2024 documented as of this encounter Discharge Disposition Disposition Code Departure Means Destination Discharge to home or self care documented in this encounter Plan of Treatment Not on file documented as of this encounter Procedures Procedure Name Priority Date/Time Associated Diagnosis Comments XR KNEE RIGHT 1 OR 2 VIEWS Schedule Routine, Read Routine (OP Routine) 11/14/2023 4:49 PM CDT S/P arthroscopy of right knee Osteochondral defect of femoral condyle documented in this encounter Results * XR Knee Right 1 or 2 Views (11/14/2023 4:49 PM CDT) Anatomical Region Laterality Modality Lower Extremities, Knee Right Computed Radiography 11/14/2023 4:52 PM CDT Impressions 11/14/2023 4:52 PM CDT 1. ??Unchanged right medial femoral condyle osteochondral allograft and high medial tibial opening wedge osteotomy. Electronically signed by: Omid Parsons MD Narrative 11/14/2023 4:52 PM CDT EXAMINATION: Right knee one or 2 views HISTORY: ??Osteochondral lesion FINDINGS: Comparison 10/20/2023 The right medial femoral condyle osteochondral allograft and high medial tibial opening wedge osteotomy with plate and screw fixation appear unchanged. 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 Soft tissue swelling and knee joint effusion appear relatively unchanged. ??There is no acute fracture. Procedure Note Omid Parsons MD - 11/14/2023 EXAMINATION: Right knee one or 2 views HISTORY: Osteochondral lesion FINDINGS: Comparison 10/20/2023 The right medial femoral condyle osteochondral allograft and high medial tibial opening wedge osteotomy with plate and screw fixation appear unchanged. 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 Soft tissue swelling and knee joint effusion appear relatively unchanged. There is no acute fracture. IMPRESSION: 1. Unchanged right medial femoral condyle osteochondral allograft and high medial tibial opening wedge osteotomy. Electronically signed by: Omid Parsons MD us Mikey Hawkins MD IMG XR PROCEDURES Final Res ult documented in this encounter Visit Diagnoses Diagnosis S/P arthroscopy of right knee Other postprocedural status Osteochondral defect of femoral condyle documented in this encounter Care Teams Soft Top Installer Relationship Specialty Start Date End Date No, Physician PCP - General 12/21/21 Zach Reyez, PT Physical Therapist Physical Therapy 01/20/22 [place] [address] [place] [address] Physical Therapist Physical Therapy 01/30/22 Hussain Lopez PTA [facility] Physical Therapy 02/03/22 documented as of this encounter
--- OUTSIDE RECORDS SUMMARY | 2024-05-22 05:24 | XMS_ITS | Encounter Summary ---
Author Organization [facility] Healthcare Address [address] [place] [address] Care Team Providers Care Inspector Final Assembly Electrical Name Role Phone No, Physician Primary Care Provider [phone] Zach Reyez PT Unavailable Unavailable Teresa Leach PT Unavailable [phone] Hussain Lopez COOK JELLY Unavailable Unavailabl e Reason for Visit * Reason Comments PT Treatment * Consultation (Routine) - Authorized Specialty Diagnoses / Procedures Referred By Contac t Referred To Contact Physical Therapy Diagnoses Osteochondral [place] [id number] [place] [address] Phone: tel: fax: [facility] at [facility] [id number] [place] [address] [address] [place] [address] Phone: tel: fax: Referral ID Status Reason Start Date Expiration Date Visits Requested Visits Authorized [id number] Authorized Specialty Services Required 09/15/2023 10/14/2024 24 24 Encounter Details Date Type Department Care Team (Late st Contact Info) Description 09/28/2023 4:00 PM CDT Therapy [facility] at [address] [address] [place] [address] [place], [place] [id number] Osteochondral defect of femoral condyle (Primary Dx) [...] on file 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 / male Referring Practitioner: Mikey Hawkins MD MD Follow-Up: 09/26/23 Diagnosis(es): 1. Osteochondral defect of femoral condyle Date of Onset: 09/16/2023 Visit #: 3 Progress Report Due: Visit #10 Date: 09/28/2023 Start Time: 4:00 pm End Time: 5:15 pm Start Pain: End Pain: -11/29 SUBJECTIVE: Pt reports Dr Hawkins unlocked knee brace to 70 degrees and pt to unlock it 10 degrees every week. Pt is progressing, swelling decreasing but still painful and with some swelling OBJECTIVE: Gait: Pt amb with crutches and long leg brace NWB R LE, brace unlocked to 70 degrees Effusion: Moderate R thigh, knee and lower leg (but visibly decreasing swelling and bruising) Knee ROM: (09/28/23) Left: Right: - Extension 0?? (-)6?? (Encourage pt to work more on ext) - supine/seated Flexion 140?? 72?? Prone knee flexion with strap: 0-52 Muscle Length: Tight hamstring, gastroc and quad mm Lower Extremity Strength: Manual Muscle Test (MMT) Left: Right: - Knee extension 5/5 3-/5 - Knee flexion 5/5 3-/5 - Hip flexors 5/5 5/5 - Hip abduction 5/5 3-/5 - Hip adduction 5/5 3-/5 - Hip extension 5/5 3-/5 Palpation: Incision: healing well Quad contraction: fair (+) TREATMENT: TREATMENT 1) reviewed HEP per flow sheet with verbal and manual cues. Init prone knee flex/quad stretch with strap, with heat pack to ant thigh 2) performed manual rx for effleurage massage and patellar mobs, and Myofascial release to lateral thigh and knee 3) applied vasopneumatic with ice for 15 min at 34 degrees and med pressure Exercise/ Activity Date: 09/20 Date: 09/22 Date: 09/27 Date: Date: Date: E stim Long sitting gastroc stretch X X X Long sitting quad contraction X X X Long sitting hip adductor stretch X X Supine knee flexion X X Supine SLR X X SLR all planes Instructed for home Prone knee flexion with strap Init 0-52 Seated knee ext (AA ROM) X X AROM x10 Long sitting ankle PF with band X X home LAQ (assisted) (PROM) X X X 10 Seated hip flexion init Heel props X X Patellar mobs and MFR to quad/adductors X X X Flowsheet [place]: X = performed, x = times/multiply, s = seconds, ea = each, st = stretch SL= side lying, SLS= single leg stance Timed Treatment: Thera ex for 40 minutes: see above Manual rx for 20 min: see above Un-timed Treatment: Heat pack, ice Total of Timed Treatment Codes: 60 minutes Total Treatment Time: 75 minutes ASSESSMENT: Goals: Short Term Goals: 2 weeks Pt to be indep with HEP to be able to: Decrease gait deviations, progressing weight bearing status per MD's orders Pt to be able to transfer in an and out of bed, get dressed and shower with normal pain free mobility Numerical Control Tool Programmer Goals: 12 weeks Pt to continue to [...] to be able to amb stairs and fiber picker 30# with normal pain free mobility PLAN: Continue skilled physical therapy per plan of care Teresa Leach, PT [facility] AT [address] [place] [address] Dept: [phone] Dept documented in this encounter Plan of Treatment Not on file documented as of this encounter Visit Diagnoses Diagnosis Osteochondral defect of femoral condyle- Primary documented in this encounter Care Teams Inspector Final Assembly Electrical Relationship Specialty Start Date End Date No, Physician PCP - General 12/21/21 Zach Reyez, PT Physical Therapist Physical Therapy 01/20/22 [place] [address] [place] [address] Physical Therapist Physical Therapy 01/30/22 Hussain Lopez, TRIPP Assistant Chief Train Dispatcher Physical Therapy 02/03/22 documented as of this encounter
--- OUTSIDE RECORDS SUMMARY | 2024-05-22 05:24 | XMS_ITS | Encounter Summary ---
Author Organization [facility] Healthcare Address [address] [place] [address] Care Team Providers Care Evaluation Engineer Name Role Phone No, Physician Primary Care Provider [phone] Zach Reyez PT Unavailable Unavailable Teresa Leach PT Unavailable [phone] Hussain Lopez BEEF CATTLE FARM WORKER Unavailable Unavailabl e Reason for Visit * Reason Comments PT Treatment * Consultation (Routine) - Authorized Specialty Diagnoses / Procedures Referred By Contac t Referred To Contact Physical Therapy Diagnoses Osteochondral [place] [id number] [place] [address] Phone: tel: fax: [facility] at [facility] [id number] [place] [address] [address] [place] [address] Phone: tel: fax: Referral ID Status Reason Start Date Expiration Date Visits Requested Visits Authorized [id number] Authorized Specialty Services Required 09/15/2023 10/14/2024 24 24 Encounter Details Date Type Department Care Team (Late st Contact Info) Description 09/23/2023 5:15 PM CDT Therapy [facility] at [address] [address] [place] [address] [place], [place] [phone] Osteochondral defect of femoral condyle (Primary Dx) [...] on file 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 / male Referring Practitioner: Mikey Hawkins MD MD Follow-Up: 09/26/23 Diagnosis(es): 1. Osteochondral defect of femoral condyle Date of Onset: 09/16/2023 Visit #: 2 Progress Report Due: Visit #10 Date: 09/23/2023 Start Time: 5:20 pm End Time: 6:20 Start Pain: 4-8/10 End Pain: 4-8/10 SUBJECTIVE: Pt had had a lot of soreness and did not work on ROM yesterday and today. When he stands, his leg is very sore. He has been resting more, elevating and using OBJECTIVE: Gait: Pt amb with crutches and long leg brace NWB R LE Effusion: Moderate R thigh, knee and lower leg Knee ROM: (09/21/23) Left: Right: - Extension 0?? (-)2?? - supine Flexion 140?? 72?? Muscle Length: Tight hamstring, gastroc and quad mm Lower Extremity Strength: * = increase in symptoms, NT = not tested Manual Muscle Test (MMT) Left: Right: - Knee extension 5/5 3-/5 - Knee flexion 5/5 3-/5 - Hip flexors 5/5 5/5 - Hip abduction 5/5 3-/5 - Hip adduction 5/5 3-/5 - Hip extension 5/5 3-/5 Palpation: Incision is not visible due to dressing but there is no active drainage Quad contraction: fair (+) TREATMENT: TREATMENT 1) reviewed HEP per flow sheet with verbal and manual cues. 2) performed manual rx for effleurage massage and patellar mobs 3) applied vasopneumatic with ice for 10 min at 34 degrees and low pressure Exercise/ Activity Date: 09/20 Date: 09/22 Date: Date: Date: Date: Long sitting gastroc stretch X X Long sitting quad contraction X X Long sitting hip adductor stretch X X Supine knee flexion X X Supine SLR X Seated knee ext (AA ROM) X X Long sitting ankle PF with band X X LAQ (assisted) (PROM) X X Heel props X Patellar mobs and MFR to quad/adductors X X Flowsheet [place]: X = performed, x = times/multiply, s = seconds, ea = each, st = stretch SL= side lying, SLS= single leg stance Timed Treatment: Thera ex for 20 minutes: see above Manual rx for 25 min: see above Un-timed Treatment: ice Total of Timed Treatment Codes: 45 minutes Total Treatment Time: 65 minutes ASSESSMENT: Goals: Short Term Goals: 2 weeks Pt to be indep with HEP to be able to: Decrease gait deviations, progressing weight bearing status per MD's orders Pt to be able to transfer in an and out of bed, get dressed and shower with normal pain free mobility [facility] Goals: 12 weeks Pt to continue to [...] to be able to amb stairs and case picker 30# with normal pain free mobility PLAN: Continue skilled physical therapy per plan of care Teresa Leach, PT [facility] AT [facility] [place] [address] [address] Dept: [phone] Dept documented in this encounter Plan of Treatment Not on file documented as of this encounter Visit Diagnoses Diagnosis Osteochondral defect of femoral condyle- Primary documented in this encounter Care Teams Evaluation Engineer Relationship Specialty Start Date End Date No, Physician PCP - General 12/21/21 Zach Reyez, PT Physical Therapist Physical Therapy 01/20/22 [place] [address] [place] [address] Physical Therapist Physical Therapy 01/30/22 Hussain Lopez, BEEF CATTLE FARM WORKER Reception Centre Manager Physical Therapy 02/03/22 documented as of this encounter
--- OUTSIDE RECORDS SUMMARY | 2024-05-22 05:24 | XMS_ITS | Encounter Summary ---
Author Organization [facility] Healthcare Address [address] [place] [address] Care Team Providers Care Freight Weigher Name Role Phone No, Physician Primary Care Provider [phone] Zach Reyez PT Unavailable Unavailable Teresa Leach PT Unavailable [phone] Hussain Lopez MICROSTRATEGY ARCHITECT DEVELOPER Unavailable Unavailabl e Reason for Visit * Reason Comments PT Treatment Encounter Details Date Type Department Care Team (Late st Contact Info) Description 01/13/2024 5:45 PM CDT Therapy [facility] at [facility] [address] [facility] [address] [place] [address] [place] [address] [place] [address] Osteochondral defect of femoral condyle (Primary Dx) [...] on file 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 / male Referring Practitioner: Mikey Hawkins MD MD Follow-Up: 09/26/23 Diagnosis(es): 1. Osteochondral defect of femoral condyle Date of Onset: 09/16/2023 Visit #: 17 Progress Report Due: Visit #20 Date: 01/13/2024 Start Time: 5:45 pm End Time: 6:45 pm Start Pain: 1-2/10 End Pain: 1-2/10 SUBJECTIVE: Pt reports pain in lateral knee near fibular head especially as the day progresses. He is able to bike. Mainly weight bearing is what bothers him. No longer with c/o's medial knee pain. He also feels he just needs to build strength at this point. He also feels he doesn't have full extension OBJECTIVE: Gait: Pt amb with pelvic drop in L stance phase with late stance phase to early swing phase R with R hip IR/add. Also note, medial/lateral knee shift through mid stance R to heel rise R. Effusion: Mild to mod swelling R knee today Knee ROM: (01/14/24) (ROM decreased due to increased swelling) Left: Right: - Extension 0?? (-1)?? Prior to and 0 to +1degrees after stretching/ex - supine/seated Flexion 140?? 135?? [...] contraction: good (+) with decreased VMO contraction Tenderness inferior to fibular head/proximal peroneal, as well as distal ITB TREATMENT: TREATMENT 1) bike for 10 min for warm up 2) reviewed HEP per flow sheet with verbal and manual cues. Init seated knee ext 90-20 and leg press, bilat/unilat (today for the first time since previous surgery that pt has not had medial knee pain with walking or the leg press!!!), as well as full ext on leg press bilat and unilat!! 3) performed manual rx for fascial manipulation to post/lateral densifications in hamstring and gastroc mm, manual knee ext mobs, knee ext with passive gastroc stretch, and patellar mobs, scar massage 4) reviewed proper gait 5) applied lateral knee taping distal to fibular head to support peroneal mm origin 6) not today: applied vasopneumatic with ice for 15 min at high pressure and 34 degrees Exercise/ Activity 11/27 12/01 12/13 01/12 BFR Bike 5 min 5 min X 5 min 10 min Seated knee ext 90-20 degrees, 10# x20 Leg press 3 plates bilat x 10 reps 1 plate unilat x 10 (full ROM today) Long sitting VMO bj/quad contraction Long sitting hip adductor stretch Supine knee flexion X Supine SLR SLR all planes Prone knee flexion with strap X X modified with opp LE on floor Supine/SL hip adduction with strap for lateral hamstring/ITB Init x3 Prone hip ext with knee flexed Seated knee ext 5# x20 5# x20 with VMO bj/ball squeeze Supine SAQ 5# x20 Standing leg curl Standing heel raises partial weight bearing X Standing TKE with band Init with blue band X Prone hangs X Heel props Patellar mobs and MFR to quad/adductors and knee ext mobs X X X Flowsheet [place]: X = performed, x = times/multiply, s = seconds, ea = each, st = stretch SL= side lying, SLS= single leg stance Timed Treatment: Thera ex for 30 minutes: see above Manual rx for 10 min: see above Gait for 5 min Un-timed Treatment: Lateral knee tape x 3 min Total of Timed Treatment Codes: 45 minutes Total Treatment Time: 60 minutes ASSESSMENT: Patient 's ROM and swelling [...] shower with normal pain free mobility, achieved [facility] Goals: 12 weeks Pt to continue to [...] be able to amb stairs and pick and shovel worker 30# with normal pain free mobility, progressing PLAN: Continue skilled physical therapy per plan of care Teresa Leach, JAC[facility] AT [address] [address] Dept: [phone] Dept documented in this encounter Plan of Treatment Not on file documented as of this encounter Visit Diagnoses Diagnosis Osteochondral defect of femoral condyle- Primary documented in this encounter Care Teams Freight Weigher Relationship Specialty Start Date End Date No, Physician PCP - General 12/21/21 Zach Reyez, PT Physical Therapist Physical Therapy 01/20/22 [place] [address] [place] [address] Physical Therapist Physical Therapy 01/30/22 Hussain Lopez PTA [facility] 02/03/22 documented as of this encounter
--- OUTSIDE RECORDS SUMMARY | 2024-05-22 05:24 | XMS_ITS | Encounter Summary ---
Author Organization [facility] Address [address] [place] [address] Phone Care Team Providers Care Wine Fermenter Name Role Phone No, Physician Primary Care Provider [phone] Zach Reyez PT Unavailable Unavailable Teresa Leach PT Unavailable [phone] Hussain Lopez ACCOUNTS RECEIVABLE REPRESENTATIVE Unavailable Unavailabl e Reason for Referral * Consultation (Routine) - Pending Review Specialty Diagnoses / Procedures Referred By Contsom t Referred To Contact Physical Therapy Diagnoses Left shoulder [place], [place] [id number] [place] [address] Phone: tel: fax: [facility] at [facility] [address] [address] [place] [address] Phone: tel: fax: Referral ID Status Reason Start Date Expiration Date Visits Requested Visits Authorized [id number] Pending Review Specialty Services Required 09/05/2023 10/04/2024 24 24 Question Answer PTRFR PT Evaluate and Treat Please select the performing region: [facility] [[id number]] Please select the performing department: [facility] OP PT ST[facility] [[id number]] # of visits: 24 Comments SHOULDER REHABILITATION Zayda Torres 1975 09/05/23 Dx:L Shoulder Rotator Cuff strain Physical Therapy Evaluation and Treatment Twice Weekly for 6 Weeks Rotator cuff strengthening exercises ROM Modalities prn Home exercise program For all PT reports that require a signature-please fax to [phone] For all other PT progress notes-please fax to [phone] Mikey Hawkins MD * Diagnostic Imaging (Routine) - Authorized Specialty Diagnoses / Procedures Referred By Contac t Referred To Contact Diagnoses Left shoulder pain, unspecified chronicity Procedures XR Shoulder Left 2+ [place] [address] [place] [address] Phone: tel: fax: [facility] Referral ID Status Reason Start Date Expiration Date V isits Requested Visits Authorized [id number] Authorized 09/05/2023 10/04/2024 1 1 Reason for Visit * Reason Comments Pain Encounter Details Date Type Department Care Team (Late st Contact Info) Description 09/05/2023 3:50 PM CDT Office Visit [facility] Orthopaedic Surgery [address] [place] [address] [place] [address] [place] [address] Left shoulder pain, unspecified chronicity (Primary Dx); Nontraumatic complete tear of rotator [...] on file 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 He denies any prior history of discomfort. He has pain with overhead activities as well as weakness. He has been doing physical therapy exercises he will strengthen the rotator cuff but has had minimal relief. He has not use medication on regular basis. He has beenable continue to exercise. He localizes the pain along the anterolateral aspect of the left shoulder with some radiation to the mid arm. He denies any numbness, paresthesias or distal motor weakness.He has no contralateral symptoms he has had a prior right rotator cuff repair done by Dr. Estevez years ago PAST MEDICAL HISTORY He has no past medical history of Acute respiratory failure requiring reintubation (CMS/HCC) (HCC),Awareness under anesthesia, Delayed emergence from general anesthesia, Hard to intubate, Malignant hyperthermia, Motion sickness, PONV (postoperative nausea and vomiting), Postoperative delirium, Pseu docholinesterase deficiency, or Sleep apnea. PAST SURGICAL HISTORY He has a past surgical history that includes Rotator cuff repair (Right, 2013); Anterior cruciate ligament repair (Right, 12/2021); and Knee surgery (Right, 2022). INITIAL REVIEW OF MEDICATIONS He has a current medication list which includes the following prescription(s): hydrocodone-acetaminophen, hydrocodone-acetaminophen, meloxicam, and ondansetron. DRUG ALLERGIES He has no known allergies. SOCIAL HISTORY He reports that he has never smoked. He has never been exposed to tobacco smoke. He has never used smokeless tobacco. He reports current drug use. Frequency: 2.00 times per week. Drug: Alcohol. Patient reports consuming alcoholic drinks , with a daily consumption of drinks. Patient denies daily consumption of 6 or more alcoholic drinks at one occasion. FAMILY HISTORY His family history is not on file. REVIEW OF SYSTEMS ROS PHYSICAL EXAMINATION: On examination, he is 5 ft 9 in tall, 195 lb. He is excellent physical condition. He is nontender range motion of the cervical spine. There is no periscapular atrophy or scapular winging. He has prominence but no tenderness over the left AC joint. There is no pain with cross-body adduction. Active elevation 160??. Active external rotation arm to side is to 60??. Internal rotation is symmetrical to approximately T8. He has positive Alan and positive Neer impingement sign. He has a positive Speed's test. He is weakness to both thumbs down abduction and external rotation testing. He has negative lift-off test. Negative belly press test. His neurovascular exam is intact to the left upper extremity. REVIEW OF IMAGING: Four views left shoulder show early osteoarthritis the glenohumeral and acromioclavicular joints. His MRI was reviewed consistent with a 3 mm rent of the anterior supraspinatus with surrounding tendinopathy. He is also known to have degenerative tearing of the posterior labrum. IMPRESSION: Full-thickness tear left anterior supraspinatus with associated rotator cuff tendinopathy Asymptomatic labral tear left shoulder Asymptomatic acromioclavicular arthropathy TREATMENT PLAN: I discussed treatment options with him. At this point he would like to continue conservative treatment in order to potentially avoid surgery. We discussed the role of a subacromial injection of corticosteroid preparation. He would like to proceed in that fashion.The left subacromial space was injected under sterile conditions with 1 cc of Depo-medrol (40 mg/cc) and 5 cc of 1% lidocaine. The patient tolerated the procedure without complication and was apprised of the risk for a flare reaction. He was given a prescription for rotator cuff strengthening. He is avoid overhead lifting if possible. I have also recommended the use of an [id number] NSAID for pain control. He is return in 6-8 weeks to reassess his progress. Should he have symptomatic improvement that continued conservativebed. If not then surgical intervention will be considered. All questions answered prior to him leaving the office I was present for the critical portion of the history, physical examination, and participated in the radiographic review and medical decision making for this patient. I agree with the findings in thereport of the above residence/fellow dictating using [employer] Direct software. Professor of Orthopaedic Surgery Director, Sports Medicine Fellowship [facility] Orthopa[facility]ics documented in this encounter Plan of Treatment Scheduled Orders Name Type Priority Associated Diagnoses Orde r Schedule XR Shoulder Left 2+ View Imaging Schedule Routine, Read Routine (OP Routine) Left shoulder pain, unspecified chronicity Expected: 09/05/2023, Expires: 09/04/2024 Scheduled Referrals Name Type Priority Associated Diagnoses Orde r Schedule Ambulatory referral order to Physical Therapy - Outpatient Referral Routine Left shoulder pain, unspecified chronicity Expected: 09/12/2023, Expires: 09/04/2024 documented as of this encounter Visit Diagnoses Diagnosis Left shoulder pain, unspecified chronicity- Primary Nontraumatic complete tear of rotator cuff, unspecified laterality documented in this encounter Care Teams Wine Fermenter Relationship Specialty Start Date End Date No, Physician PCP - General 12/21/21 Zach Reyez, PT Physical Therapist Physical Therapy 01/20/22 [place] [address] [place] [address] Physical Therapist Physical Therapy 01/30/22 Hussain Lopez PTA Piece Worker Physical Therapy 02/03/22 documented as of this encounter
--- OUTSIDE RECORDS SUMMARY | 2024-05-22 05:24 | XMS_ITS | Encounter Summary ---
Author Organization [facility] Address [address] [place] [address] Care Team Providers Care Marine Cargo Inspector Name Role Phone No, Physician Primary Care Provider [phone] Zach Reyez PT Unavailable Unavailable Teresa Leach PT Unavailable [phone] Hussain Lopez FACER OPERATOR Unavailable Unavailabl e Reason for Referral * Diagnostic Imaging (Routine) - Closed Specialty Diagnoses / Procedures Referred By Contac t Referred To Contact Diagnoses S/P arthroscopy of right knee Procedures XR Knee Right 1 [place] [address] [place] [address] Phone: tel: fax: [facility] Referral ID Status Reason Start Date Expiration Date Visits Re quested Visits Authorized [id number] Closed 10/19/2023 11/17/2024 1 1 Reason for Visit * Diagnostic Imaging (Routine) - Closed Specialty Diagnoses / Procedures Referred By Danny t Referred To Contact Diagnoses S/P arthroscopy of right knee Procedures XR Knee Right 1 [place] [address] [place] [address] Phone: tel: fax: [facility] Referral ID Status Reason Start Date Expiration Date Visits Re quested Visits Authorized [id number] Closed 10/19/2023 11/17/2024 1 1 Encounter Details Date Type Department Care Team (Latest Contact Info) Description 10/20/2023 1:57 PM CDT - 10/20/2023 11:59 PM CDT Hospital Encounter [facility] [address] [place] [address] [place] [address] [place] [address] S/P arthroscopy of right knee Discharge Disposition: Discharge to home or self [...] file 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 ??Unchanged right medial femoral condyle osteochondral allograft and high medial tibial opening wedge osteotomy Electronically signed by: Rao Omer MD, PHD Narrative 10/20/2023 2:20 PM CDT EXAMINATION: Right knee one or 2 views HISTORY: ??Osteochondral lesion FINDINGS: 2 radiographs of the right knee are compared to prior radiographs from 09/26/2023. ??The right medial femoral condyle osteochondral allograft and high medial tibial opening wedge osteotomy with plate and screw fixation appear unchanged. ??Joint spaces are normal. ??Soft tissue swelling and knee joint effusion appear unchanged. ??There is no acute fracture. Procedure Note Rao Omer MD PhD - 10/20/2023 EXAMINATION: Right knee one or 2 views HISTORY: Osteochondral lesion FINDINGS: 2 radiographs of the right knee are compared to prior radiographs from 09/26/2023. The right medial femoral condyle osteochondral allograft and high medial tibial opening wedge osteotomy with plate and screw fixation appear unchanged. Joint spaces are normal. Soft tissue swelling and knee joint effusion appear unchanged. There is no acute fracture. IMPRESSION: 1. Unchanged right medial femoral condyle osteochondral allograft and high medial tibial opening wedge osteotomy Electronically signed by: Rao Omer MD, PHD us Mikey Hawkins MD IMG XR PROCEDURES Final Res ult documented in this encounter Visit Diagnoses Diagnosis S/P arthroscopy of right knee Other postprocedural status documented in this encounter Care Teams Marine Cargo Inspector Relationship Specialty Start Date End Date No, Physician PCP - General 12/21/21 Zach Reyez, PT Physical Therapist Physical Therapy 01/20/22 [place] [address] [place] [address] Physical Therapist Physical Therapy 01/30/22 Hussain Lopez PTA Construction Project Manager Physical Therapy 02/03/22 documented as of this encounter
--- OUTSIDE RECORDS SUMMARY | 2024-05-22 05:24 | XMS_ITS | Encounter Summary ---
Author Organization [facility] Address [address] [place] [address] Phone Care Team Providers Care Continuous Mining Machine Lode Miner Name Role Phone No, Physician Primary Care Provider [phone] Zach Reyez PT Unavailable Unavailable Teresa Leach PT Unavailable [phone] Hussain Lopez SAND AND GRAVEL PLANT OPERATOR Unavailable Unavailabl e Reason for Referral * Durable Medical Equipment (Routine) - Authorized Specialty Diagnoses / Procedures Referred By Danny t Referred To Contact Diagnoses 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 S/P arthroscopy of right knee Right knee pain, unspecified chronicity Procedures Miscellaneous DME [place] [address] [place] [address] Phone: tel: fax: [facility] (All Locations) Referral ID Status Reason Start Date Expiration Date V isits Requested Visits Authorized [id number] Authorized 02/09/2024 03/10/2025 1 1 * MRI/CAT/PET Scan (Routine) - Pending Review Specialty Diagnoses / Procedures Referred By Contac t Referred To Contact Radiology Diagnoses Right knee pain, unspecified chronicity Procedures MRI [place] [address] [place] [address] Phone: tel: fax: External Order Referral ID Status Reason Start Date Expiration Date V isits Requested Visits Authorized [id number] Pending Review 02/09/2024 03/10/2025 1 1 * Diagnostic Imaging (Routine) - Pending Review Specialty Diagnoses / Procedures Referred By Contac t Referred To Contact Diagnoses 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 S/P arthroscopy of right knee Procedures XR Knee Right 1 [place] [address] [place] [address] Phone: tel: fax: [facility] Referral ID Status Reason Start Date Expiration Date V isits Requested Visits Authorized [id number] Pending Review 02/07/2024 03/08/2025 1 1 Reason for Visit * Reason Comments Follow-up Encounter Details Date Type Department Care Team (Late st Contact Info) Description 02/09/2024 4:30 PM CDT Office Visit [facility] Orthopaedic Surgery [address] [place] [address] [place] [address] [place] [address] 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 The patients measurements are as followed: Knee offset: 3 Knee width: 112 Thigh: 20 Calf: 15 The patient decided that they would like to order the brace at this time. The patient will be notified when the brace is in stock in order to schedule an appointment for fitting. * Mikey Hawkins MD - 02/09/2024 4:30 PM CDT Images from the original note were not included. ESTABLISHED PATIENT VISIT INTERIM HISTORY: He is now 5 months out from his high tibial osteotomy and osteochondral allograft. He had little relief following the intra-articular corticosteroid injection. He tried a variety of braces that causesome increased irritation along the lateral aspect of the knee. He continues to have pain along the anteromedial aspect of the joint. He has no pain at the HTO side. He has no swelling or any mechanical symptoms. He has been taking meloxicam as well as hydrocodone which helps relieve some of his pain. PHYSICAL EXAMINATION: On examination, he walks normal gait. His surgical wounds are well healed. He has no effusion. Passive knee range motion is 0-130 degrees flexion. He has no crepitus on active extension. He has mild tenderness over the medial femoral condyle with the knee flexed 90??. He has no palpable tenderness over the HTO site. His neurovascular exam is unchanged. REVIEW OF IMAGING: X-rays were obtained which shows interval healing of the HTO with no change in alignment his hardware. There is also interval healing of his osteochondral allograft and decreased soft tissue swelling. IMPRESSION: Status post osteochondral allograft implantation right medial femoral condyle with persistent pain Status post opening wedge high tibial osteotomy TREATMENT PLAN: An MRI be obtained in order to assess the status of his graft given the amount of discomfort he is having this far from surgery. In addition he will be placed in a medial professional bass fisherman brace in order to help relieve some compressive force across the allograft with weight-bearing. Was also given a renewal of his meloxicam and hydrocodone. He will be apprised of the results of the MRI as soon as they are available. I was present for the critical portion of the history, physical examination, and participated in the radiographic review and medical decision making for this patient. I agree with the findings in thereport of the above residence/fellow dictating using [employer] software. Professor of Orthopaedic Surgery Director, Sports Medicine Fellowship [facility] documented in this encounter Plan of Treatment Not on file documented as of this encounter Results * MRI Knee Right WO Contrast (03/01/2024 11:59 AM CDT) Anatomical Region Laterality Modality Lower Extremities Right Magnetic Reson ance us Mikey Hawkins MD IMG MRI PROCEDURES Final Re sult * XR Knee Right 1 or 2 Views (02/09/2024 4:52 PM CDT) Anatomical Region Laterality Modality Lower Extremities, Knee Right Computed Radiography 02/09/2024 5:01 PM CDT Impressions 02/09/2024 5:01 PM CDT 1. ??Healing proximal tibia wedge osteotomy with intact internal fixation. 2. ??Healing medial femoral condyle osteochondral allograft. 3. ??Decreased soft tissue swelling and decreased joint effusion. Electronically signed by: Gui Weeks D.O. Narrative 02/09/2024 5:01 PM CDT EXAMINATION: XR KNEE RIGHT 1 OR 2 VIEWS HISTORY: right knee pain FINDINGS: Comparison is made to 12/10/2023 radiograph. Medial right tibial wedge osteotomy with anteromedial plate screw fixation construct is intact and unchanged position. There appears to be mild interval progression healing at the osteotomy site. Unchanged appearance of medial femoral condylar osteochondral allograft. Trace knee joint effusion is decreased compared to prior. Prepatellar soft tissue swelling is also decreased. Procedure Note Gui Weeks, DO - 02/09/2024 EXAMINATION: XR KNEE RIGHT 1 OR 2 VIEWS HISTORY: right knee pain FINDINGS: Comparison is made to 12/10/2023 radiograph. Medial right tibial wedge osteotomy with anteromedial plate screw fixation construct is intact and unchanged position. There appears to be mild interval progression healing at the osteotomy site. Unchanged appearance of medial femoral condylar osteochondral allograft. Trace knee joint effusion is decreased compared to prior. Prepatellar soft tissue swelling is also decreased. IMPRESSION: 1. Healing proximal tibia wedge osteotomy with intact internal fixation. 2. Healing medial femoral condyle osteochondral allograft. 3. Decreased soft tissue swelling and decreased joint effusion. Electronically signed by: Gui Weeks D.O. 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
--- OUTSIDE RECORDS SUMMARY | 2024-05-22 05:24 | XMS_ITS | Encounter Summary ---
Author Organization [facility] Address [address] [place] [address] Phone Care Team Providers Care Fine Grade Operator Name Role Phone No, Physician Primary Care Provider [phone] Zach Reyez PT Unavailable Unavailable Teresa Leach PT Unavailable [phone] Hussain Lopez AIRLINE SECURITY REPRESENTATIVE Unavailable Unavailabl e Reason for Referral * Diagnostic Imaging (Routine) - Closed Specialty Diagnoses / Procedures Referred By Contac t Referred To Contact Diagnoses S/P arthroscopy of right knee Procedures XR Knee Right 1 [place] [address] [place] [address] Phone: tel: fax: [facility] Referral ID Status Reason Start Date Expiration Date Visits Re quested Visits Authorized [id number] Closed 11/25/2023 12/24/2024 1 1 Reason for Visit * Reason Comments Follow-up Post-op Encounter Details Date Type Department Care Team (Latest Contact Info) Description 12/12/2023 3:50 PM CDT Office Visit [facility] Orthopaedic Surgery [address] [address] 2[address] [place] [id number] [place] [address] [place], [place] [id number] S/P arthroscopy of right knee (Primary Dx); Primary localized osteoarthrosis of the knee, right; 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 ESTABLISHED PATIENT VISIT INTERIM HISTORY: He returns approximately 3 months status post right knee high tibial osteotomy and medial femoral condyle osteochondral allograft. He is doing well overall. He continues to have some medial sided knee pain and tightness. He says that he feels he has been improving slowly with physical therapy. He says that when he wakes in the morning his swelling is pretty minimal but with increased activity he is noticed more swelling recently. PHYSICAL EXAMINATION: On evaluation of the right knee, there is mild tenderness to palpation over the medial joint line. Prior incisions are well healed. He has a small joint effusion. ROM is 0-135 degrees. Lower extremity alignment is neutral. Ed and posterior drawer testing is stable. The knee is stable to varus/valgus stress at 0/30 degrees of flexion. Saurabh's testing is negative. There is no patellofemoralcrepitus. He is neurovascularly intact distally. REVIEW OF IMAGING: Three views of the right knee were obtained today and independently reviewed by Dr. Hawkins. They demonstrate No evidence of fracture or dislocation. There is evidence of prior high tibial osteotomy with interval healing. There is also evidence of medial femoral condyle osteochondral allograft whichalso is incorporating appropriately without complete healing compared to prior radiographs. IMPRESSION: Three months status post right knee HTO and medial femoral condyle osteochondral allograft, doing well TREATMENT PLAN: Overall he is doing well with mild swelling of the knee joint with excellent improvement in his knee range of motion. We discussed either performing aspiration of the knee corticosteroid injection for his mild knee swelling and pain versus icing and continued meloxicam and compression. The patient elected for more conservative management now as his symptoms are pretty mild. He will start going back to work part-time and will let us know in the next few days if he needs an aspiration injection. Otherwise he will follow up with us in 8 weeks for repeat radiographs and evaluation. Mart Geiger M.D. Department of Orthopaedic Surgery, PGY-4 [facility] in [facility] Dr. Mart Geiger dictating using [employer]. Dictation variances may occur. I was present for the critical portion of the history, physical examination, and participated in the radiographic review and medical decision making for this patient. I agree with the findings in thereport of the above residence/fellow dictating using [employer] software. Professor of Orthopaedic Surgery Director, Sports Medicine Fellowship [facility] Orthopaedics documented in this encounter Plan of Treatment Not on file documented as of this encounter Results * XR Knee Right 1 or 2 Views (12/12/2023 4:37 PM CDT) Anatomical Region Laterality Modality Lower Extremities, Knee Right Computed Radiography 12/12/2023 4:41 PM CDT Impressions 12/12/2023 4:41 PM CDT 1. ??Healing internally fixated medial right tibial wedge osteotomy. 2. ??Healing medial femoral condylar osteochondral allograft. Electronically signed by: Louie Pelletier M.D. Narrative 12/12/2023 4:41 PM CDT XR KNEE RIGHT 1 OR 2 VIEWS HISTORY: ??Tibial osteotomy. FINDINGS: ??2 views of the right knee are obtained and compared with 11/14/2023. There is redemonstrated internally fixated proximal right tibial osteotomy. ??Hardware is intact. ??There is progressive incorporation of wedge allograft. ??There is no acute fracture. ??Unchanged medial femoral condylar osteochondral allograft. ??Unchanged small joint effusion and prepatellar soft tissue swelling. Procedure Note Louie Pelletier MD - 12/12/2023 XR KNEE RIGHT 1 OR 2 VIEWS HISTORY: Tibial osteotomy. FINDINGS: 2 views of the right knee are obtained and compared with 11/14/2023. There is redemonstrated internally fixated proximal right tibial osteotomy. Hardware is intact. There is progressive incorporation of wedge allograft. There is no acute fracture. Unchanged medial femoral condylar osteochondral allograft. Unchanged small joint effusion and prepatellar soft tissue swelling. IMPRESSION: 1. Healing internally fixated medial right tibial wedge osteotomy. 2. Healing medial femoral condylar osteochondral allograft. Electronically signed by: Louie Pelletier M.D. 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
--- OUTSIDE RECORDS SUMMARY | 2024-05-22 05:24 | XMS_ITS | Encounter Summary ---
Author Organization 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 Office Visit [facility] Orthopaedic Surgery [address] [place] [address] [place] [address] [facility] [address] [place] [address] Osteochondral defect of femoral condyle (Primary Dx) [...] on file 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 ESTABLISHED PATIENT VISIT INTERIM HISTORY: He is now 3 months out from his surgery. Apparently he was denied and osteochondral allograft to medial femoral condyle because the defect was too small. He continues to have pain with exercise as well as pain at night. Denies any mechanical locking or catching. PHYSICAL EXAMINATION: On examination, he walks normal gait. He has well-healed portals right knee. He is a mild effusion right knee. There is tenderness over the medial femoral condyle with the knee flexed 90??. He has diffuse quadriceps atrophy. Passive range motion 0-120 degrees of flexion. His neurovascular exam is intact. REVIEW OF IMAGING: Not performed IMPRESSION: Osteochondral defect right medial femoral condyle TREATMENT PLAN: We will appeal the decision by the insurance company regarding his defect. We discussed the role ofusing an autograft from the contralateral knee as a surgical option. In the meantime, he was given a refill of meloxicam as well as hydrocodone number 30 he is to avoid any high impact activities. Hewas encouraged to do low-impact aerobic exercise such as cycling and swimming. He will be apprised once any further decisions were made by the insurance company. I was present for the critical portion of the history, physical examination, and participated in the radiographic review and medical decision making for this patient. I agree with the findings in thereport of the above residence/fellow dictating using [employer] Direct software. Professor of Orthopaedic Surgery Director, Sports Medicine Fellowship [facility] Orthopaedics NT LEAD TEACHER documented in this encounter Plan of Treatment Not on file documented as of this encounter Visit Diagnoses Diagnosis Osteochondral defect of femoral condyle- Primary documented in this encounter Discontinued Medications Medication Sig Discontinue Reason Start Date End Da te meloxicam (MOBIC) 15 mg tablet Take 1 tablet (15 mg total) by mouth daily 04/01/2023 05/05/2023 documented as of this encounter Care Teams Evaluator Relationship Specialty Start Date End Date No, Physician PCP - General 12/21/21 Zach Reyez, PT Physical Therapist Physical Therapy 01/20/22 [place] [address] [place] [address] Physical Therapist Physical Therapy 01/30/22 Hussain Lopez, TRIPP Surgery Aide Physical Therapy 02/03/22 documented as of this encounter
--- OUTSIDE RECORDS SUMMARY | 2024-05-22 05:24 | XMS_ITS | Encounter Summary ---
Author Organization [facility] Address [address] [place] [address] Care Team Providers Care Circuits Engineer Name Role Phone No, Physician Primary Care Provider [phone] Zach Reyez PT Unavailable Unavailable Teresa Leach PT Unavailable [phone] Hussain Lopez HAND ETCHER Unavailable Unavailabl e Reason for Visit * Auth/Cert (Routine) Specialty Diagnoses / Procedures Referred By Danny t Referred To Contact Diagnoses Osteochondral lesion Osteochondral lesion [M89.9, M94.9] Procedures [place] ARTHROSCOPY KNEE OSTEOCHONDRAL ALLOGRAFT [place] OSTEOTOMY TIBIA RIGHT ARTHROTOMY KNEE OSTEOCHONDRAL ALLOGRAFT MEDIAL FEMORAL CONDYLE, OPEN HIGH TIBIAL OSTEOTOMY- OPENING WEDGE RIGHT Referral ID Status Reason Start Date Expiration Date Visits Re quested Visits Authorized [id number] 1 1 Encounter Details Date Type Department Care Team (Late st Contact Info) Description 09/16/2023 11:45 AM CDT - 09/16/2023 2:45 PM CDT Surgery [facility] Operating [facility] at the [facility] [address] [place] [address] Mikey Hawkins MD [address] [place] [address] RIGHT ARTHROTOMY KNEE OSTEOCHONDRAL ALLOGRAFT MEDIAL FEMORAL CONDYLE, OPEN HIGH TIBIAL OSTEOTOMY- OPENING WEDGE Surgery Details Date/Time Status Location OR Service Patient Class Case Class Case Type Trauma Case? 09/16/2023 11:45 AM Posted [facility] OPERATING ROOM OR 3 Orthopaedics Outpatient Elective Panel 1 Procedure LRB Anes Op Region Wound Class Comments RIGHT ARTHROTOMY KNEE OSTEOC HONDRAL ALLOGRAFT MEDIAL FEMORAL CONDYLE, OPEN HIGH TIBIAL OSTEOTOMY- OPENING WEDGE Right Choice Knee Class I - Clean Surgeon Surgeon Role Service Panel Mikey Hawkins MD Primary Orthopaedics 1 Segun Olvera DO Fellow Orthopaedics 1 Mikey Tong MD Resident - Assisting Orthopae dics 1 Special Needs JRF ALLOGRAFT - [id number] Femoral Condyle, Medial Right. Graft ID [id number] to be delivered 09/15 by 0630. 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 Your physician or designated outreach representative will contact you. documented in this encounter Medications at Time of Discharge aspirin 81 mg enteric coated tablet Take 1 tablet (81 mg total) by mouth daily 30 tablet 09/16/2023 ketorolac (TORADOL) 10 mg tablet Take 1 [...] for nausea or vomiting 12 tablet 09/15/2023 4 documented as of this encounter Ordered Prescriptions [...] in this encounter Progress Notes * Allie Harris, JAMAL - 09/16/2023 10:46 AM CDT Zayda Torres [id number] 09/16/2023 Surgeons and Role: * Mikey Hawkins [...] Fellow Anesthesiologist: Flakito De La Cruz MD FISH CHECKER: Yanira Tejdea CRNA Boat Loader Helper: Sandra Nichols RN Scrub: Marnie Salcido RN [...] Implant Name Type Inv. Item Serial No. Systems Spec Lot No. LRB No. Used Action [employer] Allograft Aseptic Fresh Graft Bone Right Medial Femoral [id number] - [id number] [employer] Allograft Aseptic Fresh Graft Bone Right Medial Femoral [id number] [employer] [id number] Right 1 Implanted [employer] 9mm Tibia Low Profile Plate Bone Titanium 6.5mm Cancellous 4.5mm [id number] - [id number] [employer] 9mm Tibia Low Profile Plate Bone Titanium 6.5mm Cancellous 4.5mm [id number] [employer] [id number] Right 1 Implanted [employer] 4.5mm 38mm Tibia Cortical Screw Bone Titanium Opening Wedge [id number] - [id number] [employer] 4.5mm 38mm Tibia Cortical Screw Bone Titanium Opening Wedge [id number] [employer] Right1 Implanted [employer] 6.5mm 65mm Tibia Cancellous Screw Bone Titanium Opening Wedge [id number] - [id number] INC 6.5mm 65mm Tibia Cancellous Screw Bone Titanium Opening Wedge [id number] [employer] [id number] Right 1 Implanted [employer] 6.5mm 60mm Tibia Cancellous Screw Bone Titanium Opening Wedge AR-[id number] - [id number] [employer] 6.5mm 60mm Tibia Cancellous Screw Bone Titanium Opening Wedge [id number]-[id number] [employer] [id number] Right 1 Implanted [employer] 4.5mm 40mm Tibia Cortical Screw Bone Titanium Opening Wedge AR-[id number] - [id number] [employer] 4.5mm 40mm Tibia Cortical Screw Bone Titanium Opening Wedge [id number]-[id number] [employer] [id number] Right 1 Implanted Blood/Blood Products Transfused: 0 [...] alignment, right knee. SURGEON Mikey Hawkins MD. FRONT END MECHANIC Segun Olvera D.O. SECOND JOB COACH/JOB DEVELOPER Mikey Tong MD. ANESTHESIA General endotracheal. FLUIDS [...] with pulsatile lavage.The arthrotomy was closed with [id number] suture of #1 Vicryl. The skin incision [...] then reapproximated to the proximal tibia using [id number]-kt-[id number] suture of #1 Vicryl. The subcutaneous layer [...] final dressing placement. Job ID/Internal Job ID: [id number] * Perioperative Nursing Note - Almaz Simon RN - 09/15/2023 11:39 AM CDT We are pleased that you and your doctor have chosen [facility] for your surgery. We hope the following information will help make your visit a pleasant one. The name of the building is [facility] in [place]. Directions to facility (address is [address] [place] [address] [address] [place]. Zip [address] When you enter the building, look directly to your left, you will see 2 glass double doors. These double doors say [address]. Go through those double doors and check in with the legal receptionist. Pt. Needs crutches and needs to [...] Leave jewelry and valuables at home EXCEPT Insulation Hoseman's license and Insurance card. You may bring [...] Preoperative Assessment and Planning CPAP Clinic Location: [facility] CPAP The night before your surgery: * Do [...] COVID-19. * Perioperative Nursing Note - Nguyễn Crowley, RN - 09/13/2023 8:49 AM CDT Center for Preoperative Assessment and Planning Perioperative Nursing Note Telephone Preoperative Evaluation ([facility]) - TELEPHONE ONLY, NO PHYSICAL EXAM Date: [...] Implant Menicus Repair Fiberstitch Curved Ar-[id number] - [id number] - Implanted (Right) Knee Inventory item: [employer] Logan Meniscal Repair Curved 2 0 Fiberwire Fiberstitch AR-4570 Model/Cat number: [id number] Spec: [employer] Lot number: [id number] As of 01/15/2022 Status: Implanted [employer] Implant Menicus Repair Fiberstitch Curved Ar-4570 - [id number] - Implanted (Right) Knee Inventory item: [employer] Logan Meniscal Repair Curved 2 0 Fiberwire Fiberstitch AR-4570 Model/Cat number: [id number] Spec: [employer] Lot number: [id number] As of 01/15/2022 Status: Implanted [employer] Screw Fastthread Biocomposite Interference 8mm X 20mm [id number] - [id number] - Implanted (Right) Knee Inventory item: [employer] Screw Fastthread Biocomposite Interference 8mm X 20mm [id number] Model/Cat number: [id number] Spec: [employer] Lot number: [id number] As of 01/15/2022 Status: Implanted [employer] Screw Fastthread Biocomposite Interference 10mm X 20mm Ar-[id number]-10 - [id number] - Implanted (Right) Knee Inventory item: [employer] Screw Fastthread Biocomposite Interference 10mm X 20mm [id number] Model/Cat number: [id number] Spec: [employer] Lot number: [id number] As of 01/15/2022 Status: Implanted SKIN Piercings [...] DNR/DNI Order: No Patient Requests Assistance: No Communication/Bead Wire Insulator Needs Communication Needs: None Assistive Devices/DME: None Hearing - Right Ear: Functional Hearing - Left Ear: Functional Discharge Planning Type of Residence: Private residence Living Arrangements: Spouse/significant other Support Systems: Spouse/significant other Assistance Needed: His will drive him and help care for him after surgery. Patient expects to be discharged to:: Private residence UX MANAGER NO ADDITIONAL COMMENTS/ FOLLOW UP * Pre-Procedure [...] remove nail coverings, artificial nails and nail bhutanese prior to the day of surgery. You should leave your valuables and any jewelry at home. No metal or piercings are allowed in the operating room. You should bring your insurance card, a photo ID (example: Insulation Hoseman's License) and a method of payment for [...] Chart. If you are having surgery at [facility], please arrive on the day of [...] Pathway to Excellent Care by the followinglink: [email or web address] How To Prepare Your Skin For Surgery [...] Remove nail coverings, artificial nails and nail bhutanese. The Morning of Surgery: Take a shower [...] questions, please call the CPAP Staff at [phone], Tuesday-Tuesday 8am-4:30pm. All patients should read the below section: COVID 19 Updates & Visitor Policy: Please access [email or web address] for the most updated information. Information on [facility]: Please view [email or web address] (Patient & Visitor Information) for additional details regarding Advanced Directive forms, AWARE, directions, parking information, lodging, Internet access, dining and more. Information on [facility] or [facility] ([facility]): Please view [email or web address] (Patient and Visitor Information) for parking/directions and more. For MyChart information, to activate account or password recovery, please go to [email or web address] or call [phone] (toll-free: [phone]), Tue- Tuesday 8am-5pm. Information for Suicide Prevention: National Suicide Prevention Lifeline (1-710- 498-FOHT (3155)) or call or text 272. Chat resources: [email or web address]. Surgery Times: For patients having surgery @ The [facility], if your surgeon's office has not notified you of your surgery time by NOON THE BUSINESS DAY BEFORE your surgery, please call the surgery center [phone]. The Center for Preoperative Assessment & Planning [...] Osteochondral lesion Special Needs JRF ALLOGRAFT - [id number] Femoral Condyle, Medial Right. Graft ID [id number] to be delivered 09/15 by 0630. Ordered [...] Diagnosis Osteochondral lesion- Primary Pain Generalized pain Osteochondral lesion documented in this encounter Admitting Diagnoses Diagnosis Osteochondral lesion documented in this encounter Administered Medications Inactive Administered Medications - up to 3 most recent administrations Medication Order MAR Action Action Date Dose Rate Site BUPivacaine preservative free 1,000 mg/500 mL (0.2%) infusion (premix) Continuous Rate (mL/hr): 6 mL, Intermittent Bolus (mL): none, WEB ANALYTICS SPECIALIST Bolus (mL): 4, WEB ANALYTICS SPECIALIST Bolus Lockout (minutes/hours): 30 Minutes, Catheter Site: Saphenous, Catheter Side: Right, perineural, Continuous, Starting on Tue09/16/23 at 1530, Until Tue09/16/23 at 2002, 500 mL, Indications: Pain Treatment Adjunct, RoutineIndications:Pain [...] 10:26 AM CDT 30 mL/hr 30 mL/hr Lactated Ringer's (LR) irrigation As needed, Starting on Tue09/16/23 at 1342, Intra-Op Given 09/16/2023 1:42 PM CDT 3,000 mL Surgical Site lidocaine (PF) (XYLOCAINE) 10 mg/mL (1 %) [...] Given 09/16/2023 2:57 PM CDT 2 tablets sodium chloride 0.9% irrigation As needed, Starting on Tue09/16/23 at 1342, Intra-Op Given 09/16/2023 1:42 PM CDT 500 mL Surgical Site documented in this encounter Discontinued Medications Medication [...] (mL/hr): 6 mL, Intermittent Bolus (mL): none, WEB ANALYTICS SPECIALIST Bolus (mL): 4, WEB ANALYTICS SPECIALIST Bolus Lockout (minutes/hours): 30 Minutes, Catheter Site: [...] 0956 (Due)1026 (New Bag - Provider: Yvette Sharpe, YURIY)1142 (Rate/Dose Verify - Provider: Yanira Tejeda CRNA)1223 [...] Arline Hardin RN) PRN Medication Order 09/14/2023 09/15/2023 09/16/2023 diphenhydrAMINE (BENADRYL) 50 mg/mL injection 12.5 mg [...] mL, intra-catheter, As needed, line care, Flush Duarte Block Hep Locks to keep vein open., [...] 1 09/16/2023 Lactated Ringer's (LR) infusion 1 meperidine (DEMEROL) preserv ative free injection 12.5 mg 1 09/16/2023 naloxone (NARCAN) 0.4 mg/mL injection 0.04-0.4 mg 1 09/16/2023 ondansetron (ZOFRAN) injection 4 mg 1 09/15 prochlorperazine (COMPAZINE) injection 5 mg 1 09/16/2023 scopolamine patch 72 hour 1 patch 1 024 sodium chloride 0.9% flush 0.5-20 mL 1 08/22 Diet Count Last Ordered Date First Orde [...] 09/16/2023 documented in this encounter Care Teams Circuits Engineer Relationship Specialty Start Date End Date No, Physician PCP - General 12/21/21 Zach Reyez, PT Physical Therapist Physical Therapy 01/20/22 [place] [address] [place] [address] Physical Therapist Physical Therapy 01/30/22 Hussain Lopez, HAND ETCHER Triage Assistant Physical Therapy 02/03/22 documented as of this encounter
--- OUTSIDE RECORDS SUMMARY | 2024-05-22 05:24 | XMS_ITS | Encounter Summary ---
Author Organization [facility] Healthcare Address [address] [place] [address] Care Team Providers Care Hearing Screener Name Role Phone No, Physician Primary Care Provider [phone] Zach Reyez PT Unavailable Unavailable Teresa Leach PT Unavailable Hussain Lopez BULK PLANT AGENT Unavailable Unavailabl e Encounter Details Date Type Department Care Team (Late st Contact Info) Description 09/22/2023 Plan of Care Documentation [facility] at [facility] [address] [facility] [address] [place], [place] [id number] Social History Tobacco Use Types Packs/Day Years [...] on file 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
--- OUTSIDE RECORDS SUMMARY | 2024-05-22 05:24 | XMS_ITS | Encounter Summary ---
Author Organization [facility] Healthcare Address [address] [place] [address] Care Team Providers Care Order Expediter Name Role Phone No, Physician Primary Care Provider [phone] Zach Reyez PT Unavailable Unavailable Teresa Leach PT Unavailable [phone] Hussain Lopez PICKING CREW SUPERVISOR Unavailable Unavailabl e Reason for Visit * Reason Comments PT Treatment * Consultation (Routine) - Authorized Specialty Diagnoses / Procedures Referred By Contac t Referred To Contact Physical Therapy Diagnoses [place]ochondral [place] [id number] [place] [address] Phone: tel: fax: [facility] at [address] [place] [address] Phone: tel: fax: Referral ID Status Reason Start Date Expiration Date Visits Requested Visits Authorized [id number] Authorized Specialty Services Required 09/15/2023 10/14/2024 24 24 Encounter Details Date Type Department Care Team (Late st Contact Info) Description 10/24/2023 5:00 PM CDT Therapy [facility] at [address] [address] Hussain Lopez PTA Osteochondral defect of femoral condyle (Primary Dx) [...] on file Legal 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 Physical Therapy Visit Patient Name: Zayda Torres Date of : 1975 Age/Sex: 48 y.o. / male Referring Practitioner: Mikey Hawkins MD MD Follow-Up: 09/26/23 Diagnosis(es): 1. Osteochondral defect of femoral condyle Date of Onset: 09/16/2023 Visit #: 9 Progress Report Due: Visit #10 Date: 10/24/2023 Start Time: 510pm End Time: 600pm Start Pain: 2/10 End Pain: 2/10 SUBJECTIVE: Pt says his surgeon was pleased with his progress but wants him to continue NWB for another month and progress strengthening; no other issues following his last session OBJECTIVE: Gait: Pt amb with crutches and long leg brace NWB R LE (brace unlocked fully now) Effusion: Moderate R knee only. Knee ROM: (10/12/23) after manual rx and stretching Left: Right: - Extension 0?? (-)2?? - supine/seated Flexion 140?? 130?? Prone knee flexion with strap: 0-130 degrees Muscle Length: Tight hamstring, gastroc and quad mm Lower Extremity Strength: Manual Muscle Test (MMT) Left: Right: - Knee extension 5/5 4/5 - Knee flexion 5/5 4/5 - Hip flexors 5/5 5/5 - Hip abduction 5/5 3+/5 - Hip adduction 5/5 3+/5 - Hip extension 5/5 3+/5 Palpation: Incision: healing well Quad contraction: good (-) TREATMENT: TREATMENT 1) reviewed HEP per flow sheet with verbal and manual cues; emphasis still on end-range knee ext ROM 2) performed manual rx for effleurage massage and patellar mobs and manual knee ext mobs 3) took ROM measurements of knee flexion and extension 4) not needed today: e stim to quads with long sitting, seated knee ext and supine SLR (10/10 on/off sec, 18 min, 38 MA) --applied vasopneumatic with ice for 15 min at 34 degrees and med pressure Exercise/ Activity 10/11 10/18 10/23 E stim No e stim today Long sitting gastroc stretch X Long sitting quad contraction X X X Long sitting VMO bj/quad contraction Long sitting hip adductor stretch Supine knee flexion Strap Supine SLR X X 2 lb x20 SLR all planes X X Prone knee flexion with strap X Manual x3 Prone AROM knee flexion X x10 Prone hip ext with knee flexed X Seated knee ext X 5 min, 5 lb Long sitting ankle PF with band LAQ (assisted) (PROM) Active, pain with Manual resist Seated hip flexion Prone hangs home 2 lb, 5 min Heel props home Patellar mobs and MFR to quad/adductors and knee ext mobs Patellar mobilization X Effleurage R mid calf >> knee Flowsheet [place]: X = performed, x = times/multiply, s = seconds, ea = each, st = stretch SL= side lying, SLS= single leg stance Timed Treatment: Thera ex for 25 minutes: see above Manual rx for 5 min: see above Un-timed Treatment: Game Ready Vasopneumatic for 15 minutes: R knee inflammation management Total of Timed Treatment Codes: 30 minutes Total Treatment Time: 45 minutes ASSESSMENT: Patient remains stiff at his endpoint of extension which could be due to his lingering knee swelling; pain noted initially with manual resisted LAQ, then felt even with an unresisted eccentric LAQ inmid-range on patient's lateral aspect of his proximal tibia; unable to complete SLR in regular Swiss E-Stim regiment due to a temporary power outage in the clinic on this date Goals: Short Term Goals: 2 weeks Pt to be indep with HEP to be able to: improve bed mobility and transfers, achieved Decrease gait deviations, progressing weight bearing status per MD's orders, progressing Pt to be able to transfer in an and out of bed, get dressed and shower with normal pain free mobility, achieved Fire Extinguisher Technician Goals: 12 weeks Pt to continue to [...] to be able to amb stairs and picking supervisor 30# with normal pain free mobility PLAN: Continue skilled physical therapy per plan of care Hussain Lopez PTA [facility] AT [address] [address] Dept: [phone] Dept documented in this encounter Plan of Treatment Not on file documented as of this encounter Visit Diagnoses Diagnosis Osteochondral defect of femoral condyle- Primary documented in this encounter Care Teams Order Expediter Relationship Specialty Start Date End Date No, Physician PCP - General 12/21/21 Zach Reyez, PT Physical Therapist Physical Therapy 01/20/22 [place] [address] [place] [address] Physical Therapist Physical Therapy 01/30/22 Hussain Lopez PTA Hay Rake Operator Physical Therapy 02/03/22 documented as of this encounter
--- OUTSIDE RECORDS SUMMARY | 2024-05-22 05:24 | XMS_ITS | Encounter Summary ---
Author Organization [facility] Healthcare Address [address] [place] [place] [address] Care Team Providers Care Manager Corporate Communications Name Role Phone No, Physician Primary Care Provider [phone] Zach Reyez PT Unavailable Unavailable Teresa Leach PT Unavailable [phone] Hussain Lopez TECHNICIAN SUBMARINE CABLE EQUIPMENT Unavailable Unavailabl e Reason for Visit * Reason Comments PT Treatment * Consultation (Routine) - Authorized Specialty Diagnoses / Procedures Referred By Contac t Referred To Contact Physical Therapy Diagnoses Osteochondral [place] [id number] [place] [address] Phone: tel: fax: [facility] at [facility] [id number] [place] [address] [address] [place] [address] Phone: tel: fax: Referral ID Status Reason Start Date Expiration Date Visits Requested Visits Authorized [id number] Authorized Specialty Services Required 09/15/2023 10/14/2024 24 24 Encounter Details Date Type Department Care Team (Late st Contact Info) Description 12/23/2023 4:45 PM CDT Therapy [facility] ST[facility] at [address] [address] [place] [address] [place], [place] [id number] Osteochondral defect of femoral condyle (Primary Dx) [...] on file 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 Physical Therapy Visit Patient Name: Zayda Torres Date of : 1975 Age/Sex: 48 y.o. / male Referring Practitioner: Mikey Hawkins MD MD Follow-Up: 09/26/23 Diagnosis(es): 1. Osteochondral defect of femoral condyle Date of Onset: 09/16/2023 Visit #: 16 Progress Report Due: Visit #20 Date: 12/23/2023 Start Time: 4:45 pm End Time: 5:35 pm Start Pain: 1-210 End Pain: 1-210 SUBJECTIVE: Pt reports he had his knee injection this week. He feels the swelling and medial knee pain is decreasing but still there. He is also having ant/lat knee pain that extends some into ant/lat lower leg. OBJECTIVE: Gait: Pt amb without crutch with antalgic gait in R stance phase with slight knee valgus. Effusion: Mild swelling R knee today,decreased from last visit Knee [...] with decreased VMO contraction TREATMENT: TREATMENT 1) bike for 10 min for warm up 2) reviewed HEP per flow sheet with verbal and manual cues. To continue to perform mostly open chain exercises. Biking and stretching due to continued swelling 3) performed manual rx for fascial manipulation to post/lateral densifications in hamstring and gastroc mm, manual knee ext mobs, knee ext with passive gastroc stretch, and patellar mobs, scar massage 4) reviewed proper gait 5) applied vasopneumatic with ice [...] leg stance Timed Treatment: Thera ex for 5 minutes: see above Manual rx for 20 min: see above Gait for 5 min Un-timed Treatment: ice Total of Timed Treatment Codes: 30 minutes Total Treatment Time: 50 minutes ASSESSMENT: Patient 's ROM and swelling [...] shower with normal pain free mobility, achieved Brick Tosser Goals: 12 weeks Pt to continue to [...] to be able to amb stairs and seed cone picker 30# with normal pain free mobility, progressing PLAN: Continue skilled physical therapy per plan of care Teresa Leach, PT [facility] AT [address] [address] Dept: [phone] Dept documented in this encounter Plan of Treatment Not on file documented as of this encounter Visit Diagnoses Diagnosis Osteochondral defect of femoral condyle- Primary documented in this encounter Care Teams Manager Corporate Communications Relationship Specialty Start Date End Date No, Physician PCP - General 12/21/21 Zach Reyez, PT Physical Therapist Physical Therapy 01/20/22 [place] [address] [place] [address] Physical Therapist Physical Therapy 01/30/22 Hussain Lopez, TRIPP Fertilizer Mixer Physical Therapy 02/03/22 documented as of this encounter
--- OUTSIDE RECORDS SUMMARY | 2024-05-22 05:24 | XMS_ITS | Encounter Summary ---
Author Organization [facility] Healthcare Address [address] [place] [address] Care Team Providers Care Welder First Class Name Role Phone No, Physician Primary Care Provider [phone] Zach Reyez PT Unavailable Unavailable Teresa Leach PT Unavailable [phone] Hussain Lopez TREASURY MANAGER Unavailable Unavailabl e Reason for Visit * Reason Comments PT Treatment * Consultation (Routine) - Authorized Specialty Diagnoses / Procedures Referred By Contac t Referred To Contact Physical Therapy Diagnoses Osteochondral [place] [address] [place] [address] Phone: tel: fax: [facility] at [facility] [id number] [place] [address] [address] [place] [address] Phone: tel: fax: Referral ID Status Reason Start Date Expiration Date Visits Requested Visits Authorized [id number] Authorized Specialty Services Required 09/15/2023 10/14/2024 24 24 Encounter Details Date Type Department Care Team (Late st Contact Info) Description 11/28/2023 5:30 PM CDT Therapy [facility] at [address] [address] [place] [address] [place], [place] [id number] Osteochondral defect of femoral condyle (Primary Dx) [...] on file Legal Sex Male 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 Physical Therapy Visit Patient Name: Zayda Torres Date of : 1975 Age/Sex: 48 y.o. / male Referring Practitioner: Mikey Hawkins MD MD Follow-Up: 09/26/23 Diagnosis(es): No diagnosis found. Date of Onset: 09/16/2023 Visit #: 13 Progress Report Due: Visit #20 Date: 11/28/2023 Start Time: 5:30 pm End Time: 6:30 pm Start Pain: 1-2/10 End Pain: 1-2/10 SUBJECTIVE: Pt reports pain and swelling increasing daily. He is still taking miloxicam, and hydrocodone PRN atnight to sleep. The pain and swelling are increasing as he puts more weight on it. Pt started transitioning to 75% WB over the weekend. He also gets some swelling and pain with bike riding without resistance. He is progressing his time on the bike. OBJECTIVE: Gait: Pt amb with crutches without brace with 75% weight bearing R LE. Effusion: Moderate R knee today, slightly increased from last visit/ Knee ROM: (11/28/23) (ROM decreased due to increased swelling) Left: Right: - Extension 0?? (-)4?? Prior to and 0 after stretching/ex - supine/seated Flexion 140?? 136?? Prone knee flexion with strap:(L knee 136 degrees) Muscle Length: Tight hamstring, gastroc and quad mm Lower Extremity Strength: Manual Muscle Test (MMT) Left: Right: - Knee extension 5/5 4/5 - Knee flexion 5/5 4/5 - Hip flexors 5/5 5/5 - Hip abduction 5/5 4+/5 - Hip adduction 5/5 4+/5 - Hip extension 5/5 4+/5 Palpation: Quad contraction: good TREATMENT: TREATMENT 1) reviewed HEP per flow sheet with verbal and manual cues, see progression of weights, and added standing TKE with blue band with 75% weight bearing 2) performed manual rx manual knee ext mobs, knee ext with passive gastroc stretch, and patellar mobs 3) measured knee ROM: see above 4) pt required no cues with proper gait 75% weight bearing R LE with crutches 5) applied vasopneumatic with ice for 15 min at high pressure and 34 degrees Exercise/ Activity 10/18 10/23 10/30 11/08 11/17 78 Bike 10 min 5 min 5 min 5 min E stim Long sitting gastroc stretch xX Long sitting quad contraction X X X Long sitting VMO bj/quad contraction 10 reps, 10 sec holds Long sitting hip adductor stretch Supine knee flexion Strap X with strap X X Supine SLR X 2 lb x20 X 2# x10 1#-2# x10 SLR all planes X X 2# Prone knee flexion with strap Manual x3 X with strap X and added opp LE on floor X X Prone AROM knee flexion x10 Standing leg curl Standing leg curl Prone hip ext with knee flexed Prone over counter hip ext Seated knee ext 5 min, 5 lb X 2# x15 3# x15 5# x20 5# x20 Supine SAQ 2# x15 3# x20 5# x20 Standing leg curl 0# x15 Standing heel raises partial weight bearing Init x10 X Standing TKE with band Init with blue band Long sitting ankle PF with band LAQ (assisted) (PROM) Active, pain with Manual resist X Seated hip flexion Prone hangs 2 lb, 5 min X home 2# x 5 min Verbally reviewed Heel props Verbally reviewed Patellar mobs and MFR to quad/adductors and knee ext mobs Patellar mobilization X X X Effleurage R mid calf >> knee Flowsheet [place]: X = performed, x = times/multiply, s = seconds, ea = each, st = stretch SL= side lying, SLS= single leg stance Timed Treatment: Thera ex for 30 minutes: see above Manual rx for 15 [...] shower with normal pain free mobility, achieved Brazing Machine Tender Goals: 12 weeks Pt to continue to [...] to be able to amb stairs and mixing picker tender 30# with normal pain free mobility, progressing PLAN: Continue skilled physical therapy per plan of care Teresa Leach, PT [facility] AT [address] [address] Dept: [phone] Dept documented in this encounter Plan of Treatment Not on file documented as of this encounter Visit Diagnoses Diagnosis Osteochondral defect of femoral condyle- Primary documented in this encounter Care Teams Welder First Class Relationship Specialty Start Date End Date No, Physician PCP - General 12/21/21 Zach Reyez, PT Physical Therapist Physical Therapy 01/20/22 [place] [address] [place] [address] Physical Therapist Physical Therapy 01/30/22 Hussain Lopez TREASURY MANAGER Credit Products Officer Physical Therapy 02/03/22 documented as of this encounter
--- OUTSIDE RECORDS SUMMARY | 2024-05-22 05:24 | XMS_ITS | Encounter Summary ---
Author Organization [facility] Healthcare Address [address] [place] [address] Care Team Providers Care Deck Supervisor Name Role Phone No, Physician Primary Care Provider [phone] Zach Reyez PT Unavailable Unavailable Teresa Leach PT Unavailable [phone] Hussain Lopez GEOLOGICAL SPECIALIST Unavailable Unavailabl e Reason for Visit * Reason Comments PT Treatment * Consultation (Routine) - Authorized Specialty Diagnoses / Procedures Referred By Contac t Referred To Contact Physical Therapy Diagnoses Osteochondral [place] [address] [place] [address] Phone: tel: fax: [facility] at [facility] [id number] [place] [address] [address] [place] [address] Phone: tel: fax: Referral ID Status Reason Start Date Expiration Date Visits Requested Visits Authorized [id number] Authorized Specialty Services Required 09/15/2023 10/14/2024 24 24 Encounter Details Date Type Department Care Team (Late st Contact Info) Description 02/24/2024 11:[address] 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 / male Referring Practitioner: Mikey Hawkins MD MD Follow-Up: 09/26/23 Diagnosis(es): 1. Osteochondral defect of femoral condyle Date of Onset: 09/16/2023 Visit #: 19 Progress Report Due: Visit #20 Date: 02/24/2024 Start Time: 11:25 am End Time: 12:15 am Start Pain: 1-2/10 End Pain: 1-2/10 SUBJECTIVE: Pt saw Dr Hawkins and was prescribed an kiln car unloader brace. He just got the kiln car unloader brace today before coming in today for PT. So far he feels it helps. He feels the pain comes on with end range knee extin late stance phase. Pain level in the morning was 5/10. Now it's 1-2/10. He was able to do a few mini squats fairly well. Pt awaiting recent MRI results OBJECTIVE: Gait: Pt amb with less antalgic gait R knee/LE. Effusion: mod swelling R knee today Knee ROM: (02/03/24) (ROM decreased due to increased swelling) Left: Right: - Extension 0?? (-5)?? Prior to and (-) 2 degrees after stretching/ex - supine/seated Flexion 140?? 135?? Prone knee flexion with strap:(L knee 130 degrees) Muscle Length: Tight hamstring, gastroc and quad mm Lower Extremity Strength: 5/5 throughout TREATMENT: TREATMENT 1) bike for 10 min for warm up 2) reviewed HEP per flow sheet with verbal and manual cues. See also additions/modifications (some with use of kiln car unloader brace) 3) performed manual rx for manual knee ext mobs, knee ext with passive gastroc stretch, and patellar mobs 4) reassessed R knee ROM: see above Exercise/ Activity 12/01 12/13 01/12 02/02 02/23 BFR Bike 5 min X 5 min 10 min X 5 min Seated knee ext 90-20 degrees, 10# x20 X 90-20, 10# bilat to unilat 90-0# x10 Seated knee ext bilat conc and unilat ecc 90-20 degrees x20 Leg press 3 plates bilat x 10 reps 1 plate unilat x 10 (full ROM today) X 4.5 plates 3x20 bilat to unilat With kiln car unloader brace 4 plates 2x20 reps SLS with opp LE triplanar sliders init SL lift Init with 0# with kiln car unloader brace (reaching hip height for now) Mini squats on BOSU and air ex Init x 10 (much quivering noted) Long sitting VMO bj/quad contraction Long sitting [...] 40 minutes: see above Manual rx for 5 min: see above Un-timed Treatment: none Total of Timed Treatment Codes: 45 minutes Total Treatment Time: 50 minutes ASSESSMENT: Patient 's gait and ability to do closed chain exercises improved with kiln car unloader brace. R LE easily fatigues with ex. Goals: Short Term Goals: 2 weeks Pt to be indep with HEP to be able to: improve bed mobility and transfers, achieved Decrease gait deviations, progressing weight bearing status per MD's orders, progressing Pt to be able to transfer in an and out of bed, get dressed and shower with normal pain free mobility, achieved City Dispatcher Goals: 12 weeks Pt to continue to [...] able to amb stairs and cotton picker 30# with normal pain free mobility, progressing PLAN: Continue skilled physical therapy per plan of care Teresa Leach, [facility] AT [place] [address] Dept: [phone] Dept documented in this encounter Plan of Treatment Not on file documented as of this encounter Visit Diagnoses Diagnosis Osteochondral defect of femoral condyle- Primary documented in this encounter Care Teams Deck Supervisor Relationship Specialty Start Date End Date No, Physician PCP - General 12/21/21 Zach Reyez, PT Physical Therapist Physical Therapy 01/20/22 [place] [address] [place] [address] Physical Therapist Physical Therapy 01/30/22 Hussain Lopez, TRIPP Fancy Needleworker Physical Therapy 02/03/22 documented as of this encounter
--- OUTSIDE RECORDS SUMMARY | 2024-05-22 05:24 | XMS_ITS | Encounter Summary ---
Author Organization [facility] Healthcare Address [address] [place] [address] Care Team Providers Care Industrial Boilermaker Name Role Phone No, Physician Primary Care Provider [phone] Zach Reyez PT Unavailable Unavailable Teresa Leach PT Unavailable [phone] Hussain Lopez BLAST FURNACE BLOWER Unavailable Unavailabl e Reason for Referral * Diagnostic Imaging (Routine) - Closed Specialty Diagnoses / Procedures Referred By Contac t Referred To Contact Diagnoses S/P arthroscopy of right knee Procedures XR Knee Right 1 [place] [address] [place] [address] Phone: tel: fax: [facility] [place] Referral ID Status Reason Start Date Expiration Date Visits Re quested Visits Authorized Closed 11/25/2023 12/24/2024 1 1 Reason for Visit * Diagnostic Imaging (Routine) - Closed Specialty Diagnoses / Procedures Referred By Danny t Referred To Contact Diagnoses S/P arthroscopy of right knee Procedures XR Knee Right 1 [place] [address] [place] [address] Phone: tel: fax: 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 Gender Identity Not on file Sexual Orientation [...] hours as needed for pain 30 tablet 11/18/2023 02/23/2024 meloxicam (MOBIC) 15 mg tablet Take 1 [...] VIEWS Schedule Routine, Read Routine (OP Routine) 12/12/2023 4:37 PM CDT S/P arthroscopy of right knee [...] status documented in this encounter Care Teams Industrial Boilermaker Relationship Specialty Start Date End Date No, Physician PCP - General 12/21/21 Zach Reyez, PT Physical Therapist Physical Therapy 01/20/22 [place] [address] [place] [address] Physical Therapist Physical Therapy 01/30/22 Hussain Lopez, BLAST FURNACE BLOWER Door To Door Salesman Physical Therapy 02/03/22 documented as of this encounter
--- OUTSIDE RECORDS SUMMARY | 2024-05-22 05:24 | XMS_ITS | Encounter Summary ---
Author Organization [facility] Healthcare Address [address] [place] [address] Care Team Providers Care Wheelage Clerk Name Role Phone No, Physician Primary Care Provider [phone] Zach Reyez PT Unavailable Unavailable Teresa Leach PT Unavailable [phone] Hussain Lopez VALIDATION SPECIALIST Unavailable Unavailabl e Reason for Visit * Reason Comments PT Treatment * Consultation (Routine) - Authorized Specialty Diagnoses / Procedures Referred By Contac t Referred To Contact Physical Therapy Diagnoses Osteochondral [place] [address] [place] [address] Phone: tel: fax: [facility] at [facility] [id number] [place] [address] [address] [place] [address] Phone: tel: fax: Referral ID Status Reason Start Date Expiration Date Visits Requested Visits Authorized [id number] Authorized Specialty Services Required 09/15/2023 10/14/2024 24 24 Encounter Details Date Type Department Care Team (Late st Contact Info) Description 09/30/2023 6:[address] [facility] at [address] [address] [place] [address] [place], [place] [id number] Osteochondral defect of femoral condyle (Primary Dx) [...] on file Legal Sex Male 6:31 AM MATERIAL SPECIALIST Gender Identity Not on file Sexual Orientation Not on file documented as of this encounter Progress Notes * Teresa Leach, PT - 09/30/2023 6:15 PM CDT STAR: Sports Therapy and Rehabilitation [facility] Physical Therapy Visit Patient Name: Zayda Torres Date of : 1975 Age/Sex: 48 y.o. / male Referring Practitioner: Mikey Hawkins MD MD Follow-Up: 09/26/23 Diagnosis(es): 1. Osteochondral defect of femoral condyle Date of Onset: 09/16/2023 Visit #: Visit count could not be calculated. Make sure you are using a visit which is associated with an episode. Progress Report Due: Visit #10 Date: 09/30/2023 Start Time: 6:15 pm End Time: 7:00 pm Start Pain: End Pain: SUBJECTIVE: Pt reports ROM, swelling, and pain are improving slowly. OBJECTIVE: Gait: Pt amb with crutches and long leg brace NWB R LE, brace unlocked to 80 degrees Effusion: Moderate R thigh, knee and lower leg (but visibly decreasing swelling and bruising) Knee ROM: (09/30/23) Left: Right: - Extension 0?? (-)5?? - supine/seated Flexion 140?? 92?? Prone knee flexion with strap: 0-45 Muscle Length: Tight hamstring, gastroc and quad [...] flow sheet with verbal and manual cues. performed prone knee flex/quad stretch with strap, with heat pack to ant thigh, followed by seated knee flexion with heat pack to ant thigh, as well as prone hangs with heat pack to post knee 2) performed manual rx for effleurage massage and patellar mobs, and Myofascial release to lateral thigh and knee 3) applied vasopneumatic with ice for 15 min at 34 degrees and med pressure Exercise/ Activity Date: 09/20 Date: 09/22 Date: 09/27 Date: 09/29 Date: Date: E stim Long sitting gastroc stretch X X X Long sitting quad contraction X X X X Long sitting hip adductor stretch X X Supine knee flexion X X Supine SLR X X SLR all planes Instructed for home Prone knee flexion with strap Init 0-52 X 0-75 Seated knee ext (AA ROM) X X AROM x10 X Long sitting ankle PF with band X X home LAQ (assisted) (PROM) X X X 10 X 92 degrees Seated hip flexion init Prone hangs 1# with heat pack x 5 min Heel props X X Patellar mobs and MFR to quad/adductors X X X Flowsheet [place]: X = performed, x = times/multiply, s = seconds, ea = each, st = stretch SL= side lying, SLS= single leg stance Timed Treatment: Thera ex for 20 minutes: see above Manual rx for 10 min: see above Un-timed Treatment: Heat pack, ice Total of Timed Treatment Codes: 30 minutes Total Treatment Time: 45 minutes ASSESSMENT: Goals: Short Term Goals: 2 weeks Pt to be indep with HEP to be able to: Decrease gait deviations, progressing weight bearing status per MD's orders Pt to be able to transfer in an and out of bed, get dressed and shower with normal pain free mobility Nursing Home Goals: 12 weeks Pt to continue to [...] to be able to amb stairs and medicinal plant picker 30# with normal pain free mobility PLAN: Continue skilled physical therapy per plan of care Teresa Leach, PT [facility] AT [address] [address] Dept: [phone] Dept documented in this encounter Plan of Treatment Not on file documented as of this encounter Visit Diagnoses Diagnosis Osteochondral defect of femoral condyle- Primary documented in this encounter Care Teams Wheelage Clerk Relationship Specialty Start Date End Date No, Physician PCP - General 12/21/21 Zach Reyez, PT Physical Therapist Physical Therapy 01/20/22 [place] [address] [place] [address] Physical Therapist Physical Therapy 01/30/22 Hussain Lopez, VALIDATION SPECIALIST Ladle Cleaner Physical Therapy 02/03/22 documented as of this encounter
--- OUTSIDE RECORDS SUMMARY | 2024-05-22 05:24 | XMS_ITS | Encounter Summary ---
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 S/P arthroscopy of right knee Procedures XR Knee Right 1 [place] [address] [place] [address] Phone: tel: fax: [facility] Referral ID Status Reason Start Date Expiration Date V isits Requested Visits Authorized [id number] Pending Review 02/07/2024 03/08/2025 1 1 Reason for Visit * Diagnostic Imaging (Routine) - Pending Review Specialty Diagnoses / Procedures Referred By Contsom t Referred To Contact Diagnoses 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; S/P arthroscopy of right knee Discharge Disposition: [...] on file Legal Sex Male 6:31 AM FISH AND WILDLIFE TECHNICIAN Gender Identity Not on file Sexual Orientation [...] VIEWS Schedule Routine, Read Routine (OP Routine) 02/09/2024 4:52 PM CDT 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
--- OUTSIDE RECORDS SUMMARY | 2024-05-22 05:24 | XMS_ITS | Encounter Summary ---
Author Organization [facility] Address [address] [place] [address] Phone Care Team Providers Care Chemical Radiation Technician Name Role Phone No, Physician Primary Care Provider [phone] Zach Reyez PT Unavailable Unavailable Teresa Leach PT Unavailable [phone] Hussain Lopez COMMANDING OFFICER GARAGE Unavailable Unavailabl e Encounter Details Date Type Department Care Team (Late st Contact Info) Description 04/01/2023 Telephone [facility] [address] [place] [address] [place] [address] [place] [address] Social History Tobacco Use Types Packs/Day Years [...] on file Legal Sex Male 6:31 AM MARSH BUGGY OPERATOR Gender Identity Not on file Sexual Orientation Not on file documented as of this encounter Miscellaneous Notes * Telephone Encounter - Mikey Woodward - 04/01/2023 4:45 PM CST SW pt today after confirming one code for surgery was denied. I will let him know next steps next week once we hear back from insurance on denial reason. H BUGGY OPERATOR documented in this encounter Plan of Treatment Not on file documented as of this encounter Visit Diagnoses Not on filedocumented in this encounter Care Teams Chemical Radiation Technician Relationship Specialty Start Date End Date No, Physician PCP - General 12/21/21 Zach Reyez, PT Physical Therapist Physical Therapy 01/20/22 [place] [address] [place] [address] Physical Therapist Physical Therapy 01/30/22 Hussain Lopez, COMMANDING OFFICER GARAGE Knock Up Assembler Physical Therapy 02/03/22 documented as of this encounter
--- OUTSIDE RECORDS SUMMARY | 2024-05-22 05:24 | XMS_ITS | Encounter Summary ---
Author Organization [facility] Healthcare Address [address] [place] [address] Care Team Providers Care Unit Operator Name Role Phone No, Physician Primary Care Provider [phone] Zach Reyez PT Unavailable Unavailable Teresa Leach PT Unavailable [phone] Hussain Lopez BUSINESS ACCOUNT EXECUTIVE Unavailable Unavailabl e Reason for Visit * Reason Comments PT Treatment * Consultation (Routine) - Closed Specialty Diagnoses / Procedures Referred By Contac t Referred To Contact Physical Therapy Diagnoses Chronic [place] of [place] [address] [place] [address] Phone: tel: fax: External Order Referral ID Status Reason Start Date Expiration Date V isits Requested Visits Authorized [id number] Closed Evaluate and Treat 02/10/2023 03/11/2024 24 24 Encounter Details Date Type Department Care Team (Late st Contact Info) Description 05/04/2023 6:15 PM MEDICAL COLLECTIONS Therapy [facility] at [facility] [address] [place] [address] [place] [address] [place] [address] Chronic pain of right knee (Primary Dx) Social History Tobacco Use Types [...] on file Legal Sex Male 6:31 AM MEDICAL COLLECTIONS Gender Identity Not on file Sexual Orientation Not on file documented as of this encounter Progress Notes * Teresa Leach, PT - 05/04/2023 6:15 PM CST STAR: Sports Therapy and Rehabilitation [facility] Physical Therapy Visit Physical Therapy Discharge Patient Name: Zayda Torres Date of : 1975 Age/Sex: 47 y.o. / male Referring Practitioner: Mikey Hawkins MD MD Follow-Up: 05/04/23 Diagnosis(es): 1. Chronic pain of right knee Date of Onset: No date available Visit #: 2 Progress Report Due: Visit #10 Date: 05/04/2023 Start Time: 6:15 pm End Time: 6:50 pm Start Pain:0-3/10 End Pain: 0-3/10 SUBJECTIVE --only pain with reaching forward as well as prone Hori abd. No pain with standing reaching out to the side. Subjective Functional Outcome Measure: Disabilities of the Arm, Shoulder, Hand: 16.7% OBJECTIVE: Active Range of Motion: Flexion: Left 0-155?? (pain mid range) Abduction: Left 0-155?? (pain mid range) Functional Abd/ER: Left WNL Right L elbow slightly forward IR up back: Left T6 Right T6 Movement Faults: early and excessive elevation and abduction at beginning and end ranges Strength (Manual Muscle Test) Shoulder Abduction: Left 4/5 Supraspinatus: Left 4-/5 (pain) ER: Left 4/5 (pain) IR: Left 5/5 ER at 90 abd: 4- (pain) Scapular Serratus: Left 5/5 Mid Trapezius: Left 3+/5 Low Trapezius: Left 3+/5 Passive Range of Motion Shoulder Flexion: Left 0-160?? Abduction: Left 0-160?? ER at side: Left WNL?? ER at 90/90: Left WNL?? IR at 90/90: Left WNL?? TREATMENT 1) reviewed HEP per flow sheet with verbal and manual cues. See also additions. Also discussed progression of reps/weights. 2) recommended pt using ice after exercise Exercise/ Activity Date: 04/25/23 Date: 05/04 Date: Date: Date: Date: Side lying ER x10 X 15 Prone shoulder ext with ER x10 x15 Prone horizontal abd x10 X 10 palm down and x 10 thumb up Prone ER at 90 abd Init in 4 parts Standing shoulder flex, abd, scaption to 90 x10 X 10 each Standing row with band X 10 with green band X Bilat scap retrac with ER Init with yellow band x10 IR with band standing Init with red band x10 Counter top push ups Init x10 Flowsheet [place]: X = performed, x = times/multiply, s = seconds, ea = each, st = stretch Timed Treatment Therapeutic Exercise for thera ex: 35 minutes Total of Timed Treatment Codes: 35 minutes Untimed Treatment None Total treatment time: 35 min ASSESSMENT Response to today???s treatment: good PLAN Discontinue pt to HEP. Pt reports he is going OOT and feels he can do the exercises on his own and wants to save PT visits for next year after his knee surgery. Short Term Goals: 2 weeks 1. Pt to be indep with HEP to be able perform daily hygiene and dressing self pain free, progressing 2. Pt to improve scapulohumeral mechanics, achieved Halfway Goals: 12 weeks 1. Pt to continue to be indep with HEP to be able to do house hold activities and yard work with normal pain free mobility, progressing 2. Pt to have WNL L shoulder AROM to be able to reach onto a shelf overhead with normal pain free mobility, progressing 3. Pt to have 5/5 strength throughout L shoulder and scapular mm to be able to carry 30 pounds painfree, progressing Teresa Leach, PT CAL COLLECTIONS documented in this encounter Plan of Treatment Not on file documented as of this encounter Visit Diagnoses Diagnosis Chronic pain of right knee- Primary documented in this encounter Care Teams Unit Operator Relationship Specialty Start Date End Date No, Physician PCP - General 12/21/21 Zach Reyez, PT Physical Therapist Physical Therapy 01/20/22 [place] [address] [place] [address] Physical Therapist Physical Therapy 01/30/22 Hussain Lopez PTA Cell Installer Physical Therapy 02/03/22 documented as of this encounter
--- OUTSIDE RECORDS SUMMARY | 2024-05-22 05:24 | XMS_ITS | Encounter Summary ---
Author Organization [facility] Healthcare Address [address] [place] [address] Care Team Providers Care Taker Out Name Role Phone No, Physician Primary Care Provider [phone] Zach Reyez PT Unavailable Unavailable Teresa Leach PT Unavailable [phone] Hussain Lopez SPANISH TEACHER Unavailable Unavailabl e Reason for Visit * Reason Comments PT Initial Eval * Consultation (Routine) - Closed Specialty Diagnoses / Procedures Referred By Contac t Referred To Contact Physical Therapy Diagnoses Chronic [place] of [place] [address] [place] [address] Phone: tel: fax: External Order Referral ID Status Reason Start Date Expiration Date V isits Requested Visits Authorized [id number] Closed Evaluate and Treat 02/10/2023 03/11/2024 24 24 Encounter Details Date Type Department Care Team (Late st Contact Info) Description 04/25/2023 6:15 PM SENIOR MARKETING SPECIALIST Therapy [facility] at [facility] [address] [place] [address] [place] [address] [place] [address] Left shoulder pain, unspecified chronicity (Primary Dx); Chronic pain of right knee; Pain in left wrist Social History Tobacco Use Types Packs/Day Years [...] file Legal Sex Male 6:31 AM SENIOR MARKETING SPECIALIST Gender Identity Not on file Sexual Orientation Not on file documented as of this encounter Progress Notes * Teresa Leach, PT - 04/25/2023 6:15 PM CST STAR: Sports Therapy and Rehabilitation [facility] Physical Therapy Evaluation and Plan of Care Patient Name: Zayda Torres Date of : 1975 Age/Sex: 47 y.o. / male Referring Practitioner: Merna Retana DO MD Follow-Up: none scheduled Referring Diagnosis: 1. Left shoulder pain, unspecified chronicity 2. Chronic pain of right knee 3. Pain in left wrist Date of Onset: 2 weeks ago Date: 04/25/2023 Start Time: 6:20 pm End Time: 7:10 pm Start Pain:0-4/10 End Pain: 0-4/10 Medical screening was completed and the patient is appropriate for physical therapy. SUBJECTIVE Chief Complaint: pain with reaching overhead, out to the side. No trouble with reaching behind his back Mechanism of Injury: gradual onset of L shoulder pain with reaching overhead Have you had PT previously for this condition within the past year? 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 Spinal Alignment: neutral Scapular Alignment: L scapula slightly elevated Cervical Clearing: (-) Active Range of Motion: Flexion: Left 0-155?? [...] Left WNL?? IR at 90/90: Left WNL?? Muscle Length: Stiff pec and lat dorsi mm Mobility Joint Play: good mobility throughout L shoulder Special Tests: (-) supraspinatus test, (+) edwards rex test Fall Risk Screening Is the patient > 65 year of age? No (47 y.o.) Is the reason for the visit related to balance or falls? NO Does the patient have a history of neurological impairment? NO Score > 4 on Stay Independent brochure? N/A TREATMENT 1) instructed in HEP per flow sheet to address above problems 2) recommended pt using ice after exercise Exercise/ Activity Date: 04/25/23 Date: Date: Date: Date: Date: Side lying ER x10 Prone shoulder ext with ER x10 Prone horizontal abd x10 Standing shoulder flex, abd, scaption to 90 x10 Standing row with band X 10 with green band Flowsheet [place]: X = performed, x = times/multiply, s = seconds, ea = each, st = stretch Timed Treatment Therapeutic Exercise for thera ex minutes: 30 Total of Timed Treatment Codes: 30 minutes Untimed Treatment Initial Evaluation-Low Complexity Total treatment time: 50 min ASSESSMENT Physical therapy movement impairment diagnosis/diagnoses: weak rotator cuff and scapular upward rotators with scapulohumeral dyskinesis Prognosis: good Response to today???s treatment: good Functional Limitations & Problems: 1. Weak rotator cuff and scapular upward rotators 2. Scapulohumeral dyskinesis Therapy Learning Needs Assessment: Barriers & Interventions: None - No Interventions Required. Persons Involved:Patient Patient Understands and Agrees: Yes; Given written HEP and reviewed with patient. Comorbidities impacting physical therapy treatment: none Personal factors impacting physical therapy treatment: none PLAN Physical therapy treatment at a frequency and duration of 1-2 times per week for 8-12 weeks will consist of instruction in home exercise program and functional activities as well as manual rx and modalties to address identified functional limitations and problems. Short Term Goals: 2 weeks 1. Pt to be indep with HEP to be able perform daily hygiene and dressing self pain free 2. Pt to improve scapulohumeral mechanics Customer Sales Distributor Goals: 12 weeks 1. Pt to continue to be indep with HEP to be able to do house hold activities and yard work with normal pain free mobility 2. Pt to have WNL L shoulder AROM to be able to reach onto a shelf overhead with normal pain free mobility 3. Pt to have 5/5 strength throughout L shoulder and scapular mm to be able to carry 30 pounds painfree Teresa Leach PT OR MARKETING SPECIALIST documented in this encounter Plan of Treatment Not on file documented as of this encounter Visit Diagnoses Diagnosis Left shoulder pain, unspecified chronicity- Primary Chronic pain of right knee Pain in left wrist Pain in joint, forearm documented in this encounter Orders Outpatient Referral Count Last Ordered Date st Ordered Date AMB REFERRAL ORDER TO PHYSICAL THERAPY 2 documented in this encounter Care Teams Taker Out Relationship Specialty Start Date End Date No, Physician PCP - General 12/21/21 Zach Reyez, PT Physical Therapist Physical Therapy 01/20/22 [place] [address] [place] [address] Physical Therapist Physical Therapy 01/30/22 Hussain Lopez PTA Counter Intelligence Technician Physical Therapy 02/03/22 documented as of this encounter
--- OUTSIDE RECORDS SUMMARY | 2024-05-22 05:24 | XMS_ITS | Encounter Summary ---
Author Organization [facility] Address [address] [place] [address] Phone Care Team Providers Care Dairy Supplies Sales Representative Name Role Phone No, Physician Primary Care Provider [phone] Zach Reyez PT Unavailable Unavailable Teresa Leach PT Unavailable Hussain Lopez MACHINE MAINTENANCE SUPERVISOR Unavailable Unavailabl e Reason for Visit * Reason Comments Pain Injections Encounter Details Date Type Department Care Team (Late st Contact Info) Description 12/19/2023 2:00 PM CDT Office Visit [facility] Orthopaedic Surgery [address] [place] [id number] [place] [address] [place] [address] 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 ESTABLISHED PATIENT VISIT INTERIM HISTORY: He returns for a corticosteroid injection right knee. He has a history of osteochondral allograft medial femoral condyle as well as high tibial osteotomy approximately 3 months ago.. He complains of swelling, tightness and decreased knee flexion. He return to work half days and has had to walk as result PHYSICAL EXAMINATION: Under sterile conditions the right knee was aspirated via superior lateral portal with 18 gauge needle. 15 cc of serous fluid obtained. This followed by intra-articular injection of 1 cc of Depo-Medrol, 40 milligrams/cc, and 5 cc of 1% lidocaine. He tolerated the procedure well complication and wasapprised of the risks for flare reaction REVIEW OF IMAGING: Not performed at today's visit IMPRESSION: Status post osteochondral allograft right medial femoral condyle Status post high tibial osteotomy right knee Postoperative effusion TREATMENT PLAN: Recommended gradual resumption of weight-bearing activities. He is to avoid any high impact, jumping cutting or pivoting. He has continued with physical therapy as prescribed. He is to ice the knee intermittently wear compression sleeve while work. He is to return at his previously scheduled appointment. I was present for the critical portion of the history, physical examination, and participated in the radiographic review and medical decision making for this patient. I agree with the findings in thereport of the above residence/fellow dictating using Fluency Direct software. 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
--- OUTSIDE RECORDS SUMMARY | 2024-05-22 05:24 | XMS_ITS | Encounter Summary ---
Author Organization [facility] Healthcare Address [address] [place] [address] Care Team Providers Care Lens Hardener Name Role Phone No, Physician Primary Care Provider [phone] Zach Reyez PT Unavailable Unavailable Teresa Leach PT Unavailable [phone] Hussain Lopez EMBEDDED CASE MANAGER Unavailable Unavailabl e Reason for Referral * Diagnostic Imaging (Routine) - Closed Specialty Diagnoses / Procedures Referred By Contac t Referred To Contact Diagnoses Osteochondral defect of femoral condyle Procedures XR Knee Right 1 [place] [address] [place] [address] Phone: tel: fax: [facility] Referral ID Status Reason Start Date Expiration Date Visits Re quested Visits Authorized [id number] Closed 09/20/2023 10/19/2024 1 1 Reason for Visit * Diagnostic Imaging (Routine) - Closed Specialty Diagnoses / Procedures Referred By Danny t Referred To Contact Diagnoses Osteochondral defect of femoral condyle Procedures XR Knee Right 1 [place] [address] [place] [address] Phone: tel: fax: [facility] Referral ID Status Reason Start Date Expiration Date Visits Re quested Visits Authorized [id number] Closed 09/20/2023 10/19/2024 1 1 Encounter Details Date Type Department Care Team (Latest Contact Info) Description 09/26/2023 3:30 PM CDT - 09/26/2023 11:59 PM CDT Hospital Encounter [facility]iology [facility] [address] [place] [address] [place] [address] [place] [address] Osteochondral defect of femoral condyle Discharge Disposition: [...] on file Legal Sex Male 6:31 AM [employer] Gender Identity Not on file Sexual Orientation [...] as needed for pain 30 tablet 09/15/2023 HYDROcodone-aceta minophen (NORCO) 5-325 mg per tabletIndications [...] VIEWS Schedule Routine, Read Routine (OP Routine) 09/26/2023 4:16 PM CDT Osteochondral defect of femoral condyle documented in [...] condyle documented in this encounter Care Teams Lens Hardener Relationship Specialty Start Date End Date No, Physician PCP - General 12/21/21 Zach Reyez, PT Physical Therapist Physical Therapy 01/20/22 [place] [address] [place] [address] Physical Therapist Physical Therapy 01/30/22 Hussain Lopez PTA Vest Tailor Physical Therapy 02/03/22 documented as of this encounter
--- OUTSIDE RECORDS SUMMARY | 2024-05-22 05:24 | XMS_ITS | Encounter Summary ---
Author Organization [facility] Healthcare Address [address] [place] [address] Care Team Providers Care Sales And Merchandising Associate Name Role Phone No, Physician Primary Care Provider [phone] Zach Reyez PT Unavailable Unavailable Teresa Leach PT Unavailable [phone] Hussain Lopez GRAIN OILSEED OR PASTURE GROWER Unavailable Unavailabl e Reason for Visit * Reason Comments PT Treatment * Consultation (Routine) - Authorized Specialty Diagnoses / Procedures Referred By Contac t Referred To Contact Physical Therapy Diagnoses Osteochondral [place] [address] [place] [address] Phone: tel: fax: [facility] at [facility] [id number] [place] [address] [address] [place] [address] Phone: tel: fax: Referral ID Status Reason Start Date Expiration Date Visits Requested Visits Authorized [id number] Authorized Specialty Services Required 09/15/2023 10/14/2024 24 24 Encounter Details Date Type Department Care Team (Late st Contact Info) Description 11/09/2023 3:15 PM CDT Therapy [facility] at [address] [address] [place] [address] [place], [place] [id number] Osteochondral defect of femoral condyle (Primary Dx) [...] on file 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 Physical Therapy Visit Physical Therapy Progress Note Patient Name: Zayda Torres Date of : 1975 Age/Sex: 48 y.o. / male Referring Practitioner: Mikey Hawkins MD MD Follow-Up: 09/26/23 Diagnosis(es): 1. Osteochondral defect of femoral condyle Date of Onset: 09/16/2023 Visit #: 11 Progress Report Due: Visit #10 Date: 11/09/2023 Start Time: 3:15 pm End Time: 4:00 pm Start Pain: 1-07/02 End Pain: 1-2 SUBJECTIVE: Pt reports 1st thing in the am it is stiff. Then when he starts bending/stretching it, he starts getting swelling and pain in his knee. Today overall mobility feels improved. OBJECTIVE: Gait: Pt amb with crutches and long leg brace NWB R LE (brace unlocked fully now) Effusion: Moderate R knee only. Knee ROM: (10/31/23) after manual rx and stretching Left: Right: - Extension 0?? (-)2?? Prior to and 0 after stretching/ex - supine/seated Flexion 140?? 140?? Prone knee flexion with strap:124 degrees, more of a quad stretch today (L knee 140 degrees) Muscle Length: Tight hamstring, gastroc and quad mm Lower Extremity Strength: Manual Muscle Test (MMT) Left: Right: - Knee extension 5/5 4/5 - Knee flexion 5/5 4/5 - Hip flexors 5/5 5/5 - Hip abduction 5/5 4+/5 - Hip adduction 5/5 4+/5 - Hip extension 5/5 4+/5 Palpation: Incision: healed with slight decreased mobility Quad contraction: good (-) TREATMENT: TREATMENT 1) reviewed HEP per flow sheet with verbal and manual cues; emphasis still on end-range knee ext ROM 2) performed manual rx manual knee ext mobs and knee ext with passive gastroc stretch 3) measured knee ROM: see above 4) applied heat pack with knee ROM for flex and ext 5) pt to ice at home today Exercise/ Activity 10/11 10/18 10/23 10/30 11/08 Bike 10 min 5 min E stim No e stim today Long sitting gastroc stretch X xX Long sitting quad contraction X X X X Long sitting VMO bj/quad contraction 10 reps, 10 sec holds Long sitting hip adductor stretch Supine knee flexion Strap X with strap X Supine SLR X X 2 lb x20 X 2# x10 SLR all planes X X X Prone knee flexion with strap X Manual x3 X with strap X and added opp LE on floor Prone AROM knee flexion X x10 Standing leg curl Standing leg curl Prone hip ext with knee flexed X Prone over counter hip ext Seated knee ext X 5 min, 5 lb X 2# x15 3# x15 Supine SAQ 2# x15 Long sitting ankle PF with band LAQ (assisted) (PROM) Active, pain with Manual resist X Seated hip flexion Prone hangs home 2 lb, 5 min X home 2# x 5 min Heel props home Patellar mobs and MFR to quad/adductors and knee ext mobs Patellar mobilization X X Effleurage R mid calf >> knee Flowsheet [place]: X = performed, x = times/multiply, s = seconds, ea = each, st = stretch SL= side lying, SLS= single leg stance Timed Treatment: Thera ex for 35 minutes: see above Manual rx for 10 min: see above Un-timed Treatment: none Total [...] shower with normal pain free mobility, achieved Medication Specialist Goals: 12 weeks Pt to continue to [...] to be able to amb stairs and pickle cutter 30# with normal pain free mobility, progressing PLAN: Continue skilled physical therapy per plan of care Teresa Leach, JAC[facility] AT [address] [address] Dept: [phone] Dept documented in this encounter Plan of Treatment Not on file documented as of this encounter Visit Diagnoses Diagnosis Osteochondral defect of femoral condyle- Primary documented in this encounter Care Teams Sales And Merchandising Associate Relationship Specialty Start Date End Date No, Physician PCP - General 12/21/21 Zach Reyez, PT Physical Therapist Physical Therapy 01/20/22 [place] [address] [place] [address] Physical Therapist Physical Therapy 01/30/22 Hussain Lopez, GRAIN OILSEED OR PASTURE GROWER Director Sales Physical Therapy 02/03/22 documented as of this encounter
--- OUTSIDE RECORDS SUMMARY | 2024-05-22 05:24 | XMS_ITS | Encounter Summary ---
Author Organization [facility] Healthcare Address [address] [place] [address] Care Team Providers Care Mortuary Operations Manager Name Role Phone No, Physician Primary Care Provider [phone] Zach Reyez PT Unavailable Unavailable Teresa Leach PT Unavailable [phone] Hussain Lopez HUMAN RESOURCES LEADER Unavailable Unavailabl e Reason for Visit * Auth/Cert (Routine) Specialty Diagnoses / Procedures Referred By Danny t Referred To Contact Diagnoses Osteochondral lesion Osteochondral lesion [M89.9, M94.9] Procedures GA ARTHROSCOPY KNEE OSTEOCHONDRAL ALLOGRAFT GA OSTEOTOMY TIBIA RIGHT ARTHROTOMY KNEE OSTEOCHONDRAL ALLOGRAFT MEDIAL FEMORAL CONDYLE, OPEN HIGH TIBIAL OSTEOTOMY- OPENING WEDGE RIGHT Referral ID Status Reason Start Date Expiration Date Visits Re quested Visits Authorized [id number] 1 1 Encounter Details Date Type Department Care Team (Late st Contact Info) Description 09/16/2023 11:42 AM CDT Anesthesia Event [facility] [address] [place] [id number] Flakito De La Cruz MD [address] [place] [address] Allie Harris NP [address] [place] [address] Anesthesia Record Procedure Summary Procedure Name Responsible Anesthesiologist Anesthesia Start Time Anesthesia Stop Time RIGHT ARTHROTOMY KNEE OSTEOCHONDRAL ALLOGRAFT MEDIAL FEMORAL CONDYLE, OPEN HIGH TIBIAL OSTEOTOMY- OPENING WEDGE (Right: Knee) Flakito De La Cruz MD 09/16/23 1142 09/16/23 1442 Events Date Time Event Comment 09/16/2023 1053 1106 Time out - Regional 1106 Face Time 1106 Start Supplemental O2 1107 An Block Induction The patie nt was reevaluated immediately before moderate or deep sedation and before anesthesia induction. 1113 Block Placed 1115 AN Equip Check 1142 An Start 1145 In Room 1145 An Start Data 1148 An Induction The patient was reevaluated immediately before moderate or deep sedation use and before anesthesia induction. 1150 An LMA 1152 Anesthesia Ready 1205 Proc Start 1206 Quick Note Tourniquet infl ated to 300mmHg 1206 Incision Start 1306 Quick Note Physician aware of 60 mins on tourniquet time 1405 Quick Note Total time 119m ins 1425 Proc Fin 1432 Airway Removed 1435 Out of Room 1441 an stop data 1442 Handoff to RN I completed my handoff to the receiving nurse during which we: 1. Patient identified 2. Responsible provider identified 3. Pertinent medical history reviewed 4. Procedure type and surgical course discussed 5. Intraoperative anesthetic management and any significant issues discussed 6. Expectations and concerns for postop period discussed 7. Questions solicited from receiving nurse 8. Patient disposition at the time of handoff: PACU 1442 An Stop Meds Name Total ceFAZolin (ANCEF) 2,000 mg/50 mL in dext ritu (premix) 2,000 mg 2,000 mg fentaNYL PF 200 mcg midazolam 2 mg/2 mL 2 mg propofol 260 mg bupivacaine 0.5 % PF 30 mL lidocaine 2 % 4 mL HYDROmorphone (Dilaudid) 2 mg ondansetron PF 8 mg ketorolac 30 mg dexamethasone 4 mg/mL 8 mg Lactated Ringer's (LR) infusion 1,600 mL * Agents Name O2 N2O Air Sevoflurane Inspired Sevoflurane * Blood No blood administrations on file. Lines, Drains, and Airways Type Details Placement Removal Peripheral IV Placement Date: 09/16/23; Placement Time: 1026; Catheter Size: 20 G; Orientation: Left, Posterior; Location: Hand; Site Prep: Chlorhexidine; Insertion Attempts: 1; Patient Tolerance: Tolerated well; Removal Date: 09/16/23; Removal Time: 1545; Removal Reason: Discharge 09/16/23 1026 by Yvette Sharpe RN 09/16/23 1545 by Arline Hardin, RN PNB catheter Placement Date: 09/16/23; Placement Time: 1116 (created via procedure documentation); Removal Date: Injectable, Topical, None; Removal Time: Tolerated well; 09/19/23; 0956 09/16/23 1116 by Flakito De La Cruz MD 09/19/23 0956 by Allie Harris NP Supraglottic Airway Placement Date: 09/16/23; Placement Time: 1158 (created via procedure documentation); Mask Ventilation: 1; Size: 5; Insertion Attempts: 1; Comments: Lips, teeth, and tongue remain unchanged from preop assessment. 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 Gender Identity Not on file Sexual Orientation Not on file documented as of this encounter OR Notes * Anesthesia Postprocedure Evaluation - Flakito De La Cruz MD - 09/16/2023 2:56 PM CDT Patient: Zayda Torres Procedure Summary Date: 09/16/23 Room / Location: [facility]PERATING [facility]OM 3 / [facility] Anesthesia Start: 1142 Anesthesia Stop: 1442 Procedure: RIGHT ARTHROTOMY KNEE OSTEOCHONDRAL ALLOGRAFT MEDIAL FEMORAL CONDYLE, OPEN HIGH TIBIAL OSTEOTOMY- OPENING WEDGE (Right: Knee) Diagnosis: Osteochondral lesion (Osteochondral lesion [M89.9, M94.9]) Providers: Mikey Hawkins MD Responsible Provider: Flakito De La Cruz MD Anesthesia Type: general, regional for postop pain per surgeon request, PNB - continuous catheter, PNB - single shot ASA Status: 2 Anesthesia Type: general, regional for postop pain per surgeon request, PNB - continuous catheter, PNB - single shot Last vitals BP 106/69 (BP Location: Right arm, Patient Position: Lying) Pulse 54 Temp 36.2 ??C (97.2 ??F) (Temporal) Resp 11 SpO2 99% Anesthesia Post Evaluation Patient location during evaluation: PACU Patient participation: complete - patient participated Level of consciousness: fully awake Pain score: 4 Pain management: adequate Airway patency: adequate Evidence of recall: no Cardiovascular status: hemodynamically stable and acceptable Respiratory status: acceptable and room air Hydration status: acceptable Pt is: normothermic Nausea/Vomiting status: none No notable events documented. * Anesthesia Procedure Notes - Yanira Tejeda CRNA - 09/16/2023 11:57 AM CDTAssociated Order(s): Airway Airway Patient location: OR Urgency: elective Indications for airway management: anesthesia Difficult airway: no Staff: Placed by: GRAIN ELEVATOR MAN: Yanira Tejeda CRNA Emergent airway documentation: Risks and benefits discussed: no Consent obtained: no Consent given by: patient Airway prep: Preoxygenated: yes Patient position: sniffing Mask difficulty assessment: 1 - vent by mask Spontaneous ventilation during airway: absent Sedation level during airway: GA Final airway details: Final airway type: supraglottic airway Final supraglottic airway: unique SGA size: 5 Number of attempts: 1 Ventilation between attempts: none Additional comments: Lips, teeth, and tongue remain unchanged from preop assessment. * Anesthesia Procedure Notes - Flakito De La Cruz MD - 09/16/2023 11:16 AM CDT Associated Order(s): Peripheral Block Peripheral Block Patient location during procedure: pre-op holding Reason for block: post-op pain management per surgeon request Ultrasound image in chart or stored: yes Block type: single shot Laterality: right Block type: IPACK Procedure prep: Preprocedure checklist: patient identified, procedure contraindications assessed, site marked, procedure consent, surgical consent, IV checked, risks, benefits and alternatives discussed, monitors and equipment checked and timeout performed Patient position: supine Procedure performed while patient: sedate with meaningful contact Monitoring: oximetry Supplemental O2: nasal cannula Prep solution: chlorhexidine/alcohol Peripheral nerve block: Technique: ultrasound guided Needle type: short-bevel and echogenic Needle gauge: 21 G Needle length: 80 mm Injection assessment: injection made incrementally with constant monitoring, negative aspiration for heme, no paresthesias noted, normal resistance to injection and see flowsheet for medication details Assessment: Block success: full evaluation pending Events: patient tolerated procedure well with no complications * Anesthesia Procedure Notes - Flakito De La Cruz MD - 09/16/2023 11:16 AM CDT Associated Order(s): Peripheral Block Peripheral Block Patient location during procedure: pre-op holding Reason for block: post-op pain management per surgeon request Block type: catheter continuous infusion Laterality: right Block type: femoral nerve block (distal mid thigh ) Procedure prep: Preprocedure checklist: patient identified, procedure contraindications assessed, site marked, procedure consent, surgical consent, IV checked, risks, benefits and alternatives discussed, monitors and equipment checked and timeout performed Patient position: supine Procedure performed while patient: sedate with meaningful contact Monitoring: oximetry Supplemental O2: nasal cannula Prep solution: chlorhexidine/alcohol PPE: provider hat/mask, sterile gloves, sterile drape and sterile probe cover and gel Skin infiltrated with lidocaine 1%: yes Peripheral nerve block: Technique: ultrasound guided Needle type: short-bevel and echogenic (Facet Tip) Needle gauge: 19 G. Needle length: 100 mm Injection assessment: injection made incrementally with constant monitoring, local visualized surrounding nerve on ultrasound, negative aspiration for heme, no paresthesias noted and normal resistance to injection Catheter: Catheter type: 20g non-stimulating catheter Other catheter type: Pajunk SonoLong Catheter placement details: catheter position confirmed by ultrasound, no aspiration of heme, steri-strips, dermal adhesive, occlusive dressing applied and mastisol Assessment: Block success: full evaluation pending Events: patient tolerated procedure well with no complications * Anesthesia Preprocedure Evaluation - Flakito De La Cruz MD - 09/13/2023 1:29 PM CDT Images from the original note were not included. 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 Patient has history of several right knee surgeries with last right knee arthroscopic chondroplasty 01/2023. He continues to have pain with exercise as well as pain at night. Of note patient has no history of anesthetic complications noted with previous knee surgeries Past Medical History Information obtained from: patient and chart. Information obtained during: Telephone Visit NOTE: This note represents a preoperative evaluation initiated via virtual (video or telephone) interview. NO PHYSICAL EXAM was performed at the time of initial assessment. A physical exam may be added to this note and documented below. Neurological Pertinent negatives: neuromuscular disease; CVA/stroke and TIA Cardiovascular Pertinent negatives: hypertension ; CAD ; IA ; CABG ; valvular heart disease; atrial fibrillation; pacemaker/ICD; DVT/PE; negative for CHF; drug-eluting stent(s) and bare metal stent(s) Respiratory Pertinent negatives: COPD; sleep apnea (RAJ); pulmonary hypertension; no O2 use outside the hospital; non-smoker and no tracheostomy Hepatic / Heme Pertinent negatives: liver disease Renal / Pertinent negatives: renal disease and dialysis Musculoskeletal/Pain + Osteoarthritis Endocrine / Other Pertinent negatives: diabetes mellitus; thyroid disease; cancer history; transplanted organ and infectious disease Functional Capacity Functional capacity: 4-6 METs Comments: Activity limited d/t right knee pain Patient reports they can walk 2 flights of stairs or 3-4 city blocks without SOB or CP. Patient denies any recent changes in activity tolerance Review of Systems Pertinent negatives: productive cough; SOB; recent cold/flu; fever; chest pain; orthopnea; PND; previous transfusion; bleeding problems and syncope PAT Summary and Plans Cardiac risk classification of planned procedure: low cardiac risk. Preoperative assessment status: complete. Additional comments: Zayda Torres is a 48 y.o. male who is being evaluated prior to undergoing a low cardiac risk surgery. Revised Cardiac Risk Index factors are (none) for a total RCRI of 0 out of 6. Functional capacity is 4-6 METs. Obstructive sleep apnea (RAJ) screening status is STOP-BANG incomplete but suspected to be 0-2 suggesting low risk for RAJ. Neck circumference pending.. This assessment was performed via telephone. Therefore the physical exam has been deferred to the day of surgery team. The patient was provided with preoperative instructions for their medications. Patient instructions were provided by telephone and electronically sent via [employer]. Patient verbalized understanding of instructions. Blood bank needs for day of procedure: No type and screen needed Pending labs/tests include: None TPAP Assessment Complete Preoperative evaluation performed by Radha Juarez NP on 09/13/23 at 1:39 PM . Patient Active Problem List Diagnosis Date Noted Osteochondral lesion 02/04/2023 Popping of right knee joint 01/20/2023 Chronic pain of right knee 01/20/2023 S/P arthroscopy of right knee 07/22/2022 Arthrofibrosis of knee joint, right 07/06/2022 Effusion of right knee 02/25/2022 S/P ACL reconstruction 01/28/2022 S/P medial meniscus repair of right knee 01/28/2022 S/P lateral meniscus repair of left knee 01/28/2022 Complete tear of right ACL, subsequent encounter 01/01/2022 Complex tear of medial meniscus of right knee as current injury 01/01/2022 Elbow pain 05/05/2016 Arthralgia of shoulder 09/06/2013 History reviewed. No pertinent past medical history. Past Surgical History: Procedure Laterality Date ANTERIOR CRUCIATE LIGAMENT REPAIR Right 01/15/2022 reconstruction KNEE ARTHROSCOPY W/ DEBRIDEMENT Right 07/09/2022 KNEE SURGERY Right 02/11/2023 Chondroplasty ROTATOR CUFF REPAIR Right 2013, 2013 No Known Allergies Med List Status: Nurse Complete Set By: Nguyễn Crowley RN at 09/13/2023 8:42 AM Taking? Last Dose Start Date End Date Provider HYDROcodone-acetaminophen (NORCO) 5-325 mg per tablet Past Month 05/05/23 -- Mikey Hawkins MD Take 1 tablet by mouth every 6 (six) hours as needed for pain meloxicam (MOBIC) 15 mg tablet 09/12/2023 09/06/23 10/06/23 Mikey Hawkins MD Take 1 tablet (15 mg total) by mouth daily -- -- -- No current facility-administered medications for this encounter. Current Outpatient Medications: HYDROcodone-acetaminophen (NORCO) 5-325 mg per tablet meloxicam (MOBIC) 15 mg tablet Social History Tobacco Use Smoking Status Never Passive exposure: Never Smokeless Tobacco Never Alcohol Use: Alcohol Misuse (09/13/2023) AUDIT-C Frequency of Alcohol Consumption: 2-3 times a week Average Number of Drinks: 3 or 4 Frequency of Binge Drinking: Monthly Substance and Sexual Activity Drug Use Not Currently Family History Problem Relation Age of Onset Anesthesia problems Neg Hx There were no vitals filed for this visit. PT: No results found for requested labs within last 30 days. INR: No results found for requested labs within last 30 days. APTT: No results found for requested labs within last 30 days. Hgb A1C: No results found for requested labs within last 30 days. CBC RBC: No results found for requested labs within last 30 days. RDW: No results found for requested labs within last 30 days. MCHC: No results found for requested labs within last 30 days. MCH: No results found for requested labs within last 30 days. MCV: No results found for requested labs within last 30 days. Hct: No results found for requested labs within last 30 days. Hgb: No results found for requested labs within last 30 days. WBC: No results found for requested labs within last 30 days. MPV: No results found for requested labs within last 30 days. Platelets: No results found for requested labs within last 30 days. RDW CV: No results found for requested labs within last 30 days. RDW Sd: No results found for requested labs within last 30 days. BMP Glucose: No results found for requested labs within last 30 days. Calcium: No results found for requested labs within last 30 days. Sodium: No results found for requested labs within last 30 days. Potassium: No results found for requested labs within last 30 days. CO2: No results found for requested labs within last 30 days. Chloride: No results found for requested labs within last 30 days. BUN: No results found for requested labs within last 30 days. Creatinine: No results found for requested labs within last 30 days. Adriel index score: 95 DOS Physical Exam Medical history, medications, and allergies reviewed. Attestation: This PAT evaluation 09/16/2023. Airway Exam: Mallampati: III Cervical ROM: FROM TM distance: 3 Cardiovascular Exam: Rate: regular Rhythm: regular Pulmonary Exam: LCTA, bilat Dental Exam: Appears intact Anesthesia Plan ASA 2 My patient is approved for the Anesthesia Controlled Medication protocol when under care of a GRAIN ELEVATOR MAN Planned anesthesia: General, regional for postop pain per surgeon request, PNB - continuous catheter and PNB - single shot Team communication plan: LMA Lower extremity: IPACK and femoral nerve block (distal mid thigh) Informed Consent: Anesthesia plan and risks discussed with patient. Consent and Attending signature: I and/or my designee have discussed the anesthesia plan, benefits, possible alternatives, parental presence at time of induction (if indicated), and clinically relevant risks that may include dental injury, unintentional awareness, and/or other complications. The patient and/or parent/legal guardian understand, and agree to proceed. All questions answered. documented in this encounter Miscellaneous Notes * Addendum Note - Allie Harris NP - 09/19/2023 9:57 AM CDT Addendum created 09/19/23 0957 by Allie Harris NP LDA properties accepted documented in this encounter Plan of Treatment Not on file documented as of this encounter Procedures Procedure Name Priority Date/Time Associated Diagnosis Comments GA AN PROCEDURE PLACEHOLDER Routine 09/16/2023 11:57 AM CDT GA AN ELECTIVE SUPRAGLOTTIC AIRWAY Routine 09/16/2023 11:57 AM CDT GA AN PROCEDURE PLACEHOLDER Routine 09/16/2023 11:16 AM CDT GA AN PROCEDURE PLACEHOLDER Routine 09/16/2023 11:16 AM CDT BW IP ANE LDA PERIPHERAL NERVE CATHETER Routine 09/16/2023 11:16 AM CDT documented in this encounter Results * GA AN ELECTIVE SUPRAGLOTTIC AIRWAY, GA AN PROCEDURE PLACEHOLDER (09/16/2023 11:57 AM CDT) Narrative Yanira Tejeda CRNA - 09/16/2023 11:57 AM CDT Yanira Tejeda CRNA ? 09/16/2023 11:58 AM Airway Patient location: OR Urgency: elective Indications for airway management: anesthesia Difficult airway: no Staff: Placed by: GRAIN ELEVATOR MAN: Yanira Tejeda CRNA Emergent airway documentation: Risks and benefits discussed: no Consent obtained: no Consent given by: patient Airway prep: Preoxygenated: yes Patient position: sniffing Mask difficulty assessment: 1 - vent by mask Spontaneous ventilation during airway: absent Sedation level during airway: GA Final airway details: Final airway type: supraglottic airway Final supraglottic airway: unique SGA size: 5 Number of attempts: 1 Ventilation between attempts: none Additional comments: Lips, teeth, and tongue remain unchanged from preop assessment. Flakito De La Cruz MD ANESTHESIA ORDERABLES [place] Result * GA AN PROCEDURE PLACEHOLDER (09/16/2023 11:16 AM CDT) Flakito Nevarez MD - 09/16/2023 11:16 AM CDT Flakito De La Cruz MD ? 09/16/2023 11:16 AM Peripheral Block Patient location during procedure: pre-op holding Reason for block: post-op pain management per surgeon request Ultrasound image in chart or stored: yes Block type: single shot Laterality: right Block type: IPACK Procedure prep: Preprocedure checklist: patient identified, procedure contraindications assessed, site marked, procedure consent, surgical consent, IV checked, risks, benefits and alternatives discussed, monitors and equipment checked and timeout performed Patient position: supine Procedure performed while patient: sedate with meaningful contact Monitoring: oximetry Supplemental O2: nasal cannula Prep solution: chlorhexidine/alcohol Peripheral nerve block: Technique: ultrasound guided Needle type: short-bevel and echogenic Needle gauge: 21 G Needle length: 80 mm Injection assessment: injection made incrementally with constant monitoring, negative aspiration for heme, no paresthesias noted, normal resistance to injection and see flowsheet for medication details Assessment: Block success: full evaluation pending Events: patient tolerated procedure well with no complications Flakito De La Cruz MD ANESTHESIA ORDERABLES [place] Result * BW IP ANE LDA PERIPHERAL NERVE CATHETER, GA AN PROCEDURE PLACEHOLDER (09/16/2023 11:16 AM CDT) Narrative Flakito De La Cruz MD - 09/16/2023 11:16 AM CDT Flakito De La Cruz MD ? 09/16/2023 11:16 AM Peripheral Block Patient location during procedure: pre-op holding Reason for block: post-op pain management per surgeon request Block type: catheter continuous infusion Laterality: right Block type: femoral nerve block (distal mid thigh ) Procedure prep: Preprocedure checklist: patient identified, procedure contraindications assessed, site marked, procedure consent, surgical consent, IV checked, risks, benefits and alternatives discussed, monitors and equipment checked and timeout performed Patient position: supine Procedure performed while patient: sedate with meaningful contact Monitoring: oximetry Supplemental O2: nasal cannula Prep solution: chlorhexidine/alcohol PPE: provider hat/mask, sterile gloves, sterile drape and sterile probe cover and gel Skin infiltrated with lidocaine 1%: yes Peripheral nerve block: Technique: ultrasound guided Needle type: short-bevel and echogenic (Facet Tip) Needle gauge: 19 G. Needle length: 100 mm Injection assessment: injection made incrementally with constant monitoring, local visualized surrounding nerve on ultrasound, negative aspiration for heme, no paresthesias noted and normal resistance to injection Catheter: Catheter type: 20g non-stimulating catheter Other catheter type: Pajunk SonoLong Catheter placement details: catheter position confirmed by ultrasound, no aspiration of heme, steri-strips, dermal adhesive, occlusive dressing applied and mastisol Assessment: Block success: full evaluation pending Events: patient tolerated procedure well with no complications us Flakito De La Cruz MD ANESTHESIA ORDERABLES [place] Result documented in this encounter Visit Diagnoses Not on filedocumented in this encounter Administered Medications Inactive Administered Medications - up to 3 most recent administrations Medication Order MAR Action Action Date Dose Rate Site BUPivacaine (MARCAINE) 0.5 % (5 mg/mL) preservative free injection perineural, As needed, Starting on Tue09/16/23 at 1113, Anesthesia Intra-op Given 09/16/2023 11:13 AM CDT 30 mL ceFAZolin (ANCEF) 2,000 mg/50 mL in dextrose (premix) 2,000 mg 2,000 mg, intravenous, at 100 mL/hr, Administer over 30 Minutes, Once, On Tue09/16/23 at 1030, For 1 dose, Pre-Op, Administer within 60 minutes of incision. Duplex bag - activate before hanging., Indications: Prophylaxis, SurgicalIndications:Prophylaxis , Surgical Given 09/16/2023 11:51 AM CDT 2,000 mg dexAMETHasone (DECADRON) 4 mg/mL injection intravenous, Administer over 2 Minutes, As needed, Starting on Tue09/16/23 at 1156, Anesthesia Intra-op Given 09/16/2023 11:56 AM CDT 8 mg fentaNYL (SUBLIMAZE) preservative free injection intravenous, As needed, Starting on Tue09/16/23 at 1107, Anesthesia Intra-op Given 09/16/2023 12:08 PM CDT 100 mcg Given 09/16/2023 11:07 AM CDT 100 mcg HYDROmorphone (DILAUDID) injection intravenous, Administer over 2 Minutes, As needed, Starting on Tue09/16/23 at 1327, Anesthesia Intra-op Given 09/16/2023 2:35 PM CDT 0.5 mg Given 09/16/2023 2:26 PM CDT 0.5 mg Given 09/16/2023 1:55 PM CDT 0.4 mg ketorolac (TORADOL) 30 mg/mL injection intravenous, As needed, Starting on Tue09/16/23 at 1355, Anesthesia Intra-op Given 09/16/2023 1:55 PM CDT 30 mg Lactated Ringer's (LR) infusion 30 mL/hr, intravenous, Continuous, Starting on Tue09/16/23 at 1030, Pre-Op, Use a 500 ml bag for End Stage Renal Disease Patients Restarted 09/16/2023 12:24 PM CDT Rate/Dose Verify 09/16/2023 11:42 AM CDT 30 mL/ hr New Bag 09/16/2023 10:26 AM CDT 30 mL/hr 30 mL/hr lidocaine (XYLOCAINE) 20 mg/mL (2 %) injection intravenous, As needed, Starting on Tue09/16/23 at 1148, Anesthesia Intra-op, Indications: Administration of Local AnesthesiaIndications:Administration of Local Anesthesia Given 09/16/2023 11:48 AM CDT 4 mL midazolam (VERSED) 1 mg/mL injection intravenous, As needed, Starting on Tue09/16/23 at 1107, Anesthesia Intra-op Given 09/16/2023 11:07 AM CDT 2 mg ondansetron (ZOFRAN) injection intravenous, Administer over 2 Minutes, As needed, Starting on Tue09/16/23 at 1148, Anesthesia Intra-op Given 09/16/2023 1:47 PM CDT 4 mg Given 09/16/2023 11:48 AM CDT 4 mg propofoL (DIPRIVAN) 10 mg/mL IV intravenous, As needed, Starting on Tue09/16/23 at 1148, Anesthesia Intra-op Bolus 09/16/2023 2:08 PM CDT 40 mg Bolus 09/16/2023 12:10 PM CDT 20 mg New Bag 09/16/2023 11:48 AM CDT 200 mg documented in this encounter Care Teams Mortuary Operations Manager Relationship Specialty Start Date End Date No, Physician PCP - General 12/21/21 Zach Reyez, PT Physical Therapist Physical Therapy 01/20/22 [place] [address] [place] [address] Physical Therapist Physical Therapy 01/30/22 Hussain Lopez, HUMAN RESOURCES LEADER Loop Cutter Physical Therapy 02/03/22 documented as of this encounter
--- OUTSIDE RECORDS SUMMARY | 2024-05-22 05:24 | XMS_ITS | Encounter Summary ---
Author Organization [facility] Healthcare Address [address] [place] [address] Care Team Providers Care Lead Mechanic Name Role Phone No, Physician Primary Care Provider [phone] Zach Reyez PT Unavailable Unavailable Teresa Leach PT Unavailable [phone] Hussain Lopez SILVERING APPLICATOR Unavailable Unavailabl e Reason for Visit * Reason Comments PT Treatment * Consultation (Routine) - Authorized Specialty Diagnoses / Procedures Referred By Contac t Referred To Contact Physical Therapy Diagnoses Osteochondral [place] [address] [place] [address] Phone: tel: fax: [facility] at [facility] [address] [place] [address] [address] [place] [address] Phone: tel: fax: Referral ID Status Reason Start Date Expiration Date Visits Requested Visits Authorized [id number] Authorized Specialty Services Required 09/15/2023 10/14/2024 24 24 Encounter Details Date Type Department Care Team (Late st Contact Info) Description 11/18/2023 11:15 AM CDT Therapy [facility] at [address] [address] [place] [address] [place], [place] [id number] Osteochondral defect of femoral condyle (Primary Dx) [...] on file Legal 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 / male Referring Practitioner: Mikey Hawkins MD MD Follow-Up: 09/26/23 Diagnosis(es): No diagnosis found. Date of Onset: 09/16/2023 Visit #: Visit count could not be calculated. Make sure you are using a visit which is associated with an episode. Progress Report Due: Visit #10 Date: 11/18/2023 Start Time: 11:10 am End Time: 12:15 pm Start Pain: 1-07/02 End Pain: 1-07/02 SUBJECTIVE: Pt reports swelling and stiffness in the evening after daily activity, but overall improving due tobeing able to put 25% weight down which is helping him to achieve knee ext. OBJECTIVE: Gait: Pt amb with crutches without brace with 25% weight bearing R LE. Effusion: Moderate R knee only. Knee ROM: (11/18/23) after manual rx and stretching Left: Right: - Extension 0?? (-)2?? Prior to and 0 after stretching/ex - supine/seated Flexion 140?? 140?? Prone knee flexion with strap:(L knee 140 degrees) Muscle Length: Tight hamstring, gastroc and quad mm Lower Extremity Strength: Manual Muscle Test (MMT) Left: Right: - Knee extension 5/5 4/5 - Knee flexion 5/5 4/5 - Hip flexors 5/5 5/5 - Hip abduction 5/5 4+/5 - Hip adduction 5/5 4+/5 - Hip extension 5/5 4+/5 Palpation: Incision: healed with slight decreased mobility Quad contraction: good TREATMENT: TREATMENT 1) reviewed HEP per flow sheet with verbal and manual cues, see progression of weights, and added partial weight bearing bilat heel raises 2) performed manual rx manual knee ext mobs and knee ext with passive gastroc stretch 3) measured knee ROM: see above 4) cued with proper gait 25% weight bearing R LE with crutches 5) applied vasopneumatic with ice for 15 min at high pressure and 34 degrees Exercise/ Activity 10/11 10/18 10/23 10/30 11/08 11/17 Bike 10 min 5 min 5 min E stim No e stim today Long sitting gastroc stretch X xX Long sitting quad contraction X X X X Long sitting VMO bj/quad contraction 10 reps, 10 sec holds Long sitting hip adductor stretch Supine knee flexion Strap X with strap X Supine SLR X X 2 lb x20 X 2# x10 1#-2# x10 SLR all planes X X X 2# Prone knee flexion with strap X Manual x3 X with strap X and added opp LE on floor X Prone AROM knee flexion X x10 Standing leg curl Standing leg curl Prone hip ext with knee flexed X Prone over counter hip ext Seated knee ext X 5 min, 5 lb X 2# x15 3# x15 5# x20 Supine SAQ 2# x15 3# x20 Standing leg curl 0# x15 Standing heel raises partial weight bearing Init x10 Long sitting ankle PF with band LAQ (assisted) (PROM) Active, pain with Manual resist X Seated hip flexion Prone hangs home 2 lb, 5 min X home 2# x 5 min Verbally reviewed Heel props home Verbally reviewed Patellar mobs and MFR to [...] for 10 min: see above Un-timed Treatment: ice Total of Timed Treatment Codes: 45 minutes Total Treatment Time: 65 minutes ASSESSMENT: Patient 's ROM and swelling [...] shower with normal pain free mobility, achieved Rehab Manager Goals: 12 weeks Pt to continue to [...] to be able to amb stairs and excelsior picker 30# with normal pain free mobility, progressing PLAN: Continue skilled physical therapy per plan of care Teresa Leach, [facility] [place] [address] Dept: [phone] Dept documented in this encounter Plan of Treatment Not on file documented as of this encounter Visit Diagnoses Diagnosis Osteochondral defect of femoral condyle- Primary documented in this encounter Care Teams Lead Mechanic Relationship Specialty Start Date End Date No, Physician PCP - General 12/21/21 Zach Reyez, PT Physical Therapist Physical Therapy 01/20/22 [place] [address] [place] [address] Physical Therapist Physical Therapy 01/30/22 Hussain Lopez, SILVERING APPLICATOR Ski Technician Physical Therapy 02/03/22 documented as of this encounter
--- OUTSIDE RECORDS SUMMARY | 2024-05-22 05:24 | XMS_ITS | Encounter Summary ---
Author Organization [facility] Healthcare Address [address] [place] [address] Care Team Providers Care Electronic Equipment Maint Tech Name Role Phone No, Physician Primary Care Provider [phone] Zach Reyez PT Unavailable Unavailable Teresa Leach PT Unavailable [phone] Hussain Lopez APPEALS REVIEWER VETERAN Unavailable Unavailabl e Reason for Visit * Reason Comments PT Treatment * Consultation (Routine) - Authorized Specialty Diagnoses / Procedures Referred By Contac t Referred To Contact Physical Therapy Diagnoses Osteochondral [place] [address] [place] [address] Phone: tel: fax: [facility] at [address] [place] [address] Phone: tel: fax: Referral ID Status Reason Start Date Expiration Date Visits Requested Visits Authorized [id number] Authorized Specialty Services Required 09/15/2023 10/14/2024 24 24 Encounter Details Date Type Department Care Team (Late st Contact Info) Description 10/05/2023 4:00 PM CDT Therapy [facility] at [address] [address] Hussain Lopez PTA Osteochondral defect of femoral [...] on file Legal 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 / male Referring Practitioner: Mikey Hawkins MD MD Follow-Up: 09/26/23 Diagnosis(es): 1. Osteochondral defect of femoral condyle Date of Onset: 09/16/2023 Visit #: 5 Progress Report Due: Visit #10 Date: 10/05/2023 Start Time: 400pm End Time: 500pm Start Pain: 3/10 End Pain: 3/10 SUBJECTIVE: Pt reports ROM, swelling, and pain are improving slowly. OBJECTIVE: Gait: Pt amb with crutches and long leg brace NWB R LE, brace unlocked to 80 degrees Effusion: Moderate R thigh, knee and lower leg (but visibly decreasing swelling and bruising) Knee ROM: (10/05/23) Left: Right: - Extension 0?? (-)3?? - supine/seated Flexion 140?? 112?? Prone knee flexion with strap: 0-45 Muscle Length: Tight hamstring, gastroc and quad mm Lower Extremity Strength: Manual Muscle Test (MMT) Left: Right: - Knee extension 5/5 3-/5 - Knee flexion 5/5 3-/5 - Hip flexors 5/5 5/5 - Hip abduction 5/ 3-/5 - Hip adduction 5/5 3-/5 - Hip extension 09/24 3-/5 Palpation: Incision: healing well Quad contraction: fair (+) TREATMENT: TREATMENT 1) reviewed HEP per flow sheet with verbal and manual cues; emphasis still on end-range knee ROM 2) performed manual rx for effleurage massage and patellar mobs 3) applied vasopneumatic with ice for 15 min at 34 degrees and med pressure Exercise/ Activity Date: 09/20 Date: 09/22 Date: 09/27 Date: 09/29 Date: 10/04 Date: E stim Long sitting gastroc stretch X X X x3 Long sitting quad contraction X X X X X Long sitting hip adductor stretch X X Supine knee flexion X X X Supine SLR X X X SLR all planes Instructed for home Reviewed Prone knee flexion with strap Init 0-52 X 0-75 Manual x3 Seated knee ext (AA ROM) X X AROM x10 X x10 Long sitting ankle PF with band X X home LAQ (assisted) (PROM) X X X 10 X 92 degrees Seated hip flexion init Prone hangs 1# with heat pack x 5 min 1 lb, 5 min Heel props X X X Patellar mobs and MFR to quad/adductors X X X Effleurage R distal LE Foot>knee Flowsheet [place]: X = performed, x = times/multiply, s = seconds, ea = each, st = stretch SL= side lying, SLS= single leg stance Timed Treatment: Thera ex for 20 minutes: see above Manual rx for 10 min: see above Un-timed Treatment: Game Ready Vasopneumatic for 15 minutes: R knee edema management Total of Timed Treatment Codes: 30 [...] and shower with normal pain free mobility Group Home Goals: 12 weeks Pt to continue [...] to be able to amb stairs and 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 tank 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 30# with normal pain free mobility PLAN: Continue skilled physical therapy per plan of care Hussain Lopez PTA [facility] [address] [facility] [address] [facility] [address] Dept: [phone] Dept documented in this encounter Plan of Treatment Not on file documented as of this encounter Visit Diagnoses Diagnosis Osteochondral defect of femoral condyle- Primary documented in this encounter Care Teams Electronic Equipment Maint Tech Relationship Specialty Start Date End Date No, Physician PCP - General 12/21/21 Zach Reyez, PT Physical Therapist Physical Therapy 01/20/22 [place] [address] [place] [address] Physical Therapist Physical Therapy 01/30/22 Hussain Lopez PTA Inside Sales Supervisor Physical Therapy 02/03/22 documented as of this encounter
--- OUTSIDE RECORDS SUMMARY | 2024-05-22 05:24 | XMS_ITS | Encounter Summary ---
Author Organization [facility] Healthcare Address [address] [place] [address] Care Team Providers Care Client Administrator Name Role Phone No, Physician Primary Care Provider [phone] Zach Reyez PT Unavailable Unavailable Teresa Leach PT Unavailable [phone] Hussain Lopez CASING TESTER Unavailable Unavailabl e Encounter Details Date Type Department Care Team (Latest Contact Info) Description 09/05/2023 10:30 PM CDT - 09/05/2023 11:59 PM CDT Hospital Encounter [facility] Radiology [facility] [address] [place] [address] Discharge Disposition: Discharge to home or self [...] on file 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 Gender Identity Not on file Sexual Orientation Not on file documented as of this encounter Medications at Time of Discharge aspirin 81 mg enteric coated tablet Take 1 tablet (81 mg total) by mouth daily 30 tablet 09/16/2023 09/15/2024 HYDROcodone-aceta minophen (NORCO) 5-325 mg per tabletIndications :Pain Take 1 tablet by mouth every 6 (six) hours as needed for pain 20 tablet 02/11/2023 09/13/2023 HYDROcodone-aceta minophen (NORCO) 5-325 mg per tabletIndications :Pain Take 1 tablet by mouth every 6 (six) hours as needed for pain 30 tablet 05/05/2023 11/18/2023 meloxicam (MOBIC) 15 mg tablet Take 1 tablet (15 mg total) by mouth daily 30 tablet 1 05/05/2023 09/13/2023 ondansetron (ZOFRAN) 4 mg tablet Take 1 tablet (4 mg total) by mouth every 8 (eight) hours as needed for nausea 12 tablet 02/11/2023 09/13/2023 documented as of this encounter Discharge Disposition Disposition Code Departure Means Destination Discharge to home or self care documented in this encounter Plan of Treatment Not on file documented as of this encounter Procedures Procedure Name Priority Date/Time Associated Diagnosis Comments XR TRANSFER OF OUTSIDE FILMS Routine 09/05/2023 10:30 PM CDT documented in this encounter Results * XR Outside Reference (09/05/2023 10:30 PM CDT) Impressions [facility] - 09/05/2023 10:30 PM CDT These images are for Reference purposes only and have not been reviewed by [facility]. ??There will be no report generated by a [facility] Radiologist. Narrative [facility] - 09/05/2023 10:30 PM CDT EXAMINATION: ??Images For Reference Purposes Only us Mikey Hawkins MD IMG XR PROCEDURES Final Res ult [facility] documented in this encounter Visit Diagnoses Not on filedocumented in this encounter Care Teams Client Administrator Relationship Specialty Start Date End Date No, Physician PCP - General 12/21/21 Zach Reyez, PT Physical Therapist Physical Therapy 01/20/22 [place] [address] [place] [address] Physical Therapist Physical Therapy 01/30/22 Hussain Lopez, TRIPP Kennel Operator Physical Therapy 02/03/22 documented as of this encounter
--- OUTSIDE RECORDS SUMMARY | 2024-05-22 05:24 | XMS_ITS | Encounter Summary ---
Author Organization [facility] Healthcare Address [address] [place] [address] Care Team Providers Care Asphalt Blender Name Role Phone No, Physician Primary Care Provider [phone] Zach Reyez PT Unavailable Unavailable Teresa Leach PT Unavailable [phone] Hussain Lopez ASSISTANT PROFESSOR OF CHEMISTRY Unavailable Unavailabl e Reason for Visit * Reason Comments PT Treatment * Consultation (Routine) - Authorized Specialty Diagnoses / Procedures Referred By Contac t Referred To Contact Physical Therapy Diagnoses Osteochondral [place] [address] [place] [address] Phone: tel: fax: [facility] at [facility] [address] [place] [address] [address] [place] [address] Phone: tel: fax: Referral ID Status Reason Start Date Expiration Date Visits Requested Visits Authorized [id number] Authorized Specialty Services Required 09/15/2023 10/14/2024 24 24 Encounter Details Date Type Department Care Team (Late st Contact Info) Description 10/07/2023 10:45 AM CDT Therapy [facility] at [address] [address] [place] [address] [place], [place] [id number] Osteochondral defect of femoral condyle (Primary Dx) [...] on file 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 / male Referring Practitioner: Mikey Hawkins MD MD Follow-Up: 09/26/23 Diagnosis(es): 1. Osteochondral defect of femoral condyle Date of Onset: 09/16/2023 Visit #: 6 Progress Report Due: Visit #10 Date: 10/07/2023 Start Time: 10:45 am End Time: 11:45 am Start Pain: 07/30 End Pain: 07/30 SUBJECTIVE: Pt reports ROM, swelling, and pain are improving slowly. He reports medial knee pain with quad contraction, and well as some post knee discomfort.stiffness with knee flexion. OBJECTIVE: Gait: Pt amb with crutches and long leg brace NWB R LE Effusion: Moderate R thigh, knee and lower leg (but visibly decreasing swelling and bruising) Knee ROM: (10/07/23) after manual rx and stretching Left: Right: - Extension 0?? (-)2?? - supine/seated Flexion 140?? 112?? Prone knee flexion with strap: 0-120 degrees Muscle Length: Tight hamstring, gastroc and quad mm Lower Extremity Strength: Manual Muscle Test (MMT) Left: Right: - Knee extension 5/5 3+/5 - Knee flexion 5/5 3+/5 - Hip flexors 5/5 5/5 - Hip abduction 5/5 3+/5 - Hip adduction 5/5 3+/5 - Hip extension 5/5 3+/5 Palpation: Incision: healing well Quad contraction: fair [...] quad stretch and knee flexion ROM 4) initiated e stim to quads with long sitting, seated knee ext and supine SLR (10/10 on/off sec, 18 min, 38 MA) 5) applied vasopneumatic with ice for 15 min at 34 degrees and med pressure Exercise/ Activity Date: 09/20 Date: 09/22 Date: 09/27 Date: 09/29 Date: 10/04 Date: 10/06 E stim Init with long sitting quad bj, seated LAQ and supine SLR Long sitting gastroc stretch X X X x3 X with manual self knee ext Long sitting quad contraction X X X X X 6 min with e stim Long sitting VMO bj/quad contraction init Long sitting hip adductor stretch X X Supine knee flexion X X X Supine SLR X X X 6 min with e stim SLR all planes Instructed for home Reviewed Prone knee flexion with strap Init 0-52 X 0-75 Manual x3 Seated knee ext X X AROM x10 X x10 6 min with 2# Long sitting ankle PF with band X X home LAQ (assisted) (PROM) X X X 10 X 92 degrees X Seated hip flexion init Prone hangs 1# with heat pack x 5 min 1 lb, 5 min X Heel props X X X Patellar mobs and MFR to quad/adductors and knee ext mobs X X X X Effleurage R distal LE Foot>knee X Flowsheet [place]: X = performed, x = times/multiply, s = seconds, ea = each, st = stretch SL= side lying, SLS= single leg stance Timed Treatment: Thera ex for 15 minutes: see above Neuromuscular re-education with e stim for 15 min Manual rx for 15 min: see above Un-timed Treatment: Game Ready Vasopneumatic for 15 minutes: R knee edema management Total of Timed Treatment Codes: 45 minutes Total Treatment Time: 60 minutes ASSESSMENT: Patient remains stiff at his [...] and shower with normal pain free mobility Senior Care Goals: 12 weeks Pt to continue to [...] to be able to amb stairs and 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 AT [address] [place] [address] Dept: [phone] Dept documented in this encounter Plan of Treatment Not on file documented as of this encounter Visit Diagnoses Diagnosis Osteochondral defect of femoral condyle- Primary documented in this encounter Care Teams Asphalt Blender Relationship Specialty Start Date End Date No, Physician PCP - General 12/21/21 Zach Reyez, PT Physical Therapist Physical Therapy 01/20/22 [place] [address] [place] [address] Physical Therapist Physical Therapy 01/30/22 Hussain Lopez, TRIPP Administration Dean Physical Therapy 02/03/22 documented as of this encounter
--- OUTSIDE RECORDS SUMMARY | 2024-05-22 05:24 | XMS_ITS | Encounter Summary ---
Author Organization [facility] Healthcare Address [address] [facility], [place] [address] Care Team Providers Care Certified Nursing Assistant Name Role Phone No, Physician Primary Care Provider [phone] Zach Reyez PT Unavailable Unavailable Teresa Leach PT Unavailable [phone] Hussain Lopez CERTIFIED PUBLIC ACCOUNTANT Unavailable Unavailabl e Reason for Visit * MRI/CAT/PET Scan (Routine) - Pending Review Specialty Diagnoses / Procedures Referred By Contac t Referred To Contact Procedures [place] [address] [place] [address] Phone: tel: fax: Referral ID Status Reason Start Date Expiration Date V isits Requested Visits Authorized [id number] Pending Review 09/05/2023 10/04/2024 1 1 Encounter Details Date Type Department Care Team (Latest Contact Info) Description 09/05/2023 10:29 PM CDT - 09/05/2023 11:59 PM CDT Hospital Encounter [facility]iology [facility] [address] [place] [address] Discharge Disposition: Discharge to home or self [...] on file 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 ??There will be no report generated by a [facility] Radiologist. Narrative [facility] - 09/05/2023 10:29 PM CDT EXAMINATION: ??Images For Reference Purposes Only us Mikey Hawkins MD IMG MRI PROCEDURES Final Re sult [facility] documented in this encounter Visit Diagnoses Not on filedocumented in this encounter Care Teams Certified Nursing Assistant Relationship Specialty Start Date End Date No, Physician PCP - General 12/21/21 Zach Reyez, PT Physical Therapist Physical Therapy 01/20/22 [place] [address] [place] [address] Physical Therapist Physical Therapy 01/30/22 Hussain Lopez, TRIPP Nuclear Power Reactor Operator Physical Therapy 02/03/22 documented as of this encounter
--- OUTSIDE RECORDS SUMMARY | 2024-05-22 05:24 | XMS_ITS | Encounter Summary ---
Author Organization [facility] Healthcare Address [address] [place] [address] Care Team Providers Care Early Breastfeeding Care Specialist Name Role Phone No, Physician Primary Care Provider [phone] Zach Reyez PT Unavailable Unavailable Teresa Leach PT Unavailable [phone] Hussain Lopez PROBATE LAWYER Unavailable Unavailabl e Reason for Visit * Reason Comments PT Treatment * Consultation (Routine) - Authorized Specialty Diagnoses / Procedures Referred By Contac t Referred To Contact Physical Therapy Diagnoses Osteochondral [place] [id number] [place] [address] Phone: tel: fax: [facility] at [facility] [id number] [place] [address] [address] [place] [address] Phone: tel: fax: Referral ID Status Reason Start Date Expiration Date Visits Requested Visits Authorized [id number] Authorized Specialty Services Required 09/15/2023 10/14/2024 24 24 Encounter Details Date Type Department Care Team (Late st Contact Info) Description 10/31/2023 4:[address] 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 Physical Therapy Visit Patient Name: Zayda Torres Date of : 1975 Age/Sex: 48 y.o. / male Referring Practitioner: Mikey Hawkins MD MD Follow-Up: 09/26/23 Diagnosis(es): 1. Osteochondral defect of femoral condyle Date of Onset: 09/16/2023 Visit #: 10 Progress Report Due: Visit #10 Date: 10/31/2023 Start Time: 4:45 pm End Time: 6:00 pm Start Pain: -07/02 End Pain: -07/02 SUBJECTIVE: Pt reports his knee feels stiff and has some intermittent medial knee throbbing. OBJECTIVE: Gait: Pt amb with crutches and long leg brace NWB R LE (brace unlocked fully now) Effusion: Moderate R knee only. Knee ROM: (10/31/23) after manual rx and stretching Left: Right: - Extension 0?? (-)2?? - supine/seated Flexion 140?? 133?? Prone knee flexion with strap: 0-124 degrees (decreased today due to sup knee pain Muscle Length: Tight hamstring, gastroc and quad [...] ROM 2) performed manual rx for effleurage massage, fascial release, patellar mobs and manual knee ext mobs 3) measured knee ROM: see above 4) not today: e stim to quads with long sitting, seated knee ext and supine SLR (03/01 on/off sec, 18 min, 38 MA) 5)applied vasopneumatic with ice for 15 min at 34 degrees and med pressure Exercise/ Activity 10/11 10/18 10/23 10/30 Bike 10 min E stim No e stim today Long sitting gastroc stretch X Long sitting quad contraction X X X X Long sitting VMO bj/quad contraction Long sitting hip adductor stretch Supine knee flexion Strap X with strap Supine SLR X X 2 lb x20 X SLR all planes X X X Prone knee flexion with strap X Manual x3 X with strap Prone AROM knee flexion X x10 Standing leg curl Prone hip ext with knee flexed X Prone over counter hip ext Seated knee ext X 5 min, 5 lb X Long sitting ankle PF with band LAQ (assisted) (PROM) Active, pain with Manual resist X Seated hip flexion Prone hangs home 2 lb, 5 min X home Heel props home Patellar mobs and MFR [...] for 20 min: see above Un-timed Treatment: Game Ready Vasopneumatic for 15 minutes: R knee inflammation management Total of Timed Treatment Codes: 45 minutes Total Treatment Time: 75 minutes ASSESSMENT: Patient remains stiff at his endpoint of extension which could be due to his lingering knee swelling; pain noted initially with manual resisted LAQ, then felt even with an unresisted eccentric LAQ inmid-range on patient's lateral aspect of his proximal tibia; unable to complete SLR in regular [place]an E-Stim regiment due to a temporary power [...] shower with normal pain free mobility, achieved Home Visit Field Care Manager Goals: 12 weeks Pt to continue [...] to be able to amb stairs and coal picker 30# with normal pain free mobility PLAN: Continue skilled physical therapy per plan of care Teresa Leach, PT [facility] AT [address] [place] [address] Dept: [phone] Dept documented in this encounter Plan of Treatment Not on file documented as of this encounter Visit Diagnoses Diagnosis Osteochondral defect of femoral condyle- Primary documented in this encounter Care Teams Early Breastfeeding Care Specialist Relationship Specialty Start Date End Date No, Physician PCP - General 12/21/21 Zach Reyez, PT Physical Therapist Physical Therapy 01/20/22 [place] [address] [place] [address] Physical Therapist Physical Therapy 01/30/22 Hussain Lopez, PROBATE LAWYER Professor Of Musicology Physical Therapy 02/03/22 documented as of this encounter
--- OUTSIDE RECORDS SUMMARY | 2024-05-22 05:24 | XMS_ITS | Encounter Summary ---
Author Organization [facility] Address [address] [place] [address] Phone Care Team Providers Care Inclusion Internship Name Role Phone No, Physician Primary Care Provider [phone] Zach Reyez PT Unavailable Unavailable Teresa Leach PT Unavailable [phone] Hussain Lopez STUDIO HAND Unavailable Unavailabl e Reason for Referral * Diagnostic Imaging (Routine) - Closed Specialty Diagnoses / Procedures Referred By Contac t Referred To Contact Diagnoses S/P arthroscopy of right knee Procedures XR Knee Right 1 [place] [address] [place] [address] Phone: tel: fax: [facility] Referral ID Status Reason Start Date Expiration Date Visits Re quested Visits Authorized [id number] Closed 10/19/2023 11/17/2024 1 1 Reason for Visit * Reason Comments Follow-up Post-op Encounter Details Date Type Department Care Team (Late st Contact Info) Description 10/20/2023 1:50 PM CDT Office Visit [facility] Orthopaedic Surgery [address] [facility] 2[address] [place] [id number] [place] [address] [place], [place] [phone] S/P arthroscopy of right knee (Primary Dx) Social History [...] on file 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 ESTABLISHED PATIENT VISIT INTERIM HISTORY: Patient is a 48-year-old male 4 weeks and 6 days status post an open OCD allograft to right medial femoral condyle an opening wedge high tibial osteotomy. Overall the patient is doing very well. His pain is well controlled. He does have some pain along the medial femoral condyle but this is mild. He has been working with physical therapy and obtained great motion. PHYSICAL EXAMINATION: Focused physical examination right knee: Dressings were removed and incision is intact without erythema or drainage Range of motion of the knee is 0 to 130 Sensation intact to light touch over all distributions Warm well perfused distal REVIEW OF IMAGING: I have ordered reviewed three-view x-rays of the right knee which straight a stable allograft and stable hardware. There is interval healing of the osteotomy IMPRESSION: Patient is a 44-year-old male 4 weeks and 6 days status post an open OCD allograft to the right medial femoral condyle and opening wedge high tibial osteotomy TREATMENT PLAN: We discussed with the patient what went on in the surgery. He overall is doing very well at this point. He can continue with PT on range of motion and strengthening exercises. He should follow up in 4 weeks for a repeat clinical examination and x-rays of the right knee. We will likely discontinue his brace at that time and advance his weightbearing. Alison Golden MD Orthopaedic Surgery PGY5 I was present for the critical portion of the history, physical examination, and participated in the radiographic review and medical decision making for this patient. I agree with the findings in thereport of the above residence/fellow dictating using Leho Direct software. Professor of Orthopaedic Surgery Director, Sports Medicine Fellowship [facility] Orthopaedics documented in this encounter Plan [...] of right knee- Primary Other postprocedural status S/P arthroscopy of right knee Other postprocedural status documented in this encounter Care Teams Inclusion Internship Relationship Specialty Start Date End Date No, Physician PCP - General 12/21/21 Zach Reyez, PT Physical Therapist Physical Therapy 01/20/22 [place] [address] [place] [address] Physical Therapist Physical Therapy 01/30/22 Hussain Lopez, STUDIO HAND Business Transformation Manager Physical Therapy 02/03/22 documented as of this encounter
--- OUTSIDE RECORDS SUMMARY | 2024-05-22 05:24 | XMS_ITS | Encounter Summary ---
Author Organization [facility] Healthcare Address [address] [place] [address] Care Team Providers Care Wood Scaler Name Role Phone No, Physician Primary Care Provider [phone] Zach Reyez PT Unavailable Unavailable Teresa Leach PT Unavailable [phone] Hussain Lopez ENTERPRISE APPLICATIONS MANAGER Unavailable Unavailabl e Reason for Visit * Reason Comments PT Treatment * Consultation (Routine) - Authorized Specialty Diagnoses / Procedures Referred By Contac t Referred To Contact Physical Therapy Diagnoses Osteochondral [place] [address] [place] [address] Phone: tel: fax: [facility] at [facility] [address] [place] [address] [address] [place] [address] Phone: tel: fax: Referral ID Status Reason Start Date Expiration Date Visits Requested Visits Authorized [id number] Authorized Specialty Services Required 09/15/2023 10/14/2024 24 24 Encounter Details Date Type Department Care Team (Late st Contact Info) Description 12/02/2023 1:45 PM CDT Therapy [facility] at [address] [address] [place] [address] [place], [place] [id number] Osteochondral defect of femoral condyle (Primary Dx) [...] on file 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 / male Referring Practitioner: Mikey Hawkins MD MD Follow-Up: 09/26/23 Diagnosis(es): 1. Osteochondral defect of femoral condyle Date of Onset: 09/16/2023 Visit #: 14 Progress Report Due: Visit #20 Date: 12/02/2023 Start Time: 1:45 pm End Time: 2:30 pm Start Pain: 1-210 End Pain: 1-2/10 SUBJECTIVE: Pt reports pain and swelling increasing daily continue after being on it for moderate periods of time. Pt reports he has done done much today to eval swelling and knee ext mobility. He feels it is straighter today with the decreased swelling due to decreased activity level. Pt would like to just work on ROM, manual ext stretching and ice to keep swelling down. OBJECTIVE: Gait: Pt amb with crutches without brace with 75% weight bearing R LE. Effusion: Mild to Moderate R knee today,decreased from last visit Knee ROM: (12/02/23) (ROM decreased due to increased swelling) Left: Right: - Extension 0?? (-)2?? Prior to and 0 to +1degrees after stretching/ex - supine/seated Flexion 140?? 136?? [...] to hold on all exercises todayexcept ROM especially ext to be able to get increased ext ROM and decreasing swelling. 2) prone hangs for 5 min with heat pack 2# 3) performed manual rx manual knee ext mobs, knee ext with passive gastroc stretch, and patellar mobs, scar massage 4) measured knee ext ROM: see above 5) pt required no cues with proper gait 75% weight bearing R LE with crutches 6) applied vasopneumatic with ice for 15 min at high pressure and 34 degrees Exercise/ Activity 10/18 10/23 10/30 11/08 11/17 11/27 12/01 Bike 10 min 5 min 5 min [...] ext mobs Patellar mobilization X X X X Effleurage R mid calf >> knee Flowsheet [place]: X = performed, x = times/multiply, s = seconds, ea = each, st = stretch SL= side lying, SLS= single leg stance Timed Treatment: Thera ex for 15 minutes: see above Manual rx for 20 min: see above Un-timed Treatment: ice Total of Timed Treatment Codes: 35 minutes Total Treatment Time: 50 minutes ASSESSMENT: [...] shower with normal pain free mobility, achieved Environmental Director Goals: 12 weeks Pt to continue to [...] to be able to amb stairs and hot die picker 30# with normal pain free mobility, progressing PLAN: Continue skilled physical therapy per plan of care Teresa Leach, PT [facility] AT [address] [address] Dept: [phone] Dept documented in this encounter Plan of Treatment Not on file documented as of this encounter Visit Diagnoses Diagnosis Osteochondral defect of femoral condyle- Primary documented in this encounter Care Teams Wood Scaler Relationship Specialty Start Date End Date No, Physician PCP - General 12/21/21 Zach Reyez, PT Physical Therapist Physical Therapy 01/20/22 [place] [address] [place] [address] Physical Therapist Physical Therapy 01/30/22 Hussain Lopez PTA Mission Commander Physical Therapy 02/03/22 documented as of this encounter
--- OUTSIDE RECORDS SUMMARY | 2024-05-22 05:24 | XMS_ITS | Encounter Summary ---
Author Organization [facility] Address [address] [place] [address] Phone Care Team Providers Care Finisher Card Tender Name Role Phone No, Physician Primary Care Provider [phone] Zcah Reyez PT Unavailable Unavailable Teresa Leach PT Unavailable [phone] Hussain Lopez FRUIT GROWER Unavailable Unavailabl e Reason for Referral * Consultation (Routine) - Authorized Specialty Diagnoses / Procedures Referred By Danny t Referred To Contact Physical Therapy Diagnoses Osteochondral defect of femoral cond[place] Hawkins [place] [id number] [place] [address] [address] [place] [address] Phone: tel: fax: [facility] at [facility] [id number] [place] [address] [address] [place] [address] Phone: tel: fax: Referral ID Status Reason Start Date Expiration Date Visits Requested Visits Authorized [id number] Authorized Specialty Services Required 09/15/2023 10/14/2024 24 Question Answer PTRFR PT Evaluate and Treat Please select the performing region: [facility] [[id number]] Please select the performing department: [facility] OP PT ST[facility]2 [[id number]] # of visits: 24 Comments REHABILITATION PROTOCOL FOR HIGH TIBIAL OSTEOTOMY/OSTEOCHONDRAL ALLOGRAFT Zayda Torres 1975 09/15/23 SX: RIGHT ARTHROTOMY KNEE OSTEOCHONDRAL ALLOGRAFT MEDIAL FEMORAL CONDYLE, OPEN HIGH TIBIAL OSTEOTOMY- OPENING WEDGE SX is 09/16/23 START PT POD 5-7 Physical Therapy Evaluation and Treatment Two to Three Times Weekly for 6 Weeks Quadriceps and hamstring strengthening exercises AAROM with emphasis on obtaining immediate full extension Advance flexion as tolerated NWB until instructed Calf presses/Ankle pumps/Hip Flexion Exercises Patellar Mobilization Modalities prn (except over incisions) Home exercise program For all PT reports that require a signature-please fax to [phone] For all other PT progress notes-please fax to [phone] Mikey Hawkins MD Encounter Details Date Type Department Care Team (Late st Contact Info) Description 09/15/2023 Orders Only [facility] Orthopaedic Surgery [address] [place] [id number] [place] [address] [place] [address] Osteochondral defect of femoral condyle (Primary Dx) [...] on file 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 Gender Identity Not on file Sexual Orientation Not on file documented as of this encounter Ordered Prescriptions Prescription Sig Dispense Quantity Refills Last Filled Start Date End Date ketorolac (TORADOL) 10 mg tablet Take 1 tablet (10 mg total) by mouth every 6 (six) hours as needed for pain 20 tablet 09/15/2023 ondansetron ODT (ZOFRAN-ODT) 4 mg disintegrating tablet Take 1 tablet (4 mg total) by mouth every 8 (eight) hours as needed for nausea or vomiting 12 tablet 09/15/2023 documented in this encounter Plan of Treatment Scheduled Referrals Name Type Priority Associated Diagnoses Order Schedule Ambulatory referral order to Physical Therapy - Outpatient Referral Routine Osteochondral defect of femoral condyle Expected: 09/15/2023, Expires: 09/14/2024 documented as of this encounter Visit Diagnoses Diagnosis Osteochondral defect of femoral condyle- Primary documented in this encounter Care Teams Finisher Card Tender Relationship Specialty Start Date End Date No, Physician PCP - General 12/21/21 Zach Reyez, PT Physical Therapist Physical Therapy 01/20/22 [place] [address] [place] [address] Physical Therapist Physical Therapy 01/30/22 Hussain Lopez, FRUIT GROWER Upholstery Cleaner Physical Therapy 02/03/22 documented as of this encounter
--- OUTSIDE RECORDS SUMMARY | 2024-05-22 05:24 | XMS_ITS | Encounter Summary ---
Author Organization [facility] Address [address] [place] [address] Phone Care Team Providers Care Boot Turner Name Role Phone No, Physician Primary Care Provider [phone] Zach Reyez PT Unavailable Unavailable Teresa Leach PT Unavailable [phone] Hussain Lopez DIRECTOR [employer] Unavailable Unavailabl e Reason for Visit * Reason Comments OT Initial Eval * Consultation (Routine) - Closed Specialty Diagnoses / Procedures Referred By Contsom t Referred To Contact Occupational Therapy Diagnoses Pain in left wrist Merna Retana DO [address] [place] [address] Phone: tel: fax: [facility] (All Locations) Referral ID Status Reason Start Date Expiration Date V isits Requested Visits Authorized [id number] Closed Specialty Services Required 04/22/2023 05/21/2024 24 24 Encounter Details Date Type Department Care Team (Late st Contact Info) Description 04/27/2023 5:00 PM ASSESSOR Therapy [facility] Occupational Therapy [address] [place] [address] [place] [address] [place] [address] Pain in left wrist (Primary Dx) Social History Tobacco Use Types [...] on file Legal Sex Male 6:31 AM ASSESSOR Gender Identity Not on file Sexual Orientation Not on file documented as of this encounter Progress Notes * Judah Buck - 04/27/2023 5:00 PM CST [facility] Occupational Therapy/Physical Therapy Evaluation Referring Provider: Merna Retana DO [address] [facility] [address] [address] Pain in left wrist [M25.532] Diagnosis: Pain in left wrist (M25.532) Subjective: Patient reports: 47 year old male seen as a scheduled evaluation. The patient was referred to hand therapy from his primary care provider. He reports that the wrist pain started 3-4 weeks ago and that there was no specific cause or activity that started the pain. He reports pain on radial side and around thumb with certain motions. He reports that it is an achey, sometimes throbbing pain. He states that the pain is inconsistent, and will hurt when moving wrist side to side and with other activities. He feels like it is stuck and it needs to be stretched. He says that ice seems to help. He reports there is some arthritis in thumb around MP/IP, but not around CMC joint. Patient's primary goal: Patient would like to complete his functional activities without experiencing pain in the wrist. Diagnosis: pain in left wrist Date of onset: 3-4 weeks ago Cause of injury: no specific cause, he just noticed it a few weeks ago. Date of surgery: N/A Surgery details: N/A Next MD Appointment: PRN Medical Hx: No past medical history on file. Allergies: Patient has no known allergies. 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 He notices the pain in his day to day activities. 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 Do you feel safe in your home environment?: [x] Yes [] No Hand dominance [x] Right [] Left [] Ambidextrous Involved side [] Right [x] Left [] Bilateral Numbness [] Yes [x] No Location: Tingling [] Yes [x] No Location: Pain at best: 0/10 Pain at worst: 3/10 Pain currently: 0/10 pain Are you taking pain medication? [x] Yes [] No Medication using: meloxicam for knee, not taking it for wrist, naproxim ADL Status: [] Independent [x] Independent but with increased time or pain [] Requires assistance [] Dependent Details: He reports needing some extra time, sometimes has throbbing pain IADL Status: [x] Independent [] Independent but with increased time or pain [] Requires assistance [] Dependent Details: Leisure activities: [x] Able to participate in leisure activities [] Able to participate but with increased time or pain [] Unable to participate in leisure activities Details: Sleep: [x] Reports adequate sleep to support daily routines [] Reports inadequate sleep to support daily routines Details: Sometimes he will notice throbbing, but it is very minimal Objective: Appearance: Patient has laxity of joints, SF swan neck deformity of sF ans slight swan-neck deformity of the other digits. Active Wrist and Forearm Range of Motion Right Left Extension/ Flexion 70/61 Extension/ Flexion 70/60 Radial/Ulnar Deviation 20/30 Radial/Ulnar Deviation 20/25 Supination/ Pronation 70/75 Supination/ Pronation 70/75 Strength Mold Filler Plastic Dolls Pinch Right Left Right Left Trial 1 Lateral 21 20 with some soreness Trial 2 Tip to Tip Trial 3 3- Point 19 22 Average 101 80 Palpation: -No tenderness over radial styloid or first extensor compartment. -No tenderness over Scaphoid -No tenderness of SL interval on dorsal radial wrist. Provocative Test: Raeann's test (negative) Gelberman Adduction Test to CMC (negative) Treatment Provided: Initial Evaluation performed and health and occupational history reviewed PROM HEP started and pt returned demonstration. Handout issued. -Ulnar deviation on table hold for 10 s x 5 reps (3-4 times per day) -Extrinsic extensor stretch performed and progress with Ulnar deviation to help stretch first dorsal compartment. -Extrinsic flexor stretch elbow straight wrist extension, stretching digits into extension Performed dartthrowers motion with 1 pound to increase wrist proprioception. Exercise stopped due to patient pain reported with this. Issued wrist widget for support and to provide compression to tendons. Discussed the use of heat intermittently for pain relief. Assessment: Pt demonstrated independence/verbalized understanding in: [x] HEP [] Don/doff orthosis [x] All tx listed above Assessment details: Patient came into clinic presenting with L wrist pain. Patient had a negative Raeann's and CMC tests, ruling out DeQuervains, intersection syndrome and CMC arthritis. He has a incomplete picture that doesn't fall into any direct category. Patient demonstrates tightness in ulnar deviation in L compared to R wrist. Patient was not tender over radial styloid, lunate, or scaphoid. Patient demonstrates decreased relay checker strength in L compared to R side. He also has laxity of joints of the wrist and digits. Patient demonstrates symptoms consistent with tendon-related injury orirritation. Patient demonstrated understanding of HEP to perform to decrease pain. Patient would benefit from continued therapy to address tendon irritation and to decrease pain. Impairment list: [] Coordination [] Edema [] Endurance/activity tolerance [] Fine motor use [] Flexibility [] Gross motor use [] Muscle tone [x] Pain [x] Range of motion [] Scar tissue [] Sensation [] Sensory/motor [] Skin integrity [x] Strength Other: Functional Limitations: [x] ADLs [] Community activities [] Communication [] Education [x] Home management [] Leisure activities [] Play [] Safety [] Sports [] Work Other: Environmental Barriers: [x] Home [] Work [] Community Barriers to Therapy: none Intervention Approach: [] Health promotion [x] Remediation [] Wellness [] Adaptation [] Prevention Prognosis: [] Excellent [x] Good [] Fair [] Poor Goals for Therapy Intervention: Goal Status / Date Updated Due by: STG1 Patient will demonstrate understanding of HEP to decrease overall pain MET 04/28/2023 Achieved STG2 Patient will demonstrate understanding of donning/doffing wrist widget to decrease pain. MET 04/28/2023 Achieved STG3 Patient will perform ulnar deviation without experiencing pain, necessary for opening a jar. New 04/28/2023 05/12/2023 LTG1 Patient will increase relay checker strength to 90 pounds to perform ADL activities. New 04/28/2023 LTG2 Patient will demonstrate understanding of discharge HEP and demonstrate readiness for discharge. New 04/28/2023 LTG3 Plan: Frequency/Duration: 1 x per week for up to 12 weeks Plan Details: follow up next week to see how HEP is going Start time: 17:00 End time: 17:42 KATE Hdez Teaching Attestation: I have seen and evaluated the patient and agree with the student note as outlined above. Kelli Green, OTR/L, CHT FOR INSURANCE AUTHORIZATION PURPOSES ONLY: 1. Primary purpose of therapy: Rehabilitation 2. Name tool(s) used during evaluation: goniometry, relay checker and pinch gauge 3. Will any of the following be used as a primary treatment: None of these apply 4. Body part(s) affected: Upper Extremity 5. Does the patient have difficulty performing age appropriate activities of daily living (ADLs) and activities related to independent living: Yes 6. Select all conditions expected to impact treatment: Musculoskeletal disorders (eg, juvenile idiopathic arthritis, contractures, or fractures) If the patient does not return to therapy this will serve as a discharge summary. Cosigned by Kelli Green OT at 04/28/2023 9:39 AM ASSESSOR SSOR SSOR documented in this encounter Plan of Treatment Not on file documented as of this encounter Visit Diagnoses Diagnosis Pain in left wrist- Primary Pain in joint, forearm documented in this encounter Orders Outpatient Referral Count Last Ordered Date st Ordered Date AMB REFERRAL ORDER TO HAND THERAPY 1 2022 documented in this encounter Care Teams Boot Turner Relationship Specialty Start Date End Date No, Physician PCP - General 12/21/21 Zach Reyez, PT Physical Therapist Physical Therapy 01/20/22 [place] [address] [place] [address] Physical Therapist Physical Therapy 01/30/22 Hussain Lopez, TRIPP Fish And Wildlife Technician Physical Therapy 02/03/22 documented as of this encounter
--- OUTSIDE RECORDS SUMMARY | 2024-05-22 05:24 | XMS_ITS | Encounter Summary ---
Author Organization [facility] Address [address] [place] [address] Care Team Providers Care Software Security Architect Name Role Phone No, Physician Primary Care Provider Zach Reyez PT Unavailable Unavailable Teresa Leach PT Unavailable [phone] Hussain Lopez ORACLE DATABASE ANALYST Unavailable Unavailabl e Reason for Visit * Reason Comments PT Treatment * Consultation (Routine) - Authorized Specialty Diagnoses / Procedures Referred By Contac t Referred To Contact Physical Therapy Diagnoses Osteochondral [place] [address] [place] [address] Phone: tel: fax: [facility] at [address] [place] [address] Phone: tel: fax: Referral ID Status Reason Start Date Expiration Date Visits Requested Visits Authorized [id number] Authorized Specialty Services Required 09/15/2023 10/14/2024 24 24 Encounter Details Date Type Department Care Team (Late st Contact Info) Description 10/19/2023 6:15 PM CDT Therapy [facility] at [address] [address] Hussain Lopez PTA Osteochondral defect of femoral [...] on file 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 / male Referring Practitioner: Mikey Hawkins MD MD Follow-Up: 09/26/23 Diagnosis(es): 1. Osteochondral defect of femoral condyle Date of Onset: 09/16/2023 Visit #: 8 Progress Report Due: Visit #10 Date: 10/19/2023 Start Time: 615pm End Time: 700pm Start Pain: 2/10 End Pain: 2/10 SUBJECTIVE: Pt follows up with his surgeon tomorrow; says he still has some edema in the distal R LE inferior to the knee; feels continued stiffness into extension OBJECTIVE: Gait: Pt amb with crutches and [...] (03/01 on/off sec, 18 min, 38 MA) --applied vasopneumatic with ice for 15 min at 34 degrees and med pressure Exercise/ Activity Date: 09/29 Date: 10/04 Date: 10/06 10/11 10/18 E stim Init with long sitting quad bj, seated LAQ and supine SLR No e stim today Long sitting gastroc stretch x3 X with manual self knee ext X Long sitting quad contraction X X 6 min with e stim X X Long sitting VMO bj/quad contraction init Long sitting hip adductor stretch Supine knee flexion X Strap Supine SLR X 6 min with e stim X X SLR all planes Reviewed X Prone knee flexion with strap X 0-75 Manual x3 X Manual x3 Prone AROM knee flexion X Prone hip ext with knee flexed X Seated knee ext X x10 6 min with 2# X 5 min, 5 lb Long sitting ankle PF with band LAQ (assisted) (PROM) X 92 degrees X Seated hip flexion Prone hangs 1# with heat pack x 5 min 1 lb, 5 min X home Heel props X home Patellar mobs and MFR to quad/adductors and knee ext mobs X Patellar mobilization Effleurage R distal LE Foot>knee X R mid calf >> knee Flowsheet [place]: [...] be due to his lingering knee swelling; shows significant progress with his knee flexion today; incision is healing with no sign of infection with good skin mobility Goals: Short Term Goals: 2 weeks Pt to be indep with HEP to be able to: improve bed mobility and transfers, achieved Decrease gait deviations, progressing weight bearing status per MD's orders, progressing Pt to be able to transfer in an and out of bed, get dressed and shower with normal pain free mobility, achieved Chcf Goals: 12 weeks Pt to continue [...] to be able to amb stairs and spanish moss picker 30# with normal pain free mobility PLAN: Continue skilled physical therapy per plan of care Hussain Lopez PTA [facility] AT [address] [address] Dept: [phone] Dept documented in this encounter Plan of Treatment Not on file documented as of this encounter Visit Diagnoses Diagnosis Osteochondral defect of femoral condyle- Primary documented in this encounter Care Teams Software Security Architect Relationship Specialty Start Date End Date No, Physician PCP - General 12/21/21 Zach Reyez, PT Physical Therapist Physical Therapy 01/20/22 [place] [address] [place] [address] Physical Therapist Physical Therapy 01/30/22 Hussain Lopez PTA Lavatory Attendant Physical Therapy 02/03/22 documented as of this encounter
--- OUTSIDE RECORDS SUMMARY | 2024-05-22 05:24 | XMS_ITS | Encounter Summary ---
Author Organization [facility] Address [address] [place] [address] Phone Care Team Providers Care Cigar Patcher Name Role Phone No, Physician Primary Care Provider [phone] Zach Reyez PT Unavailable Unavailable Teresa Leach PT Unavailable [phone] Hussain Lopez BIOMASS POWER PLANT SUPERINTENDENT Unavailable Unavailabl e Reason for Referral * Diagnostic Imaging (Routine) - Closed Specialty Diagnoses / Procedures Referred By Contac t Referred To Contact Diagnoses S/P arthroscopy of right knee Osteochondral defect of femoral condyle Procedures XR Knee Right 1 [place] [address] [place] [address] Phone: tel: fax: [facility] Referral ID Status Reason Start Date Expiration Date Visits Re quested Visits Authorized [id number] Closed 11/11/2023 12/10/2024 1 1 Reason for Visit * Reason Comments Follow-up Post-op Encounter Details Date Type Department Care Team (Late st Contact Info) Description 11/14/2023 4:00 PM CDT Office Visit [facility] Orthopaedic Surgery [address] [place] [id number] [place] [address] [place], [place] [id number] S/P arthroscopy of right knee (Primary Dx); Osteochondral defect of femoral condyle Social History Tobacco Use Types Packs/Day Years [...] on file 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 He is doing well overall. He does report some persistent swelling and tightness with activities into flexion. This is limiting his therapy to some extent. It does ache at night. He has been compliant with brace wear and nonweightbearing status up until this point. PHYSICAL EXAMINATION: On evaluation of the right knee, there is mild tenderness to palpation over the medial joint line. Prior incisions are well healed. He has a small joint effusion. ROM is 3-125 degrees. Lower extremity alignment is neutral. Ed [...] is evidence of prior high tibial osteotomy which appears to be incorporating appropriately but is not completely healed. There is also evidence of medial femoral condyle osteochondral allograft which also is incorporating appropriately without complete healing. IMPRESSION: Two months status post right knee HTO and medial femoral condyle osteochondral allograft, doing well TREATMENT PLAN: We had a long discussion with him regarding his treatment plan. We will let him come out of his brace at this time begin to do partial weight-bearing, 25% increase per week over the next 4 weeks. We will see him back in 4 weeks and see how he is progressing to discuss a possible return to work at that point. We want make sure he also encourage is obtaining full extension at physical therapy. Deepak Sanchez DO Orthopaedic Sports Medicine Fellow [facility] documented in this encounter Plan of Treatment [...] of right knee- Primary Other postprocedural status Osteochondral defect of femoral condyle S/P arthroscopy of right knee Other postprocedural status Osteochondral defect of femoral condyle documented in this encounter Care Teams Cigar Patcher Relationship Specialty Start Date End Date No, Physician PCP - General 12/21/21 Zach Reyez, PT Physical Therapist Physical Therapy 01/20/22 [place] [address] [place] [address] Physical Therapist Physical Therapy 01/30/22 Hussain Lopez PTA Railroad Baggage Porter Physical Therapy 02/03/22 documented as of this encounter
--- OUTSIDE RECORDS SUMMARY | 2024-05-22 05:24 | XMS_ITS | Encounter Summary ---
Author Organization [facility] Address [address] [place] [address] Care Team Providers Care Medical Billing Assistant Name Role Phone No, Physician Primary Care Provider [phone] Zach Reyez PT Unavailable Unavailable Teresa Leach PT Unavailable Hussain Lopez BIT SHARPENER OPERATOR Unavailable Unavailabl e Encounter Details Date Type Department Care Team (Late st Contact Info) Description 04/25/2023 Plan of Care Documentation [facility] at [facility] 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
--- OUTSIDE RECORDS SUMMARY | 2024-05-22 05:24 | XMS_ITS | Encounter Summary ---
Author Organization [facility] Address [address] [place] [address] Phone Care Team Providers Care Automotive Internet Sales Manager Name Role Phone No, Physician Primary Care Provider Zach Reyez PT Unavailable Unavailable Teresa Leach PT Unavailable [phone] PHOTOGRAPHER Unavailable Unavailabl e Reason for Visit * Consultation (Routine) - Closed Specialty Diagnoses / Procedures Referred By Danny t Referred To Contact Occupational Therapy Diagnoses Pain in left wrist Merna Retana DO [address] [place] [address] Phone: tel: fax: [facility] (All Locations) Referral ID Status Reason Start Date Expiration Date V isits Requested Visits Authorized [id number] Closed Specialty Services Required 04/22/2023 05/21/2024 24 24 Encounter Details Date Type Department Care Team (Late st Contact Info) Description 05/06/2023 10:30 AM ACCOUNTS PAYABLE ANALYST Therapy [facility] Occupational Therapy [address] [place] [address] [place] [address] [address] [place], [place] [id number] Pain in left wrist (Primary Dx) Social [...] on file Legal Sex Male 6:31 AM ACCOUNTS PAYABLE ANALYST Gender Identity Not on file Sexual Orientation Not on file documented as of this encounter Progress Notes * Kelli Green, OT - 05/06/2023 10:30 AM CST Images from the original note were not included. Progress Note Name: Zayda Torres : 1975 Diagnosis: ICD-9-CM ICD-10-CM 1. Pain in left wrist 719.43 M25.532 Diagnosis: Pain in left wrist (M25.532) Subjective: He reports the wrist is slightly better. He feel like he needs to save all his therapist for next year/ [] Mental health status discussed Details: Pain: On and off. Better than before. Objective: Active Wrist and Forearm Range of Motion Right Left Extension/ Flexion 70/61 Extension/ Flexion 73/60 Radial/Ulnar Deviation 20/30 Radial/Ulnar Deviation 25/30 Supination/ Pronation 70/75 Supination/ Pronation 70/75 TREATMENT: Reviewed stretching Wrist Proprioception training exercises -Ball on all weightbearing -Weight bearing on ball with clockwise and counter clockwise circles -Dowel on ball write out alphabet for wrist strengthening, progression would be holding higher on dowel away from ball -Plate with circles clockwise and counter clockwise and different weights/sizes of balls Assessment: Pt returned demonstration of all HEP today and progression. He reports no increase of pain from HEP. Goals: Goal Status / Date Updated Due by: STG1 Patient will demonstrate understanding of HEP to decrease overall pain MET 04/28/2023 Achieved STG2 Patient will demonstrate understanding of donning/doffing wrist widget to decrease pain. MET 04/28/2023 Achieved STG3 Patient will perform ulnar deviation without experiencing pain, necessary for opening a jar. Met/ 05/06/2023 05/12/2023 LTG1 Patient will increase jogger operator strength to 90 pounds to perform ADL activities. Not Tested /05/06/2023 LTG2 Patient will demonstrate understanding of discharge HEP and demonstrate readiness for discharge. Met / 05/06/2023 LTG3 Plan: Frequency/Duration: 1 x week Plan Details: d/c to HEp Start Time: 1029 End Time: 104 Kelli Green MOT, OTR/L, CHT If the patient does not return to therapy this will serve as a discharge summary. UNTS PAYABLE ANALYST documented in this encounter Plan of Treatment Not on file documented as of this encounter Visit Diagnoses Diagnosis Pain in left wrist- Primary Pain in joint, forearm documented in this encounter Care Teams Automotive Internet Sales Manager Relationship Specialty Start Date End Date No, Physician PCP - General 12/21/21 Zach Reyez, PT Physical Therapist Physical Therapy 01/20/22 [place] [address] [place] [address] Physical Therapist Physical Therapy 01/30/22 Hussain Lopez, TRIPP Finish Specialist Physical Therapy 02/03/22 documented as of this encounter
--- OUTSIDE RECORDS SUMMARY | 2024-05-22 05:25 | XMS_ITS | Encounter Summary ---
Author Organization [facility] Healthcare Address [address] [place] [address] Care Team Providers Care General Medical Practitioner Name Role Phone No, Physician Primary Care Provider [phone] Zach Reyez PT Unavailable Unavailable Teresa Leach PT Unavailable [phone] Hussain Lopez CLERICAL PROOFREADER Unavailable Unavailabl e Reason for Visit * Auth/Cert Specialty Diagnoses / Procedures Referred By Danny t Referred To Contact Diagnoses Arthrofibrosis of knee joint, right Arthrofibrosis of knee joint, right [M24.661] Procedures IN ARTHRS HIP DEBRIDEMENT/SHAVING ARTICULAR CRTLG RIGHT KNEE ARTHROSCOPIC DEBRIDEMENT OF ARTHROFIBROSIS WITH CHONDROPLASTY Referral ID Status Reason Start Date Expiration Date Visits Re quested Visits Authorized [id number] 1 1 Encounter Details Date Type Department Care Team (Late st Contact Info) Description 07/09/2022 12:00 PM OCCUPATIONAL THERAPY AIDES TEACHER - 07/09/2022 12:45 PM OCCUPATIONAL THERAPY AIDES TEACHER Surgery [facility] Operating [facility] [address] [place] [id number] Antonio Suh IV, MD [address] [place] [id number] RIGHT KNEE ARTHROSCOPIC DEBRIDEMENT OF ARTHROFIBROSIS Surgery Details Date/Time Status Location OR Service Patient Class Case Class Case Type Trauma Case? 07/09/2022 12:00 PM Posted [facility] OPERATING ROOM OR 2 Orthopaedics Outpatient Elective Panel 1 Procedure LRB Anes Op Region Wound Class Comments RIGHT KNEE ARTHROSCOPIC DEBR IDEMENT OF ARTHROFIBROSIS Right General Knee Class I - Clean Surgeon Surgeon Role Service Panel Antonio Suh IV, MD Primary Orthopaedics 1 Jose White MD Resident - Assisting Orthopaed ics 1 documented in this encounter Social History Tobacco Use Types Packs/Day Years Used Date Smoking Tobacco: Never Smokeless Tobacco: Never Tobacco Cessation:Counseling Given: Not Answered AUDIT-C Answer Date Recorded Q1: How often do you have a drink containing alc ohol? 2-4 times a month 07/06/2022 Q2: How many drinks containi ng alcohol do you have on a typical day when you are drinking? 1 or 2 07/06/2022 Q3: How often do you have si x or more drinks on one occasion? Never 07/06/2022 Sex and Gender Information Value Date Recorded Sex Assigned at Not on file Legal Sex Male 6:31 AM OCCUPATIONAL THERAPY AIDES TEACHER Gender Identity Not on file Sexual Orientation Not on file documented as of this encounter Last Filed Vital Signs Vital Sign Reading Time Taken Comments Blood Pressure 113/76 07/09/2022 10:25 AM OCCUPATIONAL THERAPY AIDES TEACHER Pulse 54 07/09/2022 10:25 AM OCCUPATIONAL THERAPY AIDES TEACHER Temperature 36.3 ??C (97.3 ??F) 07/09/2022 10:[address] Respiratory Rate 12 07/09/2022 10:25 AM OCCUPATIONAL THERAPY AIDES TEACHER Oxygen Saturation 99% 07/09/2022 10:25 AM OCCUPATIONAL THERAPY AIDES TEACHER Inhaled Oxygen Concentration - - Weight 95.3 kg (210 lb) 07/06/2022 5:40 PM OCCUPATIONAL THERAPY AIDES TEACHER Height 172.7 cm (5' 8 ) 07/06/2022 5:40 PM OCCUPATIONAL THERAPY AIDES TEACHER Body Mass Index 31.93 07/06/2022 5:40 PM OCCUPATIONAL THERAPY AIDES TEACHER documented in this encounter Medications at Time of Discharge HYDROcodone-aceta minophen (NORCO) 5-325 mg per tabletIndications :Pain 1 - 2 tabs q6h prn pain 12 tablet 07/09/2022 02/09/2023 meloxicam (MOBIC) 15 mg tablet Take 1 tablet (15 mg total) by mouth daily for 10 days 10 tablet 07/09/2022 10/08/2022 naproxen (ALEVE) 220 mg tablet Take 1 tablet (220 mg total) by mouth every 12 (twelve) hours as needed for pain 02/09/2023 documented as of this encounter Discharge Disposition Disposition Code Departure Means Destination Discharge to home or self care documented in this encounter H&P Notes * Lu Mcfadden NP - 07/09/2022 10:09 AM CST Outpatient Pre-Procedure History and Physical Subjective Patient is a 46 y.o. male with chief complaint of right knee pain. Indication For Procedure: Pre-op Diagnosis * Arthrofibrosis of knee joint, right [M24.661] Planned Procedure RIGHT KNEE ARTHROSCOPIC DEBRIDEMENT OF ARTHROFIBROSIS WITH CHONDROPLASTY (R) HPI: History reviewed. No pertinent past medical history. Past Surgical History: Procedure Laterality Date ANTERIOR CRUCIATE LIGAMENT REPAIR Right 12/2021 ROTATOR CUFF REPAIR Right 2013 Medications Prior to Admission Medication Sig Dispense Refill Last Dose naproxen (ALEVE) 220 mg tablet Take 220 mg by mouth every 12 (twelve) hours as needed for pain PastWeek HYDROcodone-acetaminophen (NORCO) 5-325 mg per tablet 1 - 2 tabs q6h prn pain 12 tablet 0 meloxicam (MOBIC) 15 mg tablet Take 1 tablet (15 mg total) by mouth daily for 10 days 10 tablet 0 No Known Allergies Social History Tobacco Use Smoking status: Never Smokeless tobacco: Never Substance and Sexual Activity Drug use: Yes Frequency: 2.0 times per week Types: Alcohol Sexual activity: Yes Partners: Female Alcohol Use: Not At Risk Frequency of Alcohol Consumption: 2-4 times a month Average Number of Drinks: 1 or 2 Frequency of Binge Drinking: Never Social History Substance and Sexual Activity Drug Use Yes Frequency: 2.0 times per week Types: Alcohol Vitals: 07/06/22 1740 Weight: 95.3 kg (210 lb) Height: 172.7 cm (5' 8 ) Review of Systems: Review of systems per HPI and otherwise all other systems are negative Physical exam: Lungs: clear to auscultation bilaterally Heart: regular rate and rhythm, S1, S2 normal, no murmur, click, rub or gallop Neurologic: Alert and oriented x4, grossly intact Lu Mcfadden NP Cosigned by Antonio Suh IV, MD at 07/09/2022 10:59 AM OCCUPATIONAL THERAPY AIDES TEACHER PATIONAL THERAPY AIDES TEACHER PATIONAL THERAPY AIDES TEACHER documented in this encounter Miscellaneous Notes * Perioperative Nursing Note - Anayeli Herrera RN - 07/09/2022 1:06 PM OCCUPATIONAL THERAPY AIDES TEACHER 1250 - pt admitted to PACU report received from PUBLIC ADDRESS TECHNICIAN and SUPERVISOR AIRPLANE FLIGHT ATTENDANT. VSS, pt drowsy but arousable, denies pain. RLE elevated on pillow x1, ice pack applied to right knee. OR dressing CDI, bed in lowest and locked position, side rails up x2. 1300 - pt rates pain 4/10 to right knee, will give prn meds. 1335 - Dr. Suh's folder and AVS reviewed at bedside with pt and pt's . All questions answered and understanding verbalized. 1402 - IV removed, catheter tip intact, dressing applied. Monitors removed, pt dressed with 's assistance, tolerated well. Pt instructed to stay on stretcher at all times while dressing, understanding verbalized. 1407 - pt assisted to wheelchair, denies need to urinate prior to discharge. PATIONAL THERAPY AIDES TEACHER * Brief Op Note - Jose White MD - 07/09/2022 12:19 PM CST Operative Progress Note Surgical Team: Surgeon(s) and Role: * Antonio Suh IV, MD - Primary * Jose White MD - Resident - Assisting Anesthesiologist: Frieda East MD PUBLIC ADDRESS TECHNICIAN: Yarelis Hampton CRNA Fastener Technologist: Filippo Monge RN Scrub: Suzan Diggs RN Fastener Technologist Second: Mercedes Beasley RNFA DATE OF SURGERY : 07/09/2022 Preoperative Diagnosis: Pre-op Diagnosis * Arthrofibrosis of knee joint, right [M24.661] Postoperative Diagnosis: Post-op Diagnosis * Arthrofibrosis of knee joint, right [M24.661] Procedure(s): Procedure(s) (LRB): RIGHT KNEE ARTHROSCOPIC DEBRIDEMENT OF ARTHROFIBROSIS (Right) Operative Findings: Synovitis, arthrofibrosis, intact ACL reconstruction with BTB autograft, intact medial and lateral meniscus repair without recurrent tearing. Estimated Blood Loss: No blood loss documented. Intraoperative Fluids: 800 mL Specimens: No specimen collected in procedure Implants: Nothing was implanted during the procedure Blood/Blood Products Transfused: 0 mls Complications: None Condition on Discharge from the operating room was stable Jose White MD Date: 07/09/2022 Time: 12:46 PM TEACHING ATTESTATION : I was present and directly participated in the entire procedure (including opening and closing). Cosigned by Antonio Suh IV, MD at 07/09/2022 2:05 PM OCCUPATIONAL THERAPY AIDES TEACHER PATIONAL THERAPY AIDES TEACHER PATIONAL THERAPY AIDES TEACHER * Op Note - Antonio Suh IV, MD - 07/09/2022 12:00 AM CST PREOPERATIVE DIAGNOSIS Right knee arthrofibrosis status post ACL reconstruction. POSTOPERATIVE DIAGNOSIS Right knee arthrofibrosis status post ACL reconstruction. PROCEDURE Right knee arthroscopic debridement of arthrofibrosis. SURGEON Dr. Antonio Suh. PRICING ANALYST Dr. Jose White. ANESTHESIA General. IV FLUIDS 700 mL. EBL 60 mL. IV ANTIBIOTICS 2 g Ancef. DRAINS None. COMPLICATIONS None. DISPOSITION To the PACU in stable condition. FINDINGS Zero to 135 degrees of flexion, 1A Ed, 1A anterior drawer and negative pivot shift. Arthroscopic examination revealed mild arthrofibrosis in the suprapatellar pouch. Essentially intact cartilageon the patella and trochlea. Moderate arthrofibrosis in the anterior knee impinging in full extension. ACL graft was intact. Intact articular and meniscal cartilage in the medial compartment. No unstable flaps or obvious chondral defect. The medial femoral condyle looked to be intact from within the joint. Intact articular and meniscal cartilage in lateral compartment. Medial and lateral meniscalrepairs were healed and stable. PROCEDURE INDICATIONS As outlined my clinic note patient is a 46-year-old gentleman who has continued swelling and pain after right knee surgery likely due to arthrofibrosis. As outlined in my clinic note, he understands the indication for surgery, the risks and benefits, and wishes to proceed. DESCRIPTION OF PROCEDURE The surgical site was signed in the preoperative holding area. The patient was then brought to the operating room and placed supine on the operating table. After preoperative antibiotics had been given and adequate anesthesia achieved, a nonsterile tourniquet was placed on the patient's thigh. Examination under anesthesia was performed and the findings were as previously indicated. The patient was then prepped and draped in the standard sterile surgical fashion. A surgical timeout was held to confirm the appropriate surgical site had been identified. Standard knee arthroscopy portals were made in the standard fashion. Inspection of the joint commenced and the findings were as previously indicated. I confirmed the arthrofibrosis in the anterior joint. I used a biter and shaver as well as an [place] wand to debride that back until there was no longer impingement in the front of the knee. There was also scar tissue in the anterior joint, which I debrided with the [place] wand using short bursts to minimize any risk of overheating the fluid. I made sure the meniscal repairs were healed and stable. The [place] wand used to debride some of the bands in the suprapatellar pouch. There was no other pathology to treat in the joint and the arthroscopic equipment was removed. The knee still had a 1A Ed, 1A anterior drawer, negative pivot shift with full range of motion. Case was then completedin the standard fashion. The portals were closed with sutures in a watertight fashion. The joint was then injected with a cocktail for analgesia. Wounds were cleaned and dried and a sterile surgical dressing was applied. Thepatient tolerated the procedure well and was transferred to the PACU in stable condition. The sponge, needle and instrument count were correct at the end of the case. I was present for and performed the entire case from when the patient came in the room until the closure was completed with the helpof the assistants in the room. Job ID/Internal Job ID: [id number] PATIONAL THERAPY AIDES TEACHER * Pre-Procedure Instructions - Sapna Walter RN - 07/08/2022 11:28 AM OCCUPATIONAL THERAPY AIDES TEACHER We are pleased that you and your doctor have chosen [facility] for your surgery. We hope the following information will help make your visit a pleasant one. The name of the building is [facility] [place] in [place]. Directions to facility (address [address] [address] [address] [place] [address] When you enter the building, look directly to your left, you will see 2 glass double doors. These double doors say [address]. Go through those double doors and check in with the academic program specialist. Patient has own crutches and knows how to use them. Bring pillows, leave in car. Patient has ice/gel pack for home. Wear loose-fitting clothes. Something with an elastic waist on the bottom, such as gym shorts or sweat pants depending on the weather. T-shirt on top or a shirt with a loose sleeve unless you are having shoulder surgery then wear a loose- fitting button-down shirt or a shirt that zips up the front. Pt instructed not to eat or drink anything after Midnight. No gum, no mints, no candy, no cough drops, no CBD oil, no marijuana, no Chewing tobacco, or vaping. No ice or water. You may brush your teeth, just make sure you spit it all out. Instructed to patient to refer to [facility] surgery guide page 6 for any questions regarding eating and drinking day of surgery. For medications that the Nurse Practitioner instructed you to take on the morning of surgery, take the medications with a few sips of water. Pt's. ADITYA [phone] will be with patient and care for patient for the first 24 hours post-op. Pt. Instructed to arrive at 1000 for 1200 procedure. Procedure is scheduled for 3/4 hour(s). Pt. Denies any of the following symptoms: Nausea/vomiting/diarrhea, loss of taste or smell, rash orsores, body/muscle/joint aches, cough, sore throat, fever/chills, severe headache or Shortness of breath. Pt. is asymptomatic and denies any exposure to Covid or any Covid symptoms. Explained to patient, if you develop any [...] or purchase it from the refreshment area. PATIONAL THERAPY AIDES TEACHER * Pre-Procedure Instructions - Adriana Jeronimo NP - 07/07/2022 8:22 AM OCCUPATIONAL THERAPY AIDES TEACHER Center for Preoperative Assessment and Planning CPAP Clinic Location: [facility] CPAP The night before your surgery: * Do not eat anything after midnight the night before your procedure. and * Do not smoke or use tobacco products after midnight the night before surgery. It is best to stop smoking now to improve your health. The morning of your surgery: * You may have clear liquids on your surgery day. You must stop drinking two hours before you arrive to the surgery facility. Acceptable clear liquids include water, clear sports drinks, black coffee, or clear soda. DO NOT drink any [...] with you on the day of surgery * If you are going to be admitted after surgery at [facility], COVID testing may be performed on the day of surgery, even if you are up to date on your COVID-19 vaccine. * If having surgery at [facility], you may want to bring a credit card if you want to use our Mobile Pharmacy for your discharge medications. Mobile pharmacy is not available at [facility], the Orthopedic Center, or the [place] [facility]. Outpatient Surgery: * You must have a responsible adult drive you home and stay with you for 24 hours after your surgery * You cannot be alone at home or in a hotel * Please call your surgeon's office if you do not have someone to drive you home and/or stay with you after surgery * Please bring any items you may need to spend the night in the hospital. Sometimes patients need to be cared for in the hospital overnight. Instructions For Your Medications: Pre-Surgery Instructions: Medication Instructions naproxen (ALEVE) 220 mg tablet Take on day of surgery if needed General Instructions For Medications: * Stop all of these medications 5 days prior to your surgery: excedrin, motrin, advil, ibuprofen, aleve, naproxen, meloxicam, celebrex, celecoxib. For medications that you are instructed to [...] with COVID-19. You test positive for COVID-19. PATIONAL THERAPY AIDES TEACHER * Perioperative Nursing Note - Josh Paris RN - 07/06/2022 5:47 PM OCCUPATIONAL THERAPY AIDES TEACHER Center for Preoperative Assessment and Planning Perioperative Nursing Note Telephone Preoperative Evaluation ([facility]) - TELEPHONE ONLY, NO PHYSICAL EXAM Date: 07/06/22 Vitals: 07/06/22 1740 Weight: 95.3 kg (210 lb) Height: 172.7 cm (5' 8 ) CHEST CIRCUMFERENCE: Social History Tobacco Use Smoking Status Never Smokeless Tobacco Never Substance and Sexual Activity Drug Use Never Alcohol Use Q1: How often do you have a drink containing alcohol?: 2-4 times a month Q2: How many drinks containing alcohol do you have on a typical day when you are drinking?: 1 or 2 Q3: How often do you have six or more drinks on one occasion?: Never Outpatient Medications Marked as Taking for the 07/09/22 encounter (Hospital Encounter) Medication Sig Dispense Refill naproxen (ALEVE) 220 mg tablet Take 220 mg by mouth every 12 (twelve) hours as needed for pain Implants Type Not Specified [employer] Implant Menicus Repair Fiberstitch Curved Ar-4570 - [id number] - Implanted (Right) Knee Inventory item: [employer] IMPLANT MENICUS REPAIR FIBERSTITCH CURVED [id number] Model/Cat number: [id number] Refinery Operator Reforming Unit: [employer] Lot number: [id number] As of 01/15/2022 Status: Implanted [employer] Implant Menicus Repair Fiberstitch Curved Ar-4570 - [id number] - Implanted (Right) Knee Inventory item: [employer] IMPLANT MENICUS REPAIR FIBERSTITCH CURVED AR-[id number] Model/Cat number: [id number] Refinery Operator Reforming Unit: [employer] Lot number: [id number] As of 01/15/2022 Status: Implanted [employer] Screw Fastthread Biocomposite Interference 8mm X 20mm [id number] - [id number] - Implanted (Right) Knee Inventory item: [employer] Screw Fastthread Biocomposite Interference 8mm X 20mm [id number] Model/Cat number: [id number] Refinery Operator Reforming Unit: [employer] Lot number: [id number] As of 01/15/2022 Status: Implanted [employer] Screw Fastthread Biocomposite Interference 10mm X 20mm [id number] - [id number] - Implanted (Right) Knee Inventory item: [employer] Screw Fastthread Biocomposite Interference 10mm X 20mm [id number] Model/Cat number: [id number] Refinery Operator Reforming Unit: [employer] Lot number: [id number] As of 01/15/2022 Status: Implanted SKIN Piercings Remaining: No Wound (LDAs) Type of Wound (LDA): (none) SCREENINGS Adriel index score: 100 NUTRITION PATIENT CARE PLANNING Advance Directives (For Healthcare) Have you reviewed your Advance Directive and is it valid for this stay?: Not applicable Advance Directive: Patient has advance directive, copy not in chart Advance Directive not in Chart: Copy requested from other (Comment) (patient) Communication/Gas Booster Engineer Needs Communication Needs: None Does caregiver's language differ from patient's?: No Assistive Devices/DME: None Discharge Planning Type of Residence: Private residence Living Arrangements: Spouse/significant other Support Systems: Spouse/significant other Assistance Needed: Spouse to provide discharge transportation Patient expects to be discharged to:: Private residence PROCUREMENT PROFESSIONAL LOGISTICS NO ADDITIONAL COMMENTS/ FOLLOW UP PATIONAL THERAPY AIDES TEACHER * Pre-Procedure Instructions - Josh Paris RN - 07/06/2022 5:45 PM OCCUPATIONAL THERAPY AIDES TEACHER [facility] PREOPERAT[facility] ASSESSMENT [facility] PLANNING (CPAP) [...] remove nail coverings, artificial nails and nail danish prior to the day of surgery. You should leave your valuables and any jewelry at home. No metal or piercings are allowed in the operating room. You should bring your insurance card, a photo ID (example: Pipe Covering Molder's License) and a method of payment for any insurance copay, deductible or copay for discharge medications. You should bring a complete, up-to-date list of all your medications on the day of surgery, including any over the counter medications or supplements you may take. You should bring your Advanced Directive and/or Living Will with you on the day of surgery if you have not verified a copy is already in your Epic Chart. If you are having surgery at [facility], please arrive on the day of surgery [...] Pathway to Excellent [facility] by the followinglink: [email or web address] How To Prepare Your Skin For Surgery [...] if you need help finding this product. Nasal ointment: Mupirocin (brand name: Bactroban) Your surgeon may also prescribe a topical ointment that is rubbed inside each of the nostrils to reduce the bacteria in your nose. Mupirocin ointment requires a prescription. If needed, it will be prescribed by your surgeon and obtained from your preferred pharmacy. SHOWERING WITH ANTISEPTIC SOAP (CHG) What You [...] shaving on the day of surgery. Deodorant: Patients following the 5-Day CHG protocol may apply deodorant on the days leading up to surgery, being sure, however, to avoid use on the evening before and day of surgery. All other products should be avoided for the full 5 days. 2-Day CHG Bathing Protocol The Evening Before Surgery: Take a shower with Antiseptic soap (CHG). Follow the steps for ???Showering with Antiseptic Soap (CHG)?? above. Change all linens on your bed so you are sleeping in clean fresh sheets and pillowcases. Remove nail coverings, artificial nails and nail danish. The Morning of Surgery: Take a shower [...] COVID-19 within the last 10 days?: No Have you tested positive for monkeypox within the last 28 days or are you waiting for a monkeypox test result?: No Infectious Disease Screening Are you having [...] questions, please call the CPAP Staff at [phone], Tuesday-Tuesday 8am-4:30pm. All patients should read the below section: All visitors/patients are being asked to wear a clean face mask when entering the hospital. COVID 19 Updates & Visitor Policy: Please access [email or web address] for the most updated information. Information on [facility]: Please view [email or web address] (Patient & Visitor Information) for additional details regarding Advanced Directive forms, AWARE, directions, parking information, lodging, Internet access, dining and more. Information on [facility] or [facility] ([facility]): Please view [email or web address] (Patient and Visitor Information) for parking/directions and more. For MyChart information, to activate account or password recovery, please go to [email or web address] or call [phone] (toll-free: [phone]). Information for Suicide Prevention: National Suicide Prevention Lifeline (7-052- 583-HCJL (9007)). Surgery Times: For patients having surgery @ [facility], if your surgeon's office has not notified you of your surgery time by NOON THE BUSINESS DAY BEFORE your surgery, please call the surgery center [phone]. PATIONAL THERAPY AIDES TEACHER documented in this encounter Plan of Treatment Not on file documented as of this encounter Procedures Procedure Name Priority Date/Time Associated Diagnosis Comments ARTHROSCOPY KNEE - REMOVAL CHONDROPLASTY/LOOSE BODY 07/09/2022 12:00 PM OCCUPATIONAL THERAPY AIDES TEACHER Arthrofibrosis of knee joint, right documented in this encounter Visit Diagnoses Diagnosis Arthrofibrosis of knee joint, right- Primary Arthrofibrosis of knee joint, right documented in this encounter Admitting Diagnoses Diagnosis Arthrofibrosis of knee joint, right documented in this encounter Administered Medications Inactive Administered Medications - up to 3 most recent administrations Medication Order MAR Action Action Date Dose Rate Site bupivacaine (MARCAINE) 0.5 % (5 mg/mL) preservative free injection As needed, Starting on Tue07/09/22 at 1237, Intra-Op Given 07/09/2022 12:37 PM OCCUPATIONAL THERAPY AIDES TEACHER 10 mL Surgical Site bupivacaine-EPINEPHrin e (MARCAINE with EPI) 0.5 %-1:200,000 preservative free injection As needed, Starting on Tue07/09/22 at 1219, Intra-Op Given 07/09/2022 12:19 PM OCCUPATIONAL THERAPY AIDES TEACHER 10 mL Surgical Site HYDROcodone-acetaminop hen (NORCO) 5-325 mg per tablet 1 tablet 1 tablet, oral, Every 30 min PRN, 2nd line for pain, Starting on Tue07/09/22 at 1257, For 2 doses, Phase I, Indications: PainIndications:Pain Given 07/09/2022 1:01 PM OCCUPATIONAL THERAPY AIDES TEACHER 2 tablets Lactated Ringer's (LR) infusion 30 mL/hr, intravenous, Continuous, Starting on Tue07/09/22 at 1045, Pre-Op, Use a 500 ml bag for End Stage Renal Disease Patients Rate/Dose Verify 07/09/2022 12:00 PM OCCUPATIONAL THERAPY AIDES TEACHER 30 mL/hr New Bag 07/09/2022 10:32 AM OCCUPATIONAL THERAPY AIDES TEACHER 30 mL/hr 30 mL/hr Lactated Ringer's (LR) irrigation As needed, Starting on Tue07/09/22 at 1237, Intra-Op Given 07/09/2022 12:37 PM OCCUPATIONAL THERAPY AIDES TEACHER 6,000 mL Surgical Site lidocaine PF (XYLOCAINE) 10 mg/mL (1 %) preservative free injection 2-10 mg 2-10 mg (0.2-1 mL), other, Once as needed, pain with IV placement, Starting on Tue07/09/22 at 1009, For 1 dose, Pre-Op, Administer volume needed to infiltrate IV site. Given 07/09/2022 10:33 AM OCCUPATIONAL THERAPY AIDES TEACHER 2 mg documented in this encounter Discontinued Medications Medication Sig Discontinue Reason Start Date End Da te oxyCODONE-acetaminophen (PERCOCET) 5-325 mg per tabletIndications:Pain TAKE 1-2 TABLETS EVERY 6 HOURS NEEDED FOR PAIN Error 01/15/2022 07/06/2022 meloxicam (MOBIC) 15 mg tablet Take 1 tablet (15 mg total) by mouth daily for 14 days Error 06/01/2022 07/06/2022 documented as of this encounter Historical Medications * This list may reflect changes made after this encounter. naproxen (ALEVE) 220 mg tablet Take 1 tablet (220 mg total) by mouth every 12 (twelve) hours as needed for pain 02/09/2023 added in this encounter Active and Recently Administered Medications Times are shown in OCCUPATIONAL THERAPY AIDES TEACHER. Scheduled Medication Order 07/07/2022 07/08/2022 07/09/2022 ceFAZolin (ANCEF) 2,000 mg/50 mL in dextrose (premix) 2,000 mg (COMPLETED) 2,000 mg, intravenous, at 100 mL/hr, Administer over 30 Minutes, Once, On Tue07/09/22 at 1045, For 1 dose, Pre-Op, Administer within 60 minutes of incision. Duplex bag - activate before hanging. , Indications: Prophylaxis, Surgical 1200 (Given - Provid er: Yarelis Hampton CRNA) scopolamine patch 72 hour 1 patch 1 patch, transdermal, Administer over 72 Hours, Once, On Tue07/09/22 at 1045, For 1 dose, Pre-Op, Apply to beach-chair [...] Sickness, Prevention of Post-Operative Nausea and Vomiting 1045 (Due) Continuous Medication Order 07/07/2022 07/08/2022 07/09/2022 Lactated Ringer's (LR) infusion 30 mL/hr, intravenous, Continuous, Starting on Tue07/09/22 at 1045, Pre-Op, Use a 500 ml bag for End Stage Renal Disease Patients 1032 (New Bag - Prov ider: Bre Moreno RN)1200 (Rate/Dose Verify - Provider: Yarelis Hampton CRNA)1259 (Stopped - Provider: Anayeli Herrera RN) Lactated Ringer's (LR) infusion 125 mL/hr, intravenous, Continuous, Starting on Tue07/09/22 at 1330, Phase I, 1258 (Continued from OR - Provider: Anayeli Herrera RN)1404 (Stopped - Provider: Anayeli Herrera RN) PRN Medication Order 07/07/2022 07/08/2022 07/09/2022 bupivacaine (MARCAINE) 0.5 % (5 mg/mL) preservative free injection (CANCELED) As needed, Starting on Tue07/09/22 at 1237, Intra-Op 1237 (Given - Provid er: Antonio Suh IV, MD) bupivacaine-EPINEPHrine (MARCAINE with EPI) 0.5 %-1:200,000 preservative free injection (CANCELED) As needed, Starting on Tue07/09/22 at 1219, Intra-Op 1219 (Given - Provid er: Antonio Suh IV, MD) diphenhydrAMINE (BENADRYL) injection 12.5 mg 12.5 mg, intravenous, Administer over 1 Minutes, Every 5 min PRN, itching, other, For Nausea, administer 25 mg IV., Starting on Tue07/09/22 at 1257, For 4 doses, Phase I, Max cumulative dose 50 mg., Indications: Itching fentaNYL (SUBLIMAZE) preservative free syringe 25 mcg 25 mcg, intravenous, Every 10 min PRN, 1st line for pain, Starting on Tue07/09/22 at 1257, For 4 doses, Phase I, Notify anesthesiologist if total PACU dose reaches 100 mcg AND pain score 5/10 or more. When patient able to tolerate PO, proceed to 2nd line analgesic agent for pain management., Indications: Pain hydrALAZINE (APRESOLINE) injection 5 mg 5 mg, intravenous, Administer over 2 Minutes, Every 5 min PRN, high blood pressure, Starting on Tue07/09/22 at 1257, Phase I, Max cumulative dose 20 mg. Dose if systolic BP greater than 180 AND heart rate less than 70., Indications: hypertension HYDROcodone-acetaminophen (NORCO) 5-325 mg per tablet 1 tablet 1 tablet, oral, Every 30 min PRN, 2nd line for pain, Starting on Tue07/09/22 at 1257, For 2 doses, Phase I, Indications: Pain 1301 (Given - Provid er: Anayeli Herrera RN) labetaloL (NORMODYNE,TRANDATE) injection 5 mg 5 mg, intravenous, Every 5 min PRN, high blood pressure, Starting on Tue07/09/22 at 1257, For 4 doses, Phase I, Max cumulative dose 20 mg. Dose if systolic blood pressure greater than 180 AND HR greater than 70. Lactated Ringer's (LR) irrigation (CANCELED) As needed, Starting on Tue07/09/22 at 1237, Intra-Op 1237 (Given - Provid er: Antonio Suh IV, MD) lidocaine PF (XYLOCAINE) 10 mg/mL (1 %) preservative free injection 2-10 mg (COMPLETED) 2-10 mg (0.2-1 mL), other, Once as needed, pain with IV placement, Starting on Tue07/09/22 at 1009, For 1 dose, Pre-Op, Administer volume needed to infiltrate IV site. 1033 (Given - Provid er: Bre Moreno RN - Comment: iv) meperidine (DEMEROL) preservative free injection 12.5 mg 12.5 mg, intravenous, Administer over 5 Minutes, Every 10 min PRN, shivering, Starting on Tue07/09/22 at 1257, For 2 doses, Phase I, Max cumulative dose 25 mg., Indications: Shivering naloxone (NARCAN) 0.4 mg/mL injection 0.04-0.4 mg 0.04-0.4 mg, intravenous, Once as needed, other, excessive sedation/respiratory depression, Starting on Tue07/09/22 at 1257, For 1 dose, Phase I, Dilute 0.4 [...] Once as needed, nausea, vomiting, Starting on Tue07/09/22 at 1257, For 1 dose, Phase I, Proceed to prochlorperazine if ondansetron has been given within the last 6 hours. prochlorperazine (COMPAZINE) injection 5 mg 5 mg, intravenous, Administer over 2 Minutes, Once as needed, nausea, vomiting, May give second 5 mg dose if nausea not improved after 15 minutes., Starting on Tue07/09/22 at 1257, For 2 doses, Phase I, If nausea/vomiting not relieved by ondansetron within 30 minutes or if ondansetron has been given within the last 6 hours. sodium chloride 0.9% flush 0.5-20 mL 0.5-20 mL, intra-catheter, As needed, line care, Flush Levi Block Hep Locks to keep vein open., Starting on Tue07/09/22 at 1009, Pre-Op, Flush volume based on line type and size. Flush before and after each use. , Indications: Flushing documented in this encounter Orders Medications Ordered That John ht Not Have Been Administered Count Last Ordered Date First Ordered Date ceFAZolin (ANCEF) 2,000 mg/5 0 mL in dextrose (premix) 2,000 mg 1 07/09/2022 diphenhydrAMINE (BENADRYL) i njection 12.5 mg 1 07/09/2022 fentaNYL (SUBLIMAZE) preserv ative free syringe 25 mcg 1 07/09/2022 hydrALAZINE (APRESOLINE) injection 5 mg 1 0 07/09/2022 labetaloL (NORMODYNE,TRANDAT E) injection 5 mg 1 07/09/2022 Lactated Ringer's (LR) infusion 1 meperidine (DEMEROL) preserv ative free injection 12.5 mg 1 07/09/2022 naloxone (NARCAN) 0.4 mg/mL injection 0.04-0.4 mg 1 07/09/2022 ondansetron (ZOFRAN) injection 4 mg 1 07/09 prochlorperazine (COMPAZINE) injection 5 mg 1 07/09/2022 scopolamine patch 72 hour 1 patch 1 023 sodium chloride 0.9% flush 0.5-20 mL 1 06/23 Diet Count Last Ordered Date First Orde red Date ADULT DISCHARGE DIET 1 07/09/2022 Nursing Count Last Ordered Date First Orde red Date ACTIVITY 2 07/09/2022 APPLY ICE TO AFFECTED AREA 1 07/09/2022 DISCHARGE INSTRUCTIONS 6 07/09/2022 ELEVATE EXTREMITY 1 07/09/2022 NURSING COMMUNICATION 3 07/09/2022 PATIENT MAY SHOWER 1 07/09/2022 WOUND CARE 3 07/09/2022 Discharge Count Last Ordered Date First Orde red Date DISCHARGE PATIENT 1 07/09/2022 documented in this encounter Care Teams General Medical Practitioner Relationship Specialty Start Date End Date No, Physician PCP - General 12/21/21 Zach Reyez, PT Physical Therapist Physical Therapy 01/20/22 [place] [address] [place] [address] Physical Therapist Physical Therapy 01/30/22 Hussain Lopez, TRIPP Cinder Block Maker Physical Therapy 02/03/22 documented as of this encounter
--- OUTSIDE RECORDS SUMMARY | 2024-05-22 05:25 | XMS_ITS | Encounter Summary ---
Author Organization [facility] Healthcare [place] Care Team Providers Care Farm Service Consultant Name Role Phone No, Physician Primary Care Provider [phone] Zach Reyez PT Unavailable Unavailable Teresa Leach PT Unavailable Hussain Lopez PETROLOGIST Unavailable Unavailabl e Encounter Details Date Type Department Care Team (Late st Contact Info) Description 01/04/2023 Orders Only [facility] [place] [id number] [place] [address] S/P arthroscopy of right knee; S/P ACL reconstruction Social History Tobacco Use Types Packs/Day Years Used Date Smoking Tobacco: Never Smokeless Tobacco: Never AUDIT-C Answer Date [...] on file Legal Sex Male 6:31 AM GRANTS DIRECTOR Gender Identity Not on file Sexual Orientation Not on file documented as of this encounter Plan of Treatment Not on file documented as of this encounter Procedures Procedure Name Priority Date/Time Associated Diagnosis Comments MRI KNEE RIGHT WO CONTRAST Schedule Routine, Read Routine (OP Routine) 01/04/2023 8:51 AM CDT S/P arthroscopy of right knee S/P ACL reconstruction documented in this encounter Results * MRI Knee Right WO Contrast (01/04/2023 8:51 AM CDT) Anatomical Region Laterality Modality Lower Extremities Right Magnetic Reson ance us Antonio Suh IV, MD IMG MRI PROCEDURES Fi nal Result documented in this encounter Visit Diagnoses Diagnosis S/P arthroscopy of right knee Other postprocedural status S/P ACL reconstruction Other postprocedural status documented in this encounter Care Teams Farm Service Consultant Relationship Specialty Start Date End Date No, Physician PCP - General 12/21/21 Zach Reyez, PT Physical Therapist Physical Therapy 01/20/22 [place] [address] [place] [address] Physical Therapist Physical Therapy 01/30/22 Hussain Lopez, TRIPP Napping Machine Operator Physical Therapy 02/03/22 documented as of this encounter
--- OUTSIDE RECORDS SUMMARY | 2024-05-22 05:25 | XMS_ITS | Encounter Summary ---
Author Organization [facility] Healthcare Address [address] [place] [address] Care Team Providers Care Passenger Barge Master Name Role Phone No, Physician Primary Care Provider [phone] Zach Reyez PT Unavailable Unavailable Teresa Leach PT Unavailable [phone] Hussain Lopez ORACLE REPORTS DEVELOPER Unavailable Unavailabl e Reason for Visit * Reason Comments PT Treatment Encounter Details Date Type Department Care Team (Late st Contact Info) Description 05/19/2022 6:00 PM BLOCK OPERATOR Therapy [facility] [id number] [place] [address] [address] [place] [address] [place] [address] [place] [address] Rupture of anterior cruciate ligament of right knee, initial encounter (Primary Dx) Social History Tobacco Use Types Packs/Day Years Used Date Smoking Tobacco: Never Smokeless Tobacco: Never AUDIT-C Answer Date Recorded Q1: How often do you have a drink containing alc ohol? 2-4 times a month 01/15/2022 Q2: How many drinks containi ng alcohol do you have on a typical day when you are drinking? 1 or 2 01/15/2022 Q3: How often do you have si x or more drinks on one occasion? Never 01/15/2022 Sex and Gender Information Value Date Recorded Sex Assigned at Not on file Legal Sex Male 6:31 AM BLOCK OPERATOR Gender Identity Not on file Sexual Orientation Not on file documented as of this encounter Progress Notes * Teresa Leach, PT - 05/19/2022 6:00 PM CST [facility]: [facility] Physical therapy treatment note/progress note and POC 03/26/22 Name: Zayda Torres : 1975 Age / Sex: 46 y.o. / male Referring Diagnosis: Rupture of anterior cruciate ligament of right knee, initial encounter [S83.511A], meniscal repair Date of Onset/surgery: 01/15/22 Referring Practitioner: Antonio Suh IV* Phase IV: Advanced strengthening & control (min 12 Weeks s/p ACL Recon & meniscal repair) Discard brace when ROM/quad control allows No deep flexion with WB Bicycle/elliptical/[place] track/ stairclimber Full arc progressive resistance exercises-emphasize quads Begin functional exercise program ( steps up/down, sports cord) Strengthening isokinetic Quadriceps distal pad/squats/leg press/hamstring curl 05/03/22 pt is 16 weeks post op Today's date: 05/19/2022 Start Time: 6:00 pm SUBJECTIVE --pt reports his knee was sore after doing the closed chain exercises last visit and has not done them since that visit. He reports still with a little soreness /10. Subjective Functional Outcome Measure: Knee Injury and Osteoarthritis Outcome Score: 7.5% OBJECTIVE: Gait: fairly normalized gait today Range of Motion: (flexion limited due to swelling and medial knee pain Supine Left Knee: +3?? Extension: 130?? Flexion Right Knee: 0?? Extension; 127?? Flexion (supine and seated); prone with strap: 125 degrees Muscle Length: Hamstring, gastroc, and quadricep moderately restricted on right Strength (Manual Muscle Test): Knee Extension: Left 5/5; Right 4+/5 Knee Flexion: Left 5/5; Right 4+/5 Hip Abduction: Left 5/5; Right 5/5 Hip Adduction: Left 5/5; Right 5/5 Hip Extension: Left 5/5; Right 5/5 Palpation: no tenderness anteromedially, also with less swelling ant knee, and good R quadricep contraction TREATMENT 1) bike for 10 min level 1 2) exercise per flow sheet with verbal and manual cues. Pt able to do all exercise except 2 step ups where his knee gave out due to pain. Also he could do the single leg press but still had to put more weight through his knee and foot laterally to be pain free. 4) applied vasopneumatic with ice for 15 min at high pressure and 34 degrees R ankle 5) recommended trial of closed chain ex in water. Exercise/ Activity 04/28 05/03 05/10 05/14 05/21 Side stepping Initiated against one blue band Backward walking Initiated against one blue band Amb against bands forward Initiated x 4 lengths 60' X Dynamic walking high knees and leg curls Standing TKE with band Leg press Unilat 1 to 3 plates 90-30 and 0-30 degrees 2x20 each (with more pressure on lateral heel/post lateral knee pressure X 4 plates bilat 2x20 2 plates unilat 3x20 without pain complaints 4 plates bilat 2x20 2 and 2 1/2 plates unilat 3x20 X Supine SLR LAQ 90-40 deg X with e stim 5 reps bilat to 5 reps bilat to unilat to unilat only conc/ecc With 10# Xbilat to unilat 10#-25# 3x10 each 10-25# bilat to unilat conc/ecc 10# bilat conc/ecc X 25# leg curl Seated leg curl 10# unilat 2x10 10-25# bilat to unilat 3x10 25-40# 3x10 bilat 40# 2x10X Standing heel raise X Standing gastroc stretch Gait training X SL balance In 2 days X X Single leg stance with opposite leg swings In 2 days Amb over sticks In 2 days Over low hurdles ant and laterally Supine and quadriped leg press against black band X home Patellar mobs Upright bike 10 min X 10 min X Active warmup Step-up Not today due to pain Still unable to do 2 step up due to pain and buckling hold PT ABLE TO DO 2 STEP UP TODAY PAIN FREE!!! Tried but pain full and knee gave way Step down 2 and 4 step down x 10 each 4 x20 with quad/LE quivering hold 4 x10 X with quad fatigue noted Side stepping with band Init at 20 degrees knee flexion with red band In 2 days Wall sit (multi angle isometrics) achieving range with uninvolved assist X home Triplanar stepping in star Pole squat X 10 X home Flowsheet [place]: X = performed, x = times/multiply, s = seconds, ea = each, st = stretch Timed Treatment: Therapeutic exercise for 45 minutes Total of Timed Treatment Codes: 45 minutes Untimed Treatment: ice Ending Pain: 0/10 Stop Time: 7:00 pm ASSESSMENT Response to today???s treatment: good, much improved since cortizone injection PLAN Continue PT with established POC Short Term Goals: 6 weeks 1. Patient will perform HEP with minimal cueing from PT, 75% of the time of the time, necessary formaintaining mobility in the home, performing functional ADL's, and mobility in the community at 6 weeks 2. Patient will improve active knee ROM from 0 degrees extension to at least 110?? flexion necessary for mobility in the home and mobility in the community within 2 weeks 3. Patient will display improved quadriceps recruitment and strength as indicated by his ability toperform 20 SLR without assistance or extensor lag in 4 weeks. Halfway Goals: 12 weeks 1. Patient will report overall functional improvement as indicated by Knee Injury and Osteoarthritis Outcome Score >80% function. 2. Patient will demonstrate right knee hamstrings and quadriceps strength at least 85% of non-surgical knee prior to progression to running progression at 16 weeks. 3. Patient will demonstrate equal lateral step down testing indicating improved lower kinetic chainstrength and coordination required for return to running at 16 weeks. Teresa Leach, JACOB K OPERATOR documented in this encounter Plan of Treatment Not on file documented as of this encounter Visit Diagnoses Diagnosis Rupture of anterior cruciate ligament of right knee, initial encounter- Primary documented in this encounter Care Teams Passenger Barge Master Relationship Specialty Start Date End Date No, Physician PCP - General 12/21/21 Zach Reyez, PT Physical Therapist Physical Therapy 01/20/22 [place] [address] [place] [address] Physical Therapist Physical Therapy 01/30/22 Hussain Lopez, TRIPP Hat Block Bench Hand Physical Therapy 02/03/22 documented as of this encounter
--- OUTSIDE RECORDS SUMMARY | 2024-05-22 05:25 | XMS_ITS | Encounter Summary ---
Author Organization [facility] Address [address] [place] [address] Phone Care Team Providers Care Medicine And Health Service Manager Name Role Phone No, Physician Primary Care Provider Zach Reyez PT Unavailable Unavailable Teresa Leach PT Unavailable [phone] Hussain Lopez TELECOM MANAGER Unavailable Unavailabl e Reason for Visit * Reason Comments Follow-up Encounter Details Date Type Department Care Team (Latest Contact Info) Description 08/19/2022 3:40 PM CDT Office Visit [facility] Orthopaedic Surgery [address] [place] [id number] [place] [address] [place] [address] S/P arthroscopy of right knee (Primary Dx); S/P medial meniscus repair of right knee; S/P ACL reconstruction Social [...] on file Legal Sex Male 6:31 AM FRONT DESK MONITOR Gender Identity Not on file Sexual Orientation Not on file documented as of this encounter Progress Notes * Antonio Suh IV, MD - 08/19/2022 3:40 PM CDT Images from the original note were not included. Patient Name: Zayda Torres Date: 08/19/2022 INTERIM HISTORY: Follow up from Right Knee Arthroscopic Debridement Of Arthrofibrosis - Right on 07/09/2022 The patient has recently had pain: every couple of days The current level of pain is: 0 The worst it has been in the last few days is: 3 Wound complaints: None Patient is progressing well but still notes the anteromedial pain with certain movements when he isloading the patellofemoral joint PHYSICAL EXAM: Incision: well healed Erythema: No Edema: No Effusion: Trace Ecchymosis: No Discharge: No 3 degrees of hyperextenstion to 135 degrees of flexion Ed 1A,Anterior Drawer 1A,Negative Pivot Shift Moderate quad atrophy IMPRESSION/DIAGNOSIS: Healing appropriately 6 weeks after surgery PLAN: I had a lengthy discussion with him about his knee. He agrees that the swelling is much better. He agrees that his quad is still weak. I think the primary challenge at this point is that the patellofemoral joint is negatively impacted by his weak quad. We discussed BFR but he would prefer to continue with a home exercise program I think that is okay as long as he tries to minimize aggravating activities. We agreed that there is no indication for aspiration or injection today. I will check on him in 6 weeks to make sure he is strengthening appropriately and not getting recurrent swelling or other issues. Return to clinic: 6 weeks documented in this encounter Plan of Treatment Not on file documented as of this encounter Visit Diagnoses Diagnosis S/P arthroscopy of right knee- Primary Other postprocedural status S/P medial meniscus repair of right knee S/P ACL reconstruction Other postprocedural status documented in this encounter Care Teams Medicine And Health Service Manager Relationship Specialty Start Date End Date No, Physician PCP - General 12/21/21 Zach Reyez, PT Physical Therapist Physical Therapy 01/20/22 [place] [address] [place] [address] Physical Therapist Physical Therapy 01/30/22 Hussain Lopez, TELECOM MANAGER Sterile Supply Technician Physical Therapy 02/03/22 documented as of this encounter
--- OUTSIDE RECORDS SUMMARY | 2024-05-22 05:25 | XMS_ITS | Encounter Summary ---
Author Organization [facility] Healthcare Address [address] [place] [address] Care Team Providers Care Manager Money Name Role Phone No, Physician Primary Care Provider [phone] Zach Reyez PT Unavailable Unavailable Teresa Leach PT Unavailable [phone] Hussain Lopez INFORMATION SYSTEMS OPERATOR Unavailable Unavailabl e Reason for Visit * Auth/Cert (Routine) Specialty Diagnoses / Procedures Referred By Danny t Referred To Contact Diagnoses Osteochondral lesion Osteochondral lesion [M89.9, M94.9] Procedures UT KNEE SCOPE,DIAGNOSTIC RIGHT KNEE DIAGNOSTIC ARTHROSCOPY, POSSIBLE CHONDROPLASTY RIGHT Referral ID Status Reason Start Date Expiration Date Visits Re quested Visits Authorized [id number] 1 1 Encounter Details Date Type Department Care Team (Late st Contact Info) Description 02/11/2023 3:15 PM CDT - 02/11/2023 4:15 PM CDT Surgery [facility] Operating [facility] at the [facility] [address] [place] [id number] Mikey Hawkins MD [address] [place] [id number] RIGHT KNEE ARTHROSCOPY, CHONDROPLASTY Surgery Details Date/Time Status Location OR Service Patient Class Case Class Case Type Trauma Case? 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 Gender Identity Not on file Sexual Orientation Not on file documented as of this encounter Last Filed Vital Signs Vital Sign Reading Time Taken Comments Blood Pressure 99/58 02/11/2023 4:10 PM CDT Pulse 53 02/11/2023 4:15 PM CDT Temperature 36.5 ??C (97.7 ??F) 02/11/2023 4:10 PM CD T Respiratory Rate 15 02/11/2023 4:15 PM CDT Oxygen Saturation 98% 02/11/2023 4:15 PM CDT Inhaled Oxygen Concentration - - Weight 87.6 kg (193 lb 3.2 oz) 02/11/2023 1:41 P M CDT Height 172.7 cm (5' 8 ) 02/11/2023 1:41 PM CDT Body Mass Index 29.38 02/11/2023 1:41 PM CDT documented in this encounter Discharge Instructions * Discharge Instructions* Edwina Harris RN - 02/11/2023 4:12 PM CDT Diagnosis: Right knee medial femoral condyle chondral lesion Procedure: Right knee medial femoral condyle chondroplasty Significant Findings: Right knee medial femoral condyle chondral lesion Condition on Discharge: Stable Discharge: Home Activity: Keep right lower extremity elevated for 3 days Rest today, increase activity tomorrow as tolerated You may weight bear as tolerated Use crutches as needed Use the following Assistive Devices: Keep right [...] please call the After [facility] [phone]. Your physician or designated sales representative education courses will contact you. Do not drive/operate heavy machinery for 24 hours. Do not make sign/authorize major decision for 24 hours. A responsible adult must be present for the first 24 hours after surgery. Have assistance with ambulation for first 24 hours after surgery documented in this encounter Medications at Time of Discharge HYDROcodone-aceta minophen (NORCO) 5-325 mg per tabletIndications :Pain Take 1 tablet by mouth every 6 (six) hours as needed for pain 20 tablet 02/11/2023 09/13/2023 meloxicam (MOBIC) 15 mg tablet Take 1 tablet (15 mg total) by mouth daily 30 tablet 2 12/09/2022 04/01/2023 ondansetron (ZOFRAN) 4 mg tablet Take 1 tablet (4 mg total) by mouth every 8 (eight) hours as needed for nausea 12 tablet 02/11/2023 09/13/2023 documented as of this encounter Discharge Disposition Disposition Code Departure Means Destination Comment s Discharge to home or self care documented in this encounter H&P Notes * Suzan Zhang, MALT LIQUORS SALES REPRESENTATIVE - 02/11/2023 1:41 PM CDT Outpatient Pre-Procedure History and Physical Subjective Patient is a 47 y.o. male with chief complaint of right knee pain. Indication For Procedure: Pre-op Diagnosis * Osteochondral lesion [M89.9, M94.9] Planned Procedure RIGHT KNEE DIAGNOSTIC ARTHROSCOPY, POSSIBLE CHONDROPLASTY (R), RIGHT (R) HPI: Patient is a 47 year old male with an osteochondral lesion who presents today for right knee diagnostic arthroscopy, possible chondroplasty. History reviewed. No pertinent past medical history. Past Surgical History: Procedure Laterality Date ANTERIOR CRUCIATE LIGAMENT REPAIR Right 12/2021 KNEE SURGERY Right 2022 ROTATOR CUFF REPAIR Right 2013, 2013 Medications Prior to Admission Medication Sig Dispense Refill Last Dose meloxicam (MOBIC) 15 mg tablet Take 1 tablet (15 mg total) by mouth daily (Patient taking differently: Take 1 tablet (15 mg total) by mouth as needed for pain) 30 tablet 2 Past Month HYDROcodone-acetaminophen (NORCO) 5-325 mg per tablet Take 1 tablet by mouth every 6 (six) hours asneeded for pain 20 tablet 0 ondansetron (ZOFRAN) 4 mg tablet Take 1 tablet (4 mg total) by mouth every 8 (eight) hours as needed for nausea 12 tablet 0 No Known Allergies Social History Tobacco Use Smoking status: Never Passive exposure: Never Smokeless tobacco: Never Substance and Sexual Activity Drug use: Yes Frequency: 2.0 times per week Types: Alcohol Sexual activity: Yes Partners: Female Alcohol Use: Not At Risk (02/09/2023) AUDIT-C Frequency of Alcohol Consumption: 2-4 times a month Average Number of Drinks: 1 or 2 Frequency of Binge Drinking: Never Social History Substance and Sexual Activity Drug Use Yes Frequency: 2.0 times per week Types: Alcohol Vitals: 02/09/23 0815 02/11/23 1341 Temp: 36.3 ??C (97.3 ??F) Weight: 90.7 kg (200 lb) 87.6 kg (193 lb 3.2 oz) Height: 172.7 cm (5' 8 ) 172.7 cm (5' 8 ) Review of Systems: Review of systems per HPI and otherwise all other systems are negative Physical exam: Lungs: clear to auscultation bilaterally Heart: regular rate and rhythm, S1, S2 normal, no murmur, click, rub or gallop Neurologic: Alert and oriented x4, grossly intact Suzan Zhang NP Cosigned by Mikey Hawkins MD at 02/11/2023 1:57 PM CDT documented in this encounter Miscellaneous Notes * Perioperative Nursing Note - Edwina Harris RN - 02/11/2023 4:15 PM CDT 1609-Pt arrived to the PACU via stretcher with MECHANICAL FACILITIES TECHNICIAN and TRAPPER ANIMAL at the bedside. Pt sleeping with oxygen on via nasal cannula at 3 liters. Pt in bed in lowest position locked with both side rails up, nonslip socks applied, curtain open and patient near nurses station. Pt will not be left behind curtain alone. Pt assisted in all cares in recovery. Layton score based on pre-op condition. 1630-Pt is more awake and able to tolerate food and drinks. Pt states pain was 7/10. Oral [place] given. was called and she is on the way. 1711-Discharge instructions covered with patient and his . All questions answered. 1724-Pt stated his pain was becoming more tolerable and he asked to be discharged. IV removed and monitors turned off. Pt's assisting him in getting dressed. Pt rated pain a 5/10 but tolerable. Pt AOx4, dressing is C/D/I, and Pt denied any nausea. 1735-Pt placed in backseat with LLE elevated and patient discharged home with his . * Brief Op Note - Mikey Hawkins MD - 02/11/2023 3:47 PM CDT Operative Progress Note Surgical Team: Surgeon(s) and Role: * Mikey Hawkins MD - Primary * Deepak Sanchez DO - Fellow Anesthesiologist: Frieda East MD TRAPPER ANIMAL: Modesta Lizarraga CRNA; Babs Cook CRNA Physical Integration Practitioner: Marnie Salcido RN; Aayush Peralta RN; Suzan Diggs RN Scrub: Sandra Nichols RN DATE OF SURGERY : 02/11/2023 Preoperative Diagnosis: Pre-op Diagnosis * Osteochondral lesion [M89.9, M94.9] Postoperative Diagnosis: Post-op Diagnosis * Osteochondral lesion [M89.9, M94.9] * Arthritis Procedure(s): Procedure(s) (LRB): RIGHT KNEE ARTHROSCOPY, CHONDROPLASTY (Right) Operative Findings: Chondral defect Patellar chondrosis Estimated Blood Loss: No blood loss documented. Intraoperative Fluids: 700 mls Specimens: No specimen collected in procedure Implants: Nothing was implanted during the procedure Blood/Blood Products Transfused: 0 mls Complications: None Condition on Discharge from the operating room was stable Mikey Hawkins MD Date: 02/11/2023 Time: 4:08 PM TEACHING ATTESTATION : I was present and directly participated in the entire procedure (including opening and closing). * Perioperative Nursing Note - Anayeli Herrera RN - 02/11/2023 1:36 PM CDT Pt states his will drive him home and provide 24 hrs care. Pt states he has crutches and feelssafe using them * Op Note - Mikey Hawkins MD - 02/11/2023 12:00 AM CDT PREOP DIAGNOSIS Chondral defect, right medial femoral condyle. PROCEDURES DONE 1. Arthroscopic chondroplasty right patella. 2. Arthroscopic debridement of unstable cartilage flap right medial femoral condyle. POSTOP DIAGNOSES 1. Full-thickness chondral defect right medial femoral condyle. 2. Grade 2B chondrosis right distal patella. 3. Status post right ACL reconstruction. 4. Status post right medial meniscal repair. SURGEON Mikey Hawkins M.D. 1ST EYEGLASS FRAMES INSPECTOR Deepak Sacnhez D.O. ANESTHESIA General endotracheal. FLUIDS 700 mL crystalloid. ESTIMATED BLOOD LOSS Minimal. SPECIMENS None. COMPLICATIONS None apparent. INDICATIONS Patient is a 47-year-old male who underwent previous ACL reconstruction with medial meniscal repair. He has had persistent pain along the anteromedial aspect of the right knee. Physical examination and MRI were consistent with a focal osteochondral defect of the medial femoral condyle. He presents at this time for arthroscopic assessment in order to determine feasibility of an osteochondral allograft. He was apprised of the nature of operation as well as the risks associated with the procedure including bleeding, infection, anesthesia complications, neurovascular injury, motion loss, and persistent pain. Informed consent was obtained. PROCEDURE IN DETAIL After adequate anesthesia was obtained, a timeout was performed confirming the right lower extremity was correct operative side. The limb was prepped with DuraPrep and draped in a sterile fashion. The limb was elevated and exsanguinated and the tourniquet was inflated to 300 mmHg. A superior medial arthroscopic portal was created for outflow, the anterolateral portal was created for the arthroscope, the anteromedial portal was created for instrumentation. The 30 degree arthroscope was placed through the anterolateral portal. The knee was insufflated with lactated Ringer's using an Arthrex pump. The suprapatellar pouch was free of loose bodies. The patella had distal grade 2B chondrosis which was debrided with an arthroscopic shaver. The trochlea was pristine. The remainder of the patella was pristine as well. The medial and lateral gutters both free of loose bodies. The medial compartment was entered. There was noted to be evidence of a prior medial meniscal repair. There was slight increased translation of the posterior horn, but otherwise repair was intact. There was noted be a full-thickness unstable chondral flap on the weightbearing surface medial femoral condyle, approximately 12-14 mm in diameter. There was a surrounding small area of chondrosis, but otherwise the surrounding cartilage was intact. The unstable cartilage flap was debrided with the basket forceps and the edge was trimmed with both a basket forceps as well as a shaver. The notch was entered. The ACL graft was grossly intact as was the PCL. The lateral compartment was entered. There was no significant meniscal or condylar damage. The 70 degree arthroscope was then placed in the posteromedial as well as the posterolateral compartment of the knee. There were no occult loose bodies or meniscal tears evident. All arthroscopic equipment was removed from the joint and the knee was expressed of all excess fluid. The portals were closed with buried subcuticular suture of 4-0 Monocryl. The wounds were injected with 20 mL of 0.5% Marcaine. Steri-Strips were applied to the wounds as was a sterile compressive dressing. The limb was then wrapped with a combination of Webril and an Lizandro wrap. The patient was awakened, extubated, and transferred to the recovery room in stable condition. There were no complications evident. I was present during the operation from the induction of anesthesia through final dressing placement. Job ID/Internal Job ID: [id number] * Pre-Procedure Instructions - Sapna Walter RN - 02/10/2023 10:47 AM CDT We are pleased that you and your doctor have chosen [facility] for your surgery. We hope the following information will help make your visit a pleasant one. The name of the building is [facility] in [place]. Directions to facility (address is [address] [place] [address], [address] [facility] [address]). [facility] exit. Zip [address] When you enter the building, look directly to your left, you will see 2 glass double doors. These double doors say [address]. Go through those double doors and check in with the antique finisher. Patient has own crutches and knows how [...] that zips up the front. Pt instructed by CPAP not to eat anything after Midnight. instructed pt.-->You may have CLEAR LIQUIDS UNTIL 0915. Acceptable clear liquids include water, clear sports drinks, unsweetened tea, black coffee or clear soda. Do NOT drink Milk, creamer or Alcohol. You MUST STOP drinking two hours before you arrive to the Orthopedic center. No gum, no mints, no candy, no cough drops, no CBD oil, no marijuana, no Chewing tobacco, or vaping. No ice or water. You may brush your teeth, just make sure you spit it all out. Instructed to patient to refer to [facility] surgery guide page 6 for any questions regarding eating and drinking day of surgery. For medications that the Nurse Practitioner instructed you to take on the morning of surgery, take the medications with a few sips of water. Pt's. FRIEND WILL DROP OFF will be with patient and HIS ADITYA SCHNEIDER [phone] care for patient for the first 24 hours post-op. Pt. Instructed to arrive at 1315 for 1515 procedure. Procedure is scheduled for 1 hour(s). Pt. Denies any of the following [...] purchase it from the refreshment area. * Perioperative Nursing Note - Nava Guy RN - 02/09/2023 8:20 AM CDT Center for Preoperative Assessment and Planning Perioperative Nursing Note Telephone Preoperative Evaluation ([facility]) - TELEPHONE ONLY, NO PHYSICAL EXAM Date: 02/09/23 This assessment was completed with the patient. Vitals: 02/09/23 0815 Weight: 90.7 kg (200 lb) Height: 172.7 cm (5' 8 ) CHEST CIRCUMFERENCE: N/a Social History Tobacco Use Smoking Status Never Passive exposure: Never Smokeless Tobacco Never Substance and Sexual Activity Drug Use Yes Frequency: 2.0 times per week Types: Alcohol Alcohol Use Q1: How often do you have a drink containing alcohol?: 2-4 times a month Q2: How many drinks containing alcohol do you have on a typical day when you are drinking?: 1 or 2 Q3: How often do you have six or more drinks on one occasion?: Never Outpatient Medications Marked as Taking for the 02/18/23 encounter (Hospital Encounter) Medication Sig Dispense Refill meloxicam (MOBIC) 15 mg tablet Take 1 tablet (15 mg total) by mouth daily (Patient taking differently: Take 1 tablet (15 mg total) by mouth as needed for pain) 30 tablet 2 Implants Type Not Specified [employer] Implant Menicus Repair Fiberstitch Curved [id number] - [id number] - Implanted (Right) Knee Inventory item: [employer] Frakes Meniscal Repair Curved 2 0 Fiberwire Fiberstitch [id number] Model/Cat number: [id number] Lumber Scaler: [employer] Lot number: [id number] As of 01/15/2022 Status: Implanted [employer] Implant Menicus Repair Fiberstitch Curved [id number] - [id number] - Implanted (Right) Knee Inventory item: [employer] Frakes Meniscal Repair Curved 2 0 Fiberwire Fiberstitch [id number] Model/Cat number: [id number] Lumber Scaler: [employer] Lot number: [id number] As of 01/15/2022 Status: Implanted [employer] Screw Fastthread Biocomposite Interference 8mm X 20mm [id number] - [id number] - Implanted (Right) Knee Inventory item: [employer] Screw Fastthread Biocomposite Interference 8mm X 20mm [id number] Model/Cat number: [id number] Lumber Scaler: [employer] Lot number: [id number] As of 01/15/2022 Status: Implanted [employer] Screw Fastthread Biocomposite Interference 10mm X 20mm [id number] - [id number] - Implanted (Right) Knee Inventory item: [employer] Screw Fastthread Biocomposite Interference 10mm X 20mm [id number] Model/Cat number: [id number] Lumber Scaler: [employer] Lot number: [id number] As of 01/15/2022 Status: Implanted SKIN Piercings Remaining: No Wound (LDAs) Type of Wound (LDA): (denies) SCREENINGS Adriel index score: 100 NUTRITION PATIENT CARE PLANNING Advance Directives (For Healthcare) Have you reviewed your Advance Directive and is it valid for this stay?: Not applicable Advance Directive: Patient has advance directive, copy not in chart Communication/Roadmaster Needs Communication Needs: None Assistive Devices/DME: None Hearing - Right Ear: Functional Hearing - Left Ear: Functional Discharge Planning Type of Residence: Private residence Living Arrangements: Spouse/significant other Support Systems: Spouse/significant other Patient expects to be discharged to:: Private residence DEMOLITION WORKER NO ADDITIONAL COMMENTS/ FOLLOW UP * Pre-Procedure Instructions - Nava Guy RN - 02/09/2023 8:19 AM CDT [facility] PRE[facility] AND [...] remove nail coverings, artificial nails and nail montserratian prior to the day of surgery. You should leave your valuables and any jewelry at home. No metal or piercings are allowed in the operating room. You should bring your insurance card, a photo ID (example: Wood Cabinet Finisher's License) and a method of payment for [...] copy is already in your Epic Chart. A Guide for Patients Having Surgery: Your [...] Avoid shaving on the day of surgery. 2-Day CHG Bathing Protocol The Evening Before Surgery: Take a shower with Antiseptic soap (CHG). Follow the steps for ???Showering with Antiseptic Soap (CHG)?? above. Change all linens on your bed so you are sleeping in clean fresh sheets and pillowcases. Remove nail coverings, artificial nails and nail montserratian. The Morning of Surgery: Take a shower [...] questions, please call the CPAP Staff at [phone], Tuesday-Tuesday 8am-4:30pm. All patients should read the below section: COVID 19 Updates & Visitor Policy: Please access [email or web address] for the most updated information. Information on [facility] & the Orthopedic Center: Please view [email or web address] (Patient & Visitor Information) for additional details regarding Advanced Directive forms, AWARE, directions, parking information, lodging, Internet access, dining and more. Information on [facility] or [facility] ([facility]): Please view [email or web address] (Patient and Visitor Information) for parking/directions and more. For MyChart information, to activate account or password recovery, please go to [email or web address] or call [phone] (toll-free: [phone]). Information for Suicide Prevention: National Suicide Prevention Lifeline (8-031- 064-HFFA (0208)). Surgery Times: For patients having surgery @ [facility], if your surgeon's office has not notified you of your surgery time by NOON THE BUSINESS DAY BEFORE your surgery, please call the surgery center [phone]. documented in this encounter Plan of Treatment Not on file documented as of this encounter Procedures Procedure Name Priority Date/Time Associated Diagnosis Comments ARTHROSCOPY KNEE 02/11/2023 3:32 PM CDT Osteochondral lesion Arthritis documented in this encounter Visit Diagnoses Diagnosis Osteochondral lesion- Primary Osteochondral lesion Arthritis documented in this encounter Admitting Diagnoses Diagnosis Osteochondral lesion documented in this encounter Administered Medications Inactive Administered Medications - up to 3 most recent administrations Medication Order MAR Action Action Date Dose Rate Site BUPivacaine-EPINEPHrine (MARCAINE with EPI) 0.5 %-1:200,000 preservative free injection As needed, Starting on Tue02/11/23 at 1602, Intra-Op Given 02/11/2023 4:02 PM CDT 20 mL Surgical Site HYDROcodone-acetaminophen (NORCO) 5-325 mg per tablet 1 tablet 1 tablet, oral, Every 30 min PRN, 2nd line for pain, Starting on Tue02/11/23 at 1614, For 2 doses, Phase I, Indications: PainIndications:Pain Given 02/11/2023 5:01 PM CDT 1 tablet Given 02/11/2023 4:28 PM CDT 1 tablet Lactated Ringer's (LR) infusion 30 mL/hr, intravenous, Continuous, Starting on Tue02/11/23 at 1415, Use a 500 ml bag for End Stage Renal Disease Patients Restarted 02/11/2023 4:01 PM CDT Rate/Dose Verify 02/11/2023 3:28 PM CDT 30 mL/h r New Bag 02/11/2023 1:54 PM CDT 30 mL/hr 30 mL/hr Lactated Ringer's (LR) irrigation As needed, Starting on Tue02/11/23 at 1556, Intra-Op Given 02/11/2023 3:56 PM CDT 3,000 mL Operative Joint Spac e lidocaine PF (XYLOCAINE) 10 mg/mL (1 %) preservative free injection 2-10 mg 2-10 mg (0.2-1 mL), subcutaneous, Once as needed, pain with IV placement, Starting on Tue02/11/23 at 1335, For 1 dose, Pre-Op, Administer volume needed to infiltrate IV site. Given 02/11/2023 1:52 PM CDT 0.2 mL Left Hand documented in this encounter Discontinued Medications Medication Sig Discontinue Reason Start Date End Da meloxicam (MOBIC) 15 mg tablet Take 1 tablet (15 mg total) by mouth daily 10/08/2022 02/09/2023 HYDROcodone-acetaminophe n (NORCO) 5-325 mg per tabletIndications:Pain 1 - 2 tabs q6h prn pain 07/09/2022 02/09/2023 naproxen (ALEVE) 220 mg tablet Take 1 tablet (220 mg total) by mouth every 12 (twelve) hours as needed for pain 02/09/2023 documented as of this encounter Active and Recently Administered Medications Times are shown in CDT. Scheduled Medication Order 02/09/2023 02/10/2023 02/11/2023 ceFAZolin (ANCEF) 2,000 mg/50 mL in dextrose (premix) 2,000 mg (COMPLETED) 2,000 mg, intravenous, at 100 mL/hr, Administer over 30 Minutes, Once, On Tue02/11/23 at 1415, For 1 dose, Pre-Op, Administer within 60 minutes of incision. Duplex bag - activate before hanging., Indications: Prophylaxis, Surgical 1532 (Given - Provid er: Modesta Lizarraga CRNA) scopolamine patch 72 hour 1 patch 1 patch, transdermal, Administer over 72 Hours, Once, On Tue02/11/23 at 1415, For 1 dose, Pre-Op, Apply to beach-chair [...] Sickness, Prevention of Post-Operative Nausea and Vomiting 1415 (Due) Continuous Medication Order 02/09/2023 02/10/2023 02/11/2023 Lactated Ringer's (LR) infusion 30 mL/hr, intravenous, Continuous, Starting on Tue02/11/23 at 1415, Use a 500 ml bag for End Stage Renal Disease Patients 1354 (New Bag - Prov ider: Anayeli Herrera RN)1415 (Due)1528 (Rate/Dose Verify - Provider: Modesta Lizarraga CRNA)1600 (Paused - Provider: Babs Cook CRNA - Comment: Switch to gravity)1601 (Restarted - Provider: Babs Cook CRNA)1609 (Stopped - Provider: Edwina Harris, YURIY) Lactated Ringer's (LR) infusion 125 mL/hr, intravenous, Continuous, Starting on Tue02/11/23 at 1645, Phase I 1609 (Continued from OR - Provider: Edwina Harris, YURIY)1724 (Stopped - Provider: Edwina Harris RN) PRN Medication Order 02/09/2023 02/10/2023 02/11/2023 BUPivacaine-EPINEPHrine (MARCAINE with EPI) 0.5 %-1:200,000 preservative free injection (CANCELED) As needed, Starting on Tue02/11/23 at 1602, Intra-Op 1602 (Given - Provid er: Deepak Sanchez DO) diphenhydrAMINE (BENADRYL) 50 mg/mL injection 12.5 mg 12.5 mg, intravenous, Administer over 1 Minutes, Every 5 min PRN, itching, other, For Nausea, administer 25 mg IV., Starting on Tue02/11/23 at 1614, For 4 doses, Phase I, Max cumulative dose 50 mg., Indications: Itching fentaNYL (SUBLIMAZE) preservative free syringe 25 mcg 25 mcg, intravenous, Every 10 min PRN, 1st line for pain, Starting on Tue02/11/23 at 1614, For 4 doses, Phase I, Notify anesthesiologist if total PACU dose reaches 100 mcg AND pain score 5/10 or more. When patient able to tolerate PO, proceed to 2nd line analgesic agent for pain management., Indications: Pain hydrALAZINE (APRESOLINE) injection 5 mg 5 mg, intravenous, Administer over 2 Minutes, Every 5 min PRN, high blood pressure, Starting on Tue02/11/23 at 1614, Phase I, Max cumulative dose 20 mg. Dose if systolic BP greater than 180 AND heart rate less than 70., Indications: hypertension HYDROcodone-acetaminophen (NORCO) 5-325 mg per tablet 1 tablet (COMPLETED) 1 tablet, oral, Every 30 min PRN, 2nd line for pain, Starting on Tue02/11/23 at 1614, For 2 doses, Phase I, Indications: Pain 1628 (Given - Provid er: Edwina Harris RN)1701 (Given - Provider: Edwina Harris RN) labetaloL (NORMODYNE,TRANDATE) injection 5 mg 5 mg, intravenous, Every 5 min PRN, high blood pressure, Starting on Tue02/11/23 at 1614, For 4 doses, Phase I, Max cumulative dose 20 mg. Dose if systolic blood pressure greater than 180 AND HR greater than 70. Lactated Ringer's (LR) irrigation (CANCELED) As needed, Starting on Tue02/11/23 at 1556, Intra-Op 1556 (Given - Provid er: Mikey Hawkins MD) lidocaine PF (XYLOCAINE) 10 mg/mL (1 %) preservative free injection 2-10 mg (COMPLETED) 2-10 mg (0.2-1 mL), subcutaneous, Once as needed, pain with IV placement, Starting on Tue02/11/23 at 1335, For 1 dose, Pre-Op, Administer volume needed to infiltrate IV site. 1352 (Given - Provid er: Anayeli Herrera RN) meperidine (DEMEROL) preservative free injection 12.5 mg 12.5 mg, intravenous, Administer over 5 Minutes, Every 10 min PRN, shivering, Starting on Tue02/11/23 at 1614, For 2 doses, Phase I, Max cumulative dose 25 mg., Indications: Shivering naloxone (NARCAN) 0.4 mg/mL injection 0.04-0.4 mg 0.04-0.4 mg, intravenous, Once as needed, other, excessive sedation/respiratory depression, Starting on Tue02/11/23 at 1614, For 1 dose, Phase I, Dilute 0.4 [...] Once as needed, nausea, vomiting, Starting on Tue02/11/23 at 1614, For 1 dose, Phase I, Proceed to prochlorperazine if ondansetron has been given within the last 6 hours. prochlorperazine (COMPAZINE) injection 5 mg 5 mg, intravenous, Administer over 2 Minutes, Once as needed, nausea, vomiting, May give second 5 mg dose if nausea not improved after 15 minutes., Starting on Tue02/11/23 at 1614, For 2 doses, Phase I, If nausea/vomiting not relieved by ondansetron within 30 minutes or if ondansetron has been given within the last 6 hours. sodium chloride 0.9% flush 0.5-20 mL 0.5-20 mL, intra-catheter, As needed, line care, Flush Levi Block Hep Locks to keep vein open., Starting on Tue02/11/23 at 1335, Pre-Op, Flush volume based on line type and size. Flush before and after each use. , Indications: Flushing documented in this encounter Orders Medications Ordered That John ht Not Have Been Administered Count Last Ordered Date First Ordered Date ceFAZolin (ANCEF) 2,000 mg/5 0 mL in dextrose (premix) 2,000 mg 1 02/11/2023 diphenhydrAMINE (BENADRYL) 5 0 mg/mL injection 12.5 mg 1 02/11/2023 fentaNYL (SUBLIMAZE) preserv ative free syringe 25 mcg 1 02/11/2023 hydrALAZINE (APRESOLINE) injection 5 mg 1 0 02/11/2023 HYDROcodone-acetaminophen (N ORCO) 5-325 mg per tablet - ADS Override Pull 2 02/11/2023 labetaloL (NORMODYNE,TRANDAT E) injection 5 mg 1 02/11/2023 Lactated Ringer's (LR) infusion 1 meperidine (DEMEROL) preserv ative free injection 12.5 mg 1 02/11/2023 naloxone (NARCAN) 0.4 mg/mL injection 0.04-0.4 mg 1 02/11/2023 ondansetron (ZOFRAN) injection 4 mg 1 02/11 prochlorperazine (COMPAZINE) injection 5 mg 1 02/11/2023 scopolamine patch 72 hour 1 patch 1 023 sodium chloride 0.9% flush 0.5-20 mL 1 01/22 Discharge Count Last Ordered Date First Orde red Date DISCHARGE PATIENT 1 02/11/2023 documented in this encounter Care Teams Manager Money Relationship Specialty Start Date End Date No, Physician PCP - General 12/21/21 Zach Reyez, PT Physical Therapist Physical Therapy 01/20/22 [place] [address] [place] [address] Physical Therapist Physical Therapy 01/30/22 Hussain Lopez PTA Planishing Hammer Operator Physical Therapy 02/03/22 documented as of this encounter
--- OUTSIDE RECORDS SUMMARY | 2024-05-22 05:25 | XMS_ITS | Encounter Summary ---
Author Organization [facility] Address [address] [place] [address] Phone Care Team Providers Care Brickmason Supervisor Name Role Phone No, Physician Primary Care Provider [phone] Zach Reyez PT Unavailable Unavailable Teresa Leach PT Unavailable [phone] Hussain Lopez CUTLET MAKER PORK Unavailable Unavailabl e Encounter Details Date Type Department Care Team (Late st Contact Info) Description 01/26/2023 Documentation [facility] Orthopaedic Surgery [address] [place] [address] [place] [address] [address] [facility] [place] [address] Social History Tobacco Use Types [...] Notes * Antonio Suh IV, MD - 01/26/2023 8:33 AM CDT I called and spoke with Dr. Torres. Reviewed what would be involved with an arthroscopy and why a follow up procedure might be indicated and what it might involve. He is welcome to get another opinion within our group or with someone else. documented in this encounter Plan of Treatment Not on file documented as of this encounter Visit Diagnoses Not on filedocumented in this encounter Care Teams Brickmason Supervisor Relationship Specialty Start Date End Date No, Physician PCP - General 12/21/21 Zach Reyez, PT Physical Therapist Physical Therapy 01/20/22 [place] [address] [place] [address] Physical Therapist Physical Therapy 01/30/22 Hussain Lopez, TRIPP Shade Cloth Finisher Physical Therapy 02/03/22 documented as of this encounter
--- OUTSIDE RECORDS SUMMARY | 2024-05-22 05:25 | XMS_ITS | Encounter Summary ---
Author Organization [facility] Address [address] [place] [address] Phone Care Team Providers Care Evp Business Development Name Role Phone No, Physician Primary Care Provider [phone] Zach Reyez PT Unavailable Unavailable Teresa Leach PT Unavailable [phone] Hussain Lopez PERSHING MISSILE CREWMEMBER Unavailable Unavailabl e Reason for Referral * Procedure (Routine) - Closed Specialty Diagnoses / Procedures Referred By Danny cannon Referred To Contact Diagnoses S/P arthroscopy of right knee S/P ACL reconstruction Effusion of right knee Procedures Large [place]: [place] [address] [place] [address] Phone: tel: fax: [facility] (All Locations) Referral ID Status Reason Start Date Expiration Date Visits Re quested Visits Authorized [id number] Closed 11/11/2022 12/11/2023 1 1 * Procedure (Routine) - Closed Specialty Diagnoses / Procedures Referred By Danny t Referred To Contact Procedures [place] [address] [place] [address] Phone: tel: fax: [facility] (All Locations) Referral ID Status Reason Start Date Expiration Date Visits Re quested Visits Authorized [id number] Closed 11/11/2022 12/11/2023 1 1 * Diagnostic Imaging (Routine) - Closed Specialty Diagnoses / Procedures Referred By Danny cannon Referred To Contact Diagnoses S/P arthroscopy of right knee S/P ACL reconstruction Effusion of right knee Procedures XR Knee Right [place] [address] [place] [address] Phone: tel: fax: [facility] Referral ID Status Reason Start Date Expiration Date Visits Re quested Visits Authorized [id number] Closed 11/11/2022 12/11/2023 1 1 Reason for Visit * Reason Comments Follow-up Encounter Details Date Type Department Care Team (Late st Contact Info) Description 11/11/2022 4:30 PM CDT Office Visit 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 Patient Name: Zayda Torres Date: 11/11/2022 INTERIM HISTORY: Follow up from Right Knee Arthroscopic Debridement Of Arthrofibrosis - Right on 07/09/2022 The patient has recently had pain: every couple of days The current level of pain is: 0 The worst it has been in the last few days is: 3 Wound complaints: None He reports that he does not have issues with riding the bike or open chain activities. He continuesto have anteromedial pain with closed-chain activities loading the patellofemoral joint. PHYSICAL EXAM: Incision: well healed Erythema: No Edema: No Effusion: Small Ecchymosis: No Discharge: No 3 degrees of hyperextenstion to 135 degrees of flexion Ed 1A,Anterior Drawer 1A,Negative Pivot Shift Mild quad atrophy IMAGING: IMPRESSION/DIAGNOSIS: Right knee is slowly making progress but still having patellofemoral issues despite extensive appropriate conservative management PLAN: I had a lengthy discussion with him about his knee. He agrees that he is making slow progress. We discussed getting an MRI versus trying an aspiration and injection which we have not done in some time. He was in agreement with trying the aspiration and injection before getting another MRI. I reminded him of the risks and benefits. See procedure note for full details. He can call us for more PT ormeloxicam or to get an MRI if needed in the future. He had all his questions answered and appears comfortable with this plan going forward. Return to clinic: PRN * Antonio Suh IV, MD - 11/11/2022 4:30 PM CDTAssociated Order(s): Large Joint Injection: R knee Post-Procedure Diagnose(s): S/P ACL reconstruction; S/P arthroscopy of right knee; Effusion of right knee Large Joint Injection: R knee Performed by: Antonio Suh IV, MD Authorized by: Antonio Suh IV, MD Large Joint Injection/Aspiration: Consent Given by: Patient Timeout: prior to procedure the correct patient, procedure, and site was verified Verbal consent obtained: Yes Supporting Documentation: Indications: Pain and joint swelling Procedure Details: Location: Knee Site: R knee Prep: patient was prepped using a clean technique Approach: Superior lateral Medications: 80 mg methylPREDNISolone acetate 80 mg/mL; 4 mL mepivacaine 10 mg/mL (1 %); 5 mL BUPivacaine 0.5 % (5 mg/mL) Aspirate amount (mL): 4 Aspirate: Clear, serous and yellow Patient tolerance: Patient tolerated the procedure well with no immediate complications I discussed the risk and benefits of the injection with the patient including but not limited to the risk of infection, the risk of a flare and how to minimize it, and the risk of change in pigmentation at the injection site. documented in this encounter Plan of Treatment Scheduled Orders Name Type Priority Associated Diagnoses Orde r Schedule Large Joint Injection Procedures Routine Ord ered: 11/11/2022 documented as of this encounter Procedures Procedure Name Priority Date/Time Associated Diagnosis Comments NM ARTHROCENTESIS ASPIR&/INJ MAJOR JT/BURSA W/O US Routine 11/11/2022 4:30 PM CDT S/P arthroscopy of right knee S/P ACL reconstruction Effusion of right knee documented in this encounter Results * XR Knee Right 3 View (11/11/2022 5:06 PM CDT) Anatomical Region Laterality Modality Lower Extremities, Knee Right Computed Radiography 11/11/2022 5:24 PM CDT Impressions 11/11/2022 5:24 PM CDT 1. ??Mild medial and patellofemoral compartment right knee osteoarthritis. 2. ??Postsurgical changes of right anterior cruciate ligament reconstruction. Electronically signed by: Dominick Matthews MD Narrative 11/11/2022 5:24 PM CDT EXAMINATION: XR KNEE RIGHT 3 VIEWS HISTORY: Right knee pain, ACL tear FINDINGS: 3 views of the right knee are compared to the examination dated 01/28/2022. Postsurgical changes of right anterior cruciate ligament reconstruction. ??Alignment is normal. ??There is no fracture. ??Mild medial and patellofemoral compartment right knee osteoarthritis. Small right knee joint effusion. ??Mild anterior soft tissue swelling. Procedure Note Dominick Matthews MD - 11/11/2022 EXAMINATION: XR KNEE RIGHT 3 VIEWS HISTORY: Right knee pain, ACL tear FINDINGS: 3 views of the right knee are compared to the examination dated 01/28/2022. Postsurgical changes of right anterior cruciate ligament reconstruction. Alignment is normal. There is no fracture. Mild medial and patellofemoral compartment right knee osteoarthritis. Small right knee joint effusion. Mild anterior soft tissue swelling. IMPRESSION: 1. Mild medial and patellofemoral compartment right knee osteoarthritis. 2. Postsurgical changes of right anterior cruciate ligament reconstruction. Electronically signed by: Dominick Matthews MD us Antonio Suh IV, MD IMG XR PROCEDURES Fin al Result * NM ARTHROCENTESIS ASPIR&/INJ MAJOR JT/BURSA W/O US (11/11/2022 4:30 PM CDT) Narrative Antonio Suh IV, MD - 11/11/2022 4:30 PM CDT Antonio Suh IV, MD ? 11/11/2022 ??5:23 PM Large Joint Injection: R knee Performed by: Antonio Suh IV, MD Authorized by: Antonio Suh IV, MD ?? Large Joint Injection/Aspiration: ??Consent Given by: ??Patient ??Timeout: prior to procedure the correct patient, procedure, and site was verified ?Verbal consent obtained: Yes ?? Supporting Documentation: ??Indications: ??Pain and joint swelling Procedure Details: ??Location: ??Knee ??Site: ??R knee ??Prep: patient was prepped using a clean technique ?Approach: ??Superior lateral ??Medications: ??80 mg methylPREDNISolone acetate 80 mg/mL; 4 mL mepivacaine 10 mg/mL (1 %); 5 mL BUPivacaine 0.5 % (5 mg/mL) ??Aspirate amount (mL): ??4 ??Aspirate: ??Clear, serous and yellow ??Patient tolerance: ??Patient tolerated the procedure well with no immediate complications ?? I discussed the risk and benefits of the injection with the patient including but not limited to the risk of infection, the risk of a flare and how to minimize it, and the risk of change in pigmentation at the injection site. us Antonio Suh IV, MD IN CLINIC/BEDSIDE ORD ERABLES Final Result documented in this encounter Visit Diagnoses Diagnosis S/P arthroscopy of right knee- Primary Other postprocedural status S/P ACL reconstruction Other postprocedural status Effusion of right knee S/P arthroscopy of right knee Other postprocedural status S/P ACL reconstruction Other postprocedural status Effusion of right knee documented in this encounter Administered Medications Inactive Administered Medications - up to 3 most recent administrations Medication Order MAR Action Action Date Dose Rate Site BUPivacaine (MARCAINE) 0.5 % (5 mg/mL) preservative free injection 5 mL 5 mL, One-Time Injection, Starting on Diane 11/11/22 at 1723, For 1 doseIndications:S/P arthroscopy of right knee,S/P ACL reconstruction,Effusion of right knee Given 11/11/2022 5:23 PM CDT 5 mL Righ t Knee mepivacaine (CARBOCAINE) 10 mg/mL (1 %) preservative free injection 4 mL 4 mL, One-Time Injection, Starting on Diane 11/11/22 at 1723, For 1 doseIndications:S/P arthroscopy of right knee,S/P ACL reconstruction,Effusion of right knee Given 11/11/2022 5:23 PM CDT 4 mL Righ t Knee methylPREDNISolone acetate (DEPO-medrol) injection 80 mg 80 mg, intra-articular, One-Time Injection, Starting on Diane 11/11/22 at 1723, For 1 doseIndications:S/P arthroscopy of right knee,S/P ACL reconstruction,Effusion of right knee Given 11/11/2022 5:23 PM CDT 80 mg Righ t Knee documented in this encounter Care Teams Evp Business Development Relationship Specialty Start Date End Date No, Physician PCP - General 12/21/21 Zach Reyez, PT Physical Therapist Physical Therapy 01/20/22 [place] [address] [place] [address] Physical Therapist Physical Therapy 01/30/22 Hussain Lopez, TRIPP Athlete Manager Physical Therapy 02/03/22 documented as of this encounter
--- OUTSIDE RECORDS SUMMARY | 2024-05-22 05:25 | XMS_ITS | Encounter Summary ---
Author Organization [facility] Address [address] [place] [address] Care Team Providers Care Printing Manager Name Role Phone No, Physician Primary Care Provider Zach Reyez PT Unavailable Unavailable Teresa Leach PT Unavailable [phone] Hussain Lopez MARKETING PROGRAMS MANAGER Unavailable Unavailabl e Reason for Visit * MRI/CAT/PET Scan (Routine) - Closed Specialty Diagnoses / Procedures Referred By Contac t Referred To Contact Procedures [place] [address] [place] [address] Phone: tel: fax: Referral ID Status Reason Start Date Expiration Date Visits Re quested Visits Authorized [id number] Closed 01/11/2023 02/10/2024 1 1 Encounter Details Date Type Department Care Team (Latest Contact Info) Description 01/11/2023 1:24 PM CDT - 01/11/2023 11:59 PM CDT Hospital Encounter [facility] [address] [place] [address] Discharge Disposition: Discharge to home or self [...] on file 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 Gender Identity Not on file Sexual Orientation Not on file documented as of this encounter Medications at Time of Discharge HYDROcodone-aceta minophen (NORCO) 5-325 mg per tabletIndications :Pain 1 - 2 tabs q6h prn pain 12 tablet 07/09/2022 02/09/2023 meloxicam (MOBIC) 15 mg tablet Take 1 tablet (15 mg total) by mouth daily 30 tablet 10/08/2022 02/09/2023 meloxicam (MOBIC) 15 mg tablet Take 1 tablet (15 mg total) by mouth daily 30 tablet 2 12/09/2022 04/01/2023 naproxen (ALEVE) 220 mg tablet Take 1 [...] Diagnosis Comments MSK MR OUTSIDE REFERENCE Routine 01/11/2023 1:24 PM CDT documented in this encounter Results * MSK MR Outside Reference (01/11/2023 1:24 PM CDT) Impressions [facility] - 01/11/2023 1:24 PM CDT These images are for Reference purposes only and have not been reviewed by [facility]. ??There will be no report generated by a [facility] Radiologist. Narrative [facility] - 01/11/2023 1:24 PM CDT EXAMINATION: ??Images For Reference Purposes Only us Antonio Suh IV, MD IMG MRI PROCEDURES Fi nal Result [facility] documented in this encounter Visit Diagnoses Not on filedocumented in this encounter Care Teams Printing Manager Relationship Specialty Start Date End Date No, Physician PCP - General 12/21/21 Zach Reyez, PT Physical Therapist Physical Therapy 01/20/22 [place] [address] [place] [address] Physical Therapist Physical Therapy 01/30/22 Hussain Lopez, TRIPP Dynamics Ax Solution Architect Physical Therapy 02/03/22 documented as of this encounter
--- OUTSIDE RECORDS SUMMARY | 2024-05-22 05:25 | XMS_ITS | Encounter Summary ---
Author Organization [facility] Healthcare Address [address] [place] [address] Care Team Providers Care Frame Stripper Name Role Phone No, Physician Primary Care Provider [phone] Zach Reyez PT Unavailable Unavailable Teresa Leach PT Unavailable [phone] Hussain Lopez TRUCK SAFETY INSPECTOR Unavailable Unavailabl e Encounter Details Date Type Department Care Team (Latest Contact Info) Description 02/03/2023 6:14 PM CDT - 02/03/2023 11:59 PM CDT Hospital Encounter 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 ??There will be no report generated by a [facility] Radiologist. Narrative [facility] - 02/03/2023 6:14 PM CDT EXAMINATION: ??Images For Reference Purposes Only us Mkiey Hawkins MD IMG XR PROCEDURES Final Res ult [facility] documented in this encounter Visit Diagnoses Not on filedocumented in this encounter Care Teams Frame Stripper Relationship Specialty Start Date End Date No, Physician PCP - General 12/21/21 Zach Reyez, PT Physical Therapist Physical Therapy 01/20/22 [place] [address] [place] [address] Physical Therapist Physical Therapy 01/30/22 Hussain Lopez PTA Manager Recovery Physical Therapy 02/03/22 documented as of this encounter
--- OUTSIDE RECORDS SUMMARY | 2024-05-22 05:25 | XMS_ITS | Encounter Summary ---
Author Organization [facility] Address [address] [place] [address] Phone Care Team Providers Care Harnessmaker Name Role Phone No, Physician Primary Care Provider [phone] Zach Reyez PT Unavailable Unavailable Teresa Leach PT Unavailable Hussain Lopez DOCUMENT ADVISOR Unavailable Unavailabl e Reason for Visit * Reason Comments Follow-up Encounter Details Date Type Department Care Team (Latest Contact Info) Description 07/22/2022 4:00 PM WORKERS' COMPENSATION MEDIATOR Office Visit [facility] Orthopaedic Surgery [address] [place] [id number] [place] [address] [place] [address] S/P arthroscopy of right knee (Primary Dx); Arthrofibrosis of knee joint, right; S/P ACL reconstruction Social History Tobacco Use [...] on file 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 Patient Name: Zayda Torres Date: 07/22/2022 INTERIM HISTORY: Follow up from Right Knee Arthroscopic Debridement Of Arthrofibrosis - Right on 07/09/2022 The patient has recently had pain: every day The current level of pain is: 0 The worst it has been in the last few days is: 2 Wound complaints: None Patient is progressing well PHYSICAL EXAM: Incision: well healed Erythema: No Edema: No Effusion: No Ecchymosis: No Discharge: No 3 degrees of hyperextenstion to 135 degrees of flexion Ed 1A,Anterior Drawer 1A,Negative Pivot Shift IMPRESSION/DIAGNOSIS: Doing well 2 weeks following surgery. PLAN: Arthroscopic pictures were reviewed with the patient Start exercise bike Reviewed precautions return to work next Tuesday Return to clinic: 4 weeks Antonio Suh IV, MD ERS' COMPENSATION MEDIATOR documented in this encounter Plan of Treatment Not on file documented as of this encounter Visit Diagnoses Diagnosis S/P arthroscopy of right knee- Primary Other postprocedural status Arthrofibrosis of knee joint, right S/P ACL reconstruction Other postprocedural status documented in this encounter Care Teams Harnessmaker Relationship Specialty Start Date End Date No, Physician PCP - General 12/21/21 Zach Reyez, PT Physical Therapist Physical Therapy 01/20/22 [place] [address] [place] [address] Physical Therapist Physical Therapy 01/30/22 Hussain Lopez PTA Lawn Caretaker Physical Therapy 02/03/22 documented as of this encounter
--- OUTSIDE RECORDS SUMMARY | 2024-05-22 05:25 | XMS_ITS | Encounter Summary ---
Author Organization [facility] Healthcare Address [address] [place] [address] Care Team Providers Care Impregnating Helper Name Role Phone No, Physician Primary Care Provider [phone] Zach Reyez PT Unavailable Unavailable Teresa Leach PT Unavailable [phone] Hussain Lopez DRIER OPERATOR HEAD Unavailable Unavailabl e Reason for Visit * Reason Comments PT Treatment Encounter Details Date Type Department Care Team (Late st Contact Info) Description 10/22/2022 8:[address] 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 male Referring Diagnosis: S/P arthroscopy of right knee [Z98.890] Physical therapy movement impairment diagnosis/diagnoses: patellofemoral joint pain with concentricknee ext closed chain 30-40 degrees with lateral patellar tracking/pain with closed chain activities Date of Onset: 07/09/22 arthroscopic surgery for removal of arthrofibrosis Referring Practitioner: Antonio Suh IV* 10/22/22 Start Time: 8:30 am SUBJECTIVE --pt reports his pain is worse. He is still getting pain with closed chain activities at 30-40 degrees (concentric mainly. He is able to do eccentric this ROM but overtime an ache occurs), and now hehas pain with standing with leg locked and turning to the right and sometimes with bending forward and turning to the left. Pain level 2-7/10. He reports sometimes at rest he is getting a throbbing pain after a long day at work, after exercise at his gym. He feels the miloxicam helped with the throbbing pain. Pt is able to do seated terminal knee ext with weight open chain pain free. Subjective Functional Outcome Measure: Knee Injury and Osteoarthritis Outcome Score: 39.3% OBJECTIVE: Gait: slightly antalgic gait R knee on level surfaces Range of Motion: Right Knee: 0?? Extension; 120?? Flexion Muscle Length: Tight hamstrings, quads, R LE Strength (Manual Muscle Test): Knee ELeft 5/5; R5/5 Knee Flexion: Left 5/5; Right 5/5 Hip Abduction: Left 5/5; Right 4/5 Hip Adduction: Left 5/5; Right 5/5 Hip Extension: Left 5/5; Right 4/5 Special Tests: (-) patellar compression test Closed chain ex (standing or on leg press): pain between 30-40 degrees extension concentrically, but not eccentrically Palpation: mod swelling infrapatellar region today. Patella at rest: sits slightly lateral with slight lateral tilt --note less but present lateral patellar tracking with quad contraction --decreased R quad girth especially of VMO TREATMENT 1) reviewed HEP per flow sheet with verbal and manual cues. Have tried various exercises below for quad strengthening but still limited due to the sharp ant/medial knee pain that causes pt's leg to give out. As pt is able, the goal for now is for pt to focus on concentric strengthening from 0-30 and 40-90 degrees, as well as eccentric strengthening through full range. Open chain is better than closed chain in the 30-40 degrees knee ext range, as well as multi- angle bj R, and single leg stanceon flat and uneven surface 2) applied patellar taping to promote medial glide and tilt with ex. Noted: pain in patellar regionand catch with walking after patellar taping is first applied with increased compression. Pt feels it works well after a few hours when the tape stretches out a little. He feels the tape helps to stabilize the knee 3) pt to ice at home Exercise/ Activity Date: 09/27/22 Date: 10/01/22 Date: 10/04/22 Date: 10/11 Date: 10/22 Date: Bike 10 min X X X X Muti-angle bj with wall sit and partial squats (attaining position with L LE first) initiated LAQ with VMO bj 5# x15 Bridge with VMO bj x10 Bridge with band around thigh for abd X 10 with blue band Side lying hip abd X 10 bilat Side stepping with band Unable to do without pain Standing TKE with band X15 with black band Painful today Step down 2-4 x 10 each -- 4 x10 X At home Step up ---not ready yet due to pain -- On hold, unable to do 2 Leg press conc 90-40 and 30-0 X20 with weight shift L during 30-40 degrees ext --and full range eccentric 4 1/2 plates with 75%-25% weight shift 30-40 degrees flexion both for conc and ecc Pt wants to hold off on doing this today to prevent knee pain On hold On hold Eccentric wall slide X 10 eccentric --concentric only 90-40 and 30-0 with weight shift L at 30-40 degrees ext --not today X Just multiangle bj instructed today Single leg squat 0-30 degrees x10 --not today X Sit to stand partial squats x10 Single leg stance with ball throws 5 min with intermittent breaks X X X on level surface and on cushion (0-20 degrees multi angle positions) Prone hip ext machine 15# 2x10 bilat 40# 2x10 Bent over hip ext with cable and ankle cuff Instructed for carry over to his gym with 40-50 # Sled pushing with 25# plate on plyo box Tried with 25# plate but unable to do, due to sharp pain lifts with bar only 50/50% WB ecc and 75/25% conc (noted sharp pain) Leg ext 10# R leg only 3x10 mostly wihout assist of L leg 10# R 3x10 X X Leg curl 10# 3x10 40# R3x10 X X Flowsheet [place]: X = performed, x = times/multiply, s = seconds, ea = each, st = stretch Timed Treatment Thera ex for 50 minutes: see above Total of Timed Treatment Codes: 50 minutes Untimed Treatment Knee taping Total treatment time: 60 min Ending Pain: 2-7/10 (sharp temporary pain) pt to ice frequently and avoid 30-40 degrees knee flexion concentric exercise weight bearing Stop Time: 9:30 am ASSESSMENT Response to today???s treatment: good PLAN Continue PT with established POC Short Term Goals: 2 weeks 1. Pt to be indep with HEP to be able to go from sit to stand with 0-2/10 pain and improved mobility, not yet achieved 2. Decrease gait deviations on level surfaces, progressing 3. Pt to dress self pain free, achieved [facility] Goals: 16 weeks 1. Pt to continue to be indep with HEP to be able to get out of a chair pain free with normal mobility 2. Pt to have normal gait level surface and walk 1 hour pain free 3. Pt to have 5/5 strength R LE to be able to amb up and down stairs pain free 4. Pt to be able to squat and lift 30-40# pain free and with normal mobility Teresa Laech PT documented in this encounter Plan of Treatment Not on file documented as of this encounter Visit Diagnoses Diagnosis S/P arthroscopy of right knee- Primary Other postprocedural status documented in this encounter Care Teams Impregnating Helper Relationship Specialty Start Date End Date No, Physician PCP - General 12/21/21 Zach Reyez PT Physical Therapist Physical Therapy 01/20/22 [place] [address] [place] [address] Physical Therapist Physical Therapy 01/30/22 Hussain Lopez PTA Enterprise Application Architect Physical Therapy 02/03/22 documented as of this encounter
--- OUTSIDE RECORDS SUMMARY | 2024-05-22 05:25 | XMS_ITS | Encounter Summary ---
Author Organization [facility] Address [address] [place] [address] Phone Care Team Providers Care Automatic Stacker Name Role Phone No, Physician Primary Care Provider [phone] Zach Reyez PT Unavailable Unavailable Teresa Leach PT Unavailable [phone] Hussain Lopez DETECTIVE [place] Unavailable Unavailabl e Reason for Visit * Reason Comments Pain Encounter Details Date Type Department Care Team (Late st Contact Info) Description 02/03/2023 2:30 PM CDT Office Visit [facility] [address] [place] [id number] [place] [id number] [place] [address] Chronic pain of right knee (Primary Dx); Osteochondral defect [...] on file 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 NEW PATIENT VISIT CHIEF COMPLAINT: Pain of the Right Knee HISTORY OF PRESENT ILLNESS: Zayda is a 47-year-old male with chief complaint of right knee pain. He underwent right knee ACL reconstruction with a BTB autograft and medial meniscus repair with patellar chondroplasty on01/15/[address] Suh. He then underwent arthroscopic debridement of arthrofibrosis on 07/09/2022. He denies any instability or locking sensations but does continue to complain of pain over the anteromedial joint line he says it is worse with the knee near full extension and when he weightbears. He states it is affecting his quality of life on a daily basis. 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 He is here today for a 2nd opinion to discuss next steps. PAST MEDICAL HISTORY He has no past medical history of Acute respiratory failure requiring reintubation (CMS/HCC) (HCC),Awareness under anesthesia, Delayed emergence from general anesthesia, Hard to intubate, Malignant hyperthermia, Motion sickness, PONV (postoperative nausea and vomiting), Postoperative delirium, Pseu docholinesterase deficiency, or Sleep apnea. PAST SURGICAL HISTORY He has a past surgical history that includes Rotator cuff repair (Right) and Anterior cruciate ligament repair (Right, 12/2021). INITIAL REVIEW OF MEDICATIONS He has a current medication list which includes the following prescription(s): hydrocodone-acetaminophen, meloxicam, meloxicam, and naproxen. DRUG ALLERGIES He has No Known Allergies. SOCIAL HISTORY He reports that he has never smoked. He has never used smokeless tobacco. He reports current drug use. Frequency: 2.00 times per week. Drug: Alcohol. Patient reports consuming alcoholic drinks , witha daily consumption of drinks. Patient denies daily consumption of 6 or more alcoholic drinks at one occasion. FAMILY HISTORY His family history is not on file. REVIEW OF SYSTEMS Review of Systems Musculoskeletal: Positive for joint pain. PHYSICAL EXAMINATION: The patient is a pleasant male in no acute distress. Alert and oriented x3. Respirations are regular and without distress. Right Knee: Ambulates with an Normal gait. Skin is intact. Well healed incisions. No effusion. Tenderness: Anteromedial joint line ROM: 130 flexion; full extension, no crepitus Normal patellar translation and tilt Saurabh Test: Negative Squat Test: negative Thessaly Test: negative Ed: Stable Anterior drawer: Stable Posterior drawer: Stable Varus/valgus: Stable to varus and valgus stress at 0 and 30 degrees of flexion. Strength: 5/5 tib ant, EHL, and gastrocsoleus strength bilaterally. Neurovascular: Intact light touch over the lateral thigh, medial and lateral leg, dorsum of the foot, including first web space, and plantar aspect of the foot. Palpable posterior tib pulse with regular rate and rhythm. REVIEW OF IMAGING: Prior radiographs from 11/12 demonstrate evidence of ACL reconstruction with some narrowing of the medial joint space and patellofemoral compartment. Full length standing radiographs of the bilaterallower extremities do demonstrate mechanical alignment that passes medial to the knee joint indicative of bilateral varus alignment of the knees. MRI of the right knee from 01/03/2023 demonstrates increasing size of medial femoral condyle bony edema with underlying medial femoral condyle cartilage lesion. The ACL graft is intact. There is evidence of prior medial meniscus repair. IMPRESSION: Thirteen months status post right knee ACL reconstruction with patellar tendon autograft, medial meniscus repair, and patellar chondroplasty. Right knee medial femoral condyle osteochondral lesion TREATMENT PLAN: We had a long discussion with the patient today regarding his right knee pain. The ACL graft is intact and his examination findings are not consistent with tearing of the meniscus. His symptoms are consistent with his medial femoral condyle osteochondral lesion which appears to be increasing in size. We do tend to agree that he would be a candidate for a right knee diagnostic arthroscopy and chondroplasty of the medial femoral condyle lesion to evaluate the size and character of the lesion. If the lesion is consistent with the appearance of the MRI findings, the next step would likely be an osteochondral allograft procedure with a medial opening wedge high tibial osteotomy given his varus alignment in order to protect the graft. We are going to work on scheduling the diagnostic arthroscopy and chondroplasty to get this process started. We discussed the risks of surgery including bleeding, stiffness, persistent pain, infection, neurovascular injury, injured structures and/or wound(s) not healing and needing more surgery in the future. We also discussed benefits including improved pain and function. The patient understood the risks and wishes to proceed. Deepak Sanchez DO Sports Medicine Fellow [facility] I was present for the critical portion of the history, physical examination, and participated in the radiographic review and medical decision making for this patient. I agree with the findings in thereport of the above residence/fellow dictating using [employer] software. Professor of Orthopaedic Surgery Director, Sports Medicine Fellowship [facility] documented in this encounter Plan of Treatment Not on file documented as of this encounter Results * XR Knee Bilateral AP Standing (02/03/2023 3:43 PM CDT) Anatomical Region Laterality Modality Lower Extremities, Knee Bilateral Computed Radiography 02/03/2023 3:50 PM CDT Impressions 02/03/2023 3:50 PM CDT 1. ??Bilateral mechanical axis varus. ??Mild bilateral medial compartment osteoarthritis. ??Right anterior cruciate ligament reconstruction changes. Electronically signed by: Jose Han MD Narrative 02/03/2023 3:50 PM CDT EXAMINATION: XR KNEE BILATERAL AP STANDING HISTORY: ??Right knee pain. FINDINGS: 3 stitched views of the bilateral lower extremities are submitted with comparison 11/11/2022. Right anterior cruciate ligament reconstruction changes. ??There is mild varus mechanical axis bilaterally. ??There is no leg length discrepancy. 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 ??There is no acute fracture. ??The bilateral knee medial and lateral compartment joint spaces are maintained with small medial compartment osteophytes bilaterally. Procedure Note Jose Han MD - 02/03/2023 EXAMINATION: XR KNEE BILATERAL AP STANDING HISTORY: Right knee pain. FINDINGS: 3 stitched views of the bilateral lower extremities are submitted with comparison 11/11/2022. Right anterior cruciate ligament reconstruction changes. There is mild varus mechanical axis bilaterally. There is no leg length discrepancy. 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 There is no acute fracture. The bilateral knee medial and lateral compartment joint spaces are maintained with small medial compartment osteophytes bilaterally. IMPRESSION: 1. Bilateral mechanical axis varus. Mild bilateral medial compartment osteoarthritis. Right anterior cruciate ligament reconstruction changes. Electronically signed by: Jose Han MD us Mikey Hawkins MD IMG XR PROCEDURES Final Res ult documented in this encounter Visit Diagnoses Diagnosis Chronic pain of right knee- Primary Osteochondral defect of femoral condyle Chronic pain of right knee documented in this encounter Care Teams Automatic Stacker Relationship Specialty Start Date End Date No, Physician PCP - General 12/21/21 Zach Reyez, PT Physical Therapist Physical Therapy 01/20/22 [place] [address] [place] [address] Physical Therapist Physical Therapy 01/30/22 Hussain Lopez PTA Retail Asset Protection Specialist Physical Therapy 02/03/22 documented as of this encounter
--- OUTSIDE RECORDS SUMMARY | 2024-05-22 05:25 | XMS_ITS | Encounter Summary ---
Author Organization [facility] Healthcare Address [address] [place] [address] Care Team Providers Care Chief Building Inspector Name Role Phone No, Physician Primary Care Provider [phone] Zach Reyez PT Unavailable Unavailable Teresa Leach PT Unavailable [phone] Hussain Lopez DIESEL MOTOR MECHANIC Unavailable Unavailabl e Reason for Visit * Auth/Cert (Routine) Specialty Diagnoses / Procedures Referred By Danny t Referred To Contact Diagnoses Osteochondral lesion Osteochondral lesion [M89.9, M94.9] Procedures IA KNEE SCOPE,DIAGNOSTIC RIGHT KNEE DIAGNOSTIC ARTHROSCOPY, POSSIBLE CHONDROPLASTY RIGHT Referral ID Status Reason Start Date Expiration Date Visits Re quested Visits Authorized [id number] 1 1 Encounter Details Date Type Department Care Team (Latest Contact Info) Description 02/11/2023 1:27 PM CDT - 02/11/2023 5:35 PM CDT Hospital Encounter [facility] [address] [place] [address] Mikey Hawkins MD [address] [place] [address] Discharge Disposition: Discharge to home or self [...] on file 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 Your physician or designated manufacturer representative will contact you. Do not drive/operate heavy [...] in this encounter H&P Notes * Suzan Zhang NP - 02/11/2023 1:41 PM CDT Outpatient Pre-Procedure [...] SURGERY Right 2022 ROTATOR CUFF REPAIR Right 2013 Medications Prior [...] arrived to the PACU via stretcher with SPINNING LATHE OPERATOR HYDRAULIC and BOX BLANK MACHINE OPERATOR HELPER at the bedside. Pt sleeping with oxygen [...] drinks. Pt states pain was 7/10. Oral [place] given. was called and she is on [...] DO - Fellow Anesthesiologist: Frieda East MD BOX BLANK MACHINE OPERATOR HELPER: Modesta Lizarraga CRNA; Babs Cook CRNA Blanker Press Operator: Marnie Salcido RN; Aayush Peralta RN; Suzan [...] meniscal repair. SURGEON Mikey Hawkins M.D. 1ST GLASS MOLD REPAIRER Deepak Sanchez D.O. ANESTHESIA General endotracheal. FLUIDS 700 mL [...] final dressing placement. Job ID/Internal Job ID: [id number] * Pre-Procedure Instructions - Sapna Walter RN - 02/10/2023 10:47 AM CDT We are pleased that you and your doctor have chosen [facility] for your surgery. We hope the following information will help make your visit a pleasant one. The name of the building is [facility] in [place]. Directions to facility (address [place] [address] [address], [address] [facility] [address] [facility] exit. Zip [address] When you enter the building, look directly to your left, you will see 2 glass double doors. These double doors say [address]. Go through those double doors and check in with the jailkeeper. Patient has own crutches and knows how [...] out. Instructed to patient to refer to [facility] surgery guide page 6 for any questions regarding eating and drinking day of surgery. For medications that the Nurse Practitioner instructed you to take on the morning of surgery, take the medications with a few sips of water. Pt's. FRIEND WILL DROP OFF will be with patient and HIS ADITYA SCHNEIDER [phone] care for patient for the first 24 [...] their own or purchase it from the [place] area. * Perioperative Nursing Note - Nava Guy RN - 02/09/2023 8:20 AM CDT Center for Preoperative Assessment and Planning Perioperative Nursing Note Telephone Preoperative Evaluation ([facility]) - TELEPHONE ONLY, NO PHYSICAL EXAM Date: [...] Implant Menicus Repair Fiberstitch Curved Ar-4570 - [id number] - Implanted (Right) Knee Inventory item: [employer] [place] Meniscal Repair Curved 2 0 Fiberwire Fiberstitch AR-4570 Model/Cat number: [id number] Cork Floor Installer: [employer] Lot number: [id number] As of 01/15/2022 Status: Implanted [employer] Implant Menicus Repair Fiberstitch Curved Ar-4570 - [id number] - Implanted (Right) Knee Inventory item: [employer] [place] Meniscal Repair Curved 2 0 Fiberwire Fiberstitch AR-4570 Model/Cat number: [id number] Cork Floor Installer: [employer] Lot number: [id number] As of 01/15/2022 Status: Implanted [employer] Screw Fastthread Biocomposite Interference 8mm X 20mm [id number] - [id number] - Implanted (Right) Knee Inventory item: [employer] Screw Fastthread Biocomposite Interference 8mm X 20mm [id number] Model/Cat number: [id number] Cork Floor Installer: [employer] Lot number: [id number] As of 01/15/2022 Status: Implanted [employer] Screw Fastthread Biocomposite Interference 10mm X 20mm [id number]-10 - [id number] - Implanted (Right) Knee Inventory item: [employer] Screw Fastthread Biocomposite Interference 10mm X 20mm [id number] Model/Cat number: [id number] Cork Floor Installer: [employer] Lot number: [id number] As of 01/15/2022 Status: Implanted SKIN Piercings Remaining: No Wound (LDAs) Type of Wound (LDA): (denies) SCREENINGS Adriel index score: 100 NUTRITION PATIENT CARE PLANNING Advance Directives (For Healthcare) Have you reviewed your Advance Directive and is it valid for this stay?: Not applicable Advance Directive: Patient has advance directive, copy not in chart Communication/Crystal Attacher Needs Communication Needs: None Assistive Devices/DME: None Hearing - Right Ear: Functional Hearing - Left Ear: Functional Discharge Planning Type of Residence: Private residence Living Arrangements: Spouse/significant other Support Systems: Spouse/significant other Patient expects to be discharged to:: Private residence DAY HAUL YOUTH SUPERVISOR NO ADDITIONAL COMMENTS/ FOLLOW UP * Pre-Procedure [...] remove nail coverings, artificial nails and nail sinhala prior to the day of surgery. You should leave your valuables and any jewelry at home. No metal or piercings are allowed in the operating room. You should bring your insurance card, a photo ID (example: Forest Ecologist's License) and a method of payment for [...] Remove nail coverings, artificial nails and nail sinhala. The Morning of Surgery: Take a shower [...] questions, please call the CPAP Staff at [phone], Tuesday-Tuesday 8am-4:30pm. All patients should read the below section: COVID 19 Updates & Visitor Policy: Please access [email or web address] for the most updated information. Information on [facility]: Please view [email or web address] (Patient & Visitor Information) for additional details regarding Advanced Directive forms, AWARE, directions, parking information, lodging, Internet access, dining and more. Information on [facility] or [facility] ([facility]): Please view [email or web address] (Patient and Visitor Information) for parking/directions and more. For MyChart information, to activate account or password recovery, please go to [email or web address] or call [phone] (toll-free: [phone]). Information for Suicide Prevention: National Suicide Prevention Lifeline (6-517- 768-CNFK (7126)). Surgery Times: For patients having surgery @ [facility], if your surgeon's office has not notified you of your surgery time by NOON THE BUSINESS DAY BEFORE your surgery, please call the surgery center [phone]. documented in this encounter Plan of Treatment Not on file documented as of this encounter Procedures Procedure Name Priority Date/Time Associated Diagnosis Comments ARTHROSCOPY KNEE 02/11/2023 3:32 PM CDT Osteochondral lesion Arthritis documented in this encounter Visit Diagnoses Diagnosis Osteochondral lesion- Primary documented in this encounter Admitting Diagnoses Diagnosis Osteochondral lesion documented in this encounter Administered Medications Inactive Administered Medications - up to 3 most recent administrations Medication Order MAR Action Action Date Dose Rate Site HYDROcodone-acetaminophen (NORCO) 5-325 mg per tablet [...] 1:54 PM CDT 30 mL/hr 30 mL/hr lidocaine PF (XYLOCAINE) 10 mg/mL (1 %) [...] Patients 1354 (New Bag - Prov ider: nAayeli Herrera RN)1415 (Due)1528 (Rate/Dose Verify - Provider: Modesta Lizarraga CRNA)1600 (Paused - Provider: Babs Cook CRNA - Comment: Switch to gravity)1601 (Restarted - Provider: Babs Cook CRNA)1609 (Stopped - Provider: Edwina Harris RN) Lactated Ringer's (LR) infusion 125 mL/hr, intravenous, Continuous, Starting on Tue02/11/23 at 1645, Phase I 1609 (Continued from OR - Provider: Edwina Harris RN)1724 (Stopped - Provider: Edwina Harris RN) PRN [...] Count Last Ordered Date First Ordered Date BUPivacaine-EPINEPHrine (MAR SANDRA with EPI) 0.5 %-1:200,000 preservative free injection 1 02/11/2023 ceFAZolin (ANCEF) 2,000 mg/5 0 mL in [...] 1 02/11/2023 Lactated Ringer's (LR) infusion 1 3 Lactated Ringer's (LR) irrigation 1 023 meperidine (DEMEROL) preserv ative free injection 12.5 [...] 02/11/2023 documented in this encounter Care Teams Chief Building Inspector Relationship Specialty Start Date End Date No, Physician PCP - General 12/21/21 Zach Reyez, PT Physical Therapist Physical Therapy 01/20/22 [place] [address] [place] [address] Physical Therapist Physical Therapy 01/30/22 Hussain Lopez PTA Manager Intern Physical Therapy 02/03/22 documented as of this encounter
--- OUTSIDE RECORDS SUMMARY | 2024-05-22 05:25 | XMS_ITS | Encounter Summary ---
Author Organization [facility] Address [address] [place] [address] Phone Care Team Providers Care Student Life Vice President Name Role Phone No, Physician Primary Care Provider [phone] Zach Reyez PT Unavailable Unavailable Teresa Leach PT Unavailable [phone] Hussain Lopez PRODUCT MARKETING INTERN Unavailable Unavailabl e Reason for Visit * Reason Comments Follow-up Encounter Details Date Type Department Care Team (Latest Contact Info) Description 07/06/2022 3:40 PM NEUROLOGY TECH Office Visit [facility] Orthopaedic Surgery [address] [place] [phone] [place] [address] [address] [facility] [address] [place] [address] Arthrofibrosis of knee joint, right (Primary Dx); S/P ACL reconstruction; S/P lateral meniscus repair of left knee; S/P medial meniscus repair of right knee Social History Tobacco Use [...] on file Legal Sex Male 6:31 AM NEUROLOGY TECH Gender Identity Not on file Sexual Orientation Not on file documented as of this encounter Progress Notes * Antonio Suh IV, MD - 07/06/2022 3:40 PM CST Images from the original note were not included. Patient Name: Zayda Torres Date: 07/06/2022 INTERIM HISTORY: Follow up from Right Knee Arthroscopy - Anterior Cruciate Ligament Reconstruction With Bone Tendon Bone Autograft, Medial And Lateral Meniscus Repair , Patella Chondroplasty - Right on 01/15/2022 Primary complaint continues to be swelling and he does have anteromedial and medial knee pain. PHYSICAL EXAM: Incision: well healed Erythema: No Edema: No Effusion: Moderate Ecchymosis: No Discharge: No 0-130 degrees of flexion 1A Ed, 1A anterior drawer and negative pivot shift trace quad atrophy Imaging: I independently reviewed the MRI of his right knee obtained on June 30, 2022 which shows an intact ACL graft. Likely nidus of arthrofibrosis anterior to the graft. Changes in the medial meniscus consistent with the previous repair. 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 Possible focal lesion on the medial facet of the patella. Small effusio n. Expected postoperative changes in the patellar tendon. IMPRESSION/DIAGNOSIS: Persistent pain and swelling over 5 months after right knee surgery Likely due to arthrofibrosis PLAN: I went over the MRI with the patient. I explained that I would recommend an arthroscopic debridement of arthrofibrosis and possible patellar chondroplasty at this time is a very high likelihood of addressing a significant proportion if not most of his symptoms. I explained what would be involved in the surgery and recovery. I explained it would be an outpatient procedure. The patient would come in and go home the same day. I recommend wwi-fjweim-cbzmbrs for2 days and then gradual return to full weight bearing but taking it easy for 2 weeks. I will see the patient back in the clinic at about 2 weeks where I would check the wounds, go over the arthroscopic pictures, and assess progress. At that time I usually recommend an exercise bike plus or minus some physical therapy for the next 4 weeks. I usually see the patient back about 6 weeks after surgery. I explained many people have approached full recovery by that time although it can take 2-3 monthsto reach a full recovery from the surgery. I discussed the risk and benefits of the surgery including but not limited to the risk of infection, risk of anesthesia, risk of blood clot, risk of nerve and blood vessel injury, and risk of limited, delayed or short lasting improvement in symptoms. The patient appears to understand the injury, treatment alternatives, indications for surgery, risks and benefits, and what is involved in the recovery and wishes to proceed. We can schedule surgery at hisconvenience. I would be careful with the knee in the interim. The patient had all questions answered and appears comfortable with this plan going forward. Return to clinic: after arthroscopic debridement of arthrofibrosis OLOGY TECH documented in this encounter Plan of Treatment Not on file documented as of this encounter Visit Diagnoses Diagnosis Arthrofibrosis of knee joint, right- Primary S/P ACL reconstruction Other postprocedural status S/P lateral meniscus repair of left knee S/P medial meniscus repair of right knee documented in this encounter Care Teams Student Life Vice President Relationship Specialty Start Date End Date No, Physician PCP - General 12/21/21 Zach Reyez, PT Physical Therapist Physical Therapy 01/20/22 [place] [address] [place] [address] Physical Therapist Physical Therapy 01/30/22 Hussain Lopez PTA Drop Count Associate Physical Therapy 02/03/22 documented as of this encounter
--- OUTSIDE RECORDS SUMMARY | 2024-05-22 05:25 | XMS_ITS | Encounter Summary ---
Author Organization [facility] Address [address] [place] [address] Phone Care Team Providers Care Automobile Tester Name Role Phone No, Physician Primary Care Provider Zach Reyez PT Unavailable Unavailable Teresa Leach PT Unavailable [phone] Hussain Lopez EMBEDDED SYSTEMS DEVELOPER Unavailable Unavailabl e Reason for Referral * MRI/CAT/PET Scan (Routine) - Closed Specialty Diagnoses / Procedures Referred By Contac t Referred To Contact Diagnoses S/P ACL reconstruction Effusion of right knee Procedures [place] [address] [place] [address] Phone: tel: fax: External Order Referral ID Status Reason Start Date Expiration Date Visits Re quested Visits Authorized [id number] Closed 06/24/2022 07/24/2023 1 1 NT SERVICE AND CONSULTING MANAGER Reason for Visit * Reason Comments Follow-up Encounter Details Date Type Department Care Team (Latest Contact Info) Description 06/24/2022 4:30 PM CLIENT SERVICE AND CONSULTING MANAGER Office Visit [facility] Orthopaedic Surgery [address] [place] [phone] [place] [address] [place] [address] S/P ACL reconstruction (Primary Dx); Effusion of right knee; S/P lateral meniscus repair of left knee; [...] on file Legal Sex Male 6:31 AM CLIENT SERVICE AND CONSULTING MANAGER Gender Identity Not on file Sexual Orientation Not on file documented as of this encounter Progress Notes * Antonio Suh IV, MD - 06/24/2022 4:30 PM CST Images from the original note were not included. Patient Name: Zayda Torres Date: 06/24/2022 INTERIM HISTORY: Follow up from Right Knee Arthroscopy - Anterior Cruciate Ligament Reconstruction With Bone Tendon Bone Autograft, Medial And Lateral Meniscus Repair , Patella Chondroplasty - Right on 01/15/2022 The patient has recently had pain: every day The current level of pain is: 0 The worst it has been in the last few days is: 3 Wound complaints: None He reports about 3 weeks of improved symptoms after the aspiration injection now he has more pain and swelling. His symptoms are severely limiting his ability to do physical therapy. PHYSICAL EXAM: Incision: well healed Erythema: No Edema: No Effusion: Moderate Ecchymosis: No Discharge: No 0-130 degrees of flexion 1A Ed, 1A anterior drawer and negative pivot shift trace quad atrophy IMPRESSION/DIAGNOSIS: Persistent pain and swelling over 5 months after right knee surgery concerning for possible arthrofibrosis PLAN: Given the fact that he has had persistent pain and swelling now 5 months out from surgery that havenot responded to physical therapy, anti-inflammatories and an aspiration injection, I would recommend an MRI to rule out arthrofibrosis. I will see him back to review findings and discuss treatment options. He was in agreement with this approach. Return to clinic: after MRI NT SERVICE AND CONSULTING MANAGER documented in this encounter Plan of Treatment Not on file documented as of this encounter Procedures Procedure Name Priority Date/Time Associated Diagnosis Comments MRI KNEE RIGHT WO CONTRAST Schedule Routine, Read Routine (OP Routine) 12/08/2022 8:56 AM CDT S/P ACL reconstruction Effusion of right knee documented in this encounter Results * MRI Knee Right WO Contrast (12/08/2022 8:56 AM CDT) Anatomical Region Laterality Modality Lower Extremities Right Magnetic Reson ance us Antonio Suh IV, MD IMG MRI PROCEDURES Fi nal Result documented in this encounter Visit Diagnoses Diagnosis S/P ACL reconstruction- Primary Other postprocedural status Effusion of right knee S/P lateral meniscus repair of left knee S/P medial meniscus repair of right knee documented in this encounter Care Teams Automobile Tester Relationship Specialty Start Date End Date No, Physician PCP - General 12/21/21 Zach Reyez, PT Physical Therapist Physical Therapy 01/20/22 [place] [address] [place] [address] Physical Therapist Physical Therapy 01/30/22 Hussain Lopez, TRIPP Automotive Electrical Fitter Physical Therapy 02/03/22 documented as of this encounter
--- OUTSIDE RECORDS SUMMARY | 2024-05-22 05:25 | XMS_ITS | Encounter Summary ---
Author Organization [facility] Address [address] [place] [address] Phone Care Team Providers Care Cabinetmaker Apprentice Name Role Phone No, Physician Primary Care Provider [phone] Zach Reyez PT Unavailable Unavailable Teresa Leach PT Unavailable [phone] Hussain Lopez HAIR ASSISTANT Unavailable Unavailabl e Encounter Details Date Type Department Care Team (Late st Contact Info) Description 07/07/2022 Orders Only [facility] Orthopaedic Surgery [address] [place] [address] [place] [address] [place] [address] Social History Tobacco Use Types [...] on file 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 Gender Identity Not on file Sexual Orientation Not on file documented as of this encounter Ordered Prescriptions Prescription Sig Dispense Quantity Refills Last Filled Start Date End Date meloxicam (MOBIC) 15 mg tablet Take 1 tablet (15 mg total) by mouth daily for 10 days 10 tablet 07/09/2022 10/08/2022 documented in this encounter Plan of Treatment Not on file documented as of this encounter Visit Diagnoses Not on filedocumented in this encounter Care Teams Cabinetmaker Apprentice Relationship Specialty Start Date End Date No, Physician PCP - General 12/21/21 Zach Reyez, PT Physical Therapist Physical Therapy 01/20/22 [place] [address] [place] [address] Physical Therapist Physical Therapy 01/30/22 Hussain Lopez, HAIR ASSISTANT Jalousies Installer Physical Therapy 02/03/22 documented as of this encounter
--- OUTSIDE RECORDS SUMMARY | 2024-05-22 05:25 | XMS_ITS | Encounter Summary ---
Author Organization [facility] Address [address] [place] [address] Phone Care Team Providers Care Java Web Application Developer Name Role Phone No, Physician Primary Care Provider [phone] Zach Reyez PT Unavailable Unavailable Teresa Leach PT Unavailable [phone] Hussain Lopez STUDENT ADVISOR Unavailable Unavailabl e Reason for Referral * MRI/CAT/PET Scan (Routine) - Closed Specialty Diagnoses / Procedures Referred By Contac t Referred To Contact Radiology Diagnoses S/P arthroscopy of right knee S/P ACL reconstruction Procedures [place] [address] [place] [address] Phone: tel: fax: External Order Referral ID Status Reason Start Date Expiration Date Visits Re quested Visits Authorized [id number] Closed 12/09/2022 01/08/2024 1 1 Reason for Visit * Reason Onset Date Comments Knee Pain 12/09/2022 Encounter Details Date Type Department Care Team (Late st Contact Info) Description 12/09/2022 Telephone [facility] Orthopaedic Surgery [address] [place] [address] [place] [address] [place] [address] Knee Pain Social History Tobacco Use Types Packs/Day Years [...] on file Legal Sex Male 6:31 AM ADJUSTER PIANO ACTION Gender Identity Not on file Sexual Orientation Not on file documented as of this encounter Ordered Prescriptions Prescription Sig Dispense Quantity Refills Last Filled Start Date End Date meloxicam (MOBIC) 15 mg tablet Take 1 tablet (15 mg total) by mouth daily 30 tablet 2 12/09/2022 04/01/2023 documented in this encounter Miscellaneous Notes * Telephone Encounter - Pawan Ervin - 12/09/2022 5:30 PM CDT MRI KNEE ORDERED. documented in this encounter Plan of Treatment Not on file documented as of this encounter Results * MRI Knee Right WO Contrast (01/04/2023 8:51 AM CDT) Anatomical Region Laterality Modality Lower Extremities Right Magnetic Reson ance Antonio Suh IV, MD IMG MRI PROCEDURES Fi nal Result documented in this encounter Visit Diagnoses Diagnosis S/P arthroscopy of right knee- Primary Other postprocedural status S/P ACL reconstruction Other postprocedural status documented in this encounter Care Teams Java Web Application Developer Relationship Specialty Start Date End Date No, Physician PCP - General 12/21/21 Zach Reyez, PT Physical Therapist Physical Therapy 01/20/22 [place] [address] [place] [address] Physical Therapist Physical Therapy 01/30/22 Hussain Lopez PTA Router Machine Operator Physical Therapy 02/03/22 documented as of this encounter
--- OUTSIDE RECORDS SUMMARY | 2024-05-22 05:25 | XMS_ITS | Encounter Summary ---
Author Organization [facility] Healthcare Address [address] [place] [address] Care Team Providers Care School Cafeteria Cook Head Name Role Phone No, Physician Primary Care Provider [phone] Zach Reyez PT Unavailable Unavailable Teresa Leach PT Unavailable [phone] Hussain Lopez PSYCHIATRIC THERAPIST Unavailable Unavailabl e Reason for Visit * Reason Comments PT Treatment Encounter Details Date Type Department Care Team (Late st Contact Info) Description 06/09/2022 6:15 PM RIVET TOSSER Therapy [facility] at [facility] [id number] [place] [address] [address] [place] [address] [place] [address] [place] [address] Rupture of anterior cruciate ligament [...] on file Legal Sex Male 6:31 AM RIVET TOSSER Gender Identity Not on file Sexual Orientation Not on file documented as of this encounter Progress Notes * Teresa Leach, PT - 06/09/2022 6:15 PM CST [facility]: Sports Therapy and Rehabilitation Physical therapy treatment note Name: Zayda Torres : 1975 Age / Sex: 46 y.o. / male Referring Diagnosis: Rupture of anterior cruciate ligament of right knee, initial encounter [S83.511A], meniscal repair Date of Onset/surgery: 01/15/22 Referring Practitioner: Antonio Suh IV* Phase IV: Advanced strengthening & control (min 12 Weeks s/p ACL Recon & meniscal repair) Discard brace when ROM/quad control allows No deep flexion with WB Bicycle/elliptical/[employer] track/ stairclimber Full arc progressive resistance exercises-emphasize quads Begin functional exercise program ( steps up/down, sports cord) Strengthening isokinetic Quadriceps distal pad/squats/leg press/hamstring curl 06/10/22 pt is 21 weeks post op Today's date: 06/09/2022 Start Time: 6:15 pm SUBJECTIVE --pt reports he had more increased swelling after last visit and has again rested it for a week. Ptwould like to do light exercise today, non weight bearing. He also feels he should only attend PT 1time per week due to inability to progress and continued swelling. He reports he has been started on miloxicam for 2 weeks. He is to follow up with Dr Suh on 06/24/22. Subjective Functional Outcome Measure: Knee Injury and [...] Hip Extension: Left 5/5; Right 5/5 Palpation: again noted: moderate R knee swelling today anteriorly and posteriorly, and good (-)R quadricep contraction quad fatigue /quivering noted with all open chain strengthening exercises, especially eccentrically TREATMENT 1) bike for 10 min level 1 2) exercise per flow sheet with verbal and manual cues. Modified HEP due to continued increase in pain and swelling. No closed chain exercise today, including no low level leg press. Focusing on quadstrengthening. performed BFR training at 60% today with 0# 30,15,15,15 reps. 3) pt declined ice, to ice at home Exercise/ Activity 05/10 05/14 05/21 05/28 06/09 Side stepping Initiated against one blue band Backward walking Initiated against one blue band Amb against bands forward Initiated x 4 lengths 60' X Hip adduction, abduction,extension With 2# x20 each Dynamic walking high knees and leg curls Standing TKE with band Leg press 4 plates bilat 2x20 2 plates unilat 3x20 without pain complaints 4 plates bilat 2x20 2 and 2 1/2 plates unilat 3x20 X Hold today due to fatigue hold Supine SLR 1# 1 x20 2# x20 LAQ full range 10-25# bilat to unilat conc/ecc 10# bilat conc/ecc X 10# 3x10 bilat on machine Unilat 5# with cuff weight 2# x20 25# leg curl 25-40# 3x10 bilat 40# 2x10 X 25# 3 x 10 bilat BFR 30,15,15,15 with 0# At 60% with 0# 30,15,15,15 reps SAQ Initiated with 2# x20 Standing heel raise Standing gastroc stretch Gait training SL balance In 2 days X X Single leg stance with opposite leg swings In 2 days Amb over sticks In 2 days Over low hurdles ant and laterally Supine and quadriped leg press against black band Patellar mobs Upright bike 10 min X 10 min 10 min level 1 Active warmup Step-up hold PT ABLE TO DO 2 STEP UP TODAY PAIN FREE!!! Tried but pain full and knee gave way -- Step down hold 4 x10 X with quad fatigue noted Side stepping with band In 2 days Wall sit (multi angle isometrics) achieving range with uninvolved assist home Triplanar stepping in star Pole squat X home Flowsheet [place]: X = performed, x = times/multiply, s = seconds, ea = each, st = stretch Timed Treatment: Therapeutic exercise for 40 minutes Total of Timed Treatment Codes: 40 minutes Untimed Treatment: not today Ending Pain: 0/10 Stop Time: 7:00 pm [...] assistance or extensor lag in 4 weeks. Correction Goals: 12 weeks 1. Patient will report [...] return to running at 16 weeks. Teresa Leach PT T TOSSER documented in this encounter Plan of Treatment Not on file documented as of this encounter Visit Diagnoses Diagnosis Rupture of anterior cruciate ligament of right knee, initial encounter- Primary documented in this encounter Care Teams School Cafeteria Cook Head Relationship Specialty Start Date End Date No, Physician PCP - General 12/21/21 Zach Reyez, PT Physical Therapist Physical Therapy 01/20/22 [place] [address] [place] [address] Physical Therapist Physical Therapy 01/30/22 Hussain Lopez, TRIPP Shaper Set Up Operator Physical Therapy 02/03/22 documented as of this encounter
--- OUTSIDE RECORDS SUMMARY | 2024-05-22 05:25 | XMS_ITS | Encounter Summary ---
Author Organization [facility] Healthcare Address [address] [place] [address] Care Team Providers Care Bank President Name Role Phone No, Physician Primary Care Provider [phone] Zach Reyez PT Unavailable Unavailable Teresa Leach PT Unavailable [phone] Hussain Lopez OPERATIONS EXECUTIVE Unavailable Unavailabl e Reason for Visit * Auth/Cert Specialty Diagnoses / Procedures Referred By Danny t Referred To Contact Diagnoses Arthrofibrosis of knee joint, right Arthrofibrosis of knee joint, right [M24.661] Procedures MI ARTHRS HIP DEBRIDEMENT/SHAVING ARTICULAR CRTLG RIGHT KNEE ARTHROSCOPIC DEBRIDEMENT OF ARTHROFIBROSIS WITH CHONDROPLASTY Referral ID Status Reason Start Date Expiration Date Visits Re quested Visits Authorized [id number] 1 1 Encounter Details Date Type Department Care Team (Late st Contact Info) Description 07/09/2022 12:00 PM MANAGER INTERMEDIATE Anesthesia Event [facility] [address] [place] [id number] Frieda East MD [address] [place] [address] Adriana Jeronimo NP [address] [facility] [phone] [place] [address] Anesthesia Record Procedure Summary Procedure Name Responsible Anesthesiologist Anesthesia Start Time Anesthesia Stop Time RIGHT KNEE ARTHROSCOPIC DEBRIDEMENT OF ARTHROFIBROSIS (Right: Knee) Frieda East MD 07/09/22 1200 07/09/22 1256 Events Date Time Event Comment 07/09/2022 1111 1200 In Room 1200 AN Equip Check 1200 An Start 1200 An Start Data 1206 An Induction The patient was reevaluated immediately before moderate or deep sedation use and before anesthesia induction. 1209 An LMA 1212 Anesthesia Ready 1218 Proc Start 1219 Incision Start 1246 Proc Fin 1248 Out of Room 1249 Airway Removed 1249 an stop data 1255 Handoff to RN I completed my handoff [...] disposition at the time of handoff: PACU 1256 An Stop Meds Name Total ceFAZolin (ANCEF) 2,000 mg/50 mL in dext anayeli (premix) 2,000 mg 2,000 mg midazolam 2 mg/2 mL 2 mg fentaNYL PF 100 mcg lidocaine 2 % 100 mg propofol 150 mg famotidine PF 20 mg ondansetron PF 8 mg ketorolac 30 mg dexamethasone 4 mg/mL 8 mg Lactated Ringer's (LR) infusion 0 mL * Agents Name O2 N2O Air Sevoflurane Inspired Sevoflurane * Blood No blood administrations on file. Lines, Drains, and Airways Type Details Placement Removal Peripheral IV Placement Date: 07/09/22; Placement Time: 1031; Catheter Size: 20 G; Orientation: Left; Location: Hand; Site Prep: Chlorhexidine; Insertion Attempts: 1; Patient Tolerance: Tolerated well; Removal Date: 07/09/22; Removal Time: 1404 07/09/22 1031 by Bre Moreno RN 07/09/22 1404 by Anayeli Herrera RN Supraglottic Airway Placement Date: 07/09/22; Placement Time: 1212 (created via procedure documentation); Mask Ventilation: 1; Size: 5; Insertion Attempts: 1; Removal Date: 07/09/22; Removal Time: 1249 07/09/22 1212 by Yarelis Hampton CRNA 07/09/22 1249 by Yarelis Hampton CRNA RETIRED Surgical Site 07/09/22; 1220; Ri ght; Knee; 07/09/22; 1403; Discharge 07/09/22 1220 by Filippo Monge RN 07/09/22 1403 by Anayeli Herrera RN documented in this encounter Social History Tobacco [...] file Legal Sex Male 6:31 AM MANAGER INTERMEDIATE Gender Identity Not on file Sexual Orientation Not on file documented as of this encounter OR Notes * Anesthesia Postprocedure Evaluation - Frieda East MD - 07/09/2022 2:01 PM CST Patient: Zayda Torres Procedure Summary Date: 07/09/22 Room / Location: [facility] OPERATING ROOM 2 / [facility] OPERATING ROOM Anesthesia Start: 1200 Anesthesia Stop: 1256 Procedure: RIGHT KNEE ARTHROSCOPIC DEBRIDEMENT OF ARTHROFIBROSIS (Right: Knee) Diagnosis: Arthrofibrosis of knee joint, right (Arthrofibrosis of knee joint, right [M24.661]) Providers: Antonio Suh IV, MD Responsible Provider: Frieda East MD Anesthesia Type: general ASA Status: 1 Anesthesia Type: general Last vitals BP 107/83 Pulse 55 Temp 36.4 ??C (97.5 ??F) (Temporal) Resp 18 SpO2 99% Anesthesia Post Evaluation Patient location during evaluation: PACU Patient participation: complete - patient participated Level of consciousness: fully awake Pain score: 3 Pain management: adequate Airway patency: adequate Evidence of recall: no Cardiovascular status: hemodynamically stable and acceptable Respiratory status: acceptable and room air Hydration status: acceptable Pt is: normothermic Nausea/Vomiting status: none No notable events documented. GER INTERMEDIATE * Anesthesia Procedure Notes - Yarelis Hampton CRNA - 07/09/2022 12:11 PM MANAGER INTERMEDIATE Associated Order(s): Airway Airway Patient location: OR Urgency: elective Indications for airway management: anesthesia Difficult airway: no Airway prep: Preoxygenated: yes Patient position: sniffing Mask difficulty assessment: 1 - vent by mask Spontaneous ventilation during airway: absent Sedation level during airway: GA Final airway details: Final airway type: supraglottic airway Final supraglottic airway: classic SGA size: 5 Number of attempts: 1 Ventilation between attempts: none GER INTERMEDIATE * Anesthesia Preprocedure Evaluation - Frieda East MD - 07/07/2022 9:32 AM CST Images from the original note were not included. Center for Preoperative Assessment and Planning Preoperative Evaluation Record Evaluation type/location: TPAP from [facility] Planned procedure site: [facility] OR Date: 07/07/22 NOTE: This note represents a preoperative evaluation initiated via telephone interview. NO PHYSICALEXAM was performed at the time of initial assessment. A physical exam may be added to this note anddocumented below. Anesthesia Evaluation Zayda Torres is a 46 y.o. male Procedure(s): RIGHT KNEE ARTHROSCOPIC DEBRIDEMENT OF ARTHROFIBROSIS WITH CHONDROPLASTY Pre-Op Diagnosis Codes: * Arthrofibrosis of knee joint, right [M24.661] HISTORY HPI Zayda Torres is a 46 y.o. male who is being evaluated prior to undergoing right knee arthroscopic debridement of arthrofibrosis with chondroplasty for Persistent pain and swelling over 5 months after right knee surgery 12/2022. Past Medical History Information obtained from: patient and chart. Neurological Pertinent negatives: seizures; neuromuscular disease; CVA/stroke and TIA Cardiovascular Pertinent negatives: hypertension ; CAD ; NE ; CABG ; valvular heart disease; atrial fibrillation; pacemaker/ICD; DVT/PE; negative for CHF; drug-eluting stent(s) and bare metal stent(s) Respiratory Pertinent negatives: COPD; sleep apnea (RAJ); pulmonary hypertension; no O2 use outside the hospital and non-smoker Hepatic / Heme Pertinent negatives: liver disease Gastrointestinal Pertinent negatives: GERD Renal / Pertinent negatives: renal disease and dialysis Endocrine / Other Pertinent negatives: diabetes mellitus; thyroid disease; obesity (BMI >30); cancer history; transplanted organ and infectious disease Functional Capacity Functional capacity: 4-6 METs Comments: Patient reports is able to climb 2 flights of stairs without CP or SOB. Review of Systems Pertinent negatives: productive cough; wheezing; SOB; recent cold/flu; fever; chest pain; palpitations; orthopnea; pedal edema; PND; previous transfusion; easy bruising; bleeding problems; syncope; heartburn and dysphagia PAT Summary and Plans Cardiac risk classification of planned procedure: low cardiac risk. Preoperative assessment status: complete. Additional comments: Zayda Torres is a 46 y.o. male who is being evaluated prior to undergoing a low cardiac risk surgery. Revised Cardiac Risk Index factors are (none) for a total RCRI of 0 out of 6. Functional capacity is 4-6 METs. NOTE: This note represents a preoperative evaluation initiated via telephone interview. NO PHYSICALEXAM was performed at the time of initial assessment. A physical exam may be added to this note anddocumented below. Obstructive sleep apnea (RAJ) screening status is STOP-Bang=1 suggesting low risk for RAJ. Blood bank needs for day of procedure: No type and screen needed Pending labs/tests include: None Patient instructions were provided via telephone and in writing sent via 2d2c. Patient verbalized understanding of preoperative plan. TPAP Complete Preoperative evaluation performed by Adriana Jeronimo NP on 07/07/22 at 9:36 AM . Patient Active Problem List Diagnosis ??? Arthralgia of shoulder ??? Elbow pain ??? Complete tear of right ACL, subsequent encounter ??? Complex tear of medial meniscus of right knee as current injury ??? S/P ACL reconstruction ??? S/P medial meniscus repair of right knee ??? S/P lateral meniscus repair of left knee ??? Effusion of right knee ??? Arthrofibrosis of knee joint, right History reviewed. No pertinent past medical history. Past Surgical History: Procedure Laterality Date ??? ANTERIOR CRUCIATE LIGAMENT REPAIR Right 12/2021 ??? ROTATOR CUFF REPAIR Right x2, 2013 No Known Allergies Med List Status: Nurse Complete Set By: Josh Paris RN at 07/06/2022 5:44 PM Taking? Last Dose Start Date End Date Provider naproxen (ALEVE) 220 mg tablet Past Week -- -- Provider, MD Hiren No current facility-administered medications for this encounter. Current Outpatient Medications: ??? naproxen (ALEVE) 220 mg tablet Social History Tobacco Use Smoking Status Never Smokeless Tobacco Never Alcohol Use: Not At Risk ??? Frequency of Alcohol Consumption: 2-4 times a month ??? Average Number of Drinks: 1 or 2 ??? Frequency of Binge Drinking: Never Substance and Sexual Activity Drug Use Never Family History Problem Relation Age of Onset ??? Anesthesia problems Neg Hx There were no vitals filed for this visit. PT: No results found for requested labs within last 720 hours. INR: No results found for requested labs within last 720 hours. APTT: No results found for requested labs within last 720 hours. Hgb A1C: No results found for requested labs within last 720 hours. CBC RBC: No results found for requested labs within last 720 hours. RDW: No results found for requested labs within last 720 hours. MCHC: No results found for requested labs within last 720 hours. MCH: No results found for requested labs within last 720 hours. MCV: No results found for requested labs within last 720 hours. Hct: No results found for requested labs within last 720 hours. Hgb: No results found for requested labs within last 720 hours. WBC: No results found for requested labs within last 720 hours. MPV: No results found for requested labs within last 720 hours. Platelets: No results found for requested labs within last 720 hours. RDW CV: No results found for requested labs within last 720 hours. RDW Sd: No results found for requested labs within last 720 hours. BMP Glucose: No results found for requested labs within last 720 hours. Calcium: No results found for requested labs within last 720 hours. Sodium: No results found for requested labs within last 720 hours. Potassium: No results found for requested labs within last 720 hours. CO2: No results found for requested labs within last 720 hours. Chloride: No results found for requested labs within last 720 hours. BUN: No results found for requested labs within last 720 hours. Creatinine: No results found for requested labs within last 720 hours. Adriel index score: 100 DOS Physical Exam Medical history, medications, and allergies reviewed. Attestation: This PAT evaluation Airway Exam: Mallampati: II Cervical ROM: FROM Cardiovascular Exam: Rate: regular Rhythm: regular Pulmonary Exam: LCTA, bilat Anesthesia Plan ASA 1 My patient is approved for the Anesthesia Controlled Medication protocol when under care of a PHYSICS PROFESSOR Planned anesthesia: General Informed Consent: Anesthesia plan and risks discussed with patient. Plan and Consent Comments: Possible Post-Op Nerve Block explained to patient and/or family. Consent and Attending signature: I and/or my designee have discussed the anesthesia plan, benefits, possible alternatives, parental presence at time of induction (if indicated), and clinically relevant risks that may include dental injury, unintentional awareness, and/or other complications. The patient and/or parent/legal guardian understand, and agree to proceed. All questions answered. GER INTERMEDIATE GER INTERMEDIATE documented in this encounter Plan of Treatment Not on file documented as of this encounter Procedures Procedure Name Priority Date/Time Associated Diagnosis Comments MI AN PROCEDURE PLACEHOLDER Routine 07/09/2022 12:11 PM MANAGER INTERMEDIATE MI AN ELECTIVE SUPRAGLOTTIC AIRWAY Routine 07/09/2022 12:11 PM MANAGER INTERMEDIATE documented in this encounter Results * MI AN ELECTIVE SUPRAGLOTTIC AIRWAY, MI AN PROCEDURE PLACEHOLDER (07/09/2022 12:11 PM MANAGER INTERMEDIATE) Narrative Yarelis Hampton CRNA - 07/09/2022 12:11 PM MANAGER INTERMEDIATE Yarelis Hampton CRNA ? 07/09/2022 12:12 PM Airway Patient location: OR Urgency: elective Indications for airway management: anesthesia Difficult airway: no Airway prep: Preoxygenated: yes Patient position: sniffing Mask difficulty assessment: 1 - vent by mask Spontaneous ventilation during airway: absent Sedation level during airway: GA Final airway details: Final airway type: supraglottic airway Final supraglottic airway: classic SGA size: 5 Number of attempts: 1 Ventilation between attempts: none us Frieda East MD ANESTHESIA ORDERABLES Fi nal Result documented in this encounter Visit Diagnoses Not on filedocumented in this encounter Administered Medications Inactive Administered Medications - up to 3 most recent administrations Medication Order MAR Action Action Date Dose Rate Site ceFAZolin (ANCEF) 2,000 mg/50 mL in dextrose (premix) 2,000 mg 2,000 mg, intravenous, at 100 mL/hr, Administer over 30 Minutes, Once, On Tue07/09/22 at 1045, For 1 dose, Pre-Op, Administer within 60 minutes of incision. Duplex bag - activate before hanging. , Indications: Prophylaxis, SurgicalIndications:Prophy laxis, Surgical Given 07/09/2022 12:00 PM MANAGER INTERMEDIATE 2,000 mg dexAMETHasone (DECADRON) 4 mg/mL injection intravenous, Administer over 2 Minutes, As needed, Starting on Tue07/09/22 at 1200, Anesthesia Intra-op Given 07/09/2022 12:00 PM MANAGER INTERMEDIATE 8 mg famotidine (PEPCID) injection intravenous, Administer over 2 Minutes, As needed, Starting on Tue07/09/22 at 1200, Anesthesia Intra-op Given 07/09/2022 12:00 PM MANAGER INTERMEDIATE 20 mg fentaNYL (SUBLIMAZE) preservative free injection intravenous, As needed, Starting on Tue07/09/22 at 1206, Anesthesia Intra-op Given 07/09/2022 12:06 PM MANAGER INTERMEDIATE 100 mcg ketorolac (TORADOL) 30 mg/mL (1 mL) injection intravenous, As needed, Starting on Tue07/09/22 at 1240, Anesthesia Intra-op Given 07/09/2022 12:40 PM MANAGER INTERMEDIATE 30 mg Lactated Ringer's (LR) infusion 30 mL/hr, intravenous, Continuous, Starting on Tue07/09/22 at 1045, Pre-Op, Use a 500 ml bag for End Stage Renal Disease Patients Rate/Dose Verify 07/09/2022 12:00 PM MANAGER INTERMEDIATE 30 mL/hr New Bag 07/09/2022 10:32 AM MANAGER INTERMEDIATE 30 mL/hr 30 mL/hr lidocaine (XYLOCAINE) 20 mg/mL (2 %) injection intravenous, As needed, Starting on Tue07/09/22 at 1206, Anesthesia Intra-op, Indications: Administration of Local AnesthesiaIndications:Administration of Local Anesthesia Given 07/09/2022 12:06 PM MANAGER INTERMEDIATE 100 mg midazolam (VERSED) 1 mg/mL injection intravenous, As needed, Starting on Tue07/09/22 at 1200, Anesthesia Intra-op Given 07/09/2022 12:00 PM MANAGER INTERMEDIATE 2 mg ondansetron (ZOFRAN) injection intravenous, Administer over 2 Minutes, As needed, Starting on Tue07/09/22 at 1200, Anesthesia Intra-op Given 07/09/2022 12:40 PM MANAGER INTERMEDIATE 4 mg Given 07/09/2022 12:00 PM MANAGER INTERMEDIATE 4 mg propofoL (DIPRIVAN) 10 mg/mL IV intravenous, As needed, Starting on Tue07/09/22 at 1206, Anesthesia Intra-op Given 07/09/2022 12:06 PM MANAGER INTERMEDIATE 150 mg documented in this encounter Care Teams Bank President Relationship Specialty Start Date End Date No, Physician PCP - General 12/21/21 Zach Reyez, PT Physical Therapist Physical Therapy 01/20/22 [place] [address] [place] [address] Physical Therapist Physical Therapy 01/30/22 Hussain Lopez PTA Chip Washer Physical Therapy 02/03/22 documented as of this encounter
--- OUTSIDE RECORDS SUMMARY | 2024-05-22 05:25 | XMS_ITS | Encounter Summary ---
Author Organization [facility] Address [address] [place] [address] Phone Care Team Providers Care Medicinal Plant Picker Name Role Phone No, Physician Primary Care Provider Zach Reyez PT Unavailable Unavailable Teresa Leach PT Unavailable [phone] Hussain Lopez LABORER POULTRY HATCHERY Unavailable Unavailabl e Encounter Details Date Type Department Care Team (Late st Contact Info) Description 06/01/2022 Orders Only [facility] Orthopaedic Surgery [address] [place] [address] [place] [address] [facility] [address] [place] [address] Social History Tobacco Use Types [...] on file Legal Sex Male 6:[address] CUTTER Gender Identity Not on file Sexual Orientation Not on file documented as of this encounter Ordered Prescriptions Prescription Sig Dispense Quantity Refills Last Filled Start Date End Date meloxicam (MOBIC) 15 mg tablet Take 1 tablet (15 mg total) by mouth daily for 14 days 14 tablet 06/01/2022 07/06/2022 documented in this encounter Plan of Treatment Not on file documented as of this encounter Visit Diagnoses Not on filedocumented in this encounter Discontinued Medications Medication Sig Discontinue Reason Start Date End Da te meloxicam (MOBIC) 15 mg tablet Take 1 tablet (15 mg total) by mouth daily Reorder 04/08/2022 06/01/2022 documented as of this encounter Care Teams Medicinal Plant Picker Relationship Specialty Start Date End Date No, Physician PCP - General 12/21/21 Zach Reyez, PT Physical Therapist Physical Therapy 01/20/22 [place] [address] [place] [address] Physical Therapist Physical Therapy 01/30/22 Hussain Lopez, LABORER POULTRY HATCHERY Mat Machine Tender Physical Therapy 02/03/22 documented as of this encounter
--- OUTSIDE RECORDS SUMMARY | 2024-05-22 05:25 | XMS_ITS | Encounter Summary ---
Author Organization [facility] Healthcare Address [address] [place] [address] Care Team Providers Care Ladies Underwear Operator Name Role Phone No, Physician Primary Care Provider [phone] Zach Reyez PT Unavailable Unavailable Teresa Leach PT Unavailable [phone] Hussain Lopez JEWEL BEARING FACER Unavailable Unavailabl e Encounter Details Date Type Department Care Team (Latest Contact Info) Description 07/06/2022 5:28 PM JAVA LEAD DEVELOPER - 07/06/2022 11:59 PM JAVA LEAD DEVELOPER Hospital Encounter [facility] [address] [place] [address] [id number] Discharge Disposition: Discharge to home or self [...] on file Legal Sex Male 6:31 AM JAVA LEAD DEVELOPER Gender Identity Not on file Sexual Orientation Not on file documented as of this encounter Medications at Time of Discharge naproxen (ALEVE) 220 mg tablet Take 1 [...] Name Priority Date/Time Associated Diagnosis Comments MSK CT MR OUTSIDE REFERENCE Routine 07/06/2022 5:28 PM JAVA LEAD DEVELOPER Diagnosis unknown documented in this encounter Results * MSK CT MR Outside Reference (07/06/2022 5:28 PM JAVA LEAD DEVELOPER) Impressions RAD_PACS[facility] - 07/06/2022 5:28 PM JAVA LEAD DEVELOPER These images are for Reference purposes only and have not been reviewed by [facility]iology. ??There will be no report generated by a [facility] Radiologist. Narrative RAD_PACS[facility] - 07/06/2022 5:28 PM JAVA LEAD DEVELOPER EXAMINATION: ??Images For Reference Purposes Only Antonio Suh IV, MD IMG CT PROCEDURES Fin al Result Performing Organization Address City/State/[facility] Co de Phone Number RAD_PACS[facility] documented in this encounter Visit Diagnoses Not on filedocumented in this encounter Care Teams Ladies Underwear Operator Relationship Specialty Start Date End Date No, Physician PCP - General 12/21/21 Zach Reyez, PT Physical Therapist Physical Therapy 01/20/22 [place] [address] [place] [address] Physical Therapist Physical Therapy 01/30/22 Hussain Lopez, TRIPP Dock Hand Physical Therapy 02/03/22 documented as of this encounter
--- OUTSIDE RECORDS SUMMARY | 2024-05-22 05:25 | XMS_ITS | Encounter Summary ---
Author Organization [facility] Healthcare Address [address] [place] [address] Care Team Providers Care Shelter Supervisor Name Role Phone No, Physician Primary Care Provider [phone] Zach Reyez PT Unavailable Unavailable Teresa Leach PT Unavailable [phone] Hussain Lopez RESEARCH/PROGRAM DIRECTOR Unavailable Unavailabl e Reason for Visit * Reason Comments PT Treatment Encounter Details Date Type Department Care Team (Late st Contact Info) Description 05/28/2022 6:15 PM DIRECTOR OF STUDENT SERVICES Therapy [facility] at [facility] [id number] [place] [address] [address] [place] [address] [place] [address] [place] [address] Rupture of anterior cruciate ligament [...] on file Legal Sex Male 6:31 AM DIRECTOR OF STUDENT SERVICES Gender Identity Not on file Sexual Orientation Not on file documented as of this encounter Progress Notes * Teresa Leach, PT - 05/28/2022 6:[address] [facility]: Sports Therapy and Rehabilitation Physical therapy treatment note Name: Zayda Torres : 1975 Age / Sex: 46 y.o. / male Referring Diagnosis: No primary diagnosis found., meniscal repair Date of Onset/surgery: 01/15/22 Referring Practitioner: No ref. provider found Phase IV: Advanced strengthening & control (min 12 Weeks s/p ACL Recon & meniscal repair) Discard brace when ROM/quad control allows No deep flexion with WB Bicycle/elliptical/[place] track/ stairclimber Full arc progressive resistance exercises-emphasize quads Begin functional exercise program ( steps up/down, sports cord) Strengthening isokinetic Quadriceps distal pad/squats/leg press/hamstring curl 05/28/22 pt is 19 weeks post op Today's date: 05/28/2022 Start Time: 6:15 pm SUBJECTIVE --pt reports he had increased swelling and pain and post/lat knee pain after last visit. He has rested for the last 8 days. Pain level 0/10 at rest, but post knee pain is 2-3/10 with standing. Pt ready to exercise some again. Subjective Functional Outcome Measure: Knee Injury and [...] Hip Extension: Left 5/5; Right 5/5 Palpation: moderate R knee swelling today anteriorly and posteriorly, and good (-)R quadricep contraction quad fatigue /quivering noted with all open chain strengthening exercises, especially eccentrically TREATMENT 1) bike for 10 min level 1 2) exercise per flow sheet with verbal and manual cues. Modified HEP due to recent increase in painand swelling. 90-30 only with closed chain concentric, full range with eccentric closed chain, to do open chain 30-0. Focusing on quad strengthening. Added BFR training with 0# 30,15,15,15 reps. 4) applied vasopneumatic with ice for 15 min at high pressure and 34 degrees R ankle 5) recommended swimming/water ex, progressing at his gym for strengthening on LE machines [facility] as well as obtaining cuff weights for open chain exercises Exercise/ Activity 05/03 05/10 05/14 05/21 1/6 Side stepping Initiated against one blue band Backward walking Initiated against one blue band Amb against bands forward Initiated x 4 lengths 60' X Dynamic walking high knees and leg curls Standing TKE with band Leg press X 4 plates bilat 2x20 2 plates unilat 3x20 without pain complaints 4 plates bilat 2x20 2 and 2 1/2 plates unilat 3x20 X Hold today due to fatigue Supine SLR 1# 1 x20 LAQ full range Xbilat to unilat 10#-25# 3x10 each 10-25# bilat to unilat conc/ecc 10# bilat conc/ecc X 10# 3x10 bilat on machine Unilat 5# with cuff weight 25# leg curl 10-25# bilat to unilat 3x10 25-40# 3x10 bilat 40# 2x10 X 25# 3 x 10 bilat BFR 30,15,15,15 with 0# Standing heel raise X Standing gastroc stretch Gait training SL balance In 2 days X X Single leg stance with opposite leg swings In 2 days Amb over sticks In 2 days Over low hurdles ant and laterally Supine and quadriped leg press against black band Patellar mobs Upright bike X 10 min X 10 min Active warmup Step-up Still unable to do 2 step up due to pain and buckling hold PT ABLE TO DO 2 STEP UP TODAY PAIN FREE!!! Tried but pain full and knee gave way -- Step down 4 x20 with quad/LE quivering hold 4 [...] = stretch Timed Treatment: Therapeutic exercise for 30 minutes Neuromuscular re education for 15 min Total of Timed Treatment Codes: 45 minutes Untimed Treatment: ice Ending Pain: 0/10 Stop Time: 7:15 pm ASSESSMENT Response to today???s treatment: good, [...] assistance or extensor lag in 4 weeks. Supervisor Vendor Quality Goals: 12 weeks 1. Patient will report [...] running at 16 weeks. Teresa Leach PT CTOR OF STUDENT SERVICES documented in this encounter Plan of Treatment Not on file documented as of this encounter Visit Diagnoses Diagnosis Rupture of anterior cruciate ligament of right knee, initial encounter- Primary documented in this encounter Care Teams Shelter Supervisor Relationship Specialty Start Date End Date No, Physician PCP - General 12/21/21 Zach Reyez, PT Physical Therapist Physical Therapy 01/20/22 [place] [address] [place] [address] Physical Therapist Physical Therapy 01/30/22 Hussain Lopez, TRIPP New Car Get Ready Mechanic Physical Therapy 02/03/22 documented as of this encounter
--- OUTSIDE RECORDS SUMMARY | 2024-05-22 05:25 | XMS_ITS | Encounter Summary ---
Author Organization [facility] Address [address] [place] [address] Phone Care Team Providers Care Food Service Hotel Runner Name Role Phone No, Physician Primary Care Provider [phone] Zach Reyez PT Unavailable Unavailable Teresa Leach PT Unavailable [phone] Hussain oLpez COMPOSITION WEATHERBOARD INSTALLER Unavailable Unavailabl e Reason for Referral * Diagnostic Imaging (Routine) - Closed Specialty Diagnoses / Procedures Referred By Contac t Referred To Contact Diagnoses S/P arthroscopy of right knee Procedures XR Knee Right 1 [place] [address] [place] [address] Phone: tel: fax: [facility] Referral ID Status Reason Start Date Expiration Date Visits Re quested Visits Authorized [id number] Closed 02/28/2023 03/29/2024 1 1 Reason for Visit * Reason Comments Follow-up Encounter Details Date Type Department Care Team (Late st Contact Info) Description 02/28/2023 4:20 PM CDT Office Visit 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 ESTABLISHED PATIENT VISIT INTERIM HISTORY: He is now approximately 2.5 weeks out from his surgery. He has returned to full work activities butis not participating in physical therapy formally as he had some swelling discomfort medially aftersurgery. He is no longer taking opioid pain medication. He denies any mechanical symptoms. PHYSICAL EXAMINATION: He walks with a near normal gait. His surgical portals right knee healing well. He is mild effusion. Passive range of motion is approximately 0-110 degrees of flexion. His neurovascular exam is intact. IMPRESSION: Status post excision unstable chondral flap right medial femoral condyle Varus malalignment right knee Status post right ACL reconstruction with medial meniscal repair TREATMENT PLAN: I discussed with him and his the arthroscopy pictures my recommendation for an osteochondral allograft with associated opening wedge high tibial osteotomy given his varus alignment and full-thickness cartilage defect weight-bearing surface of the medial femoral condyle. The patient was apprised of the risks associated with the procedure including bleeding, infection, anesthesia complications, neurovascular injury, motion loss, delayed union malunion and nonunion and persistent pain. In addition, the patient was apprised of the need for physical therapy and timing of return to activities.He will be sent for sizing x-rays and his imaging studies will be sent to the tissue bank for approp riate sizing. Once the allograft was obtained we will call him. In the meantime, he is continue with physical therapy for range of motion and swelling reduction. He is icing intermittently and use [id number] NSAID as necessary for pain control. He is avoid any high impact activities in theinterim. All questions were answered prior to him and his leaving I was present for the critical portion of the history, physical examination, and participated in the radiographic review and medical decision making for this patient. I agree with the findings in thereport of the above residence/fellow dictating using Viadeo software. Professor of Orthopaedic Surgery Director, Sports Medicine Fellowship [facility]opa[facility]ics documented in this encounter Plan of Treatment Not on file documented as of this encounter Results * XR Knee Right 1 or 2 Views (02/28/2023 5:34 PM CDT) Anatomical Region Laterality Modality Lower Extremities, Knee Right Computed Radiography 03/01/2023 6:16 AM CDT Impressions 03/01/2023 6:16 AM CDT 1. ??Unchanged medial femoral condylar osteochondral lesion measuring approximately 15 x 8 mm. 2. ??Unchanged mild tricompartmental right knee osteoarthritis and prior anterior cruciate ligament reconstruction. Electronically signed by: Louie Pelletier M.D. Narrative 03/01/2023 6:16 AM CDT XR KNEE RIGHT 1 OR 2 VIEWS HISTORY: ??Right knee pain. FINDINGS: ??2 views of the right knee are obtained and compared with 02/03/2023. There is redemonstrated prior anterior ligament reconstruction. There is unchanged osteochondral lesion of the medial femoral condyle measuring approximately 15 x 8 mm. ??There is no acute fracture. Unchanged mild tricompartmental osteoarthritis. ??Alignment is normal. There is a small joint effusion and moderate prepatellar soft tissue swelling. Procedure Note Louie Pelletier MD - 03/01/2023 XR KNEE RIGHT 1 OR 2 VIEWS HISTORY: Right knee pain. FINDINGS: 2 views of the right knee are obtained and compared with 02/03/2023. There is redemonstrated prior anterior ligament reconstruction. There is unchanged osteochondral lesion of the medial femoral condyle measuring approximately 15 x 8 mm. There is no acute fracture. Unchanged mild tricompartmental osteoarthritis. Alignment is normal. There is a small joint effusion and moderate prepatellar soft tissue swelling. IMPRESSION: 1. Unchanged medial femoral condylar osteochondral lesion measuring approximately 15 x 8 mm. 2. Unchanged mild tricompartmental right knee osteoarthritis and prior anterior cruciate ligament reconstruction. Electronically signed by: Louie Pelletier M.D. us Mikey Hawkins MD IMG XR PROCEDURES Final Res ult documented in this encounter Visit Diagnoses Diagnosis S/P arthroscopy of right knee- Primary Other postprocedural status Osteochondral defect of femoral condyle S/P arthroscopy of right knee Other postprocedural status documented in this encounter Care Teams Food Service Hotel Runner Relationship Specialty Start Date End Date No, Physician PCP - General 12/21/21 Zach Reyez, PT Physical Therapist Physical Therapy 01/20/22 [place] [address] [place] [address] Physical Therapist Physical Therapy 01/30/22 Hussain Lopez PTA Teacher Dramatics Physical Therapy 02/03/22 documented as of this encounter
--- OUTSIDE RECORDS SUMMARY | 2024-05-22 05:25 | XMS_ITS | Encounter Summary ---
Author Organization [facility] Address [address] [place] [address] Phone Care Team Providers Care Song Plugger Name Role Phone No, Physician Primary Care Provider [phone] Zach Reyez PT Unavailable Unavailable Teresa Leach PT Unavailable [phone] Hussain Lopez CAMPAIGN MANAGEMENT SENIOR MANAGER Unavailable Unavailabl e Encounter Details Date Type Department Care Team (Late st Contact Info) Description 01/28/2023 Telephone [facility] Orthopaedic Surgery [address] [place] [address] [place] [address] [place], [place] [id number] Social History Tobacco Use Types Packs/Day Years [...] on file Legal Sex Male 6:31 AM SUSPENDER CUTTER Gender Identity Not on file Sexual Orientation Not on file documented as of this encounter Miscellaneous Notes * Telephone Encounter - Mikey Woodward - 01/28/2023 2:33 PM CDT [facility] to schedule an appt with Dr. Hawkins documented in this encounter Plan of Treatment Not on file documented as of this encounter Visit Diagnoses Not on filedocumented in this encounter Care Teams Song Plugger Relationship Specialty Start Date End Date No, Physician PCP - General 12/21/21 Zach Reyez, PT Physical Therapist Physical Therapy 01/20/22 [place] [address] [place] [address] Physical Therapist Physical Therapy 01/30/22 Hussain Lopez, CAMPAIGN MANAGEMENT SENIOR MANAGER Aircraft Engine Installer Physical Therapy 02/03/22 documented as of this encounter
--- OUTSIDE RECORDS SUMMARY | 2024-05-22 05:25 | XMS_ITS | Encounter Summary ---
Author Organization [facility] Address [address] [place] [address] Phone Care Team Providers Care Mold Dumper Name Role Phone No, Physician Primary Care Provider [phone] Zach Reyez PT Unavailable Unavailable Teresa Leach PT Unavailable [phone] Hussain Lopez HARNESS BRUSHER Unavailable Unavailabl e Reason for Referral * Consultation (Routine) - Closed Specialty Diagnoses / Procedures Referred By Contsom t Referred To Contact Physical Therapy Diagnoses Chronic [place] of [place] [address] [place] [address] Phone: tel: fax: External Order Referral ID Status Reason Start Date Expiration Date V isits Requested Visits Authorized [id number] Closed Evaluate and Treat 02/10/2023 03/11/2024 24 24 Question Answer PTRFR PT Evaluate and Treat Therapy options discussed with patient? Yes Location provided for therapy services is: Patient requested/Patient preferred Please select the performing region: External Order [171] # of visits: 24 Comments KNEE REHABILITATION PROTOCOL Eufemiamary anneliud Torres 1975 02/10/23 SX 02/11/2023- START PT POD 3-5 RIGHT KNEE DIAGNOSTIC ARTHROSCOPY Physical Therapy Evaluation and Treatment Twice Weekly for 6 Weeks Quadriceps and hamstring strengthening exercises ROM Modalities prn Home exercise program For all PT reports that require a signature-please fax to [phone] For all other PT progress notes-please fax to [phone] Mikey Hawkins MD Encounter Details Date Type Department Care Team (Late st Contact Info) Description 02/10/2023 Orders Only [facility] Orthopaedic Surgery [address] [place] [address] [place] [address] [place] [address] Chronic pain of right knee (Primary Dx) [...] on file Legal Sex Male 6:31 AM HAIR MIXER Gender Identity Not on file Sexual Orientation Not on file documented as of this encounter Ordered Prescriptions Prescription Sig Dispense Quantity Refills Last Filled Start Date End Date ondansetron (ZOFRAN) 4 mg tablet Take 1 tablet (4 mg total) by mouth every 8 (eight) hours as needed for nausea 12 tablet 02/11/2023 09/13/2023 documented in this encounter Plan of Treatment Scheduled Referrals Name Type Priority Associated Diagnoses Order Schedule Ambulatory referral order to Physical Therapy - Outpatient Referral Routine Chronic pain of right knee Expected: 02/24/2023 (Approximate), Expires: 02/11/2024 documented as of this encounter Visit Diagnoses Diagnosis Chronic pain of right knee- Primary documented in this encounter Care Teams Mold Dumper Relationship Specialty Start Date End Date No, Physician PCP - General 12/21/21 Zach Reyez, PT Physical Therapist Physical Therapy 01/20/22 [place] [address] [place] [address] Physical Therapist Physical Therapy 01/30/22 Hussain Lopez, TRIPP Computer Information Systems Instructor Physical Therapy 02/03/22 documented as of this encounter
--- OUTSIDE RECORDS SUMMARY | 2024-05-22 05:25 | XMS_ITS | Encounter Summary ---
Author Organization [facility] Address [address] [place] [address] Phone Care Team Providers Care Child Nurse Name Role Phone No, Physician Primary Care Provider [phone] Zach Reyez PT Unavailable Unavailable Teresa Leach PT Unavailable [phone] Hussain Lopez WASTE MANAGEMENT RECYCLING TECHNICIAN Unavailable Unavailabl e Reason for Visit * Reason Onset Date Comments Med Refill 10/08/2022 Encounter Details Date Type Department Care Team (Late st Contact Info) Description 10/08/2022 Telephone [facility] Orthopaedic Surgery [address] [place] [address] [place] [address] [place] [address] Med Refill Social History Tobacco Use Types Packs/Day Years [...] on file Legal 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 documented in this encounter Plan of Treatment Not on file documented as of this encounter Visit Diagnoses Not on filedocumented in this encounter Discontinued Medications Medication Sig Discontinue Reason Start Date End Da te meloxicam (MOBIC) 15 mg tablet Take 1 tablet (15 mg total) by mouth daily for 10 days Reorder 07/09/2022 10/08/2022 documented as of this encounter Care Teams Child Nurse Relationship Specialty Start Date End Date No, Physician PCP - General 12/21/21 Zach Reyez, PT Physical Therapist Physical Therapy 01/20/22 [place] [address] [place] [address] Physical Therapist Physical Therapy 01/30/22 Hussain Lopez, WASTE MANAGEMENT RECYCLING TECHNICIAN Mason Tender Restoration Labor Physical Therapy 02/03/22 documented as of this encounter
--- OUTSIDE RECORDS SUMMARY | 2024-05-22 05:25 | XMS_ITS | Encounter Summary ---
Author Organization [facility] Healthcare Address [address] [place] [address] Care Team Providers Care Cost Accountant Name Role Phone No, Physician Primary Care Provider [phone] Zach Reyez PT Unavailable Unavailable Teresa Leach PT Unavailable [phone] Hussain Lopez TOWEL HEMMER Unavailable Unavailabl e Encounter Details Date Type Department Care Team (Latest Contact Info) Description 02/03/2023 3:20 PM CDT - 02/03/2023 11:59 PM CDT Hospital Encounter [facility] [address] [place] [address] [place] [address] [address] Chronic pain of right knee Discharge Disposition: Discharge to [...] on file Legal 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 Male 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 Gender Identity Not on file Sexual Orientation [...] Priority Date/Time Associated Diagnosis Comments XR KNEE BILATERAL AP STANDING Schedule Routine, Read Routine (OP Routine) 02/03/2023 3:43 PM CDT Chronic pain of right knee documented in this encounter Results * XR Knee Bilateral [...] Visit Diagnoses Diagnosis Chronic pain of right knee documented in this encounter Care Teams Cost Accountant Relationship Specialty Start Date End Date No, Physician PCP - General 12/21/21 Zach Reyez, PT Physical Therapist Physical Therapy 01/20/22 [place] [address] [place] [address] Physical Therapist Physical Therapy 01/30/22 Hussain Lopez, TRIPP Air Brake Man Physical Therapy 02/03/22 documented as of this encounter
--- OUTSIDE RECORDS SUMMARY | 2024-05-22 05:25 | XMS_ITS | Encounter Summary ---
Author Organization [facility] Address [address] [place] [address] Phone Care Team Providers Care Furniture Cleaner Name Role Phone No, Physician Primary Care Provider [phone] Zach Reyez PT Unavailable Unavailable Teresa Leach PT Unavailable [phone] Hussain Lopez CLOTH HANDLER Unavailable Unavailabl e Reason for Visit * Reason Comments Follow-up Encounter Details Date Type Department Care Team (Latest Contact Info) Description 01/20/2023 4:30 PM CDT Office Visit [facility] Orthopaedic Surgery [address] [place] [id number] [place] [address] [place], [place] [id number] Chronic pain of right knee (Primary Dx); Popping of right knee joint; S/P ACL reconstruction Social History Tobacco Use [...] on file 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 Patient Name: Zayda Torres Date: 01/20/2023 INTERIM HISTORY: Follow up from Right Knee Arthroscopic Debridement Of Arthrofibrosis - Right on 07/09/2022 He continues to have anteromedial pain and catching with closed-chain activities loading the patellofemoral joint. PHYSICAL EXAM: Incision: well healed Erythema: No Edema: No Effusion: Small Ecchymosis: No Discharge: No 3 degrees of hyperextenstion to 135 degrees of flexion Ed 1A,Anterior Drawer 1A,Negative Pivot Shift Mild quad atrophy IMAGING: I independently reviewed the MRI of his right knee obtained on January 03, 2023 which shows an intact ACL graft. The cyst in the medial femoral condyle appears to be enlarging and there may be an unstable chondral flap off the anteromedial femoral condyle. No changes in the menisci. IMPRESSION/DIAGNOSIS: Right knee with persistent pain and catching with an involving medial femoral condyle lesion PLAN: I went over the MRI with him and had a lengthy discussion about options for the knee. The lesion inthe medial femoral condyle is the most likely cause of his persistent symptoms. I am concerned the lesion is enlarging and there is now an unstable chondral flap. I am also concerned it may just be alarge area of softening that could require a larger cartilage restorationist procedure. At this point,I would recommend a diagnostic arthroscopy with possible chondroplasty of the medial femoral condyle. I reminded him what would be involved in the surgery and recovery. I explained it would be an outpatient procedure. The patient would come in and go home the same day. I recommend [id number] for 2 days and then gradual return to full weight bearing but taking it easy for 2 weeks. I will seethe patient back in the clinic at about 2 weeks where I would check the wounds, go over the arthroscopic pictures, and assess progress. At that time I usually recommend an exercise bike plus or minussome physical therapy for the next 4 weeks. I usually see the patient back about 6 weeks after surgery. I explained many people have approached full recovery by that time although it can take 2-3 months to reach a full recovery from the surgery. I discussed the risk and benefits of the surgery including but not limited to the risk of infection, risk of anesthesia, risk of blood clot, risk of nerve and blood vessel injury, risk of limited, delayed or short lasting improvement in symptoms, and risk for progression of osteoarthritis not offset the surgery itself. The patient appears to understand the injury, treatment alternatives, indications for surgery, risks and benefits, and what is involved in the recovery and wishes to proceed. We can schedule surgery at their convenience. I would be careful with the knee in the interim. The patient had all questions answered and appears comfortablewith this plan going forward. Return to clinic: After surgery documented in this encounter Plan of Treatment Not on file documented as of this encounter Visit Diagnoses Diagnosis Chronic pain of right knee- Primary Popping of right knee joint S/P ACL reconstruction Other postprocedural status documented in this encounter Care Teams Furniture Cleaner Relationship Specialty Start Date End Date No, Physician PCP - General 12/21/21 Zach Reyez, PT Physical Therapist Physical Therapy 01/20/22 [place] [address] [place] [address] Physical Therapist Physical Therapy 01/30/22 Hussain Lopez PTA Assistant Food Service Director Physical Therapy 02/03/22 documented as of this encounter
--- OUTSIDE RECORDS SUMMARY | 2024-05-22 05:25 | XMS_ITS | Encounter Summary ---
Author Organization [facility] Address [address] [place] [address] Care Team Providers Care Landfill Gas Collection Operator Name Role Phone No, Physician Primary Care Provider [phone] Zach Reyez PT Unavailable Unavailable Teresa Leach PT Unavailable Hussain Lopez OUTPATIENT PROGRAM COORDINATOR Unavailable Unavailabl e Reason for Visit * Auth/Cert (Routine) Specialty Diagnoses / Procedures Referred By Danny t Referred To Contact Diagnoses Osteochondral lesion Osteochondral lesion [M89.9, M94.9] Procedures AZ KNEE SCOPE,DIAGNOSTIC RIGHT KNEE DIAGNOSTIC ARTHROSCOPY, POSSIBLE CHONDROPLASTY RIGHT Referral ID Status Reason Start Date Expiration Date Visits Re quested Visits Authorized [id number] 1 1 Encounter Details Date Type Department Care Team (Late st Contact Info) Description 02/11/2023 3:28 PM CDT Anesthesia Event [facility] [address] [place] [id number] Frieda East MD [address] [facility] [address] [place] [address] Anesthesia Record Procedure Summary Procedure Name Responsible Anesthesiologist Anesthesia Start Time Anesthesia Stop Time RIGHT KNEE ARTHROSCOPY, CHONDROPLASTY (Right: Knee) Frieda East MD 02/11/23 1528 02/11/23 1612 Events Date Time Event Comment 02/11/2023 1341 AN Equip Check 1435 1528 An Start 1532 In Room 1532 An Start Data 1537 An Induction The patient was reevaluated immediately before moderate or deep sedation use and before anesthesia induction. 1538 An LMA 1540 Anesthesia Ready 1547 Proc Start 1547 Incision Start 1602 Proc Fin 1607 Airway Removed 1607 Out of Room 1607 an stop data 1612 Handoff to RN I completed my handoff [...] Patient disposition at the time of handoff: No value filed. 1612 An Stop Meds Name Total midazolam 2 mg/2 mL 2 mg fentaNYL PF 100 mcg lidocaine 2 % 100 mg propofol 200 mg ondansetron PF 4 mg ketorolac 30 mg dexamethasone 4 mg/mL 8 mg ceFAZolin (ANCEF) 2,000 mg/50 mL in dext anayeli (premix) 2,000 mg 2,000 mg Lactated Ringer's (LR) infusion 700 mL * Agents Name O2 N2O Air Sevoflurane Inspired Sevoflurane * Blood No blood administrations on file. Lines, Drains, and Airways Type Details Placement Removal Peripheral IV Placement Date: 02/11/23; Placement Time: 1353; Catheter Size: 20 G; Orientation: Left, Posterior; Location: Hand; Technique: Anatomical landmarks; Inserted by: Nba Herrera RN; Insertion Attempts: 1; Patient Tolerance: Tolerated well; Removal Date: 02/11/23; Removal Time: 1724; Removal Reason: Discharge 02/11/23 1353 by Anayeli Herrera RN 02/11/23 1724 by Edwina Harris, YURIY Supraglottic Airway Placement Date: 02/11/23; Placement Time: 1540 (created via procedure documentation); Mask Ventilation: 0; Size: 4; Insertion Attempts: 1; Removal Date: 02/11/23; Removal Time: 1607 02/11/23 1540 by Modesta Lizarraga CRNA 02/11/23 1607 by Babs Cook CRNA RETIRED Surgical Site 02/11/23; 1552; Ri ght; Leg; 02/11/23; 1725; Discharge 02/11/23 1552 by Aayush Peralta RN 02/11/23 1725 by Edwina Harris RN documented in this encounter Social History [...] on file 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 Gender Identity Not on file Sexual Orientation Not on file documented as of this encounter OR Notes * Anesthesia Postprocedure Evaluation - Frieda East MD - 02/11/2023 4:31 PM CDT Patient: Zayda Torres Procedure Summary Date: 02/11/23 Room / Location: [facility] OPERATING [facility]OM 1 / [facility] Anesthesia Start: 1528 Anesthesia Stop: 1612 Procedure: RIGHT KNEE ARTHROSCOPY, CHONDROPLASTY (Right: Knee) Diagnosis: Osteochondral lesion Arthritis (Osteochondral lesion [M89.9, M94.9]) Providers: Mikey Hawkins MD Responsible Provider: Frieda East MD Anesthesia Type: general ASA Status: 2 Anesthesia Type: general Last vitals BP 99/58 (BP Location: Left arm) Pulse 53 Temp 36.5 ??C (97.7 ??F) (Temporal) Resp 15 SpO2 98% Anesthesia Post Evaluation Patient location during evaluation: PACU Patient participation: complete - patient participated Level of consciousness: fully awake Pain score: 4 Pain management: adequate Airway patency: adequate Evidence of recall: no Cardiovascular status: hemodynamically stable and acceptable Respiratory status: acceptable and room air Hydration status: acceptable Pt is: normothermic Nausea/Vomiting status: none No notable events documented. * Anesthesia Procedure Notes - Modesta Lizarraga CRNA - 02/11/2023 3:40 PM CDTAssociated Order(s): Airway Airway Patient location: OR Urgency: elective Indications for airway management: anesthesia Difficult airway: no Emergent airway documentation: Risks and benefits discussed: yes Consent obtained: yes Consent given by: patient Airway prep: Preoxygenated: yes Mask difficulty assessment: 0 - not attempted Spontaneous ventilation during airway: absent Sedation level during airway: GA Final airway details: Final airway type: supraglottic airway Final supraglottic airway: [place] SGA size: 4 Number of attempts: 1 Ventilation between attempts: none * Anesthesia Preprocedure Evaluation - Frieda East MD - 02/09/2023 1:13 PM CDT Images from the original note were not included. [facility] Preoperative Assessment and Planning Preoperative Evaluation Record Evaluation type/location: [facility] from [facility] Planned procedure site: [facility] OR Date: 02/09/23 NOTE: This note represents a preoperative evaluation initiated via telephone interview. NO PHYSICALEXAM was performed at the time of initial assessment. A physical exam may be added to this note anddocumented below. Anesthesia Evaluation Zayda Torres is a 47 y.o. male Procedure(s): RIGHT KNEE DIAGNOSTIC ARTHROSCOPY, POSSIBLE CHONDROPLASTY RIGHT Pre-Op Diagnosis Codes: * Osteochondral lesion [M89.9, M94.9] HISTORY HPI Zayda Torres is a 47 y.o. male s/p right knee surgery on 01/15/22 and 07/09/2022 with continued complaints of pain over the anteromedial joint line which is worse with the knee near full extension and when he weightbears. He is being evaluated prior to undergoing right knee diagnostic arthroscopy, possible chondroplasty Past Medical History Information obtained from: patient and chart. Neurological Pertinent negatives: seizures; neuromuscular disease; CVA/stroke and TIA Cardiovascular Pertinent negatives: hypertension ; CAD ; NH ; CABG ; valvular heart disease; atrial fibrillation; pacemaker/ICD; DVT/PE; negative for CHF; drug-eluting stent(s) and bare metal stent(s) Respiratory Pertinent negatives: COPD; sleep apnea (RAJ); pulmonary hypertension; no O2 use outside the hospital and non-smoker Hepatic / Heme Pertinent negatives: liver disease Gastrointestinal Pertinent negatives: GERD Renal / Pertinent negatives: renal disease and dialysis Musculoskeletal/Pain + Chronic pain (right knee- surgical etiology) Endocrine / Other + Obesity (BMI >30) (BMI 30.41) Pertinent negatives: diabetes mellitus; thyroid disease; cancer history; transplanted organ and infectious disease Functional Capacity Functional capacity: 4-6 METs Comments: Patient reports is able to climb 2 flights of stairs without CP or SOB. Review of Systems + chronic pain (right knee- surgical etiology) Pertinent negatives: productive cough; wheezing; SOB; recent cold/flu; fever; chest pain; palpitations; orthopnea; pedal edema; PND; previous transfusion; easy bruising; bleeding problems; syncope; heartburn and dysphagia PAT Summary and Plans Cardiac risk classification of planned procedure: low cardiac risk. Preoperative assessment status: complete. Additional comments: Zayda Torres is a 47 y.o. male who is being evaluated prior [...] via telephone and in writing sent via MyCube. Patient verbalized understanding of preoperative plan. TPAP Complete Preoperative evaluation performed by Manisha Tamez NP on 02/09/23 at 1:14 PM . Patient Active Problem List Diagnosis ??? [...] knee ??? Arthrofibrosis of knee joint, right ??? S/P arthroscopy of right knee ??? Popping of right knee joint ??? Chronic pain of right knee ??? Osteochondral lesion History reviewed. No pertinent past medical history. Past Surgical History: Procedure Laterality Date ??? ANTERIOR CRUCIATE LIGAMENT REPAIR Right 12/2021 ??? KNEE SURGERY Right 2022 ??? ROTATOR CUFF REPAIR Right 2013 x2, 2013 No Known Allergies Med List Status: Nurse Complete Set By: Nava Guy RN at 02/09/2023 8:16 AM Taking? Last Dose Start Date End Date Provider meloxicam (MOBIC) 15 mg tablet Past Month 12/09/22 03/09/23 Antonio Suh IV, MD Take 1 tablet (15 mg total) by mouth daily Patient taking differently: Take 1 tablet (15 mg total) by mouth as needed for pain -- -- -- No current facility-administered medications for this encounter. Current Outpatient Medications: ??? meloxicam (MOBIC) 15 mg tablet Social History Tobacco Use Smoking Status Never ??? Passive exposure: Never Smokeless Tobacco Never Alcohol Use: Not At Risk (02/09/2023) AUDIT-C ??? Frequency of Alcohol Consumption: 2-4 times a month ??? Average Number of Drinks: 1 or 2 ??? Frequency of Binge Drinking: Never Substance and Sexual Activity Drug Use Yes ??? Frequency: 2.0 times per week ??? Types: Alcohol Family History Problem Relation Age of Onset [...] within last 30 days. Adriel index score: 100 DOS Physical Exam Medical history, medications, and allergies reviewed. Attestation: This PAT evaluation Airway Exam: Mallampati: II Cervical ROM: FROM Cardiovascular Exam: Rate: regular Rhythm: regular Pulmonary Exam: LCTA, bilat Anesthesia Plan ASA 2 My patient is approved for the Anesthesia Controlled Medication protocol when under care of a INSECT CONTROL INSPECTOR Planned anesthesia: General Informed Consent: Anesthesia plan [...] All questions answered. documented in this encounter Plan of Treatment Not on file documented as of this encounter Procedures Procedure Name Priority Date/Time Associated Diagnosis Comments AZ AN PROCEDURE PLACEHOLDER Routine 02/11/2023 3:40 PM CDT AZ AN ELECTIVE SUPRAGLOTTIC AIRWAY Routine 02/11/2023 3:40 PM CDT documented in this encounter Results * AZ AN ELECTIVE SUPRAGLOTTIC AIRWAY, AZ AN PROCEDURE PLACEHOLDER (02/11/2023 3:40 PM CDT) Narrative Modesta Lizarraga CRNA - 02/11/2023 3:40 PM CDT Modesta Lizarraga CRNA ? 02/11/2023 ??3:40 PM Airway Patient location: OR Urgency: elective Indications for airway management: anesthesia Difficult airway: no Emergent airway documentation: Risks and benefits discussed: yes Consent obtained: yes Consent given by: patient Airway prep: Preoxygenated: yes Mask difficulty assessment: 0 - not attempted Spontaneous ventilation during airway: absent Sedation level during airway: GA Final airway details: Final airway type: supraglottic airway Final supraglottic airway: [place] SGA size: 4 Number of attempts: 1 Ventilation between attempts: none Frieda East MD ANESTHESIA ORDERABLES Fi nal [...] bag - activate before hanging., Indications: Prophylaxis, SurgicalIndications:Prophylaxis, Surgical Given 02/11/2023 3:32 PM CDT 2,000 mg dexAMETHasone (DECADRON) 4 mg/mL injection intravenous, Administer over 2 Minutes, As needed, Starting on Tue02/11/23 at 1539, Anesthesia Intra-op Given 02/11/2023 3:39 PM CDT 8 mg fentaNYL (SUBLIMAZE) preservative free injection intravenous, As needed, Starting on Tue02/11/23 at 1528, Anesthesia Intra-op Given 02/11/2023 3:49 PM CDT 50 mcg Given 02/11/2023 3:41 PM CDT 25 mcg Given 02/11/2023 3:28 PM CDT 25 mcg ketorolac (TORADOL) 30 mg/mL (1 mL) injection intravenous, As needed, Starting on Tue02/11/23 at 1600, Anesthesia Intra-op Given 02/11/2023 4:00 PM CDT 30 mg Lactated Ringer's (LR) infusion 30 mL/hr, intravenous, Continuous, Starting on Tue02/11/23 at 1415, Use a 500 ml bag for End Stage Renal Disease Patients Restarted 02/11/2023 4:01 PM CDT Rate/Dose Verify 02/11/2023 3:28 PM CDT 30 mL/h r New Bag 02/11/2023 1:54 PM CDT 30 mL/hr 30 mL/hr lidocaine (XYLOCAINE) 20 mg/mL (2 %) injection intravenous, As needed, Starting on Tue02/11/23 at 1537, Anesthesia Intra-op, Indications: Administration of Local AnesthesiaIndications:Administration of Local Anesthesia Given 02/11/2023 3:37 PM CDT 100 mg midazolam (VERSED) 1 mg/mL injection intravenous, As needed, Starting on Tue02/11/23 at 1528, Anesthesia Intra-op Given 02/11/2023 3:28 PM CDT 2 mg ondansetron (ZOFRAN) injection intravenous, Administer over 2 Minutes, As needed, Starting on Tue02/11/23 at 1539, Anesthesia Intra-op Given 02/11/2023 3:39 PM CDT 4 mg propofoL (DIPRIVAN) 10 mg/mL IV intravenous, As needed, Starting on Tue02/11/23 at 1537, Anesthesia Intra-op Given 02/11/2023 3:37 PM CDT 200 mg documented in this encounter Care Teams Landfill Gas Collection Operator Relationship Specialty Start Date End Date No, Physician PCP - General 12/21/21 Zach Reyez, PT Physical Therapist Physical Therapy 01/20/22 [place] [address] [place] [address] Physical Therapist Physical Therapy 01/30/22 Hussain Lopez, OUTPATIENT PROGRAM COORDINATOR House Worker General Physical Therapy 02/03/22 documented as of this encounter
--- OUTSIDE RECORDS SUMMARY | 2024-05-22 05:25 | XMS_ITS | Encounter Summary ---
Author Organization [facility] Address [address] [place] [address] Phone Care Team Providers Care Roll Filler Name Role Phone No, Physician Primary Care Provider [phone] Zach Reyez PT Unavailable Unavailable Teresa Leach PT Unavailable [phone] Hussain Lopez CIRCULATION TENDER Unavailable Unavailabl e Encounter Details Date Type Department Care Team (Late st Contact Info) Description 04/01/2023 Orders Only [facility] Orthopaedic Surgery [address] [place] [address] [place] [address] [facility] [address] [place], [place] [id number] Social History Tobacco Use Types Packs/Day Years [...] on file 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 Gender Identity Not on file Sexual Orientation Not on file documented as of this encounter Ordered Prescriptions Prescription Sig Dispense Quantity Refills Last Filled Start Date End Date meloxicam (MOBIC) 15 mg tablet Take 1 tablet (15 mg total) by mouth daily 90 tablet 04/01/2023 05/05/2023 documented in this encounter Plan of Treatment Not on file documented as of this encounter Visit Diagnoses Not on filedocumented in this encounter Discontinued Medications Medication Sig Discontinue Reason Start Date End Da te meloxicam (MOBIC) 15 mg tablet Take 1 tablet (15 mg total) by mouth daily Reorder 12/09/2022 04/01/2023 documented as of this encounter Care Teams Roll Filler Relationship Specialty Start Date End Date No, Physician PCP - General 12/21/21 Zach Reyez, PT Physical Therapist Physical Therapy 01/20/22 [place] [address] [place] [address] Physical Therapist Physical Therapy 01/30/22 Hussain Lopez, TRIPP Legal Secretary Receptionist Physical Therapy 02/03/22 documented as of this encounter
--- OUTSIDE RECORDS SUMMARY | 2024-05-22 05:25 | XMS_ITS | Encounter Summary ---
Author Organization [facility] Healthcare Address [address] [place] [address] Care Team Providers Care Microstrategy Reports Developer Name Role Phone No, Physician Primary Care Provider [phone] Zach Reyez PT Unavailable Unavailable Teresa Leach PT Unavailable [phone] Hussain Lopez CHAIR MAKER Unavailable Unavailabl e Reason for Visit * Reason Comments PT Treatment Encounter Details Date Type Department Care Team (Late st Contact Info) Description 11/10/2022 6:15 PM CDT Therapy [facility] at [facility] [id number] [place] [address] [address] [place] [address] [place] [address] [place] [address] S/P arthroscopy of right knee [...] on file 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 If he increases activity, pain, swelling, and giving out occurs. If he rests, all of the symptoms improve. He has been trying to do as much exercise he can as discussed previously of what he can do with little to no pain to keep his strength up. He feels the patellar taping provides the joint some stability. --pt reports he has only been doing open chain ex due to pain with any closed chain knee flex/ext activities. In general he gets getting pain with closed chain activities at 30-40 degrees (concentricmainly). He is able to do a small amount of eccentric this ROM but overtime an ache occurs), and now he has pain with standing with leg locked and turning to the right and sometimes with bending forward and turning to the left. --pain level 0/10 with a couple times of sharp 7/10 pain today. When his pain occurs, his swelling follows. He reports trying to increase the quad strength for now in the open chain positions. He does do some single leg stance balancing throughout the day. --he is continuing to take miloxicam. Subjective Functional Outcome Measure: Knee Injury and Osteoarthritis Outcome Score: 39.3% OBJECTIVE: Gait: slightly antalgic gait R knee on level surfaces. Today pt presents with R knee hyperext in R stance phase (? Protective from unlocking and causing sharp pain and giving way) after practicing SLS balance exercise today with ball throws, he can walk with a slightly unlocked knee but he generally returns to a hyperextended knee to protect from sharp pain and giving way. Range of Motion: Right Knee: 0?? Extension; [...] 30-40 degrees extension concentrically, but not eccentrically with 2 step up, pt has sharp pain and leg gives way Palpation: mod swelling infrapatellar region today. Patella at rest: sits slightly lateral with slight lateral tilt --note less but present lateral patellar tracking with quad contraction --decreased R quad girth especially of VMO --note palpable clicking lateral knee with seated knee ext TREATMENT 1) reviewed HEP per flow sheet [...] ext range, as well as multi- angle tree R, and single leg stanceon flat and uneven surface 2) not today due to MD appt tomorrow: applied patellar taping to promote medial glide and tilt withex. Noted: pain can occur in patellar region and catch with walking after patellar taping is first applied with increased compression (if pt is having and increased swelling day). Pt feels it works well after a few hours when the tape stretches out a little. He feels the tape helps to stabilize the knee 3) pt to ice at home Exercise/ Activity Date: 09/27/22 Date: 10/01/22 Date: 10/04/22 Date: 10/11 Date: 10/22 Date: 10/25 11/03 11/10 Bike 10 min X X X X X X X Muti-angle tree with wall sit and partial squats (attaining position with L LE first) initiated reviewed LAQ with VMO tree 5# x15 Bridge with VMO tree x10 Bridge with band around thigh for abd X 10 with blue band Side lying hip abd X 10 bilat Side stepping with band Unable to do without pain Standing TKE with band X15 with black band Painful today Step down 2-4 x 10 each -- 4 x10 X At home 2 x15 Step up ---not ready yet due to pain -- On hold, unable to do 2 Hold due to pain Leg press conc 90-40 and 30-0 X20 with weight shift L during 30-40 degrees ext --and full range eccentric 4 1/2 plates with 75%-25% weight shift 30-40 degrees flexion both for conc and ecc Pt wants to hold off on doing this today to prevent knee pain On hold On hold Hold due topain Eccentric wall slide X 10 eccentric --concentric only 90-40 and 30-0 with weight shift L at 30-40 degrees ext --not today X Just multiangle tree instructed today X Tree holds at 40 degrees Single leg squat 0-30 degrees x10 --not today X -- Sit to stand partial squats x10 -- Single leg stance with ball throws 5 min with intermittent breaks X X X on level surface and on cushion (0-20 degrees multi angle positions) X X X Prone hip ext machine 15# 2x10 bilat 40# 2x10 X 30# 2x10 each X Bent over hip ext with cable and ankle cuff Instructed for carry over to his gym with 40-50 # Sled pushing with 25# plate on plyo box Tried with 25# plate but unable to do, due to sharp pain -- lifts with bar only 50/50% WB ecc and 75/25% conc (noted sharp pain) -- Leg ext 10# R leg only 3x10 mostly wihout assist of L leg 10# R 3x10 X X X 10# R only -20# R knee with some assist of L leg 5x10 reps X Leg curl 10# 3x10 40# R3x10 X X X 10# 5x10 X Flowsheet [place]: X = performed, x = times/multiply, s = seconds, ea = each, st = stretch Timed Treatment Thera ex for 30 minutes: see above Total of Timed Treatment Codes: 30 minutes Untimed Treatment None today Total treatment time: 45 min Ending Pain: 0-7/10 (sharp temporary pain) pt to ice frequently and avoid 30-40 degrees knee flexion concentric exercise weight bearing Stop Time: 6:45 pm ASSESSMENT Response to today???s treatment: fair PLAN Continue PT with established POC. Pt to follow up with MD. Will await further status for PT. Short Term Goals: 2 weeks 1. Pt to be indep with HEP to be able to go from sit to stand with 0-2/10 pain and improved mobility, not yet achieved 2. Decrease gait deviations on level surfaces, progressing 3. Pt to dress self pain free, achieved Prison Goals: 16 weeks 1. Pt to continue [...] 30-40# pain free and with normal mobility eTresa Leach, JACOB documented in this encounter Plan of Treatment Not on file documented as of this encounter Visit Diagnoses Diagnosis S/P arthroscopy of right knee- Primary Other postprocedural status documented in this encounter Care Teams Microstrategy Reports Developer Relationship Specialty Start Date End Date No, Physician PCP - General 12/21/21 Zach Reyez, PT Physical Therapist Physical Therapy 01/20/22 [place] [address] [place] [address] Physical Therapist Physical Therapy 01/30/22 Hussain Lopez, TRIPP Feeder Driver Physical Therapy 02/03/22 documented as of this encounter
--- OUTSIDE RECORDS SUMMARY | 2024-05-22 05:25 | XMS_ITS | Encounter Summary ---
Author Organization [facility] Healthcare Address [address] [place] [address] Care Team Providers Care Beer Runner Name Role Phone No, Physician Primary Care Provider [phone] Zach Reyez PT Unavailable Unavailable Teresa Leach PT Unavailable [phone] Hussain Lopez HISTORIC SITES REGISTRAR Unavailable Unavailabl e Reason for Referral * Diagnostic Imaging (Routine) - Closed Specialty Diagnoses / Procedures Referred By Contac t Referred To Contact Diagnoses S/P arthroscopy of right knee Procedures XR Knee [place] 1 [place] [address] [place] [address] Phone: tel: fax: [facility] [place] Referral ID Status Reason Start Date Expiration Date Visits Re quested Visits Authorized [id number] Closed 02/28/2023 03/29/2024 1 1 Reason for Visit * Diagnostic Imaging (Routine) - Closed Specialty Diagnoses / Procedures Referred By Danny t Referred To Contact Diagnoses S/P arthroscopy of right knee Procedures XR Knee Right 1 [place] [address] [place] [address] Phone: tel: fax: [facility] Referral ID Status Reason Start Date Expiration Date Visits Re quested Visits Authorized [id number] Closed 02/28/2023 03/29/2024 1 1 Encounter Details Date Type Department Care Team (Latest Contact Info) Description 02/28/2023 5:21 PM CDT - 02/28/2023 11:59 PM CDT Hospital Encounter [facility] [address] [place] [address] S/P arthroscopy of right knee Discharge Disposition: [...] on file 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 Electronically signed by: Luoie Pelletier M.D. us Mikey Hawkins MD IMG XR PROCEDURES Final Res ult documented in this encounter Visit Diagnoses Diagnosis S/P arthroscopy of right knee Other postprocedural status documented in this encounter Care Teams Beer Runner Relationship Specialty Start Date End Date No, Physician PCP - General 12/21/21 Zach Reyez, PT Physical Therapist Physical Therapy 01/20/22 [place] [address] [place] [address] Physical Therapist Physical Therapy 01/30/22 Hussain Lopez PTA Radiochemical Technician Physical Therapy 02/03/22 documented as of this encounter
--- OUTSIDE RECORDS SUMMARY | 2024-05-22 05:25 | XMS_ITS | Encounter Summary ---
Author Organization [facility] Healthcare Address [address] [place] [address] Care Team Providers Care Cleaning Team Member Name Role Phone No, Physician Primary Care Provider [phone] Zach Reyez PT Unavailable Unavailable Teresa Leach PT Unavailable [phone] Hussain Lopez LADIES ATTENDANT Unavailable Unavailabl e Reason for Visit * Reason Comments PT Treatment Encounter Details Date Type Department Care Team (Late st Contact Info) Description 10/25/2022 6:45 PM CDT Therapy [facility] at [facility] [id number] [place] [address] [address] [place] [address] [place] [address] [place] [address] S/P arthroscopy of right knee [...] on file 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 He is still getting pain with closed chain activities at 30-40 degrees (concentric mainly. He is able to do eccentric this ROM but overtime an ache occurs), and now he has pain with standing with leg locked and turning to the rightand sometimes with bending forward and turning to [...] and causing sharp pain and giving way) Range of Motion: Right Knee: 0?? Extension; [...] 10/04/22 Date: 10/11 Date: 10/22 Date: 10/25 Bike 10 min X X X X X Muti-angle bj with wall sit and partial squats (attaining position with L LE first) initiated reviewed LAQ with VMO bj 5# x15 Bridge [...] today X Just multiangle bj instructed today X Single leg squat 0-30 degrees x10 --not today X Sit to stand partial squats x10 Single leg stance with ball throws 5 min with intermittent breaks X X X on level surface and on cushion (0-20 degrees multi angle positions) X Prone hip ext machine 15# 2x10 bilat 40# 2x10 X Bent over hip ext with cable [...] leg 10# R 3x10 X X X Leg curl 10# 3x10 40# R3x10 X X X Flowsheet [place]: X = performed, x = times/multiply, s = seconds, ea = each, st = stretch Timed Treatment Thera ex for 35 minutes: see above Total of Timed Treatment Codes: 35 minutes Untimed Treatment Knee taping Total treatment time: 45 min Ending Pain: 2-7/10 (sharp temporary pain) pt to ice frequently and avoid 30-40 degrees knee flexion concentric exercise weight bearing Stop Time: 7:30 pm ASSESSMENT Response to today???s treatment: fair PLAN Continue PT with established POC Short Term Goals: 2 weeks 1. Pt to be indep with HEP to be able to go from sit to stand with 0-2/10 pain and improved mobility, not yet achieved 2. Decrease gait deviations on level surfaces, progressing 3. Pt to dress self pain free, achieved Shelter Goals: 16 weeks 1. Pt to continue [...] pain free and with normal mobility Teresa Leach, PT documented in this encounter Plan of Treatment Not on file documented as of this encounter Visit Diagnoses Diagnosis S/P arthroscopy of right knee- Primary Other postprocedural status documented in this encounter Care Teams Cleaning Team Member Relationship Specialty Start Date End Date No, Physician PCP - General 12/21/21 Zach Reyez, PT Physical Therapist Physical Therapy 01/20/22 [place] [address] [place] [address] Physical Therapist Physical Therapy 01/30/22 Hussain Lopez PTA Securities Supervisor Physical Therapy 02/03/22 documented as of this encounter
--- OUTSIDE RECORDS SUMMARY | 2024-05-22 05:25 | XMS_ITS | Encounter Summary ---
Author Organization [facility] Address [address] [place] [address] Phone Care Team Providers Care Rig Hand Name Role Phone No, Physician Primary Care Provider [phone] Zach Reyez PT Unavailable Unavailable Teresa Leach PT Unavailable [phone] Hussain Lopez PHOTOGRAMMETRY AIRPLANE PILOT Unavailable Unavailabl e Reason for Referral * Consultation (Routine) - Closed Specialty Diagnoses / Procedures Referred By Contac t Referred To Contact Physical Therapy Diagnoses S/P arthroscopy of right knee S/P medial meniscus repair of right knee [place] [address] [place] [address] Phone: tel: fax: External Order Referral ID Status Reason Start Date Expiration Date V isits Requested Visits Authorized [id number] Closed Evaluate and Treat 09/24/2022 10/24/2023 12 12 Question Answer PTRFR PT Evaluate and Treat Therapy options discussed with patient? Yes Location provided for therapy services is: Patient requested/Patient preferred Please select the performing region: External Order [[id number]] # of visits: 12 Comments Today: 09/24/21 Name: Zayda Torres : 1975 ?? Last Surgery Date: 01/15/2022 ?? Diagnosis: s/p right ACL Reconstruction and Meniscal Repair medial, lateral ?? Visits: 12 Frequency: 2x/week Duration: 6 weeks ?? -Evaluate and Treat -Home Program ?? ACL RECONSTRUCTION AND MENISCAL REPAIR PHYSICAL THERAPY PRESCRIPTION ?? Instructions/Modifications: Continue with phase 4 for now ?? Phase: 4 AAT Phase 5 ?? Phase I: 0-2 Weeks s/p ACL Reconstruction & meniscal repair WBAT locked in extension, no flexion with WB Progress ROM 0 -120?? NWB. Passive terminal extension (40?? - 0??) with heel prop SLR emphasizing no lag/ quadriceps re-education E-stim / Biofeedback Hamstring progressive resistance exercises Prone hip extension, side-lying hip abduction and adduction Standing heel raises Cryotherapy Goals - 90?? flexion by end week 1; 110?? flexion by end week 2 ?? Phase II: 2-6 Weeks s/p ACL Reconstruction and meniscal repair WBAT locked in extension, no flexion with WB ROM/stretching all muscle groups NWB Begin Quadriceps Isotonics with proximal pad in 90?? - 40?? arc Hamstring curls Hip adduction/abduction strengthening Standing heel raises with resistance ?? Phase III: Strengthening & control (min 6 weeks s/p ACL recon and meniscal repair) WBAT brace 0 -90??, no flexion beyond 90?? with WB Begin squat/step-ups/proprioception program in brace Bicycle Quadriceps Isotonics - full arc for closed chain in brace. Open chain: 90?? - 40?? arc Strengthening squats/leg press in brace, hamstring curl ?? Phase IV: Advanced strengthening & control (min 12 Weeks s/p ACL Recon & meniscal repair) Discard brace when ROM/quad control allows No deep flexion with WB Bicycle/elliptical/Aiken track/ stairclimber Full arc progressive resistance exercises-emphasize quads Begin functional exercise program ( steps up/down, sports cord) Strengthening isokinetic Quadriceps distal pad/squats/leg press/hamstring curl ?? Phase V: Begin running (min 16 Weeks s/p ACL Reconstruction & meniscal repair) Straight line jogging, progress to running as tolerated Full arc progressive quad/hamstring resistance exercises Bicycle/elliptical/Aiken track/stairclimber Progress running program to cutting Agility drills Advanced functional exercises ?? Phase : Return to full activity and sport (min 20 Weeks s/p ACL Reconstruction & meniscal repair) No deep squats until 6 months postop Jumping/landing Sprinting/change of direction Aggressive strengthing Sport specific activities Hip and core control for coronal stability ?? Please send progress notes. ?? Antonio Suh IV, MD ?? SCHEDULING PHYSICAL THERAPY APPOINTMENT ?? 1. Call the member service number on the back of your insurance card to find out if you have: Physical therapy benefits; if YES Where you can go for physical therapy. Does Physical therapy service require prior authorization; 'yes or no' (ONLY if yes, make sure you follow the instructions on #3). ?? 2. Call the therapy facility and schedule your appointment. ?? 3. If prior authorization is required by your insurance company for physical therapy services contact Pre-Certification at [phone]. If pre-certification/ prior authorization is required by your insurance company you must call at least 48 hours prior to your therapy appointment to ensure authorization is obtained from insurance company. ?? - Please give your name - Date of -Phone number of the therapy facility -Date of your appointment -Your physician's name ?? 4. Your physician's office will give you prescription/orders at the time of your appointment to take to the therapist. The therapist will not see you without your prescription/orders. ?? 5. Workers' Compensation patients: You must call your case filler to be referred to physical therapy. 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 Gender Identity Not on file Sexual Orientation Not on file documented as of this encounter Plan of Treatment Scheduled Referrals Name Type Priority Associated Diagnoses Orde r Schedule Ambulatory referral order to Physical Therapy - Outpatient Referral Routine S/P arthroscopy of right knee S/P medial meniscus repair of right knee S/P ACL reconstruction Expected: 10/08/2022 (Approximate), Expires: 09/25/2023 documented as of this encounter Visit Diagnoses Diagnosis S/P arthroscopy of right knee- Primary Other postprocedural status S/P medial meniscus repair of right knee S/P ACL reconstruction Other postprocedural status documented in this encounter Care Teams Rig Hand Relationship Specialty Start Date End Date No, Physician PCP - General 12/21/21 Zach Reyez, PT Physical Therapist Physical Therapy 01/20/22 [place] [address] [place] [address] Physical Therapist Physical Therapy 01/30/22 Hussain Lopez, TRIPP Telecommunication Tower Technician Physical Therapy 02/03/22 documented as of this encounter
--- OUTSIDE RECORDS SUMMARY | 2024-05-22 05:25 | XMS_ITS | Encounter Summary ---
Author Organization [facility] Healthcare Address [address] [place] [address] Care Team Providers Care Auto Body Repair Teacher Name Role Phone No, Physician Primary Care Provider [phone] Zach Reyez PT Unavailable Unavailable Teresa Leach PT Unavailable [phone] Hussain Lopez PATIENT FINANCIAL REPRESENTATIVE Unavailable Unavailabl e Reason for Visit * Reason Comments PT Treatment Encounter Details Date Type Department Care Team (Late st Contact Info) Description 10/04/2022 6:45 PM CDT Therapy [facility] at [facility] [id number] [place] [address] [address] [place] [address] [place] [address] [place] [address] S/P arthroscopy of right knee [...] on file 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 He feels when it is swollen it is worse. When the pain comes on, it issharp 11/29. Pt is using ice frequently at home Chief Complaint: pt reports pain continues today and is occurring a little more often in ant/medialknee. He was able to do the exercises for 2 days well as prescribed but today he is unsure why the pain is increased today Patient Goals: pain free walking level and uneven surfaces Subjective Functional Outcome Measure: Knee Injury and Osteoarthritis Outcome Score: 39.3% OBJECTIVE: Posture/Alignment: pt stands with slight tibial varum and slight genuvarum Gait: slightly antalgic gait on level surfaces Range of Motion: Right [...] (standing or on leg press): pain between 35-40 degrees extension concentrically, but not eccentrically Palpation: min swelling infrapatellar region.(This is decreased from initial visit) Patella at rest: sits slightly lateral with slight lateral tilt --note significant lateral patellar tracking with quad contraction --decreased R quad girth especially of VMO TREATMENT 1) applied patellar taping to promote medial glide and tilt 2) reviewed HEP per flow sheet with verbal and manual cues. Pt unable to do all exercises due to sharp pain with some of the exercises today. The goal for now is for pt to focus on concentric strengthening from 0-30 and 40-90 degrees, as well as eccentric strengthening through full range. 3) pt to ice at home Exercise/ Activity Date: 09/27/22 Date: 10/01/22 Date: 10/04/22 Date: Date: Date: Bike 10 min X X LAQ with VMO bj 5# x15 Bridge with VMO bj x10 Bridge with band around thigh for abd X 10 with blue band Side lying hip abd X 10 bilat Side stepping with band Unable to do without pain Standing TKE with band X15 with black band Painful today Step down 2-4 x 10 each -- 4 x10 Step up ---not ready yet due to pain -- Leg press conc 90-40 and 30-0 X20 with weight shift L during 30-40 degrees ext --and full range eccentric 4 1/2 plates with 75%-25% weight shift 30-40 degrees flexion both for conc and ecc Pt wants to hold off on doing this today to prevent knee pain Eccentric wall slide X 10 eccentric --concentric only 90-40 and 30-0 with weight shift L at 30-40 degrees ext --not today X Single leg squat 0-30 degrees x10 --not today X Sit to stand partial squats x10 Single leg stance with ball throws 5 min with intermittent breaks X Leg ext 10# R leg only 3x10 mostly wihout assist of L leg 10# R 3x10 Leg curl 10# 3x10 40# R3x10 Flowsheet [place]: X = performed, x = times/multiply, s = seconds, ea = each, st = stretch Timed Treatment Thera ex for 20 minutes: see above (pt arrived early to PT to do some exercise on his own) Total of Timed Treatment Codes: 20 minutes Untimed Treatment Knee taping Ending Pain: 0-5/10 pt to ice frequently and avoid 30-40 degrees knee flexion concentric exercise Stop Time: 7:00 pm ASSESSMENT Response to today???s treatment: good PLAN Continue PT with established POC Short Term Goals: 2 weeks 1. Pt to be indep with HEP to be able to go from sit to stand with 0-2/10 pain and improved mobility 2. Decrease gait deviations on level surfaces 3. Pt to dress self pain free Group Home Goals: 16 weeks 1. Pt to continue [...] status documented in this encounter Care Teams Auto Body Repair Teacher Relationship Specialty Start Date End Date No, Physician PCP - General 12/21/21 Zach Reyez, PT Physical Therapist Physical Therapy 01/20/22 [place] [address] [place] [address] Physical Therapist Physical Therapy 01/30/22 Hussain Lopez PTA Data Center Consultant Physical Therapy 02/03/22 documented as of this encounter
--- OUTSIDE RECORDS SUMMARY | 2024-05-22 05:25 | XMS_ITS | Encounter Summary ---
Author Organization [facility] Healthcare Address [address] [place] [address] Care Team Providers Care Specifications Writer Name Role Phone No, Physician Primary Care Provider Zach Reyez PT Unavailable Unavailable Teresa Leach PT Unavailable [phone] Hussain Lopez PROCESS ENVIRONMENTAL TECHNICIAN Unavailable Unavailabl e Reason for Visit * Reason Comments PT Treatment Encounter Details Date Type Department Care Team (Late st Contact Info) Description 11/03/2022 7:00 PM CDT Therapy 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 Noted: pain can occur in patellar region and catch with walking after patellar taping is first applied with increased compression (if pt is having and increased swelling day). Pt feels it works well after a few hours when the tapestretches out a little. He feels the tape helps to stabilize the knee 3) pt to ice at home Exercise/ Activity Date: 09/27/22 Date: 10/01/22 Date: 10/04/22 Date: 10/11 Date: 10/22 Date: 10/25 11/03 Bike 10 min X X X X X X Muti-angle [...] (0-20 degrees multi angle positions) X X Prone hip ext machine 15# 2x10 bilat 40# 2x10 X 30# Bent over hip ext with cable and [...] some assist of L leg 5x10 reps Leg curl 10# 3x10 40# R3x10 X X X 10# 5x10 Flowsheet [place]: X = performed, x = times/multiply, s = seconds, ea = each, st = stretch Timed Treatment Thera ex for 25 minutes: see above Total of Timed Treatment Codes: 25 minutes Untimed Treatment Knee taping Total treatment [...] Pt to dress self pain free, achieved Detention Goals: 16 weeks 1. Pt to continue [...] status documented in this encounter Care Teams Specifications Writer Relationship Specialty Start Date End Date No, Physician PCP - General 12/21/21 Zach Reyez, PT Physical Therapist Physical Therapy 01/20/22 [place] [address] [place] [address] Physical Therapist Physical Therapy 01/30/22 Hussain Lopez, PROCESS ENVIRONMENTAL TECHNICIAN [facility] Physical Therapy 02/03/22 documented as of this encounter
--- OUTSIDE RECORDS SUMMARY | 2024-05-22 05:25 | XMS_ITS | Encounter Summary ---
Author Organization [facility] Healthcare Address [address] [place] [address] Care Team Providers Care Cdl A Driver Name Role Phone No, Physician Primary Care Provider [phone] Zach Reyez PT Unavailable Unavailable Teresa Leach PT Unavailable [phone] Hussain Lopez BIOINFORMATICS SPECIALIST Unavailable Unavailabl e Reason for Referral * Diagnostic Imaging (Routine) - Closed Specialty Diagnoses / Procedures Referred By Danny cannon Referred To Contact Diagnoses S/P arthroscopy of right knee S/P ACL reconstruction Effusion of right knee Procedures XR Knee Right [place] [id number] [place] [address] Phone: tel: fax: [facility] Referral ID Status Reason Start Date Expiration Date Visits Re quested Visits Authorized [id number] Closed 11/11/2022 12/11/2023 1 1 Reason for Visit * Diagnostic Imaging (Routine) - Closed Specialty Diagnoses / Procedures Referred By Danny t Referred To Contact Diagnoses S/P arthroscopy of right knee S/P ACL reconstruction Effusion of right knee Procedures XR Knee Right [address] [place] [address] [place] [address] Phone: tel: fax: [facility] Referral ID Status Reason Start Date Expiration Date Visits Re quested Visits Authorized [id number] Closed 11/11/2022 12/11/2023 1 1 Encounter Details Date Type Department Care Team (Latest Contact Info) Description 11/11/2022 4:57 PM CDT - 11/11/2022 11:59 PM CDT Hospital Encounter 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 Electronically signed by: Dominick Matthews MD Antonio Suh IV, MD IMG XR PROCEDURES Fin al Result documented in this encounter Visit Diagnoses Diagnosis S/P arthroscopy of right knee Other postprocedural status S/P ACL reconstruction Other postprocedural status Effusion of right knee documented in this encounter Care Teams Cdl A Driver Relationship Specialty Start Date End Date No, Physician PCP - General 12/21/21 Zach Reyez, PT Physical Therapist Physical Therapy 01/20/22 [place] [address] [place] [address] Physical Therapist Physical Therapy 01/30/22 Hussain Lopez, TRIPP Head Sampler Physical Therapy 02/03/22 documented as of this encounter
--- OUTSIDE RECORDS SUMMARY | 2024-05-22 05:25 | XMS_ITS | Encounter Summary ---
Author Organization [facility] Healthcare Address [address] [place] [address] Care Team Providers Care Publicity Director Name Role Phone No, Physician Primary Care Provider [phone] Zach Reyez PT Unavailable Unavailable Teresa Leach PT Unavailable [phone] Hussain Lopez SOLAR SITE ASSESSMENT SPECIALIST Unavailable Unavailabl e Reason for Visit * Reason Comments PT Treatment Encounter Details Date Type Department Care Team (Late st Contact Info) Description 10/01/2022 10:15 AM CDT Therapy [facility] at [facility] [id number] [place] [address] [address] [place], [place] [id number] [place] [address] [place], [place] [id number] S/P arthroscopy of right knee (Primary Dx) [...] on file 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 He was able to do the exercises for 2 days well as prescribed but today he is unsure why the pain is increased today Patient Goals: pain free walking level and uneven surfaces Subjective Functional Outcome Measure: Knee Injury and Osteoarthritis Outcome Score: 39.3% OBJECTIVE: Patient is able to ambulate independently or modified independently: Patient is able to transfer independently or modified independently. Posture/Alignment: pt stands with slight tibial varum [...] Exercise/ Activity Date: 09/27/22 Date: 10/01/22 Date: Date: Date: Date: Bike 10 min X LAQ with VMO bj 5# x15 Bridge with VMO bj x10 Bridge with band around thigh for abd X 10 with blue band Side lying hip abd X 10 bilat Side stepping with band Unable to do without pain Standing TKE with band X15 with black band Painful today Step down 2-4 x 10 each -- Step up ---not ready yet due to pain -- Leg press conc 90-40 and 30-0 X20 with weight shift L during 30-40 degrees ext --and full range eccentric 4 1/2 plates with 75%-25% weight shift 30-40 degrees flexion both for conc and ecc Eccentric wall slide X 10 eccentric --concentric only 90-40 and 30-0 with weight shift L at 30-40 degrees ext --not today Single leg squat 0-30 degrees x10 --not today Sit to stand partial squats x10 Single leg stance with ball throws 5 min with intermittent breaks Leg ext 10# R leg only 3x10 mostly wihout assist of L leg Leg curl 10# 3x10 Flowsheet [place]: X = performed, x = times/multiply, s = seconds, ea = each, st = stretch Timed Treatment Thera ex for 40 minutes: see above Total of Timed Treatment Codes: 40 minutes Untimed Treatment Knee taping Ending Pain: 0-5/10 pt to ice frequently and avoid 30-40 degrees knee flexion concentric exercise Stop Time: 11:15 am ASSESSMENT Response to today???s treatment: good PLAN Continue PT with established POC Short Term Goals: 2 weeks 1. Pt to be indep with HEP to be able to go from sit to stand with 0-2/10 pain and improved mobility 2. Decrease gait deviations on level surfaces 3. Pt to dress self pain free Detention Goals: 16 weeks 1. Pt to [...] status documented in this encounter Care Teams Publicity Director Relationship Specialty Start Date End Date No, Physician PCP - General 12/21/21 Zach Reyez, PT Physical Therapist Physical Therapy 01/20/22 [place] [address] [place] [address] Physical Therapist Physical Therapy 01/30/22 Hussain Lopez, TRIPP Impregnation Operator Physical Therapy 02/03/22 documented as of this encounter
--- OUTSIDE RECORDS SUMMARY | 2024-05-22 05:25 | XMS_ITS | Encounter Summary ---
Author Organization [facility] Healthcare Address [address] [place] [address] Care Team Providers Care Resident Inspector Name Role Phone No, Physician Primary Care Provider [phone] Zach Reyez PT Unavailable Unavailable Teresa Leach PT Unavailable [phone] Hussain Lopez TILE LAYER SUPERVISOR Unavailable Unavailabl e Reason for Visit * Auth/Cert Specialty Diagnoses / Procedures Referred By Danny t Referred To Contact Diagnoses Arthrofibrosis of knee joint, right Arthrofibrosis of knee joint, right [M24.661] Procedures CT ARTHRS HIP DEBRIDEMENT/SHAVING ARTICULAR CRTLG RIGHT KNEE ARTHROSCOPIC DEBRIDEMENT OF ARTHROFIBROSIS WITH CHONDROPLASTY Referral ID Status Reason Start Date Expiration Date Visits Re quested Visits Authorized [id number] 1 1 Encounter Details Date Type Department Care Team (Latest Contact Info) Description 07/09/2022 9:56 AM DIRECTOR SALES - 07/09/2022 2:09 PM DIRECTOR SALES Hospital Encounter [facility] [address] [place] [address] Antonio Suh IV, MD [address] [place] [address] Discharge Disposition: Discharge to home or self [...] file Legal Sex Male 6:31 AM DIRECTOR SALES Gender Identity Not on file Sexual Orientation Not on file documented as of this encounter Last Filed Vital Signs Vital Sign Reading Time Taken Comments Blood Pressure 107/83 07/09/2022 1:50 PM DIRECTOR SALES Pulse 56 07/09/2022 2:00 PM DIRECTOR SALES Temperature 36.4 ??C (97.5 ??F) 07/09/2022 1:25 PM CS T Respiratory Rate 19 07/09/2022 2:00 PM DIRECTOR SALES Oxygen Saturation 99% 07/09/2022 2:00 PM DIRECTOR SALES Inhaled Oxygen Concentration - - Weight 95.3 kg (210 lb) 07/06/2022 5:40 PM DIRECTOR SALES Height 172.7 cm (5' 8 ) 07/06/2022 5:40 PM DIRECTOR SALES Body Mass Index 31.93 07/06/2022 5:40 PM DIRECTOR SALES documented in this encounter Medications at Time [...] Suh IV, MD at 07/09/2022 10:59 AM DIRECTOR SALES CTOR SALES CTOR SALES documented in this encounter Miscellaneous Notes * Perioperative Nursing Note - Anayeli Herrera RN - 07/09/2022 1:06 PM DIRECTOR SALES 1250 - pt admitted to PACU report received from HEAD OF MUSIC and TRIPE WASHER. VSS, pt drowsy but arousable, denies pain. [...] denies need to urinate prior to discharge. CTOR SALES * Brief Op Note - Jose White MD - 07/09/2022 12:19 PM CST Operative Progress Note Surgical Team: Surgeon(s) and Role: * Antonio Suh IV, MD - Primary * oJse White MD - Resident - Assisting Anesthesiologist: Frieda East MD HEAD OF MUSIC: Yarelis Hampton CRNA Engineering Documentation Specialist: Filippo Monge RN Scrub: Suzan Diggs RN Engineering Documentation Specialist Second: Mercedes Beasley RNFA DATE OF SURGERY [...] Suh IV, MD at 07/09/2022 2:05 PM DIRECTOR SALES CTOR SALES CTOR SALES * Op Note - Antonio Suh IV, MD - 07/09/2022 12:00 AM CST PREOPERATIVE DIAGNOSIS Right knee arthrofibrosis status post ACL reconstruction. POSTOPERATIVE DIAGNOSIS Right knee arthrofibrosis status post ACL reconstruction. PROCEDURE Right knee arthroscopic debridement of arthrofibrosis. SURGEON Dr. Antonio Suh. TELEVISION ENGINEER Dr. Jose White. ANESTHESIA General. IV FLUIDS [...] biter and shaver as well as an Houston wand to debride that back until there was no longer impingement in the front of the knee. There was also scar tissue in the anterior joint, which I debrided with the [place] wand using short bursts to minimize any risk of overheating the fluid. I made sure the meniscal repairs were healed and stable. The [place] wand used to debride some of the [...] in the room. Job ID/Internal Job ID: [id number] CTOR SALES * Pre-Procedure Instructions - Sapna Walter RN - 07/08/2022 11:28 AM DIRECTOR SALES We are pleased that you and your doctor have chosen [facility] for your surgery. We hope the following information will help make your visit a pleasant one. The name of the building is [facility] in [place]. Directions to facility (address is [address] [place] [address] road, [address] [facility] exit. Zip [address] When you enter the building, look directly to your left, you will see 2 glass double doors. These double doors say [address]. Go through those double doors and check in with the hr receptionist. Patient has own crutches and knows how [...] out. Instructed to patient to refer to [facility] surgery guide page 6 for any questions regarding eating and drinking day of surgery. For medications that the Nurse Practitioner instructed you to take on the morning of surgery, take the medications with a few sips of water. Pt's. ADITYA [phone] will be with patient and care for [...] or purchase it from the refreshment area. CTOR SALES * Pre-Procedure Instructions - Adriana Jeronimo NP - 07/07/2022 8:22 AM DIRECTOR SALES [facility]operative Assessment and Planning CPAP Clinic Location: [facility] The night before your surgery: * [...] going to be admitted after surgery at [facility], COVID testing may be performed on the day of surgery, even if you are up to date on your COVID-19 vaccine. * If having surgery at [facility], you may want to bring a credit card if you want to use our Mobile Pharmacy for your discharge medications. Mobile pharmacy is not available at [facility], the [facility], or [facility]. Outpatient Surgery: * You must have a [...] with COVID-19. You test positive for COVID-19. CTOR SALES * Perioperative Nursing Note - Josh Paris RN - 07/06/2022 5:47 PM DIRECTOR SALES Center for Preoperative Assessment and Planning Perioperative Nursing Note Telephone Preoperative Evaluation ([facility]) - TELEPHONE ONLY, NO PHYSICAL EXAM [...] Implant Menicus Repair Fiberstitch Curved Ar-4570 - [id number] - Implanted (Right) Knee Inventory item: [employer] IMPLANT MENICUS REPAIR FIBERSTITCH CURVED AR-4570 Model/Cat number: [id number] Manager Sap: [employer] Lot number: [id number] As of 01/15/2022 Status: Implanted [employer] Implant Menicus Repair Fiberstitch Curved Ar-4570 - [id number] - Implanted (Right) Knee Inventory item: [employer] IMPLANT MENICUS REPAIR FIBERSTITCH CURVED AR-4570 Model/Cat number: [id number] Manager Sap: [employer] Lot number: [id number] As of 01/15/2022 Status: Implanted [employer] Screw Fastthread Biocomposite Interference 8mm X 20mm Ar-[id number]-08 - [id number] - Implanted (Right) Knee Inventory item: [employer] Screw Fastthread Biocomposite Interference 8mm X 20mm [id number] Model/Cat number: [id number] Manager Sap: [employer] Lot number: [id number] As of 01/15/2022 Status: Implanted [employer] Screw Fastthread Biocomposite Interference 10mm X 20mm Ar-[id number]-10 - [id number] - Implanted (Right) Knee Inventory item: [employer] Screw Fastthread Biocomposite Interference 10mm X 20mm [id number] Model/Cat number: [id number] Manager Sap: [employer] Lot number: [id number] As of 01/15/2022 Status: Implanted SKIN Piercings [...] Chart: Copy requested from other (Comment) (patient) Communication/Clinical Psychologist Licensed Needs Communication Needs: None Does caregiver's language differ from patient's?: No Assistive Devices/DME: None Discharge Planning Type of Residence: Private residence Living Arrangements: Spouse/significant other Support Systems: Spouse/significant other Assistance Needed: Spouse to provide discharge transportation Patient expects to be discharged to:: Private residence PHYSICAL CHEMISTRY PROFESSOR NO ADDITIONAL COMMENTS/ FOLLOW UP CTOR SALES * Pre-Procedure Instructions - Josh Paris RN - 07/06/2022 5:45 PM DIRECTOR SALES [facility] PREOPER[facility]ESSMENT [facility] (CPAP) [...] your insurance card, a photo ID (example: Mission Support Specialist's License) and a method of payment [...] Chart. If you are having surgery at [facility], please arrive on the [...] Pathway to Excellent Care by the followinglink: [email or web address] How To Prepare Your Skin For Surgery [...] questions, please call the CPAP Staff at [phone], Tuesday-Tuesday 8am-4:30pm. All patients should read the below section: All visitors/patients are being asked to wear a clean face mask when entering the hospital. COVID 19 Updates & Visitor Policy: Please access [email or web address] for the most updated information. Information on [facility]: Please view [email or web address] (Patient & Visitor Information) for additional details regarding Advanced Directive forms, AWARE, directions, parking information, lodging, Internet access, dining and more. Information on [facility] or [facility] ([facility]): Please view [email or web address] (Patient and Visitor Information) for parking/directions and more. For MyChart information, to activate account or password recovery, please go to [email or web address] or call [phone] (toll-free: [phone]). Information for Suicide Prevention: National Suicide Prevention Lifeline (0-348- 696-UCPN (5674)). Surgery Times: For patients having surgery @ [facility], if your surgeon's office has not notified you of your surgery time by NOON THE BUSINESS DAY BEFORE your surgery, please call the surgery center [phone]. CTOR SALES documented in this encounter Plan of Treatment Not on file documented as of this encounter Procedures Procedure Name Priority Date/Time Associated Diagnosis Comments ARTHROSCOPY KNEE - REMOVAL CHONDROPLASTY/LOOSE BODY 07/09/2022 12:00 PM DIRECTOR SALES Arthrofibrosis of knee joint, right documented in this encounter Visit Diagnoses Diagnosis Arthrofibrosis of knee joint, right- Primary documented in this encounter Admitting Diagnoses Diagnosis Arthrofibrosis of knee joint, right documented in this encounter Administered Medications Inactive Administered Medications - up to 3 most recent administrations Medication Order MAR Action Action Date Dose Rate Site HYDROcodone-acetaminophe n (NORCO) 5-325 mg per tablet 1 tablet 1 tablet, oral, Every 30 min PRN, 2nd line for pain, Starting on Tue07/09/22 at 1257, For 2 doses, Phase I, Indications: PainIndications:Pain Given 07/09/2022 1:01 PM DIRECTOR SALES 2 tablets Lactated Ringer's (LR) infusion 30 mL/hr, intravenous, Continuous, Starting on Tue07/09/22 at 1045, Pre-Op, Use a 500 ml bag for End Stage Renal Disease Patients Rate/Dose Verify 07/09/2022 12:00 PM DIRECTOR SALES 30 mL/hr New Bag 07/09/2022 10:32 AM DIRECTOR SALES 30 mL/hr 30 mL/hr lidocaine PF (XYLOCAINE) 10 mg/mL (1 %) preservative free injection 2-10 mg 2-10 mg (0.2-1 mL), other, Once as needed, pain with IV placement, Starting on Tue07/09/22 at 1009, For 1 dose, Pre-Op, Administer volume needed to infiltrate IV site. Given 07/09/2022 10:33 AM DIRECTOR SALES 2 mg documented in this encounter Discontinued [...] Recently Administered Medications Times are shown in DIRECTOR SALES. Scheduled Medication Order 07/07/2022 07/08/2022 07/09/2022 ceFAZolin [...] Count Last Ordered Date First Ordered Date bupivacaine (MARCAINE) 0.5 % (5 mg/mL) preservative free injection 1 07/09/2022 bupivacaine-EPINEPHrine (MAR SANDRA with EPI) 0.5 %-1:200,000 preservative free injection 1 07/09/2022 ceFAZolin (ANCEF) 2,000 mg/5 0 mL in dextrose (premix) 2,000 mg 1 07/09/2022 diphenhydrAMINE (BENADRYL) i njection 12.5 mg 1 07/09/2022 fentaNYL (SUBLIMAZE) preserv ative free syringe 25 mcg 1 07/09/2022 hydrALAZINE (APRESOLINE) injection 5 mg 1 0 07/09/2022 labetaloL (NORMODYNE,TRANDAT E) injection 5 mg 1 07/09/2022 Lactated Ringer's (LR) infusion 1 3 Lactated Ringer's (LR) irrigation 1 023 meperidine (DEMEROL) preserv ative free injection 12.5 mg 07/09/2022 naloxone (NARCAN) 0.4 mg/mL injection 0.04-0.4 [...] 07/09/2022 documented in this encounter Care Teams Resident Inspector Relationship Specialty Start Date End Date No, Physician PCP - General 12/21/21 Zach Reyez, PT Physical Therapist Physical Therapy 01/20/22 [place] [address] [place] [address] Physical Therapist Physical Therapy 01/30/22 Hussain Lopez PTA Labor Relations Manager Physical Therapy 02/03/22 documented as of this encounter
--- OUTSIDE RECORDS SUMMARY | 2024-05-22 05:25 | XMS_ITS | Encounter Summary ---
Author Organization [facility] Healthcare Address [address] [place] [address] Care Team Providers Care Remote Encoding Center Manager Name Role Phone No, Physician Primary Care Provider [phone] Zach Reyez PT Unavailable Unavailable Teresa Leach PT Unavailable [phone] Hussain Lopez COACH OPERATOR Unavailable Unavailabl e Reason for Visit * Reason Comments PT Initial Eval * Consultation (Routine) - Closed Specialty Diagnoses / Procedures Referred By Contac t Referred To Contact Physical Therapy Diagnoses S/P arthroscopy of right knee S/P medial meniscus repair of right knee S/[place] [address] [address] [place] [address] Phone: tel: fax: External Order Referral ID Status Reason Start Date Expiration Date V isits Requested Visits Authorized [id number] Closed Evaluate and Treat 09/24/2022 10/24/2023 12 12 Encounter Details Date Type Department Care Team (Late st Contact Info) Description 09/27/2022 6:45 PM CDT Therapy [facility] [address] [place] [address] [place] [address] [place] [address] S/P arthroscopy of right knee; S/P medial meniscus repair of right knee; [...] on file 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 male Referring Diagnosis: S/P arthroscopy of right knee [Z98.890] Date of Onset: 07/09/22 arthroscopic surgery for removal of arthrofibrosis Referring Practitioner: Antonio Suh IV* 09/27/22 Start Time: 6:45 pm Medical screening was completed and the patient is appropriate for physical therapy. SUBJECTIVE Chief Complaint: pt Mechanism of Injury: pt had arthrofibrosis removed with arthroscopic surgery. Pain was better at first but then the past 10 days his pain has increased again. He reports he has been only using the bike since last visit. Medical hx: 01/15/22 right Anterior Cruciate Ligament Reconstruction With Bone Tendon Bone Autograft, Medial And Lateral Meniscus Repair , Patella Chondroplasty Have you had PT previously for this condition within the past year? Yes What were the dates of the prior therapy? 01/22/22-06/09/22 What was the outcome of the prior therapy? Continued pain. Pt opted for arthroscopic surgery. 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 Patella at rest, sits slightly lateral with slight lateral tilt --note significant lateral patellar tracking with quad contraction --decreased R quad girth especially of VMO Fall Risk Screening Is the patient > 65 year of age? No (47 y.o.) Is the reason for the visit related to balance or falls? No Does the patient have a history of neurological impairment? No Score > 4 on Stay Independent brochure? YES/NO/N/A: N/A TREATMENT 1) applied patellar taping to promote medial glide and tilt 2) instructed in HEP to address above problems. Pt to focus on concentric strengthening from 0-30 and 40-90 degrees, as well as eccentric strengthening through full range. 3) performed manual rx for infrapatellar region massage and MFR 4) discussed pt possibly benefiting from a BREG PTO brace. 5) pt to ice at home Exercise/ Activity Date: 09/27/22 Date: Date: Date: Date: Date: Bike 10 min LAQ with VMO bj 5# x15 Bridge with VMO bj x10 Bridge with band around thigh for abd X 10 with blue band Side lying hip abd X 10 bilat Side stepping with band Unable to do without pain Standing TKE with band X15 with black band Step down 2-4 x 10 each Step up ---not ready yet due to pain Leg press conc 90-40 and 30-0 X20 with weight shift L during 30-40 degrees ext --and full range eccentric Eccentric wall slide X 10 eccentric --concentric only 90-40 and 30-0 with weight shift L at 30-40 degrees ext Single leg squat 0-30 degrees x10 Flowsheet [place]: X = performed, x = times/multiply, s = seconds, ea = each, st = stretch Timed Treatment Thera ex for 45 minutes: see above Manual rx for 5 min Total of Timed Treatment Codes: 50 minutes Untimed Treatment Initial Evaluation-Low Complexity Knee taping Ending Pain: 0-4/10 pt to ice frequently and avoid 30-40 degrees knee flexion concentric exercise Stop Time: 8:00 pm ASSESSMENT Physical therapy movement impairment diagnosis/diagnoses: patellofemoral joint pain with concentricknee ext closed chain 30-40 degrees with lateral patellar tracking/pain with closed chain activities Prognosis: good Response to today???s treatment: good Functional Limitations & Problems: 1. Pain with knee ext at 30-40 degrees concentric knee flexion closed chain activities 2. Decreased quad and VMO girth with weak gluteal mm 3. Pain with squatting, stairs and pivoting Therapy Learning Needs Assessment: Barriers & Interventions: None - No Interventions Required. Persons Involved:Patient Patient Understands and Agrees: Yes Comorbidities impacting physical therapy treatment: none Personal factors impacting physical therapy treatment: none PLAN Physical therapy treatment at a frequency and duration of 1-2 times per week for 12-16 weeks will consist of instruction in home [...] 3. Pt to dress self pain free Senior Living Goals: 16 weeks 1. Pt to continue [...] of right knee Other postprocedural status S/P medial meniscus repair of right knee S/P ACL reconstruction Other postprocedural status documented in this encounter Orders Outpatient Referral Count Last Ordered Date st Ordered Date AMB REFERRAL ORDER TO PHYSICAL THERAPY 1 documented in this encounter Care Teams Remote Encoding Center Manager Relationship Specialty Start Date End Date No, Physician PCP - General 12/21/21 Zach Reyez, PT Physical Therapist Physical Therapy 01/20/22 [place] [address] [place] [address] Physical Therapist Physical Therapy 01/30/22 Hussain Lopez, COACH OPERATOR Corrugated Sheet Material Sheeter Physical Therapy 02/03/22 documented as of this encounter
--- OUTSIDE RECORDS SUMMARY | 2024-05-22 05:25 | XMS_ITS | Encounter Summary ---
Author Organization [facility] Healthcare Address [address] [place] [address] Care Team Providers Care Forensic Science Examiner Name Role Phone No, Physician Primary Care Provider [phone] Zach Reyez PT Unavailable Unavailable Teresa Leach PT Unavailable [phone] Hussain Lopez HYDROSTATIC TESTER Unavailable Unavailabl e Encounter Details Date Type Department Care Team (Latest Contact Info) Description 02/03/2023 6:13 PM CDT - 02/03/2023 11:59 PM CDT Hospital Encounter [facility] [address] [place] [phone] Discharge Disposition: Discharge to home or self [...] on file 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 ??There will be no report generated by a [facility] Radiologist. Narrative [facility] - 02/03/2023 6:13 PM CDT EXAMINATION: ??Images For Reference Purposes Only us Mikey Hawkins MD IMG XR PROCEDURES Final Res ult [facility] documented in this encounter Visit Diagnoses Not on filedocumented in this encounter Care Teams Forensic Science Examiner Relationship Specialty Start Date End Date No, Physician PCP - General 12/21/21 Zach Reyez, PT Physical Therapist Physical Therapy 01/20/22 [place] [address] [place] [address] Physical Therapist Physical Therapy 01/30/22 Hussain Lopez PTA Tooling Specialist Physical Therapy 02/03/22 documented as of this encounter
--- OUTSIDE RECORDS SUMMARY | 2024-05-22 05:26 | XMS_ITS | Encounter Summary ---
Author Organization [facility] Healthcare Address [address] [place] [address] Care Team Providers Care Manager Of Tires Sales Name Role Phone No, Physician Primary Care Provider [phone] Zach Reyez PT Unavailable Unavailable Teresa Laech PT Unavailable [phone] Hussain Lopez METAL FILER Unavailable Unavailabl e Reason for Visit * Reason Comments PT Treatment Encounter Details Date Type Department Care Team (Late st Contact Info) Description 05/03/2022 6:00 PM BUSINESS ANALYTICS ANALYST Therapy 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 Gender Identity Not on file Sexual Orientation Not on file documented as of this encounter Progress Notes * Teresa Leach, PT - 05/03/2022 6:00 PM CST [facility] STAR: Sports Therapy and Rehabilitation [...] control allows No deep flexion with WB Bicycle/elliptical/[place] track/ stairclimber Full arc progressive resistance exercises-emphasize quads Begin functional exercise program ( steps up/down, sports cord) Strengthening isokinetic Quadriceps distal pad/squats/leg press/hamstring curl 05/03/22 pt is 16 weeks post op Today's date: 05/03/2022 Start Time: 6:00 pm SUBJECTIVE --pt reports continued pain with closed chain knee flexion to ext at 30 degrees, when loading jointanterior medial. No pain if loads post/lateral heel/knee joint. Also with same pain with knee hyperextension with pelvic/trunk rotation R. --pain level 0/10 unless he gets the sharp pain medial knee 5/10. Subjective Functional Outcome Measure: Knee Injury and Osteoarthritis Outcome Score: 7.5% OBJECTIVE: pt still with sharp pain and buckling at 30 degrees knee flexion to ext closed chain, or at 20 degrees while side stepping, or with knee ext with pelvic rotation R Gait: Ambulates with slightly excessive R knee ext in R stance phase Range of Motion: (flexion limited due to swelling and medial knee pain Supine Left Knee: +3?? Extension: 130?? Flexion Right Knee: 0?? Extension; 127?? Flexion (supine and seated); prone with strap: 125 degrees Muscle Length: Hamstring, gastroc, and quadricep moderately restricted on right Strength (Manual Muscle Test): Knee Extension: Left 5/5; Right NT/5 Knee Flexion: Left 5/5; Right NT/5 Hip Abduction: Left 5/5; Right 5/5 Hip Adduction: Left 5/5; Right 5/5 Hip Extension: Left 5/5; Right 5/5 Palpation: Minimal tenderness anteromedially, and medial joint line. Slightly less but still moderate swelling infrapatellar region --note R patella lateral glide and tilt TREATMENT 1) bike for 10 min level 1 2) not today (pt still had tape on): applied patellar taping to R knee to promote medial glide and tilt 3) applied electrical stimulation with trigger switch and used with all LE/quad strengthening exercises 4) exercise per flow sheet:emphasized open-chain strengthening today, full range of LAQ, as well ascompleted concentric WB strengthening only within the pain free range 90-30 degrees, and 0-30 separately, and full range eccentric WB ex. By the last few reps of the leg press doing this activity, ptwas then able to perform concentric WB for a few reps (with post/lateral foot and knee) 5) not today: applied vasopneumatic with ice for 15 min at high pressure. Pt to ice at home 6) recommended trial of closed chain ex in water. Exercise/ Activity 03/26 04/05 04/09 04/21 04/28 05/03 Side stepping Backward walking Against one blue bane with forward walking Dynamic walking high knees and leg curls Standing TKE with band Black x15 Black x15 Leg press No today pain Double- 1/2 plates, 2 x10 Unilat 2 1/2 plates 90-30 degrees x20 Bilat conc with unilat ecc 0-90 degrees with 2 1/2 plates (With stim) Unilat 1 to 3 plates 90-30 and 0-30 degrees 2x20 each (with more pressure on lateral heel/post lateral knee pressure X Supine SLR X 7 min with e stim X With E-Stim LAQ 90-40 deg Leg Extension 90-40 deg, 10 lb, 3 x10 Leg Extension, 90 - 0 deg, Double/SL ecc X with e stim X with e stim 5 reps bilat to 5 reps bilat to unilat to unilat only conc/ecc With 10# Xbilat to unilat 10#-25# 3x10 each Standing leg curl Leg Curl- 25 lb, 2 x10 SL- 25 lb Seated leg curl 10# unilat 2x10 10-25# bilat to unilat 3x10 Standing heel raise X Standing gastroc stretch Gait training X X X SL balance X Single leg stance with opposite leg swings Amb over sticks Supine and quadriped leg press against black band Initiated with black band for home X home Patellar mobs Upright bike 5 min 5 min 10 min 10 min X Active warmup X Step-up No today due to pain Not today due to pain Still unable to do 2 step up due to pain and buckling Step down 2 and 4 step down x 10 each 4 x20 with quad/LE quivering Side stepping with band Init at 20 degrees knee flexion with red band Wall sit (multi angle isometrics) achieving range with uninvolved assist X Multi-angle Isometrics x5 Multi-angle Isometrics x5 X Triplanar stepping in star Pole squat X X 10 Flowsheet [place]: X = performed, x = times/multiply, s = seconds, ea = each, st = stretch Timed Treatment: Therapeutic exercise for 15 minutes Neuromuscular re education for 45 minutes Total of Timed Treatment Codes: 60 minutes Untimed Treatment: non today Ending Pain: 0-2/10 Stop Time: 7:00 pm ASSESSMENT Response to today???s treatment: good; continues to have limitations with pain at terminal knee extension (approximately 30 degrees) PLAN Continue PT with established POC Short [...] assistance or extensor lag in 4 weeks. Broadcast Operations Technician Goals: 12 weeks 1. Patient will report [...] to running at 16 weeks. Teresa Leach, PT NESS ANALYTICS ANALYST documented in this encounter Plan of Treatment Not on file documented as of this encounter Visit Diagnoses Diagnosis Rupture of anterior cruciate ligament of right knee, initial encounter- Primary documented in this encounter Care Teams Manager Of Tires Sales Relationship Specialty Start Date End Date No, Physician PCP - General 12/21/21 Zach Reyez, PT Physical Therapist Physical Therapy 01/20/22 [place] [address] [place] [address] Physical Therapist Physical Therapy 01/30/22 Hussain Lopez, TRIPP Tick Eradicator Physical Therapy 02/03/22 documented as of this encounter
--- OUTSIDE RECORDS SUMMARY | 2024-05-22 05:26 | XMS_ITS | Encounter Summary ---
Author Organization [facility] Healthcare Address [address] [place] [address] Care Team Providers Care Notch Machine Operator Name Role Phone No, Physician Primary Care Provider [phone] Zach Reyez PT Unavailable Unavailable Teresa Leach PT Unavailable [phone] Hussain Lopez FRUIT AND VEGETABLE PARER Unavailable Unavailabl e Reason for Visit * Reason Comments PT Treatment Encounter Details Date Type Department Care Team (Late st Contact Info) Description 02/15/2022 4:30 PM CDT Therapy [facility] at [facility] [id number] [place] [address] [address] [place] [address] [place] [address] [place] [address] Rupture of anterior cruciate ligament [...] on file 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 / male Referring Diagnosis: Rupture of anterior cruciate ligament of right knee, initial encounter [S83.511A], meniscal repair Date of Onset/surgery: 01/15/22 Referring Practitioner: Antonio Suh IV* Phase I: 0-2 Weeks s/p ACL Reconstruction [...] 1; 110?? flexion by end week 2 Phase II: 2-6 Weeks s/p ACL Reconstruction and meniscal repair WBAT locked in extension, no flexion with WB ROM/stretching all muscle groups NWB Begin Quadriceps Isotonics with proximal pad in 90?? - 40?? arc Hamstring curls Hip adduction/abduction strengthening Standing heel raises with resistance 02/15/22 pt is 4 weeks post op Today's date: 02/15/2022 Start Time: 4:30 pm SUBJECTIVE --pt is working 4 days per week for half days. Pain level 1-2/10. Pain occurs night and with weightbearing on it. Notes posterolateral knee pain with active extension. Subjective Functional Outcome Measure: Knee Injury and Osteoarthritis Outcome Score: 7.5% OBJECTIVE: Gait: Ambulates one axillary crutch with locked R knee immobilizer with fairly unremarkable gait Range of Motion: (02/15/22) Supine Left Knee: +3?? Extension: 130?? Flexion Right Knee: 0?? Extension; 126?? Flexion (supine and seated); prone with strap: 115 degrees Muscle Length: Hamstring, gastroc, and quadricep moderately restricted on right Strength (Manual Muscle Test): Knee Extension: Left 5/5; Right NT/5 Knee Flexion: Left 5/5; Right NT/5 Hip Abduction: Left 5/5; Right 4/5 Hip Adduction: Left 5/5; Right 4+/5 Hip Extension: Left 5/5; Right 4/5 no longer with Extensor lag with straight leg raise . Palpation: Minimal tenderness anteromedially, and posteriolateral knee. --moderate swelling R knee Good (-) R quad contraction TREATMENT 1) pt performed ex per flow sheet per MD's protocol with min to no cues. 2) performed manual rx for MFR to R ant knee/ lateral knee/lateral gastroc and scar massage 3) applied czech stim to R quads for 15 min 10/10 sec on/off (5 min long sitting quad bj, 5 minwith SLR, 5 min with LAQ 90-40 with 3#) 4) gait with crutch and brace is fairly unremarkable 5) applied vasopneumatic with ice at 34 degrees with mod pressure for 15 min to R knee Exercise/ Activity Date: 01/22 Date: 01/27 Date: 01/30 Date: 02/01 Date: 02/05 Date: 02/10 02/15 Quad sets X X with e stim X with e stim for 10 min With E-Stim With E-Stim With e stim for 5 min Supine SLR X with brace on 10 reps X with e stim X with e stim for 5 min With E-Stim With E-Stim With E-Stim With e stim for 5 min Prone hip ext/side lying hip abd/add all with knee extended X with brace on x 10 reps X X X Seated knee flexion x10 x5 x10 Supine heel slides with strap x10 X X X X, without strap this day X with strap x5 Prone knee flexion with strap PROM initiated X10 Manual x3 x10 Prone leg curl initiated x10 X 10 Long sitting VMO isometric Initiated with ball squeeze Seated hamstring/gastroc stretch initiated X HS stretch x3 HS- Long- Sitting x3 LAQ 90-40 deg x10 2 lb, 2 x10 2lb with E-stim 3# x 5 min with e stim Standing leg curl initiated X x10 Standing heel raise Initiated x10 x10 home x20 X Standing gastroc stretch initiated home x2 x2 X E-Stim [place] 10 min, R quad, 10/10 10 min, R quad, 10/10 10 min, R quad, 10/10 X Gait training Without assistive device X Patellar mobs Performed and reviewed for self mobs X X X E stim Initiated with long sitting quad bj and SLR X X X X Upright bike ROM, 5 min ROM, 5 min 10 min Flowsheet [place]: X = performed, x = times/multiply, s = seconds, ea = each, st = stretch Timed Treat Therapeutic exercise for 30 minutes: see above Manual therapy for 15 minutes: see above Neuromuscular re-education for 15 min: see above ex with e stim Total of Timed Treatment Codes: 60 minutes Ending Pain: 06/01 Stop Time: 5:55 pm ASSESSMENT Response to today???s treatment: good [...] assistance or extensor lag in 4 weeks. Fern Gatherer Goals: 12 weeks 1. Patient will report [...] running at 16 weeks. Teresa Leach PT documented in this encounter Plan of Treatment Not on file documented as of this encounter Visit Diagnoses Diagnosis Rupture of anterior cruciate ligament of right knee, initial encounter- Primary documented in this encounter Care Teams Notch Machine Operator Relationship Specialty Start Date End Date No, Physician PCP - General 12/21/21 Zach Reyez, PT Physical Therapist Physical Therapy 01/20/22 [place] [address] [place] [address] Physical Therapist Physical Therapy 01/30/22 Hussain Lopez, FRUIT AND VEGETABLE PARER Facility Supervisor Physical Therapy 02/03/22 documented as of this encounter
--- OUTSIDE RECORDS SUMMARY | 2024-05-22 05:26 | XMS_ITS | Encounter Summary ---
Author Organization [facility] Healthcare Address [address] [place] [address] Care Team Providers Care Regional Intermodal Truck Driver Name Role Phone No, Physician Primary Care Provider [phone] Zach Reyez PT Unavailable Unavailable Teresa Leach PT Unavailable [phone] Hussain Lopez CARPENTER HELPER MAINTENANCE Unavailable Unavailabl e Reason for Visit * Reason Comments PT Treatment Encounter Details Date Type Department Care Team (Late st Contact Info) Description 05/14/2022 3:30 PM TAVERN KEEPER Therapy [facility] at [facility] [id number] [place] [address] [address] [place] [address] [place] [address] [place] [address] Rupture of anterior cruciate ligament [...] on file Legal Sex Male 6:31 AM TAVERN KEEPER Gender Identity Not on file Sexual Orientation Not on file documented as of this encounter Progress Notes * Teresa Leach, PT - 05/14/2022 3:30 PM CST [facility] STAR: Sports Therapy and Rehabilitation Physical [...] control allows No deep flexion with WB Bicycle/elliptical/[place] track/ stairclimber Full arc progressive resistance exercises-emphasize quads Begin functional exercise program ( steps up/down, sports cord) Strengthening isokinetic Quadriceps distal pad/squats/leg press/hamstring curl 05/03/22 pt is 16 weeks post op Today's date: 05/14/2022 Start Time: 3:30 pm SUBJECTIVE --pt reports his knee continues to feel better. He has not yet tried the closed chain exercises forHEP. Pain level 0-1/10. Subjective Functional Outcome Measure: Knee Injury and [...] for 10 min level 1 2) not today: applied electrical stimulation with trigger switch and used with all LE/quad strengthening exercises 3) exercise per flow sheet with verbal and manual cues. Reinitiated low level close chain exercises. 4) applied vasopneumatic with ice for 15 min at high pressure and 34 degrees R ankle 5) recommended trial of closed chain ex in water. Exercise/ Activity 04/28 05/03 05/10 05/14 Side stepping against bands Backward walking against bands Amb against bands forward Initiated x 4 lengths 60' Dynamic walking high knees and leg curls Standing TKE with band Leg press Unilat 1 to 3 plates 90-30 and 0-30 degrees 2x20 each (with more pressure on lateral heel/post lateral knee pressure X 4 plates bilat 2x20 2 plates unilat 3x20 without pain complaints 4 plates bilat 2x20 2 and 2 1/2 plates unilat 3x20 Supine SLR LAQ 90-40 deg X with e stim 5 reps bilat to 5 reps bilat to unilat to unilat only conc/ecc With 10# Xbilat to unilat 10#-25# 3x10 each 10-25# bilat to unilat conc/ecc 10# bilat conc/ecc 25# leg curl Seated leg curl 10# unilat 2x10 10-25# bilat to unilat 3x10 25-40# 3x10 bilat 40# 2x10 Standing heel raise X Standing gastroc stretch Gait training X SL balance In 2 days X Single leg stance with opposite leg [...] DO 2 STEP UP TODAY PAIN FREE!!! Step down 2 and 4 step down x 10 each 4 x20 with quad/LE quivering hold 4 x10 Side stepping with band Init at 20 degrees knee flexion with red band In 2 days Wall sit (multi angle isometrics) achieving range with uninvolved assist X Triplanar stepping in star Pole squat X 10 X Flowsheet [place]: X = performed, x = times/multiply, s = seconds, ea = each, st = stretch Timed Treatment: Therapeutic exercise for 45 minutes Total of Timed Treatment Codes: 45 minutes Untimed Treatment: ice Ending Pain: 0/10 Stop Time: 4:30 pm ASSESSMENT Response to today???s treatment: good, [...] assistance or extensor lag in 4 weeks. Commutator V Ring Assembler Goals: 12 weeks 1. Patient will report [...] running at 16 weeks. Teresa Leach PT RN KEEPER documented in this encounter Plan of Treatment Not on file documented as of this encounter Visit Diagnoses Diagnosis Rupture of anterior cruciate ligament of right knee, initial encounter- Primary documented in this encounter Care Teams Regional Intermodal Truck Driver Relationship Specialty Start Date End Date No, Physician PCP - General 12/21/21 Zach Reyez, PT Physical Therapist Physical Therapy 01/20/22 [place] [address] [place] [address] Physical Therapist Physical Therapy 01/30/22 Hussain Lopez, TRIPP [place]wall Machine Operator Helper Physical Therapy 02/03/22 documented as of this encounter
--- OUTSIDE RECORDS SUMMARY | 2024-05-22 05:26 | XMS_ITS | Encounter Summary ---
Author Organization [facility] Healthcare Address [address] [place] [place] [address] Care Team Providers Care Car Repairer Name Role Phone No, Physician Primary Care Provider [phone] Zach Reyez PT Unavailable Unavailable Teresa Leach PT Unavailable [phone] Hussain Lopez ELECTRICIAN SUBSTATION Unavailable Unavailabl e Reason for Visit * Reason Comments PT Treatment Encounter Details Date Type Department Care Team (Late st Contact Info) Description 02/22/2022 4:30 PM CDT Therapy [facility] at [facility] [address] [place] [address] [place] [address] [place] [address] Rupture of anterior cruciate ligament [...] Legal Sex Male 6:31 AM 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 / male Referring Diagnosis: Rupture of anterior cruciate ligament of right knee, initial encounter [S83.992A], meniscal repair Date of Onset/surgery: 01/15/22 Referring Practitioner: Antonio Suh IV* Phase II: 2-6 Weeks s/p ACL Reconstruction and meniscal repair WBAT locked in extension, no flexion with WB ROM/stretching all muscle groups NWB Begin Quadriceps Isotonics with proximal pad in 90?? - 40?? arc Hamstring curls Hip adduction/abduction strengthening Standing heel raises with resistance 02/15/22 pt is 4 weeks post op Today's date: 02/22/2022 Start Time: 4:20 pm SUBJECTIVE --pt reports he is improving. Pt walked in today without a crutch, amb only with long leg hinged brace locked into full ext. He reports he can get some discomfort R post and post/lat knee with weightbearing. He can also get anterior knee pain with quad contraction. Pt reports his knee is a little swollen today and did not do anything different to cause the swelling. Pain level 0-2/10 Subjective Functional Outcome Measure: Knee Injury and Osteoarthritis Outcome Score: 7.5% OBJECTIVE: Gait: Ambulates without crutch with locked R knee immobilizer with fairly unremarkable gait Range of Motion: (02/20/22) Supine Left Knee: +3?? Extension: 130?? Flexion [...] 4+/5 Hip Extension: Left 5/5; Right 4/5 Palpation: Minimal tenderness anteromedially, and posteriolateral knee. -- mod swelling R knee Good R quad contraction, with decreased VMO girth TREATMENT 1) performed manual rx to ant/lat/med knee for MFR, scar massage, swelling massage and fascial manipulation to distal quad, and medial patellar mobs 2) pt performed ex per flow sheet per MD's protocol with min to no cues. 3) applied israeli stim to R quads for 18 min 10/10 sec on/off ( 8 min with SLR, 10 min with LAQ 90-40 with 3#) 4) gait without crutch and with brace without cues 5) pt to ice at home Exercise/ Activity Date: 01/30 Date: 02/01 Date: 02/05 Date: 02/10 02/15 02/20 10/ Quad sets X with e stim for 10 min With E-Stim With E-Stim With e stim for 5 min Added ball squeeze for VMO contraction X Supine SLR X with e stim for 5 min With E-Stim With E-Stim With E-Stim With e stim for 5 min With e stim for 8 min X Prone hip ext/side lying hip abd/add all with knee extended X X Seated knee flexion x10 x5 x10 Supine heel slides with strap X X X, without strap this day X with strap x5 X X Prone knee flexion with strap PROM X10 Manual x3 x10 X X Prone leg curl x10 X 10 X X Long sitting VMO isometric X 10 X Seated hamstring/gastroc stretch X HS stretch x3 HS- Long- Sitting x3 LAQ 90-40 deg x10 2 lb, 2 x10 2lb with E-stim 3# x 5 min with e stim With e stim at 3# for 10 min X Standing leg curl initiated X x10 home Standing heel raise home x20 X home Standing gastroc stretch home x2 x2 X home E-Stim [place] 10 min, R quad, 10/10 10 min, R quad, 10/10 10 min, R quad, 10/10 X X Gait training Without assistive device X Patellar mobs X X X E stim X X X X X X Upright bike ROM, 5 min 10 min X X Flowsheet [place]: X = performed, x = times/multiply, s = seconds, ea = each, st = stretch Timed Treatment: Manual rx for 20 min Therapeutic exercise for 10 minutes: see above Neuromuscular re-education for 15 min: see above ex with e stim Total of Timed Treatment Codes: 45 minutes Ending Pain: 0-2/10 Stop Time: 5:20 pm ASSESSMENT Response to today???s treatment: good [...] assistance or extensor lag in 4 weeks. Sweeper Driver Goals: 12 weeks 1. Patient will report [...] Primary documented in this encounter Care Teams Car Repairer Relationship Specialty Start Date End Date No, Physician PCP - General 12/21/21 Zach Reyez, PT Physical Therapist Physical Therapy 01/20/22 [place] [address] [place] [address] Physical Therapist Physical Therapy 01/30/22 Hussain Lopez, ELECTRICIAN SUBSTATION Assembler Type Bar And Segment Physical Therapy 02/03/22 documented as of this encounter
--- OUTSIDE RECORDS SUMMARY | 2024-05-22 05:26 | XMS_ITS | Encounter Summary ---
Author Organization [facility] Healthcare Address [address] [place] [address] Care Team Providers Care Assistant Bookkeeper Name Role Phone No, Physician Primary Care Provider [phone] Zach Reyez PT Unavailable Unavailable Teresa Leach PT Unavailable [phone] Hussain Lopez COMMERCIAL LOAN COLLECTION OFFICER Unavailable Unavailabl e Encounter Details Date Type Department Care Team (Late st Contact Info) Description 04/28/2022 6:00 PM DYE BLENDER Therapy [facility] at [facility] [address] [place] [address] [place] [address] [place] [address] Rupture of anterior cruciate ligament [...] on file Legal Sex Male 6:31 AM DYE BLENDER Gender Identity Not on file Sexual Orientation Not on file documented as of this encounter Progress Notes * Teresa Leach, PT - 04/28/2022 6:00 PM CST [facility] STAR: Sports Therapy and Rehabilitation Physical therapy treatment note/progress note and POC 03/26/22 Name: Zayda Torres : 1975 Age / Sex: 46 y.o. / male Referring Diagnosis: Rupture of anterior cruciate ligament of right knee, initial encounter [S83.511A], meniscal repair Date of Onset/surgery: 01/15/22 Referring Practitioner: Antonio Suh IV* Phase III: Strengthening & control (min 6 weeks s/p ACL recon and meniscal repair) WBAT brace 0 -90??, no flexion beyond 90?? with WB Begin squat/step-ups/proprioception program in brace Bicycle Quadriceps Isotonics - full arc for closed chain in brace. Open chain: 90?? - 40?? arc Strengthening squats/leg press in brace, hamstring curl Phase IV: Advanced strengthening & control (min 12 Weeks s/p ACL Recon & meniscal repair) Discard brace when ROM/quad control allows No deep flexion with WB Bicycle/elliptical/[place] track/ stairclimber Full arc progressive resistance exercises-emphasize quads Begin functional exercise program ( steps up/down, sports cord) Strengthening isokinetic Quadriceps distal pad/squats/leg press/hamstring curl 04/28/22 pt is 15 weeks post op Today's date: 04/28/2022 Start Time: 6:00 pm SUBJECTIVE --pt reports continued pain with closed chain knee flexion to ext at 20 degrees, when loading jointanterior medial. No pain if loads post/lateral heel/knee joint. --pain level 0/10 unless he gets the sharp pain medial knee 5/10. Subjective Functional Outcome Measure: Knee Injury and Osteoarthritis Outcome Score: 7.5% OBJECTIVE: Gait: Ambulates with slightly excessive R knee ext in R stance phase Range of Motion: Supine Left Knee: +3?? Extension: 130?? Flexion [...] bike for 10 min level 1 2) applied patellar taping to R knee to promote medial glide and tilt 3) applied electrical stimulation with trigger switch and used with all LE/quad strengthening exercises 4) exercise per flow sheet:emphasized open-chain strengthening today, progressing to full range of LAQ, as well as completed concentric WB strengthening only within the pain free range 90-30 degrees,and 0-30 separately, and full range eccentric WB ex. By the last few reps of the leg press doing this activity, pt was then able to perform concentric WB for a few reps (with post/lateral foot and knee) 5) applied vasopneumatic with ice for 15 min at high pressure. 6) recommended trial of closed chain ex in water. Exercise/ Activity 03/22 03/26 04/05 04/09 04/21 04/28 Side stepping Backward walking Against one blue bane with forward walking Dynamic walking high knees and leg curls Standing TKE with band Black x15 Black x15 Leg press 4 plates bilat 2x20 2 plates Right x20 No today pain Double- 1/2 plates, 2 x10 Unilat 2 1/2 plates 90-30 degrees x20 Bilat conc with unilat ecc 0-90 degrees with 2 1/2 plates (With stim) Unilat 1 to 3 plates 90-30 and 0-30 degrees 2x20 each (with more pressure on lateral heel/post lateral knee pressure Supine SLR X 7 min with e stim X 7 min with e stim X With E-Stim LAQ 90-40 deg Leg Extension 90-40 deg, 10 lb, 3 x10 Leg Extension, 90 - 0 deg, Double/SL ecc X with e stim X with e stim 5 reps bilat to 5 reps bilat to unilat to unilat only conc/ecc With 10# Standing leg curl Leg Curl- 25 lb, 2 x10 SL- 25 lb Seated leg curl 10# unilat 2x10 Standing heel raise Unilat x10 Standing gastroc stretch Gait training X X X X SL balance x2 X Single leg stance with opposite leg swings initated Amb over sticks Supine and quadriped leg press against black band Initiated with black band for home X home Patellar mobs Upright bike 10 min 5 min 5 min 10 min 10 min Active warmup X Step-up 1 book x 10 pt able to do without pain No today due to pain Not today due to pain Step down 2 x10 2 and 4 step down x 10 each Wall sit (multi angle isometrics) achieving range with uninvolved assist initiated X Multi-angle Isometrics x5 Multi-angle Isometrics x5 X Triplanar stepping in star Initiated with 0-20 degrees knee flex to ext Ant, ant/lat, lat stepping Pole squat X X 10 Flowsheet [place]: X = performed, x = times/multiply, s = seconds, ea = each, st = stretch Timed Treatment: Therapeutic exercise for 15 minutes Neuromuscular re education for 45 minutes Total of Timed Treatment Codes: 60 minutes Untimed Treatment: ice, knee taping Ending Pain: 0-2/10 Stop Time: 7:30 pm ASSESSMENT Response to today???s treatment: good; continues to have limitations with pain at terminal knee extension (approximately 20-30 degrees) PLAN Continue PT with established POC [...] assistance or extensor lag in 4 weeks. Electrical Line Mechanic Goals: 12 weeks 1. Patient will report [...] running at 16 weeks. Teresa Leach PT a BLENDER documented in this encounter Plan of Treatment Not on file documented as of this encounter Visit Diagnoses Diagnosis Rupture of anterior cruciate ligament of right knee, initial encounter- Primary documented in this encounter Care Teams Assistant Bookkeeper Relationship Specialty Start Date End Date No, Physician PCP - General 12/21/21 Zach Reyez, PT Physical Therapist Physical Therapy 01/20/22 [place] [address] [place] [address] Physical Therapist Physical Therapy 01/30/22 Hussain Lopez PTA Director Of Scientific Research Physical Therapy 02/03/22 documented as of this encounter
--- OUTSIDE RECORDS SUMMARY | 2024-05-22 05:26 | XMS_ITS | Encounter Summary ---
Author Organization [facility] Healthcare Address [address] [place] [address] Care Team Providers Care Dairy Tester Name Role Phone No, Physician Primary Care Provider [phone] Zach Reyez PT Unavailable Unavailable Teresa Leach PT Unavailable [phone] Hussain Lopez COLLATERAL SPECIALIST Unavailable Unavailabl e Reason for Visit * Reason Comments PT Treatment Encounter Details Date Type Department Care Team (Late st Contact Info) Description 03/01/2022 5:00 PM CDT Therapy [facility] ST[facility] at [address] [place], [place] [id number] Hussain oLpez PTA Rupture of anterior cruciate ligament of right [...] on file Legal Sex Male 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 Gender Identity Not on file Sexual Orientation Not on file documented as of this encounter Progress Notes * Hussain Lopez PTA - 03/01/2022 5:00 PM CDT [facility] ST[facility]: Sports Therapy and Rehabilitation Physical [...] is 4 weeks post op Today's date: 03/01/2022 Start Time: 5:00pm SUBJECTIVE --pt says he had 1-2 episodes/day of sharp pain with ambulating around the house with his brace unlocked; because of this he continues to be apprehensive with a greater quad contraction in R stance as he says he usually gets the sharp pain at end-range extension with WB Pain level 0-5/10 Subjective Functional Outcome Measure: Knee Injury and [...] Minimal tenderness anteromedially, and posteriolateral knee. -- mild swelling R knee Good R quad contraction, with decreased VMO girth TREATMENT 1) completed knee flexion ROM activities 2) completed closed chain quad strengthening with WB activities, omitting step- ups today as they caused sharp pain 3) applied st helenian stim to R quads for 10 min 10/10 sec on/off 4) assessed patient's gait pattern with what could be completed without occasional pain at end-range extension of R stance Exercise/ Activity 02/22 02/26 10 Quad sets X With E-Stim With E-Stim Supine SLR X With E-Stim With E-Stim Prone hip ext/side lying hip abd/add all with knee extended Seated knee flexion Supine heel slides with strap X X X Prone knee flexion with strap PROM X Prone leg curl X x10 Long sitting VMO isometric X Seated hamstring/gastroc stretch LAQ 90-40 deg X 5 lb x10 Standing leg curl X Standing heel raise X Standing gastroc stretch x3 E-Stim Mauritian X X Gait training Brace unlocked @ counter Brace unlocked/ SL balance x3 Patellar mobs X X X E stim X X 10 min, 10 Upright bike X 5 min 5 min Active warmup X Step-up 2 x10 2 - pain Pole squat /4 x10 1/4 x10 Flowsheet [place]: X = performed, x = times/multiply, s = seconds, ea = each, st = stretch Timed Treatment: Therapeutic exercise for 35 minutes: see above Total of Timed Treatment Codes: 35 minutes Untimed Treatment E-Stim Mauritian for 10 minutes: R quad strengthening with SLR Cold Pack for 15 minutes: R knee edema management Ending Pain: 0-2/10 Stop Time: 6:00pm ASSESSMENT Response to today???s treatment: fair; patient is having frequent sharp pain with an end-range quadcontraction with WB exercise; gets pain with a 2 step-up and even with R stance of gait with the brace unlocked PLAN Continue PT with established POC Short [...] assistance or extensor lag in [address] Technician Goals: 12 weeks 1. Patient will [...] for return to running at 16 weeks. Hussain Lopez PTA documented in this encounter Plan of Treatment Not on file documented as of this encounter Visit Diagnoses Diagnosis Rupture of anterior cruciate ligament of right knee, initial encounter- Primary documented in this encounter Care Teams Dairy Tester Relationship Specialty Start Date End Date No, Physician PCP - General 12/21/21 Zach Reyez, PT Physical Therapist Physical Therapy 01/20/22 [place] [address] [place] [address] Physical Therapist Physical Therapy 01/30/22 Hussain Lopez PTA Carton Maker Physical Therapy 02/03/22 documented as of this encounter
--- OUTSIDE RECORDS SUMMARY | 2024-05-22 05:26 | XMS_ITS | Encounter Summary ---
Author Organization [facility] Healthcare Address [address] [place] [address] Care Team Providers Care Material Handler 1St Shift Name Role Phone No, Physician Primary Care Provider [phone] Zach Reyez PT Unavailable Unavailable Teresa Leach PT Unavailable [phone] Hussain Lopez SEROLOGY TEACHER Unavailable Unavailabl e Reason for Visit * Reason Comments PT Treatment Encounter Details Date Type Department Care Team (Late st Contact Info) Description 02/20/2022 12:30 PM CDT Therapy [facility] at [facility] [address] [address] [place] [address] [place] [address] [place] [address] Rupture of anterior cruciate ligament [...] on file Legal Sex Male 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 / male Referring Diagnosis: Rupture of anterior cruciate ligament of right knee, initial encounter [S83.019A], meniscal repair Date of Onset/surgery: 01/15/22 Referring [...] is 4 weeks post op Today's date: 02/20/2022 Start Time: 12:30 pm SUBJECTIVE --pt reports he is improving. Pt walked in today without a crutch, amb only with long leg hinged brace locked into full ext. He reports he can get some discomfort R post and post/lat knee with weightbearing. He can also get anterior knee pain with quad contraction. Subjective Functional Outcome Measure: Knee Injury and [...] Palpation: Minimal tenderness anteromedially, and posteriolateral knee. No ant knee tenderness (he reports it feels deeper under the knee cap) --min to mod swelling R knee Good R quad contraction, with decreased VMO girth TREATMENT 1) pt performed ex per flow sheet per MD's protocol with min to no cues. 2) applied bahamian stim to R quads for 18 min 10/10 sec on/off ( 8 min with SLR, 10 min with LAQ 90-40 with 3#) 3) gait without crutch and with brace without cues 4) pt to ice at home Exercise/ Activity Date: 01/22 Date: 01/27 Date: 01/30 Date: 02/01 Date: 02/05 Date: 02/10 02/15 10/1 Quad sets X X with e stim X with e stim for 10 min With E-Stim With E-Stim With e stim for 5 min Added ball squeeze for VMO contraction Supine SLR X with brace on 10 reps X with e stim X with e stim for 5 min With E-Stim With E-Stim With E-Stim With e stim for 5 min With e stim for 8 min Prone hip ext/side lying hip abd/add all with knee extended X with brace on x 10 reps X X X Seated knee flexion x10 x5 x10 Supine heel slides with strap x10 X X X X, without strap this day X with strap x5 X Prone knee flexion with strap PROM initiated X10 Manual x3 x10 X Prone leg curl initiated x10 X 10 X Long sitting VMO isometric Initiated with ball squeeze X 10 Seated hamstring/gastroc stretch initiated X HS stretch x3 HS- Long- Sitting x3 LAQ 90-40 deg x10 2 lb, 2 x10 2lb with E-stim 3# x 5 min with e stim With e stim at 3# for 10 min Standing leg curl initiated X x10 home Standing heel raise Initiated x10 x10 home x20 X home Standing gastroc stretch initiated home x2 x2 X home E-Stim Nigerien 10 min, R quad, 10/10 10 min, R quad, 10/10 10 min, R quad, 10/10 X X Gait training Without assistive device X Patellar mobs Performed and reviewed for self mobs X X X E stim Initiated with long sitting quad bj and SLR X X X X X Upright bike ROM, 5 min ROM, 5 min 10 min X Flowsheet [place]: X = performed, x = times/multiply, s = seconds, ea = each, st = stretch Timed Treat Therapeutic exercise for 40 minutes: see above Neuromuscular re-education for 20 min: see above ex with e stim Total of Timed Treatment Codes: 60 minutes Ending Pain: 06/01 Stop Time: 1:55 pm ASSESSMENT Response to today???s treatment: good [...] assistance or extensor lag in 4 weeks. Heavy Coil Winder Goals: 12 weeks 1. Patient will report [...] Primary documented in this encounter Care Teams Material Handler 1St Shift Relationship Specialty Start Date End Date No, Physician PCP - General 12/21/21 Zach Reyez, PT Physical Therapist Physical Therapy 01/20/22 [place] [address] [place] [address] Physical Therapist Physical Therapy 01/30/22 Hussain Lopez PTA Communications Operator Physical Therapy 02/03/22 documented as of this encounter
--- OUTSIDE RECORDS SUMMARY | 2024-05-22 05:26 | XMS_ITS | Encounter Summary ---
Author Organization [facility] Healthcare Address [address] [place] [address] Care Team Providers Care Mental Health Tech Name Role Phone No, Physician Primary Care Provider [phone] Zach Reyez PT Unavailable Unavailable Reason for Visit * Reason Comments PT Treatment Encounter Details Date Type Department Care Team (Late st Contact Info) Description 01/22/2022 12:[address] 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 flexion by end week 2 Today's date: 01/22/2022 Start Time: 12:00 pm SUBJECTIVE --pain level 1/10. Patient/Caregiver Goals: to fully recovery from surgery and return to work Subjective Functional Outcome Measure: Knee Injury and Osteoarthritis Outcome Score: 7.5% OBJECTIVE: Gait: Ambulates WBAT with bilaterally axillary crutches that appear too short as well as brace is not fitting correctly. The axis of rotation is post to his knee thus causing slight flexion in R stance phase although the brace is locked into extension. Range of Motion: Left Knee: +3?? Extension: 130?? Flexion Right Knee: -2?? Extension; 85?? Flexion Muscle Length: Hamstring and gastroc moderately restricted on right Palpation: moderate swelling R knee Strength (Manual Muscle Test): Knee Extension: Left 5/5; Right NT/5 Knee Flexion: Left 5/5; Right NT/5 Hip Abduction: Left 5/5; Right 4/5 Hip Adduction: Left 5/5; Right 4+/5 Hip Extension: Left 5/5; Right 4/5 Extensor lag present still present with straight leg raise Palpation: Minimal tenderness anteromedially generally at knee TREATMENT 1) reviewed HEP per flow sheet with verbal and manual cues. See also additions per protocol/flow sheet. Pt performed SLR exercises again in brace today due to knee extensor lag 2) adjusted pt's brace and crutches to fit more correctly and reviewed correct gait 3) applied vasopneumatic with ice for 15 min at min pressure and 34 degrees Exercise/ Activity Date: 01/22 Date: Date: Date: Date: Date: Quad sets X Supine SLR X with brace on 10 reps Prone hip ext/side lying hip abd/add all with knee extended X with brace on x 10 reps Supine heel slides with strap x10 Standing heel raise Initiated x10 Patellar mobs Performed and reviewed for self mobs E stim Flowsheet [place]: X = performed, x = times/multiply, s = seconds, ea = each, st = stretch Timed Treatment Therapeutic exercise for 45 minutes Gait for 15 min Total of Timed Treatment Codes: 60 minutes Untimed Treatment: ice Ending Pain: 06/01 Stop Time: 1:30 pm ASSESSMENT Response to today???s treatment: good [...] assistance or extensor lag in 4 weeks. 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 Patient will report [...] Primary documented in this encounter Care Teams Mental Health Tech Relationship Specialty Start Date End Date No, Physician PCP - General 12/21/21 Zach Reyez, PT Physical Therapist Physical Therapy 01/20/22 documented as of this encounter
--- OUTSIDE RECORDS SUMMARY | 2024-05-22 05:26 | XMS_ITS | Encounter Summary ---
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 test positive for COVID-19. * Perioperative Nursing Note - Rena Jennings RN - 01/01/2022 10:08 AM CDT [facility] Perioperative Nursing Note Telephone Preoperative Evaluation ([facility]) - TELEPHONE ONLY, NO PHYSICAL EXAM Date: 01/01/22 Vitals: 01/01/22 1002 Weight: 95.3 kg (210 lb) Height: 174 cm (5' 8.5 ) CHEST CIRCUMFERENCE: N/A Social History Tobacco Use Smoking Status Never Smoker Smokeless Tobacco Never Used Substance and Sexual Activity Drug Use Never Alcohol Use Q1: How often do you have a drink containing alcohol?: 2-4 times a month Q2: How many drinks containing alcohol do you have on a typical day when you are drinking?: 1 or 2 Q3: How often do you have six or more drinks on one occasion?: Never No outpatient medications have been marked as taking for the 01/15/22 encounter (Hospital Encounter). Implants No active implants to display in this view. 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 : No Assistive Devices/DME: None Hearing - Right Ear: Functional Hearing - Left Ear: Functional Discharge Planning Type of Residence: Private residence Living Arrangements: Spouse/significant other Support Systems: Spouse/significant other Patient expects to be discharged to:: Private residence ( or friend will be otr driver after surgery.) COVID Screening Covid-19 Screening In the last 10 days have you had any new or worsening cough, SOB, fever (>=100F), body aches, loss of taste or smell, diarrhea or vomiting, or sore throat?: No Have you had close contact with anyone with confirmed or suspected COVID-19 in the past 10 days?: No Do you live in or work in a congregate living facility (ex. assisted living/senior care facility, half-way, custodial)?: No Have you tested positive for COVID-19 within the last 10 days?: No Have you previously tested positive for COVID-19? No Have you had a COVID -19 exposure within the past 14 days? No Were both or all people exposed wearing masks (cloth, isolation, surgical or N95)? N/A TESTING PLAN-See Instructions for plan We recommend you Self-Isolate after COVID Testing: Stay at home, if possible until your surgery date. Maintain a 6 foot distance from other people (social distancing). Avoid touching your eyes, nose and mouth with unwashed hands. Wash your hands often with soap and water for at least 20 seconds. Use an alcohol- based hand grain blender that contains at least 60% alcohol if soap and water are not available. ADDITIONAL COMMENTS/ FOLLOW UP * Pre-Procedure Instructions - Rena Jennings RN - 01/01/2022 10:07 AM CDT [facility] ([facility]) PRE-SURGICAL NURSING INSTRUCTIONS Telephone Assessment General Information Discussed with Patient: 1. Surgery location provided to patient. 2. Arrival time and surgical time will be provided to the patient by their surgeon. 3. You should wear clothing that is clean, loose, comfortable and easy to get in and out of on the day of surgery. 4. You should leave your valuables and any jewelry at home. No metal or piercings are allowed in the operating room. 5. You should bring your insurance card, a photo ID (example: Log Loader Helper's License) and a method of payment for any insurance copay, deductible or copay for discharge medications. 6. You should bring a complete, up-to-date list of all your medications on the day of surgery, including any over the counter medications or supplements you may take. 7. You should bring your Advanced Directive and/or [...] contribute to the success of your surgery. ??? If your surgeon's directions are different than those in this guide, talk with your nurse or surgeon to confirm the information. ??? It is important that you understand how to take care of yourself at home after surgery. ??? Be sure to bring this guide with you on the day of surgery and take it home with you after surgery. ??? Write down questions for your nurse or [...] Pathway to Excellent Care by the followinglink: [email or web address] How To Prepare Your Skin For Surgery [...] Chlorhexidine gluconate or CHG (brand name: Hibiclens??) ??? Before surgery, your entire body must be thoroughly cleaned. CHG helps to reduce the bacteria on your skin. ??? You may be given one or more bottles of CHG or you may be asked to obtain from your preferred pharmacy. Be sure to ask your pharmacist if you need help finding this product. Nasal ointment: Mupirocin (brand name: Bactroban) ??? Your surgeon may also prescribe a topical ointment that is rubbed inside each of the nostrils to reduce the bacteria in your nose. ??? Mupirocin ointment requires a prescription. If needed, it will be prescribed by your surgeon and obtained from your preferred pharmacy. SHOWERING WITH ANTISEPTIC SOAP (CHG) What You Need For Each Shower ??? 60 mL (?? cup) of CHG ??? 2 clean washcloths CHG Bathing Instructions 1. First, shampoo and rinse your hair with your own shampoo (no conditioners). Do this so the antiseptic soap isn't washed off by your shampoo. 2. Wash face with warm water. 3. Turn off shower and stand away from the water. 4. Use 2 clean washcloths to apply the [...] use CHG on genital area.) [place]: ??? The CHG antiseptic soap will not bubble or lather very much. ??? If you get soap in your eyes, ears or mouth, rinse well with cool water. ??? When finished, leave the soap on your skin for 2 minutes before rinsing. ??? Dry off with a clean fresh towel. ??? Wear clean clothes or pajamas to sleep in. ??? After showering DO NOT put on deodorant, hair products or conditioners, lotions or creams, powders, Vaseline or any non-essential products. ??? If you cannot reach the surgical site, such as the back, please have someone help you. Shaving: ??? You may shave your face, legs and underarms during your evening shower before you apply the CHGantiseptic soap. Be careful not to cut or lesvia your skin. ??? Avoid shaving on the day of surgery. Deodorant: ??? Patients following the 5-Day CHG protocol may [...] for ???Showering with Antiseptic Soap (CHG)?? above. ??? Change all linens on your bed so you are sleeping in clean fresh sheets and pillowcases. ??? Remove nail coverings, artificial nails and nail finnish. The Morning of Surgery: Take a shower with Antiseptic soap (CHG). Follow the steps for ???Showering with Antiseptic Soap (CHG)?? above. ??? Put clean clothes on after you shower. COVID TESTING PLAN: Please note, the below is the Pre-Procedure COVID Testing Plan for the [facility] Planning for Anesthesia. Surgeon's offices may require additional testing. If so, the surgeon's office will reach out to the patient to discuss further testing. Patient's COVID-19 vaccination status: Up to date with 3 mRNA vaccines. Vaccination status verballyconfirmed with patient. COVID Test Plan: COVID Test not indicated related to patient is up to date on COVID 19 vaccine(s) and booster, if eligible.. If you are going to a [facility] Testing Site for COVID testing, please arrive at least 30 minutes PRIOR to lab closing time. If you have COVID testing or should have COVID testing for your surgery/procedure, please read below section: If you need to reschedule your COVID test to a different location or if your surgery gets rescheduled, you MUST call [phone] Tuesday-Tuesday 8am-4:30pm to get your COVID testing rescheduled or your lab order will not be available at Testing Sites. COVID Testing is only valid for up to 96 hours prior to surgery date, unless otherwise specified. If you are unable to reach staff at the above phone number, please call the [facility] Staff at [phone]. This number cannot order a lab test, but can attempt to contact the above number/staff to assist you. [facility] Staff are available Tuesday- Tuesday 8am-5pm. We recommend you Self-Isolate after COVID Testing: Stay at home, if possible, until your surgery date. Maintain a 6-foot distance from other people (social distancing) and wear a face mask if you areable. Avoid touching your eyes, nose and mouth with unwashed hands. Wash your hands often with soapand water for at least 20 seconds. Use an alcohol-based hand grain blender that contains at least 60% alcohol if soap and water are not available. These are general guidelines, but if have been told by aphysician that you should not perform any of the above, please follow physician's guidelines. All patients should read below section: All visitors/patients are being asked to wear a clean face mask when entering the hospital. COVID 19 Updates & Visitor Policy: Please access [email or web address] for the most updated information. Information on [facility]: Please view [email or web address] (Patient & Visitor Information) for additional details regarding Advanced Directive forms, AWARE, directions, parking information, lodging, Internet access, dining and more. Information on [facility] or [facility] ([facility]): Please view [email or web address] (Patient and Visitor Information) for parking/directions and more. For MyChart information, to activate account or password recovery, please go to [email or web address] or call [phone] (toll-free: [phone]). Information for Suicide Prevention: National Suicide Prevention Lifeline (7-815- 246-JTQG (2947)). Surgery Times: For patients having surgery @ [facility], if your surgeon's office has not notified you of your surgery time by NOON THE BUSINESS DAY BEFORE your surgery, please call the surgery center [phone]. documented in this encounter Plan of Treatment Not on file documented as of this encounter Procedures Procedure Name Priority Date/Time Associated Diagnosis Comments ARTHROSCOPY KNEE - RECONSTRUCTION ANTERIOR CRUCIATE LIGAMENT WITH PATELLAR TENDON 01/15/2022 3:35 PM CDT Complete tear of right ACL, subsequent encounter Complex tear of medial meniscus of right knee as current injury, subsequent encounter Special Needs Anesthesia: PUMP documented in this encounter Visit Diagnoses Diagnosis Complete tear of right ACL, subsequent encounter Complex tear of medial meniscus of right knee as current injury Complete tear of right ACL, subsequent encounter Complex tear of medial meniscus of right knee as current injury, subsequent encounter documented in this encounter Admitting Diagnoses Diagnosis Complete tear of right ACL, subsequent encounter Complex tear of medial meniscus of right knee as current injury documented in this encounter Administered Medications Inactive Administered Medications - up to 3 most recent administrations Medication Order MAR Action Action Date Dose Rate Site bupivacaine preservative free 1,000 mg/500 mL (0.2%) infusion (premix) Continuous Rate: 6 mL/hr, Patient Bolus Dose: 4 mL, Lockout Interval: 30 Minutes, Catheter Site: Saphenous, Catheter Side: Right, perineural, Continuous, Starting on Tue01/15/22 at 1815, Until Tue01/15/22 at 2238, 500 mL, Indications: Pain Treatment Adjunct, RoutineIndications:Pain Treatment Adjunct New Bag 01/15/2022 5:41 PM CDT fentaNYL (SUBLIMAZE) preservative free syringe 25 mcg 25 mcg, intravenous, Every 10 min PRN, 1st line for pain, Starting on Tue01/15/22 at 1738, For 4 doses, Phase I, Notify anesthesiologist if total PACU dose reaches 100 mcg AND pain score 5/10 or more. When patient able to tolerate PO, proceed to 2nd line analgesic agent for pain management., Indications: PainIndications:Pain Given 01/15/2022 5:55 PM CDT 25 mcg Given 01/15/2022 5:45 PM CDT 25 mcg Lactated Ringer's (LR) infusion 30 mL/hr, intravenous, Continuous, Starting on Tue01/15/22 at 1400, Pre-Op, Use a 500 ml bag for End Stage Renal Disease Patients New Bag 01/15/2022 4:33 PM CDT Rate/Dose Verify 01/15/2022 3:35 PM CDT 30 mL/h r New Bag 01/15/2022 1:50 PM CDT 30 mL/hr 30 mL/hr Lactated Ringer's (LR) irrigation As needed, Starting on Tue01/15/22 at 1615, Intra-Op Given 01/15/2022 4:49 PM CDT 3,000 mL Surgical Site Given 01/15/2022 4:48 PM CDT 3,000 mL Diaz rgical Site Given 01/15/2022 4:47 PM CDT 3,000 mL Diaz rgical Site lidocaine PF (XYLOCAINE) 10 mg/mL (1 %) preservative free injection 2-10 mg 2-10 mg (0.2-1 mL), other, Once as needed, pain with IV placement, Starting on Tue01/15/22 at 1317, For 1 dose, Pre-Op, Administer volume needed to infiltrate IV site. Given 01/15/2022 1:51 PM CDT 2 mg oxyCODONE-acetaminophen (PERCOCET) 5-325 mg per tablet 1 tablet 1 tablet, oral, Once as needed, post op pain, Starting on Tue01/15/22 at 1756, For 1 dose, Phase I, Indications: PainIndications:Pain Given 01/15/2022 6:02 PM CDT 1 tablet scopolamine patch 72 hour 1 patch 1 patch, transdermal, Administer over 72 Hours, Once, On Tue01/15/22 at 1400, For 1 dose, Pre-Op, Apply to beach-chair [...] Motion Sickness, Prevention of Post-Operative Nausea and VomitingIndications:Motion Sickness,Prevention of Motion Sickness,Prevention of Post-Operative Nausea and Vomiting Medication Applied 01/15/2022 2:09 PM CDT 1 patch Behind Left Ear documented in this encounter Discontinued Medications Medication Sig Discontinue Reason Start Date End Da te naproxen (ALEVE) 220 mg tablet Take by mouth every 12 (twelve) hours as needed for pain 01/01/2022 documented as of this encounter Active and Recently Administered Medications Times are shown in CDT. Scheduled Medication Order 01/13/2022 01/14/2022 01/15/2022 ceFAZolin (ANCEF) 2,000 mg/50 mL in dextrose (premix) 2,000 mg (COMPLETED) 2,000 mg, intravenous, at 100 mL/hr, Administer over 30 Minutes, Once, On Tue01/15/22 at 1400, For 1 dose, Pre-Op, Administer within 60 minutes of incision. Duplex bag - activate before hanging. , Indications: Prophylaxis, Surgical 1544 (Given - Provid er: Peter Brasher CRNA) scopolamine patch 72 hour 1 patch 1 patch, transdermal, Administer over 72 Hours, Once, On Tue01/15/22 at 1400, For 1 dose, Pre-Op, Apply to beach-chair [...] Sickness, Prevention of Post-Operative Nausea and Vomiting 1409 (Medication Rudy lied - Provider: Analy Willett RN)183 (Due: Medication Removed - Provider: Automatic Discharge Provider - Comment: Time automatically adjusted from order being discontinued) Continuous Medication Order 01/13/2022 01/14/2022 01/15/2022 bupivacaine preservative free 1,000 mg/500 mL (0.2%) infusion (premix) Continuous Rate: 6 mL/hr, Patient Bolus Dose: 4 mL, Lockout Interval: 30 Minutes, Catheter Site: Saphenous, Catheter Side: Right, perineural, Continuous, Starting on Tue01/15/22 at 1815, Until Tue01/15/22 at 2238, 500 mL, Indications: Pain Treatment Adjunct, Routine 1741 (New Bag - Prov ider: Bre Moreno RN - Comment: 2 RN check for blood return and clamp open,with Arline Rust RN)183 (Continued after Discharge - Provider: Bre Moreno RN) Lactated Ringer's (LR) infusion 30 mL/hr, intravenous, Continuous, Starting on Tue01/15/22 at 1400, Pre-Op, Use a 500 ml bag for End Stage Renal Disease Patients 1350 (New Bag - Prov ider: Analy Willett RN)1400 (Due)1535 (Rate/Dose Verify - Provider: Peter Brasher CRNA)1632 (Paused - Provider: Peter Brasher CRNA - Comment: Switch to gravity)1633 (New Bag - Provider: Peter Brasher CRNA)1655 (Anesthesia Volume Adjustment - Provider: Peter Brasher CRNA)1740 (Stopped - Provider: Bre Moreno RN) Lactated Ringer's (LR) infusion 125 mL/hr, intravenous, Continuous, Starting on Tue01/15/22 at 1815, Phase I, 1740 (Continued from OR - Provider: Bre Moreno RN)1833 (Stopped - Provider: Bre Moreno RN) PRN Medication Order 01/13/2022 01/14/2022 01/15/2022 acetaminophen (TYLENOL) tablet 1,000 mg 1,000 mg, oral, Once as needed, headaches, Starting on Tue01/15/22 at 1738, For 1 dose, Phase I, When able to tolerate PO and after consulting with Anesthesiologist about previous and anticipated acetaminophen administration, Indications: Headache diphenhydrAMINE (BENADRYL) injection 12.5 mg 12.5 mg, intravenous, Administer over 1 Minutes, Every 5 min PRN, itching, other, For Nausea, administer 25 mg IV., Starting on Tue01/15/22 at 1738, For 4 doses, Phase I, Max cumulative dose 50 mg., Indications: Itching fentaNYL (SUBLIMAZE) preservative free syringe 25 mcg 25 mcg, intravenous, Every 10 min PRN, 1st line for pain, Starting on Tue01/15/22 at 1738, For 4 doses, Phase I, Notify anesthesiologist if total PACU dose reaches 100 mcg AND pain score 5/10 or more. When patient able to tolerate PO, proceed to 2nd line analgesic agent for pain management., Indications: Pain 1745 (Given - Provid er: Bre Moreno RN)1755 (Given - Provider: Bre Moreno RN) hydrALAZINE (APRESOLINE) injection 5 mg 5 mg, intravenous, Administer over 2 Minutes, Every 5 min PRN, high blood pressure, Starting on Tue01/15/22 at 1738, Phase I, Max cumulative dose 20 mg. Dose if systolic BP greater than 180 AND heart rate less than 70., Indications: hypertension HYDROcodone-acetaminophen (NORCO) 5-325 mg per tablet 1 tablet 1 tablet, oral, Every 30 min PRN, 2nd line for pain, Starting on Tue01/15/22 at 1738, For 2 doses, Phase I, Indications: Pain labetaloL (NORMODYNE,TRANDATE) injection 5 mg 5 mg, intravenous, Every 5 min PRN, high blood pressure, Starting on Tue01/15/22 at 1738, For 4 doses, Phase I, Max cumulative dose 20 mg. Dose if systolic blood pressure greater than 180 AND HR greater than 70. Lactated Ringer's (LR) irrigation (CANCELED) As needed, Starting on Tue01/15/22 at 1615, Intra-Op 1615 (Given - Provid er: Antonio Suh IV, MD)1622 (Given - Provider: Antonio Suh IV, MD)1633 (Given - Provider: Antonio Suh IV, MD)1647 (Given - Provider: Antonio Suh IV, MD)1648 (Given - Provider: Antonio Suh IV, MD)1649 (Given - Provider: Antonio Suh IV, MD) lidocaine PF (XYLOCAINE) 10 mg/mL (1 %) preservative free injection 2-10 mg (COMPLETED) 2-10 mg (0.2-1 mL), other, Once as needed, pain with IV placement, Starting on Tue01/15/22 at 1317, For 1 dose, Pre-Op, Administer volume needed to infiltrate IV site. 1351 (Given - Provid er: Analy Willett RN) meperidine (DEMEROL) preservative free injection 12.5 mg 12.5 mg, intravenous, Administer over 5 Minutes, Every 10 min PRN, shivering, Starting on Tue01/15/22 at 1738, For 2 doses, Phase I, Max cumulative dose 25 mg., Indications: Shivering naloxone (NARCAN) 0.4 mg/mL injection 0.04-0.4 mg 0.04-0.4 mg, intravenous, Once as needed, other, excessive sedation/respiratory depression, Starting on Tue01/15/22 at 1738, For 1 dose, Phase I, Dilute 0.4 [...] administer over 30 seconds., Indications: Opioid Toxicity oxyCODONE-acetaminophen (PERCOCET) 5-325 mg per tablet 1 tablet (COMPLETED) 1 tablet, oral, Once as needed, post op pain, Starting on Tue01/15/22 at 1756, For 1 dose, Phase I, Indications: Pain 1802 (Given - Provid er: Bre Moreno RN) sodium chloride 0.9% flush 0.5-20 mL 0.5-20 mL, intra-catheter, As needed, line care, Flush Lena Block Hep Locks to keep vein open., Starting on Tue01/15/22 at 1317, Pre-Op, Flush volume based on line type and size. Flush before and after each use. , Indications: Flushing documented in this encounter Orders Medications Ordered That John ht Not Have Been Administered Count Last Ordered Date First Ordered Date acetaminophen (TYLENOL) tablet 1,000 mg 1 0 01/15/2022 ceFAZolin (ANCEF) 2,000 mg/5 0 mL in dextrose (premix) 2,000 mg 1 01/15/2022 diphenhydrAMINE (BENADRYL) i njection 12.5 mg 1 01/15/2022 hydrALAZINE (APRESOLINE) injection 5 mg 1 0 01/15/2022 HYDROcodone-acetaminophen (N ORCO) 5-325 mg per tablet 1 tablet 1 01/15/2022 labetaloL (NORMODYNE,TRANDAT E) injection 5 mg 1 01/15/2022 Lactated Ringer's (LR) infusion 1 meperidine (DEMEROL) preserv ative free injection 12.5 mg 1 01/15/2022 naloxone (NARCAN) 0.4 mg/mL injection 0.04-0.4 mg 1 01/15/2022 sodium chloride 0.9% flush 0.5-20 mL 1 12/22 Diet Count Last Ordered Date First Orde red Date ADULT DISCHARGE DIET 1 01/15/2022 Nursing Count Last Ordered Date First Orde red Date ACTIVITY 2 01/15/2022 APPLY ICE TO AFFECTED AREA 1 01/15/2022 DISCHARGE INSTRUCTIONS 8 01/15/2022 ELEVATE EXTREMITY 1 01/15/2022 NURSING COMMUNICATION 3 01/15/2022 PATIENT MAY SHOWER 1 01/15/2022 WOUND CARE 3 01/15/2022 Discharge Count Last Ordered Date First Orde red Date DISCHARGE PATIENT 1 01/15/2022 documented in this encounter Care Teams Integrity Consultant Relationship Specialty Start Date End Date No, Physician PCP - General 12/21/21 documented as of this encounter
--- OUTSIDE RECORDS SUMMARY | 2024-05-22 05:26 | XMS_ITS | Encounter Summary ---
Author Organization [facility] Healthcare Address [address] [place] [address] Care Team Providers Care Improvement Engineer Name Role Phone No, Physician Primary Care Provider [phone] Zach Reyez PT Unavailable Unavailable Reason for Visit * Reason Comments PT Initial Eval PT Treatment * Consultation (Routine) - Closed Specialty Diagnoses / Procedures Referred By Contac t Referred To Contact Physical Therapy Diagnoses Rupture of anterior cruciate ligament of right knee, initial encounter Antonio Suh IV, MD Phone: tel: fax: External Order Referral ID Status Reason Start Date Expiration Date V isits Requested Visits Authorized [id number] Closed Specialty Services Required 01/15/2022 02/14/2023 24 24 Encounter Details Date Type Department Care Team (Late st Contact Info) Description 01/20/2022 9:30 AM CDT Therapy [facility] at [address] [place] [address] [id number] Zach Reyez PT Rupture of anterior cruciate ligament of right [...] on file 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 / male Referring Diagnosis: Rupture of anterior cruciate ligament of right knee, initial encounter [S83.511A] Date of Onset: 01/15/22 Referring Practitioner: Antonio Suh IV* Today's date: 01/20/2022 Start Time: 9:30am Medical screening was completed and the patient is appropriate for physical therapy. SUBJECTIVE History of Present Condition Date of surgery: 01/15/22 s/p right ACL Reconstruction and Meniscal Repair medial and lateral Description of onset: Patient reports initial injury was a noncontact twisting injury while playingvolleyball in November of this year. He felt a pop, pain, and swelling at the time. His pain resolved over time, but noted instability, pinching when his knee was extended, and ongoing swelling. He had an MRI performed which showed an ACL and medial meniscus tear. Elected to undergo surgery on 01/15/22.Patient reports that his pain is well controlled at this point with meloxicam and oxycodone sparingly. States that he could be better with icing. Imaging/prior treatment: xray and MRI, orthopedic referral, and surgery Pain Current Intensity: 2/10 Minimal Intensity: 1/10 Maximal Intensity: 4/10 (using 0-10 numerical scale) Location: generally throughout knee at times anteromedial Description: throbbing at times, generally achey or sore at times Aggravating factors: unsure, possibly accidentally putting weight on his foot Alleviating factors: icing, medication, rest, elevation Function Prior Level of Function: no restrictions with ambulation, stair negotiation, transfers, or essential work tasks Current level of function: currently off work, requires assistive device for ambulation, increased time and compensatory measures to ambulate in home and negotiate stairs/curbs 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 Gait: Ambulates NWB with bilaterally axillary crutches in clinic this date with drop lock brace locked in extension Range of Motion: Left Knee: +3?? Extension: 130?? Flexion Right Knee: -6?? Extension; 75?? Flexion Muscle Length: Hamstring and gastroc moderately restricted on right Circumferential: Left knee: 38cm infrapatellar, 45cm suprapatellar Right knee: 40.5cm infrapatellar and 47.5cm suprapatellar Strength (Manual Muscle Test): Knee Extension: Left 5/5; Right NT/5 Knee Flexion: Left 5/5; Right NT/5 Hip Abduction: Left 5/5; Right 4/5 Hip Adduction: Left 5/5; Right 4+/5 Hip Extension: Left 5/5; Right 4/5 Hip IR: Left 5/5; Right NT/5 Hip ER: Left 5/5; Right NT/5 Extensor lag present with straight leg raise x10 Special Tests: Held secondary to acute post operative status Palpation: Minimal tenderness anteromedially generally at knee Fall Risk Screening Is the patient > 65 year of age? No (46 y.o.) Is the reason for the visit related to balance or falls? No Does the patient have a history of neurological impairment? No Score > 4 on Stay Independent brochure? YES/NO/N/A: N/A TREATMENT Phase I: 0-2 Weeks s/p ACL Reconstruction [...] 1; 110?? flexion by end week 2 Timed Treatment Therapeutic exercise for 30 minutes: 1. Initiation of home exercise program including: heel slides, heel prop, quad sets, straight leg raise 4 ways, weight shifts, and calf raises 2. Patient was provided education on initial HEP and proper mechanics/modifications and safety considerations, relevant anatomy/physiology/joint mechanics/muscle interactions, PT diagnosis and prognos is/healing time, and symptom management techniques. Total of Timed Treatment Codes: 30 minutes Untimed Treatment Initial Evaluation-Low Complexity Gameready: 10 minutes right knee elevated 38 degrees low compression Ending Pain: 07/02 Stop Time: 10:35am ASSESSMENT Patient is a 46 y.o. male referred to physical therapy with medical diagnosis s/p right ACL Reconstruction and Meniscal Repair medial and lateral. They present with signs and symptoms consistent withtheir post operative state including decreased knee ROM, swelling, decreased quad recruitment and strength, decreased hip and hamstring strength, and impaired gait mechanics. These impairments impactthe patient's ability to walk household and community distances, negotiate stairs, and perform essential job tasks. The patient will benefit from skilled PT to develop HEP, to restore functional mobility, strength, and gait mechanics, and help them achieve their functional goals and restore max level of function. Prognosis: excellent Response to today???s treatment: excellent Therapy Learning Needs Assessment: Barriers & Interventions: None - No Interventions Required. Persons Involved:Patient Patient Understands and Agrees: Yes, Home Exercise Program reviewed and patient voices understanding Comorbidities impacting physical therapy treatment: None Personal factors impacting physical therapy treatment: None PLAN Physical therapy treatment at a frequency and duration of 2x a week for 16 weeks will consist of instruction in home exercise program and functional activities as well as therapeutic exercise, therapeutic activity, manual therapy, neuromuscular reeducation, gait training, and modalities to address identified functional limitations and problems. Short Term Goals: 6 weeks 1. Patient [...] assistance or extensor lag in 4 weeks. Penitentiary Goals: 12 weeks 1. Patient will report [...] for return to running at 16 weeks. Zach Reyez PT, DPT, CSCS documented in this encounter Plan of Treatment Not on file documented as of this encounter Visit Diagnoses Diagnosis Rupture of anterior cruciate ligament of right knee, initial encounter- Primary documented in this encounter Orders Outpatient Referral Count Last Ordered Date st Ordered Date AMB REFERRAL ORDER TO PHYSICAL THERAPY 1 documented in this encounter Care Teams Improvement Engineer Relationship Specialty Start Date End Date No, Physician PCP - General 12/21/21 Zach Reyez PT Physical Therapist Physical Therapy 01/20/22 documented as of this encounter
--- OUTSIDE RECORDS SUMMARY | 2024-05-22 05:26 | XMS_ITS | Encounter Summary ---
Author Organization [facility] Healthcare Address [address] [place] [address] Care Team Providers Care Line Appliance Assembler Name Role Phone No, Physician Primary Care Provider [phone] Zach Reyez PT Unavailable Unavailable Teresa Leach PT Unavailable [phone] Hussain Lopez HVAC SERVICE TECHNICIAN Unavailable Unavailabl e Reason for Visit * Reason Comments PT Treatment Encounter Details Date Type Department Care Team (Late st Contact Info) Description 03/22/2022 6:00 PM CDT Therapy [facility] at [facility] [address] [place] [address] [place] [address] [place] [address] Rupture of anterior cruciate ligament [...] on file 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 / male Referring Diagnosis: Rupture of anterior cruciate ligament of right knee, initial encounter [S83.511A], meniscal repair Date of Onset/surgery: 01/15/22 Referring Practitioner: No ref. provider found Phase III: Strengthening & control (min 6 weeks s/p ACL recon and meniscal repair) WBAT brace 0 -90??, no flexion beyond 90?? with WB Begin squat/step-ups/proprioception program in brace Bicycle Quadriceps Isotonics - full arc for closed chain in brace. Open chain: 90?? - 40?? arc Strengthening squats/leg press in brace, hamstring curl 03/22/22 pt is 10 weeks post op Today's date: 03/22/2022 Start Time: 5:55 pm SUBJECTIVE --pt still unable to do small step up or partial squats still due to medial sharp knee pain. Pain level 0-2/10. Subjective Functional Outcome Measure: Knee Injury and Osteoarthritis Outcome Score: 7.5% OBJECTIVE: Gait: Ambulates with unlocked knee hinged brace to 90 degrees with fairly unremarkable gait Range of Motion: [...] 4/5 Palpation: Minimal tenderness anteromedially, and posteriolateral knee (superior/lateral head of gastroc and peroneal m belly proximally). -- moderate swelling R knee today --note R patella lateral glide and tilt Tendency to offload to L LE with a pole squat TREATMENT 1) bike for 10 min level 1 2) applied cover roll and leukotape to stabilize R lateral gastroc, peroneal mm origin. 3) pt performed ex per flow sheet with verbal and manual cues. Modified closed chain exercises to help quad to work without knee pain (ranges of 90-40 and 0-20 degrees) 4) applied german stim to R quads for 10 min 10/10 sec on/off for LAQ with 5 lb 90-40, and with supine SLR with 0# for 7.5 min each 5) not today: applied vasopneumatic with ice for 10 min at high pressure. Exercise/ Activity 03/05 03/08 03/15 03/19 03/22 Side stepping X X X Backward walking X X X Dynamic walking high knees and leg curls Standing TKE with band X 10 black band X x10 Leg press 3 1/2 plates bilat 2x20 1 1/2 plates right 1x10 4 plates bilat 2x20 2 plates Right x20 Supine SLR X with e stim With e stim for 7min 5 min, with E-Stim X Prone hip ext/side lying hip abd/add all with knee extended Supine heel slides with strap Prone knee flexion with strap PROM Long sitting VMO isometric Seated hamstring/gastroc stretch LAQ 90-40 deg 4# with e stim 4# with e stim for 8 min 5 lb, with E-Stim, 10 min X Standing leg curl Standing heel raise X X Unilat x10 Standing gastroc stretch X x2 Gait training X X X X SL balance X x2 Single leg stance with opposite leg swings initated Amb over sticks Init forward and sideways. Unable to do hurdles yet Progressed to hurdles all directions Patellar mobs Upright bike 10 min X 10 min 10 min Active warmup X Step-up Unable to due to pain Unable to do due to medial knee pain Unable to do due to medial knee pain 1 book x 10 pt able to do without pain Step down 2 x 10, and back up with L LE 2 x 10 and back up with L LE 2 x10 Wall sit (multi angle isometrics) achieving range with uninvolved assist initiated Triplanar stepping in star Initiated with 0-20 degrees knee flex to ext Ant, ant/lat, lat stepping Pole squat X x10 x10 Flowsheet [place]: X = performed, x = times/multiply, s = seconds, ea = each, st = stretch Timed Treatment: Therapeutic exercise for 45 minutes Neuromuscular re-education: 15 minutes Total of Timed Treatment Codes: 60 minutes Untimed Treatment: knee taping Ending Pain: 0-2/10 Stop Time: 7:15 pm ASSESSMENT Response to today???s treatment: good. Pt has 0/10 pain 0-25 degrees range and 90-40 degrees in closed chain activities. Modified HEP to achieve quad strengthening in these ranges pain free. PLAN Continue PT with established POC Short [...] assistance or extensor lag in 4 weeks. [facility] Goals: 12 weeks 1. Patient will report [...] Primary documented in this encounter Care Teams Line Appliance Assembler Relationship Specialty Start Date End Date No, Physician PCP - General 12/21/21 Zach Reyez, PT Physical Therapist Physical Therapy 01/20/22 [place] [address] [place] [address] Physical Therapist Physical Therapy 01/30/22 Hussain Lopez, TRIPP Second Cook And Baker Physical Therapy 02/03/22 documented as of this encounter
--- OUTSIDE RECORDS SUMMARY | 2024-05-22 05:26 | XMS_ITS | Encounter Summary ---
Author Organization [facility] Healthcare Address [address] [place] [address] Care Team Providers Care Supervisor Personnel Clerks Name Role Phone No, Physician Primary Care Provider [phone] Zach Reyez PT Unavailable Unavailable Teresa Leach PT Unavailable [phone] Hussain Lopez HAND DRY CLEANER Unavailable Unavailabl e Reason for Visit * Reason Comments PT Treatment Encounter Details Date Type Department Care Team (Late st Contact Info) Description 02/12/2022 8:45 AM CDT Therapy [facility] at [address] [place], [place] [id number] Hussain Lopez PTA Rupture of anterior cruciate ligament of [...] on file 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 Patient says he did not get a significant difference in relief over his posterior knee after the manual treatment last session; Notes similar posterolateral knee pain with activeextension. Patient/Caregiver Goals: to fully recovery from surgery and return to work Subjective Functional Outcome Measure: Knee Injury and Osteoarthritis Outcome Score: 7.5% OBJECTIVE: Gait: Ambulates WBAT with bilaterally axillary crutches with improved quad contraction in R stance phase Range of Motion: (01/30/22) Supine Left Knee: +3?? Extension: 130?? Flexion Right Knee: 0?? Extension; 118?? Flexion (supine and seated); prone with strap: 100 degrees Muscle Length: Hamstring, gastroc, and quadricep moderately restricted on right Strength (Manual Muscle Test): Knee Extension: Left 5/5; Right NT/5 Knee Flexion: Left 5/5; Right NT/5 Hip Abduction: Left 5/5; Right 4/5 Hip Adduction: Left 5/5; Right 4+/5 Hip Extension: Left 5/5; Right 4/5 no longer with Extensor lag with straight leg raise . Palpation: Minimal tenderness anteromedially generally at knee. Also noted superficial restrictionsperipatellar region, fascial densifications middle and distal lateral R quad, and thickened mild hematoma R post/sup gastroc --moderate swelling R knee Fair (+) R quad contraction TREATMENT Exercise/ Activity Date: 02/01 Date: 02/05 Date: 02/10 Date: 02/12 Quad sets With E-Stim With E-Stim With E-Stim Supine SLR With E-Stim With E-Stim With E-Stim X Prone hip ext/side lying hip abd/add all with knee extended X X Seated knee flexion x5 x10 X Supine heel slides with strap X X X, without strap this day X Prone knee flexion with strap PROM Manual x3 Manual x3 Prone leg curl x10 Long sitting VMO isometric Seated hamstring/gastroc stretch HS stretch x3 HS- Long- Sitting x3 X LAQ 90-40 deg x10 2 lb, 2 x10 2lb with E-stim 5 lb with E-Stim Standing leg curl X Standing heel raise x20 X Standing gastroc stretch x2 x2 X E-Stim Polish 10 min, R quad, 10/10 10 min, R quad, 10/10 10 min, R quad, 10/10 10 min, R quad, 10/10 Gait training Without assistive device X Patellar mobs X E stim X X X X Upright bike ROM, 5 min 5 min Flowsheet [place]: X = performed, x = times/multiply, s = seconds, ea = each, st = stretch Timed Treat Therapeutic exercise for 45 minutes: Progressed isotonic resist with LAQ 90-40 degrees with E-stim;initiated prone quad stretching and active prone leg curl Total of Timed Treatment Codes: 45 minutes Ending Pain: 06/01 Stop Time: 9:30PM ASSESSMENT Response to today???s treatment: good Improved tolerance to knee extension after manual techniques, although symptoms still reported withactive knee extension. Demonstrates excellent straight leg raise with NMES and without. Progressingstrength well. PLAN Continue PT with established POC Short [...] assistance or extensor lag in 4 weeks. Oracle Developer Goals: 12 weeks 1. Patient will report [...] Primary documented in this encounter Care Teams Supervisor Personnel Clerks Relationship Specialty Start Date End Date No, Physician PCP - General 12/21/21 Zach Reyez, PT Physical Therapist Physical Therapy 01/20/22 [place] [address] [place] [address] Physical Therapist Physical Therapy 01/30/22 Hussain Lopez PTA Head Soft Sugar Operator Physical Therapy 02/03/22 documented as of this encounter
--- OUTSIDE RECORDS SUMMARY | 2024-05-22 05:26 | XMS_ITS | Encounter Summary ---
Author Organization [facility] Healthcare Address [address] [place] [address] Care Team Providers Care Bias Machine Operator Helper Name Role Phone No, Physician Primary Care Provider [phone] Zach Reyez PT Unavailable Unavailable Reason for Referral * Diagnostic Imaging (Routine) - Closed Specialty Diagnoses / Procedures Referred By Contac t Referred To Contact Diagnoses S/P ACL reconstruction Procedures XR Knee Right 1 or 2 Views Antonio Suh IV, MD Phone: tel: fax: [facility] [place] Referral ID Status Reason Start Date Expiration Date Visits Re quested Visits Authorized [id number] Closed 01/27/2022 02/26/2023 1 1 Reason for Visit * Diagnostic Imaging (Routine) - Closed Specialty Diagnoses / Procedures Referred By Contac t Referred To Contact Diagnoses S/P ACL reconstruction Procedures XR Knee Right 1 or 2 Views Antonio Suh IV, MD Phone: tel: fax: [facility] [place] Referral ID Status Reason Start Date Expiration Date Visits Re quested Visits Authorized [id number] Closed 01/27/2022 02/26/2023 1 1 Encounter Details Date Type Department Care Team (Latest Contact Info) Description 01/28/2022 1:35 PM CDT - 01/28/2022 11:59 PM CDT Hospital Encounter [facility] [address] [place] [id number] S/P ACL reconstruction Discharge Disposition: Discharge to home or self [...] on file 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 Dictated by: Jennifer Chen MD The radiology attending physician has personally reviewed this study, and had reviewed and/or edited this written report and agrees with it. Electronically signed by: Edwina Edmonds M.D. Narrative 01/28/2022 2:19 PM CDT EXAMINATION: X-ray knee, right, one or 2 views HISTORY: Status post anterior cruciate ligament reconstruction COMPARISON: X-ray right knee from 11/24/2021 FINDINGS: 2 radiographs of right knee were reviewed with comparison to prior imaging as above. There are postsurgical changes from interval anterior cruciate ligament reconstruction. There is a moderate knee effusion. No acute fractures. Mild soft tissue swelling. Joint spaces are normal. There is heterotopic ossification adjacent to the tibial tubercle. Procedure Note Edwina Edmonds MD - 01/28/2022 EXAMINATION: X-ray knee, right, one or 2 views HISTORY: Status post anterior cruciate ligament reconstruction COMPARISON: X-ray right knee from 11/24/2021 FINDINGS: 2 radiographs of right knee were reviewed with comparison to prior imaging as above. There are postsurgical changes from interval anterior cruciate ligament reconstruction. There is a moderate knee effusion. No acute fractures. Mild soft tissue swelling. Joint spaces are normal. There is heterotopic ossification adjacent to the tibial tubercle. IMPRESSION: Interval right anterior cruciate ligament reconstruction with a moderate knee joint effusion. Dictated by: Jennifer Chen MD The radiology attending physician has personally reviewed this study, and had reviewed and/or edited this written report and agrees with it. Electronically signed by: Edwina Edmonds M.D. Antonio Suh IV, MD IMG XR PROCEDURES Fin al Result documented in this encounter Visit Diagnoses Diagnosis S/P ACL reconstruction Other postprocedural status documented in this encounter Care Teams Bias Machine Operator Helper Relationship Specialty Start Date End Date No, Physician PCP - General 12/21/21 Zach Reyez PT Physical Therapist Physical Therapy 01/20/22 documented as of this encounter
--- OUTSIDE RECORDS SUMMARY | 2024-05-22 05:26 | XMS_ITS | Encounter Summary ---
Author Organization [facility] Healthcare Address [address] [place] [address] Care Team Providers Care Package Wrapper Name Role Phone No, Physician Primary Care Provider [phone] Zach Reyez PT Unavailable Unavailable Teresa Leach PT Unavailable [phone] Reason for Visit * Reason Comments PT Treatment Encounter Details Date Type Department Care Team (Late st Contact Info) Description 02/01/2022 4:15 PM CDT Therapy [facility] at [address] [place] [address] Hussain Lopez PTA Rupture of anterior cruciate [...] on file 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 Pt reports no issues following last treatment Patient/Caregiver Goals: to fully recovery from surgery and return to work Subjective Functional Outcome Measure: Knee Injury and Osteoarthritis Outcome Score: 7.5% OBJECTIVE: Gait: Ambulates WBAT with bilaterally axillary crutches with improved quad contraction in R stance phase Range of Motion: (01/30/22) Supine Left Knee: +3?? Extension: 130?? Flexion Right Knee: -1?? Extension; 115?? Flexion (supine and seated); prone with strap: [...] knee Fair (+) R quad contraction TREATMENT 1) reviewed HEP per flow sheet with verbal and manual cues. See also additions per protocol/flow sheet. 2) performed manual rx for MFR to peripatellar region, fascial manipulation to carlota noted above andefflurage massage to R calf with DTM to R hematoma R post/sup calf 3) applied macedonian stimulation to R quads with long sitting quad contraction and supine SLR for 15 min at 10/10 on/off intervals 4) applied vasopneumatic with ice for 15 min at min pressure and 34 degrees Exercise/ Activity Date: 01/22 Date: 01/27 Date: 01/30 Date: 02/01 Date: Date: Quad sets X X with e stim X with e stim for 10 min With E-Stim Supine SLR X with brace on 10 reps X with e stim X with e stim for 5 min With E-Stim Prone hip ext/side lying hip abd/add all with knee extended X with brace on x 10 reps X X Seated knee flexion x10 x5 Supine heel slides with strap x10 X X Prone knee flexion with strap PROM initiated X10 Prone leg curl initiated x10 Long sitting VMO isometric Initiated with ball squeeze Seated hamstring/gastroc stretch initiated X HS stretch x3 LAQ 90-40 deg x10 Standing leg curl initiated X Standing heel raise Initiated x10 x10 home x20 Standing gastroc stretch initiated home x2 E-Stim Moldovan 10 min, R quad, 10/10 Patellar mobs Performed and reviewed for self mobs X X E stim Initiated with long sitting quad bj and SLR X X Upright bike ROM, 5 min Flowsheet [place]: X = performed, x = times/multiply, s = seconds, ea = each, st = stretch Timed Treat Therapeutic exercise for 45 minutes: Completed LE strengthening, quad strengthening with E-Stim; also initiated 90-40 degree LAQ strengthening and Upright Bike for ROM stimulus Total of Timed Treatment Codes: 45 minutes Untimed Treatment: ice Ending Pain: 06/01 Stop Time: 5:15 pm ASSESSMENT Response to today???s treatment: good [...] assistance or extensor lag in 4 weeks. Residential Goals: 12 weeks 1. Patient will report [...] Primary documented in this encounter Care Teams Package Wrapper Relationship Specialty Start Date End Date No, Physician PCP - General 12/21/21 Zach Reyez, PT Physical Therapist Physical Therapy 01/20/22 [place] [address] [place] [address] Physical Therapist Physical Therapy 01/30/22 documented as of this encounter
--- OUTSIDE RECORDS SUMMARY | 2024-05-22 05:26 | XMS_ITS | Encounter Summary ---
Author Organization [facility] Healthcare Address [address] [place] [address] Care Team Providers Care Pressure Test Operator Name Role Phone No, Physician Primary Care Provider [phone] Zach Reyez PT Unavailable Unavailable Teresa Leach PT Unavailable [phone] Hussain Lopez PALLIATIVE MEDICINE PHYSICIAN Unavailable Unavailabl e Reason for Visit * Reason Comments PT Treatment Encounter Details Date Type Department Care Team (Late st Contact Info) Description 03/15/2022 5:15 PM CDT Therapy [facility] at [facility] [id number] [place] [address] [address] [place] [address] [place] [address] [place], [place] [id number] Rupture of anterior cruciate ligament of right [...] on file 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 His swelling is increased today. He feels the post/lat taping helps to decrease that pain with closed chain ex and walking. --pain level 0-3/10 Subjective Functional Outcome Measure: Knee Injury and Osteoarthritis Outcome Score: 7.5% OBJECTIVE: Gait: Ambulates without crutch with unlocked to 90 degrees R knee immobilizer with fairly unremarkable gait [...] Minimal tenderness anteromedially, and posteriolateral knee. -- moderate swelling R knee today --note R patella lateral glide and tilt Tendency to offload to L LE with a pole squat TREATMENT 1) bike for 10 min level 1 2) applied cover roll and leukotape to stabilize R lateral hamstring, gastroc, peroneal mm origin. Without the tape he has lateral knee pain with closed chain ex. Also applied patellar taping to promote medial glide and tilt 3) pt performed ex per flow sheet with verbal and manual cues. Pt's closed chain exercises are still limited due to pain. Will continue to modify as needed. 4) applied sammarinese stim to R quads for 10 min 10/10 sec on/off for LAQ with 5 lb 90-40, and with supine SLR with 0# 5) applied vasopneumatic with ice for 10 min at high pressure. Exercise/ Activity 03/05 03/08 03/15 Side stepping X X X Backward walking X X X Dynamic walking high knees and leg curls Standing TKE with band X 10 black band X x10 Quad sets Supine SLR X with e stim With e stim for 7min 5 min, with E-Stim Prone hip ext/side lying hip abd/add all with knee extended Seated knee flexion Supine heel slides with strap Prone knee flexion with strap PROM Prone leg curl Long sitting VMO isometric Seated hamstring/gastroc stretch LAQ 90-40 deg 4# with e stim 4# with e stim for 8 min 5 lb, with E-Stim, 10 min Standing leg curl Standing heel raise X X Standing gastroc stretch X x2 Gait training X X X SL balance X Amb over sticks Init forward and sideways. Unable to do hurdles yet Progressed to hurdles all directions Patellar mobs E stim sammarinese X X 10 min, 10/10 Upright bike 10 min X 10 min Active warmup X Step-up Unable to due to pain Unable to do due to medial knee pain Unable to do due to medial knee pain Step down 2 x 10, and back up with L LE 2 x 10 and back up with L LE Pole squat X x10 x10 Flowsheet [place]: X = performed, x = times/multiply, s = seconds, ea = each, st = stretch Timed Treatment: Therapeutic exercise for 45 minutes: see above Total of Timed Treatment Codes: 45 minutes Untimed Treatment: knee taping, ice Ending Pain: 0-2/10 Stop Time: 3:00pm ASSESSMENT Response to today???s treatment: good, PLAN Continue PT with established POC Short [...] Primary documented in this encounter Care Teams Pressure Test Operator Relationship Specialty Start Date End Date No, Physician PCP - General 12/21/21 Zach Reyez, PT Physical Therapist Physical Therapy 01/20/22 [place] [address] [place] [address] Physical Therapist Physical Therapy 01/30/22 Hussain Lopez PTA Master Technician Physical Therapy 02/03/22 documented as of this encounter
--- OUTSIDE RECORDS SUMMARY | 2024-05-22 05:26 | XMS_ITS | Encounter Summary ---
Author Organization [facility] Address [address] [place] [address] Phone Care Team Providers Care Freight Manager Name Role Phone No, Physician Primary Care Provider [phone] Zach Reyez PT Unavailable Unavailable Teresa Leach PT Unavailable [phone] Hussain Lopez PURCHASING OFFICER Unavailable Unavailabl e Reason for Referral * Procedure (Routine) - Closed Specialty Diagnoses / Procedures Referred By Contac t Referred To Contact Diagnoses S/P ACL reconstruction S/P medial meniscus repair of right knee S/P lateral meniscus repair of left knee Effusion of right knee Procedures Large Joint [place] [id number] [place] [address] Phone: tel: fax: [facility] (All Locations) Referral ID Status Reason Start Date Expiration Date Visits Re quested Visits Authorized [id number] Closed 05/06/2022 06/05/2023 1 1 NG OVEN TENDER Reason for Visit * Reason Comments Follow-up Encounter Details Date Type Department Care Team (Latest Contact Info) Description 05/06/2022 4:00 PM DRYING OVEN TENDER Office Visit [facility] Orthopaedic Surgery [address] [facility] 2[address] [place] [address] [place] [id number] [place] [address] S/P ACL reconstruction (Primary Dx); S/P medial meniscus repair of right knee; S/P lateral meniscus repair of left knee; Effusion of right knee Social History Tobacco [...] on file 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 Patient Name: Zayda Torres Date: 04/08/2022 INTERIM HISTORY: Follow up from Right Knee Arthroscopy - Anterior Cruciate Ligament Reconstruction With Bone Tendon Bone Autograft, Medial And Lateral Meniscus Repair , Patella Chondroplasty - Right on 01/15/2022 The patient has recently had pain: every day The current level of pain is: 1 The worst it has been in the last few days is: 3 Wound complaints: None Patient continues to note swelling and has some anteromedial discomfort in terminal extension. He also gets some posterolateral discomfort with deep flexion. 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 I explained would recommend an aspiration of the knee today and a month of meloxicam. I encouraged icing. Under sterile conditions, I aspirated 20 mLs of benign yellow serous fluid from the knee. Progress Physical Therapy to wean out of brace I think he will get improvement as his quad strength returns as well. Reviewed precautions Return to clinic: 4 weeks NG OVEN TENDER * Antonio Suh IV, MD - 05/06/2022 4:00 PM CSTAssociated Order(s): Large Joint Injection: R knee Post-Procedure Diagnose(s): S/P ACL reconstruction; Effusion of right knee; S/P lateral meniscus repair of left knee; S/P medial meniscus repair of right knee Large Joint Injection: R [...] a clean technique Approach: Superior lateral Medications: 4 mL bupivacaine 0.5 % (5 mg/mL); 80 mg methylPREDNISolone acetate 80 mg/mL; 4 mL mepivacaine 1 % (10 mg/mL) Aspirate amount (mL): 13 Aspirate: Clear, yellow and serous Patient tolerance: Patient tolerated the procedure well with no immediate complications I discussed the risk and benefits of the injection with the patient including but not limited to the risk of infection, the risk of a flare and how to minimize it, and the risk of change in pigmentation at the injection site. NG OVEN TENDER documented in this encounter Plan of Treatment Not on file documented as of this encounter Procedures Procedure Name Priority Date/Time Associated Diagnosis Comments NH ARTHROCENTESIS ASPIR&/INJ MAJOR JT/BURSA W/O US Routine 05/06/2022 4:00 PM DRYING OVEN TENDER S/P ACL reconstruction S/P medial meniscus repair of right knee S/P lateral meniscus repair of left knee Effusion of right knee documented in this encounter Results * NH ARTHROCENTESIS ASPIR&/INJ MAJOR JT/BURSA W/O US (05/06/2022 4:00 PM DRYING OVEN TENDER) Narrative Antonio Suh IV, MD - 05/06/2022 4:00 PM DRYING OVEN TENDER Antonio Suh IV, MD ? 05/06/2022 ??4:29 PM Large Joint Injection: R knee Performed by: Antonio Suh IV, MD Authorized by: Antonio Suh IV, MD Large Joint Injection/Aspiration: ??Consent Given by: ??Patient ??Timeout: prior to procedure the correct patient, procedure, and site was verified ?Verbal consent obtained: Yes ?? Supporting Documentation: ??Indications: ??Pain and joint swelling Procedure Details: ??Location: ??Knee ??Site: ??R knee ??Prep: patient was prepped using a clean technique ?Approach: ??Superior lateral ??Medications: ??4 mL bupivacaine 0.5 % (5 mg/mL); 80 mg methylPREDNISolone acetate 80 mg/mL; 4 mL mepivacaine 1 % (10 mg/mL) ??Aspirate amount (mL): ??13 ??Aspirate: ??Clear, yellow and serous ??Patient tolerance: ??Patient tolerated the procedure well with no immediate complications ?? I discussed the risk and benefits of the injection with the patient including but not limited to the risk of infection, the risk of a flare and how to minimize it, and the risk of change in pigmentation at the injection site. Antonio Suh IV, MD IN CLINIC/BEDSIDE ORD ERABLES Final Result documented in this encounter Visit Diagnoses Diagnosis S/P ACL reconstruction- Primary Other postprocedural status S/P medial meniscus repair of right knee S/P lateral meniscus repair of left knee Effusion of right knee documented in this encounter Administered Medications Inactive Administered Medications - up to 3 most recent administrations Medication Order MAR Action Action Date Dose Rate Site bupivacaine (MARCAINE) 0.5 % (5 mg/mL) preservative free injection 4 mL 4 mL, One-Time Injection, Starting on Diane 05/06/22 at 1629, For 1 doseIndications:S/P ACL reconstruction,S/P medial meniscus repair of right knee,S/P lateral meniscus repair of left knee,Effusion of right knee Given 05/06/2022 4:29 PM DRYING OVEN TENDER 4 mL Righ t Knee mepivacaine (CARBOCAINE) 1 % (10 mg/mL) injection 4 mL 4 mL, One-Time Injection, Starting on Diane 05/06/22 at 1629, For 1 doseIndications:S/P ACL reconstruction,S/P medial meniscus repair of right knee,S/P lateral meniscus repair of left knee,Effusion of right knee Given 05/06/2022 4:29 PM DRYING OVEN TENDER 4 mL Righ t Knee methylPREDNISolone acetate (DEPO-medrol) injection 80 mg 80 mg, intra-articular, One-Time Injection, Starting on Diane 05/06/22 at 1629, For 1 doseIndications:S/P ACL reconstruction,S/P medial meniscus repair of right knee,S/P lateral meniscus repair of left knee,Effusion of right knee Given 05/06/2022 4:29 PM DRYING OVEN TENDER 80 mg Righ t Knee documented in this encounter Care Teams Freight Manager Relationship Specialty Start Date End Date No, Physician PCP - General 12/21/21 Zach Reyez, PT Physical Therapist Physical Therapy 01/20/22 [place] [address] [place] [address] Physical Therapist Physical Therapy 01/30/22 Hussain Lopez, PURCHASING OFFICER Tree Trimmer Physical Therapy 02/03/22 documented as of this encounter
--- OUTSIDE RECORDS SUMMARY | 2024-05-22 05:26 | XMS_ITS | Encounter Summary ---
Author Organization [facility] Healthcare Address [address] [place] [address] Care Team Providers Care Assistant Signal Maintainer Name Role Phone No, Physician Primary Care Provider [phone] Zach Reyez PT Unavailable Unavailable Teresa Leach PT Unavailable [phone] Hussain Lopez SECURITY OFFICER Unavailable Unavailabl e Reason for Visit * Reason Comments PT Treatment Encounter Details Date Type Department Care Team (Late st Contact Info) Description 03/08/2022 5:45 PM CDT Therapy [facility] at [facility] [id number] [place] [address] [address] [place] [address] [place] [address] [place], [place] [id number] Rupture of anterior cruciate ligament of right [...] on file 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 Pt still with medial knee pain with closed chain knee ext, so taking it slowly. --pain level 0-3/10 Subjective Functional Outcome Measure: [...] contraction, with decreased VMO girth TREATMENT 1) bike for 10 min level 1 2) pt performed exercises per flow sheet per MD protocol. Pt unable to yet perform a 2 step up due to pain, but able to do 2 step down 3) applied afghan stim to R quads for 10 min 10/10 sec on/off for LAQ with 4# 90-40, and with supine SLR with 0# 4) not today ;applied vasopneumatic with ice for 10 min at high pressure. (Pt to ice at home) Exercise/ Activity 02/22 02/26 03/01 03/05 03/08 Side stepping X X Backward walking X X Dynamic walking high knees and leg curls Standing TKE with band X 10 black band X Quad sets X With E-Stim With E-Stim Supine SLR X With E-Stim With E-Stim X with e stim With e stim for 7min Prone hip ext/side lying hip abd/add all with knee extended Seated knee flexion Supine heel slides with strap X X X Prone knee flexion with strap PROM X Prone leg curl X x10 Long sitting VMO isometric X Seated hamstring/gastroc stretch LAQ 90-40 deg X 5 lb x10 4# with e stim 4# with e stim for 8 min Standing leg curl X Standing heel raise X X Standing gastroc stretch x3 X Gait training Brace unlocked @ counter Brace unlocked/ X X SL balance x3 Amb over sticks Init forward and sideways. Unable to do hurdles yet Progressed to hurdles all directions Patellar mobs X X X E stim afghan X X 10 min, 10/10 X X Upright bike X 5 min 5 min 10 min X Active warmup X Step-up 2 x10 2 - pain Unable to due to pain Unable to do due to medial knee pain Step down 2 x 10, and back up with L LE Pole squat 1/4 x10 1/4 x10 X x10 Flowsheet [place]: X = performed, x = times/multiply, s = seconds, ea = each, st = stretch Timed Treatment: Therapeutic exercise for 45 minutes: see above Neuromuscular re-education for 15 min Total of Timed Treatment Codes: 50 minutes Untimed Treatment: none Ending Pain: 0-2/10 Stop Time: 6:45 pm ASSESSMENT Response to today???s treatment: good, PLAN [...] assistance or extensor lag in 4 weeks. Pharmacy Messenger Goals: 12 weeks 1. Patient will report [...] running at 16 weeks. Teresa Leach, JACOB documented in this encounter Plan of Treatment Not on file documented as of this encounter Visit Diagnoses Diagnosis Rupture of anterior cruciate ligament of right knee, initial encounter- Primary documented in this encounter Care Teams Assistant Signal Maintainer Relationship Specialty Start Date End Date No, Physician PCP - General 12/21/21 Zach Reyez, PT Physical Therapist Physical Therapy 01/20/22 [place] [address] [place] [address] Physical Therapist Physical Therapy 01/30/22 Hussain Lopez PTA Rn Medical Surgical Physical Therapy 02/03/22 documented as of this encounter
--- OUTSIDE RECORDS SUMMARY | 2024-05-22 05:26 | XMS_ITS | Encounter Summary ---
Author Organization [facility] Healthcare Address [address] [place] [address] Care Team Providers Care Card Runner Name Role Phone No, Physician Primary Care Provider [phone] Zach Reyez PT Unavailable Unavailable Teresa Leach PT Unavailable [phone] Hussain Lopez UTILIZATION SUPERVISOR Unavailable Unavailabl e Reason for Visit * Reason Comments PT Treatment Encounter Details Date Type Department Care Team (Late st Contact Info) Description 05/10/2022 6:00 PM TECHNOLOGY AND ENGINEERING TEACHER Therapy [facility] at [facility] [id number] [place] [address] [address] [place] [address] [place] [address] [place] [address] Rupture of anterior cruciate ligament [...] on file Legal Sex Male 6:31 AM TECHNOLOGY AND ENGINEERING TEACHER Gender Identity Not on file Sexual Orientation Not on file documented as of this encounter Progress Notes * Teresa Leach, PT - 05/10/2022 6:00 PM CST [facility] STAR: Sports Therapy and [...] control allows No deep flexion with WB Bicycle/elliptical/[place] track/ stairclimber Full arc progressive resistance exercises-emphasize quads Begin functional exercise program ( steps up/down, sports cord) Strengthening isokinetic Quadriceps distal pad/squats/leg press/hamstring curl 05/03/22 pt is 16 weeks post op Today's date: 05/10/2022 Start Time: 6:00 pm SUBJECTIVE --pt had a cortizone injection R knee 05/06/22 and has been resting since then. He reports his kneehas been feeling better with only occasional twinges of pain but mostly improved especially with standing and turning with leg straight and pressure to medial knee. --pain level 0/10. Pt feels he is ready to do some exercise. Subjective Functional Outcome Measure: Knee Injury and [...] tenderness anteromedially, also with less swelling ant knee TREATMENT 1) bike for 10 min level 1 2) applied electrical stimulation with trigger switch and used with all LE/quad strengthening exercises 3) exercise per flow sheet: mostly on LE machines today. Will hold on closed chain standing exercises until next visit to continue to allow for healing. Discussed exercises to try in 2 days. Will restart low level closed chain exercises on Monday 05/14. 4) applied vasopneumatic with ice for 15 min at high pressure. 5) recommended trial of closed chain ex in water. Exercise/ Activity 04/05 04/09 04/21 04/28 05/03 05/10 Side stepping Backward walking Dynamic walking high knees and leg curls Standing TKE with band Black x15 Black x15 Leg press pain Double- 1/2 plates, 2 x10 Unilat 2 1/2 plates 90-30 degrees x20 Bilat conc with unilat ecc 0-90 degrees with 2 1/2 plates (With stim) Unilat 1 to 3 plates 90-30 and 0-30 degrees 2x20 each (with more pressure on lateral heel/post lateral knee pressure X 4 plates bilat 2x20 2 plates unilat 3x20 without pain complaints Supine SLR X With E-Stim LAQ 90-40 deg Leg Extension 90-40 deg, 10 lb, 3 x10 Leg Extension, 90 - 0 deg, Double/SL ecc X with e stim X with e stim 5 reps bilat to 5 reps bilat to unilat to unilat only conc/ecc With 10# Xbilat to unilat 10#-25# 3x10 each 10-25# bilat to unilat conc/ecc 25#Standing leg curl Leg Curl- 25 lb, 2 x10 SL- 25 lb Seated leg curl 10# unilat 2x10 10-25# bilat to unilat 3x10 25-40# 3x10 bilat Standing heel raise X Standing gastroc stretch Gait training X X X SL balance X In 2 days Single leg stance with opposite leg swings In 2 days Amb over sticks In 2 days Supine and quadriped leg press against black band Initiated with black band for home X home Patellar mobs Upright bike 5 min 5 min 10 min 10 min X 10 min Active warmup X Step-up Not today due to pain Still unable to do 2 step up due to pain and buckling hold Step down 2 and 4 step down x 10 each 4 x20 with quad/LE quivering hold Side stepping with band Init at 20 degrees knee flexion with red band In 2 days Wall sit (multi angle isometrics) achieving range with uninvolved assist Multi-angle Isometrics x5 Multi-angle Isometrics x5 X Triplanar stepping in star Pole squat X X 10 Flowsheet [place]: X = performed, x = times/multiply, s = seconds, ea = each, st = stretch Timed Treatment: Therapeutic exercise for 30 minutes Neuromuscular re education for 25 minutes Total of Timed Treatment Codes: 55 minutes Untimed Treatment: ice Ending Pain: 0-2/10 Stop Time: 7:15 pm [...] running at 16 weeks. Teresa Leach PT NOLOGY AND ENGINEERING TEACHER documented in this encounter Plan of Treatment Not on file documented as of this encounter Visit Diagnoses Diagnosis Rupture of anterior cruciate ligament of right knee, initial encounter- Primary documented in this encounter Care Teams Card Runner Relationship Specialty Start Date End Date No, Physician PCP - General 12/21/21 Zach Reyez, PT Physical Therapist Physical Therapy 01/20/22 [place] [address] [place] [address] Physical Therapist Physical Therapy 01/30/22 Hussain Lopez PTA System Trainer Physical Therapy 02/03/22 documented as of this encounter
--- OUTSIDE RECORDS SUMMARY | 2024-05-22 05:26 | XMS_ITS | Encounter Summary ---
Author Organization [facility] Healthcare Address [address] [place] [address] Care Team Providers Care Production Supervisor Trainee Name Role Phone No, Physician Primary Care Provider [phone] Zach Reyez PT Unavailable Unavailable Teresa Leach PT Unavailable [phone] Hussain Lopez CERTIFIED MEDICAL TECHNICIAN ASSISTANT Unavailable Unavailabl e Reason for Visit * Reason Comments PT Treatment Encounter Details Date Type Department Care Team (Late st Contact Info) Description 03/19/2022 2:00 PM CDT Therapy [facility] at [facility] [address] [place] [address] [place] [address] [place] [address] Rupture of anterior cruciate ligament [...] on file Legal Sex Male 6:31 AM RECORDS MANAGEMENT ANALYST Gender Identity Not on file Sexual Orientation Not on file documented as of this encounter Progress Notes * Teresa Leach, PT - 03/19/2022 2:[address] [facility] STAR: Sports [...] is 7 weeks post op Today's date: 03/19/2022 Start Time: 2:00 pm SUBJECTIVE --min to no pain with amb, weight bearing ex can sometimes cause medial knee pain, or with lying inbed with twist of knee . The R lateral/post knee pain occurs with hyperext and end range knee flexion. Pain level 0-2/10 Subjective Functional Outcome Measure: [...] R lateral hamstring, gastroc, peroneal mm origin. 3) pt performed ex per flow sheet with verbal and manual cues. Added leg press. Pt's closed chain exercises are still limited due to pain. Will continue to modify as needed. 4) applied lebanese stim to R quads for 10 min 10/10 sec on/off for LAQ with 5 lb 90-40, and with supine SLR with 0# for 7.5 min each 5) applied vasopneumatic with ice for 10 min at high pressure. Exercise/ Activity 03/05 03/08 03/15 03/19 Side stepping X X X Backward walking X X X Dynamic walking high knees and leg curls Standing TKE with band X 10 black band X x10 Leg press 3 1/2 plates bilat 2x20 1 1/2 plates right 1x10 Quad sets Supine SLR X with e [...] Treatment: Therapeutic exercise for 30 minutes Neuromuscular re-education: 15 minutes Total of Timed Treatment Codes: 45 minutes Untimed Treatment: knee taping, ice Ending Pain: 0-2/10 Stop Time: 3:15 pm ASSESSMENT Response to today???s treatment: good, [...] assistance or extensor lag in 4 weeks. Semiconductor Wafers Tester Goals: 12 weeks 1. Patient will report [...] Primary documented in this encounter Care Teams Production Supervisor Trainee Relationship Specialty Start Date End Date No, Physician PCP - General 12/21/21 Zach Reyez, PT Physical Therapist Physical Therapy 01/20/22 [place] [address] [place] [address] Physical Therapist Physical Therapy 01/30/22 Hussain Lopez PTA Infrastructure Project Manager Physical Therapy 02/03/22 documented as of this encounter
--- OUTSIDE RECORDS SUMMARY | 2024-05-22 05:26 | XMS_ITS | Encounter Summary ---
Author Organization [facility] Address [address] [place] [address] Phone Care Team Providers Care Geophysical Engineer Name Role Phone No, Physician Primary Care Provider [phone] Zach Reyez PT Unavailable Unavailable Teresa Leach PT Unavailable [phone] Hussain Lopez JETTING MACHINE OPERATOR Unavailable Unavailabl e Reason for Visit * Reason Comments Follow-up Encounter Details Date Type Department Care Team (Latest Contact Info) Description 04/08/2022 4:20 PM ASSISTANT HOUSEKEEPING MANAGER Office Visit [facility] Orthopaedic Surgery [address] [place] [id number] [place] [address] [address] [facility] [address] [place] [address] S/P ACL reconstruction (Primary Dx); S/P lateral meniscus repair of right knee; S/P medial meniscus repair of right knee; Effusion of right knee Social History [...] file Legal Sex Male 6:31 AM ASSISTANT HOUSEKEEPING MANAGER Gender Identity Not on file Sexual Orientation Not on file documented as of this encounter Ordered Prescriptions Prescription Sig Dispense Quantity Refills Last Filled Start Date End Date meloxicam (MOBIC) 15 mg tablet Take 1 tablet (15 mg total) by mouth daily 30 tablet 04/08/2022 06/01/2022 documented in this encounter Progress Notes * Antonio Suh IV, MD - 04/08/2022 4:20 PM CST Images from the original [...] Reviewed precautions Return to clinic: 4 weeks STANT HOUSEKEEPING MANAGER documented in this encounter Plan of Treatment Not on file documented as of this encounter Visit Diagnoses Diagnosis S/P ACL reconstruction- Primary Other postprocedural status S/P lateral meniscus repair of right knee S/P medial meniscus repair of right knee Effusion of right knee documented in this encounter Discontinued Medications Medication Sig Discontinue Reason Start Date End Da te meloxicam (MOBIC) 15 mg tablet Take 1 tablet (15 mg total) by mouth daily Reorder 02/25/2022 04/08/2022 documented as of this encounter Care Teams Geophysical Engineer Relationship Specialty Start Date End Date No, Physician PCP - General 12/21/21 Zach Reyez, PT Physical Therapist Physical Therapy 01/20/22 [place] [address] [place] [address] Physical Therapist Physical Therapy 01/30/22 Hussain Lopez, JETTING MACHINE OPERATOR Hospitality Coordinator Physical Therapy 02/03/22 documented as of this encounter
--- OUTSIDE RECORDS SUMMARY | 2024-05-22 05:26 | XMS_ITS | Encounter Summary ---
Author Organization [facility] Healthcare Address [address] [place] [address] Care Team Providers Care Circus Agent Name Role Phone No, Physician Primary Care Provider [phone] Zach Reyez PT Unavailable Unavailable Teresa Leach PT Unavailable [phone] Hussain Lopez BLOOD BANK LABORATORY PROFESSIONAL Unavailable Unavailabl e Reason for Visit * Reason Comments PT Treatment Encounter Details Date Type Department Care Team (Late st Contact Info) Description 03/26/2022 2:00 PM CDT Therapy [facility] at [facility] [id number] [place] [address] [address] [place] [address] [place] [address] [place] [address] Rupture of anterior cruciate ligament [...] on file Legal Sex Male 6:31 AM HOSTED SERVICES ANALYST Gender Identity Not on file Sexual Orientation Not on file documented as of this encounter Progress Notes * Teresa Leach, PT - 03/26/2022 2:00 PM CDT [facility] STAR: Sports Therapy and Rehabilitation Physical therapy [...] is 10 weeks post op Today's date: 03/26/2022 Start Time: 1:50 pm SUBJECTIVE --pt still unable to do small step up or partial squats still due to medial sharp knee pain. Pain level 0-2/10. Subjective Functional Outcome Measure: Knee Injury and Osteoarthritis Outcome Score: 7.5% OBJECTIVE: Gait: Ambulates with unlocked knee hinged brace to 90 degrees with fairly unremarkable gait Range of Motion: Supine Left Knee: +3?? [...] Right 5/5 Palpation: Minimal tenderness anteromedially, and posteriolateral knee (superior/lateral head of gastroc and peroneal m belly proximally). -- moderate swelling R knee today --note R patella lateral glide and tilt Tendency to offload to L LE with a pole squat TREATMENT 1) bike for 10 min level 1 2) no today: applied cover roll and leukotape to stabilize R lateral gastroc, peroneal mm origin. 3) pt performed ex per flow sheet with verbal and manual cues. Again tried modifying closed chain exercises to help quad to work without knee pain (ranges of 90-40 and 0-20 degrees), but still with medial knee pain 4) applied romanian stim to R quads for 10 min 10/10 sec on/off for LAQ with 5 lb 90-40, and with supine SLR with 0# for 7.5 min each 5) applied vasopneumatic with ice for 15 min at high pressure. Exercise/ Activity 03/05 03/08 03/15 03/19 03/22 03/26 Side stepping X X X Backward walking X X X Against one blue bane with forward walking Dynamic walking high knees and leg curls Standing TKE with band X 10 black band X x10 Leg press 3 1/2 plates bilat 2x20 1 1/2 plates right 1x10 4 plates bilat 2x20 2 plates Right x20 No today Supine SLR X with e stim With e stim for 7min 5 min, with E-Stim X X 7 min with e stim X 7 min with e stim Prone hip ext/side lying hip abd/add all [...] without pain No today due to pain Step down 2 x 10, and back up with L LE 2 x 10 and back up with L LE 2 x10 Wall sit (multi angle isometrics) achieving range with uninvolved assist initiated X Triplanar stepping in star Initiated with 0-20 degrees knee flex to ext Ant, ant/lat, lat stepping Pole squat X x10 x10 Flowsheet [place]: X = performed, x = times/multiply, s = seconds, ea = each, st = stretch Timed Treatment: Therapeutic exercise for 30 minutes Neuromuscular re-education: 15 minutes Total of Timed Treatment Codes: 45 minutes Untimed Treatment: ice Ending Pain: 0-2/10 Stop Time: 3:00 pm ASSESSMENT Response to today???s treatment: good. [...] assistance or extensor lag in 4 weeks. Half-Way Goals: 12 weeks 1. Patient will report [...] Primary documented in this encounter Care Teams Circus Agent Relationship Specialty Start Date End Date No, Physician PCP - General 12/21/21 Zach Reyez, PT Physical Therapist Physical Therapy 01/20/22 [place] [address] [place] [address] Physical Therapist Physical Therapy 01/30/22 Hussain Lopez, TRIPP Custom Tailor Physical Therapy 02/03/22 documented as of this encounter
--- OUTSIDE RECORDS SUMMARY | 2024-05-22 05:26 | XMS_ITS | Encounter Summary ---
Author Organization [facility] Healthcare Address [address] [place] [address] Care Team Providers Care Off Premise Service Representative Name Role Phone No, Physician Primary Care Provider [phone] Zach Reyez PT Unavailable Unavailable Teresa Leach PT Unavailable [phone] Hussain Lopez BROOM BUILDER Unavailable Unavailabl e Reason for Visit * Reason Comments PT Treatment Encounter Details Date Type Department Care Team (Late st Contact Info) Description 02/10/2022 1:15 PM CDT Therapy [facility] at [address] [place], [place] [id number] Zach Reyez PT Rupture of anterior cruciate [...] on file Legal Sex 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 Patient reports overall he is doing well and feels like his ROM is improving. Notes posterolateral knee pain with active extension. Patient/Caregiver Goals: to fully recovery from surgery and return to work Subjective Functional Outcome Measure: Knee Injury and Osteoarthritis Outcome Score: 7.5% OBJECTIVE: Gait: Ambulates WBAT with bilaterally axillary crutches with improved quad contraction in R stance phase Range of Motion: (01/30/22) Supine Left Knee: +3?? Extension: 130?? Flexion Right Knee: 0?? Extension; 115?? Flexion (supine and seated); prone [...] R quad contraction TREATMENT Exercise/ Activity Date: 01/22 Date: 01/27 Date: 01/30 Date: 02/01 Date: 02/05 Date: 02/10 Quad sets X X with e stim X with e stim for 10 min With E-Stim With E-Stim Supine SLR X with brace on 10 reps X with e stim X with e stim for 5 min With E-Stim With E-Stim With E-Stim Prone hip ext/side lying hip abd/add all with knee extended X with brace on x 10 reps X X X Seated knee flexion x10 x5 x10 Supine heel slides with strap x10 X X X X, without strap this day Prone knee flexion with strap PROM initiated X10 Manual x3 Prone leg curl initiated x10 Long sitting VMO isometric Initiated with ball squeeze Seated hamstring/gastroc stretch initiated X HS stretch x3 HS- Long- Sitting x3 LAQ 90-40 deg x10 2 lb, 2 x10 2lb with E-stim Standing leg curl initiated X Standing heel raise Initiated x10 x10 home x20 X Standing gastroc stretch initiated home x2 x2 X E-Stim South Sudanese 10 min, R quad, 10/10 10 min, R quad, 10/10 10 min, R quad, 10/10 Gait training Without assistive device Patellar mobs Performed and reviewed for self mobs X X E stim Initiated with long sitting quad bj and SLR X X X X Upright bike ROM, 5 min ROM, 5 min Flowsheet [place]: X = performed, x = times/multiply, s = seconds, ea = each, st = stretch Timed Treat Therapeutic exercise for 34 minutes: Progressed to isotonic resist with LAQ 90- 40 degrees with E-stim; continued quad strengthening with E-Stim completing SLR, ambulation in brace without assistive device Manual therapy for 10 minutes: STM and myofascial release proximal lateral head of gastroc, distal IT band, biceps femoris; fibular head mobs AP/PA grade II Total of Timed Treatment Codes: 40 minutes Ending Pain: 06/01 Stop Time: 2:00pm ASSESSMENT Response to today???s treatment: good Improved [...] assistance or extensor lag in 4 weeks. Custodial Goals: 12 weeks 1. Patient will report [...] to running at 16 weeks. Zach Reyez PT documented in this encounter Plan of Treatment Not on file documented as of this encounter Visit Diagnoses Diagnosis Rupture of anterior cruciate ligament of right knee, initial encounter- Primary documented in this encounter Care Teams Off Premise Service Representative Relationship Specialty Start Date End Date No, Physician PCP - General 12/21/21 Zach Reyez, JACOB Physical Therapist Physical Therapy 01/20/22 [place] [address] [place] [address] Physical Therapist Physical Therapy 01/30/22 Hussain Lopez PTA Soil And Plant Scientist Physical Therapy 02/03/22 documented as of this encounter
--- OUTSIDE RECORDS SUMMARY | 2024-05-22 05:26 | XMS_ITS | Encounter Summary ---
Author Organization [facility] Healthcare Address [address] [place] [address] Care Team Providers Care Manager Utilization Management Name Role Phone No, Physician Primary Care Provider [phone] Zach Reyez PT Unavailable Unavailable Teresa Leach PT Unavailable [phone] Reason for Visit * Reason Comments PT Treatment Encounter Details Date Type Department Care Team (Late st Contact Info) Description 01/30/2022 11:00 AM CDT Therapy [facility] at [facility] [id number] [place] [address] [address] [place], [place] [id number] [place] [address] [place] [address] Rupture of anterior cruciate ligament [...] on file Legal 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 Pt reports Dr Suh stated he can remove the brace at night. Pt feels swelling is decreasing and he is walking better. Patient/Caregiver Goals: to fully recovery from surgery and return to work Subjective Functional Outcome Measure: Knee Injury and Osteoarthritis Outcome Score: 7.5% OBJECTIVE: Gait: Ambulates WBAT with bilaterally axillary crutches with improved quad contraction in R stance phase Range of Motion: (01/30/22) Supine Left Knee: +3?? Extension: 130?? Flexion Right Knee: -1?? Extension; 105?? Flexion (supine and seated); prone with strap: [...] R hematoma R post/sup calf 3) applied nepalese stimulation to R quads with long sitting quad contraction and supine SLR for 15 min at 10/10 on/off intervals 4) applied vasopneumatic with ice for 15 min at min pressure and 34 degrees Exercise/ Activity Date: 01/22 Date: 01/27 Date: 01/30 Date: Date: Date: Quad sets X X with e stim X with e stim for 10 min Supine SLR X with brace on 10 reps X with e stim X with e stim for 5 min Prone hip ext/side lying hip abd/add all with knee extended X with brace on x 10 reps X Seated knee flexion x10 Supine heel slides with strap x10 X Prone knee flexion with strap PROM initiated X10 Prone leg curl initiated x10 Long sitting VMO isometric Initiated with ball squeeze Seated hamstring/gastroc stretch initiated X Standing leg curl initiated Standing heel raise Initiated x10 x10 home Standing gastroc stretch initiated home Patellar mobs Performed and reviewed for self mobs X E stim Initiated with long sitting quad bj and SLR X Flowsheet [place]: X = performed, x = times/multiply, s = seconds, ea = each, st = stretch Timed Treatment Therapeutic exercise for 45 minutes Neuromuscular re education for 15 min Total of Timed Treatment Codes: 60 minutes Untimed Treatment: ice Ending Pain: 06/01 Stop Time: 12:15 pm ASSESSMENT Response to today???s treatment: good [...] assistance or extensor lag in 4 weeks. Assisted Goals: 12 weeks 1. Patient will report [...] documented in this encounter Care Teams Manager Utilization Management Relationship Specialty Start Date End Date No, Physician PCP - General 12/21/21 Zach Reyez, PT Physical Therapist Physical Therapy 01/20/22 [place] [address] [place] [address] Physical Therapist Physical Therapy 01/30/22 documented as of this encounter
--- OUTSIDE RECORDS SUMMARY | 2024-05-22 05:26 | XMS_ITS | Encounter Summary ---
Author Organization [facility] Healthcare Address [address] [place] [address] Care Team Providers Care Employee Communications Specialist Name Role Phone No, Physician Primary Care Provider [phone] Zach Reyez PT Unavailable Unavailable Teresa Leach PT Unavailable Hussain Lopez SHOE MAKER Unavailable Unavailabl e Reason for Visit * Reason Comments PT Treatment Encounter Details Date Type Department Care Team (Late st Contact Info) Description 04/05/2022 5:45 PM HEAD OF ART Therapy [facility] at [address] [place] [address] [id number] Hussain Lopez PTA Rupture of anterior cruciate [...] file Legal Sex Male 6:31 AM HEAD OF ART Gender Identity Not on file Sexual Orientation Not on file documented as of this encounter Progress Notes * Hussain Lopez, SHOE MAKER - 04/05/2022 5:45 PM CST [facility] STAR: Sports Therapy and Rehabilitation [...] is 10 weeks post op Today's date: 04/05/2022 Start Time: 5:45pm SUBJECTIVE --pt still unable to do small step up or partial squats still due to medial sharp knee pain; pain reported on SL Leg Press as well as patient attempts to fully extend knee, Pain level 0-2/10. Subjective Functional Outcome Measure: [...] bike for 10 min level 1 2) emphasized open-chain strengthening today within restrictions of extension and flexion 3) completed WB strengthening only within the pain free range 4) applied vasopneumatic with ice for 15 min at high pressure. Exercise/ Activity 03/19 03/22 03/26 04/05 Side stepping Backward walking Against one blue bane with forward walking Dynamic walking high knees and leg curls Standing TKE with band Black x15 Leg press 3 1/2 plates bilat 2x20 1 1/2 plates right 1x10 4 plates bilat 2x20 2 plates Right x20 No today pain Supine SLR X X 7 min with e stim X 7 min with e stim X Prone hip ext/side lying hip abd/add all with knee extended Supine heel slides with strap Prone knee flexion with strap PROM Long sitting VMO isometric Seated hamstring/gastroc stretch LAQ 90-40 deg X Leg Extension 90-40 deg, 10 lb, 3 x10 Standing leg curl Leg Curl- 25 lb, 2 x10 Standing heel raise Unilat x10 Standing gastroc stretch Gait training X X SL balance x2 X Single leg stance with opposite leg swings initated Amb over sticks Patellar mobs Upright bike 10 min 5 min Active warmup X Step-up 1 book x 10 pt able to do without pain No today due to pain Step down 2 x10 Wall sit (multi angle isometrics) achieving range with uninvolved assist initiated X Multi-angle Isometrics x5 Triplanar stepping in star Initiated with 0-20 degrees knee flex to ext Ant, ant/lat, lat stepping Pole squat X Flowsheet [place]: X = performed, x = times/multiply, s = seconds, ea = each, st = stretch Timed Treatment: Therapeutic exercise for 35 minutes Total of Timed Treatment Codes: 35 minutes Untimed Treatment: ice Ending Pain: 0-2/10 Stop Time: 6:35pm ASSESSMENT Response to today???s treatment: good. Pt [...] assistance or extensor lag in 4 weeks. Landmen Goals: 12 weeks 1. Patient will report [...] running at 16 weeks. Hussain Lopez PTA OF ART documented in this encounter Plan of Treatment Not on file documented as of this encounter Visit Diagnoses Diagnosis Rupture of anterior cruciate ligament of right knee, initial encounter- Primary documented in this encounter Care Teams Employee Communications Specialist Relationship Specialty Start Date End Date No, Physician PCP - General 12/21/21 Zach Reyez, PT Physical Therapist Physical Therapy 01/20/22 [place] [address] [place] [address] Physical Therapist Physical Therapy 01/30/22 Hussain Lopez PTA Lead Burner Apprentice Physical Therapy 02/03/22 documented as of this encounter
--- OUTSIDE RECORDS SUMMARY | 2024-05-22 05:26 | XMS_ITS | Encounter Summary ---
Author Organization [facility] Healthcare Address [address] [place] [address] Care Team Providers Care Contact Center Team Lead Name Role Phone No, Physician Primary Care Provider [phone] Zach Reyez PT Unavailable Unavailable Teresa Leach PT Unavailable [phone] Hussain Lopez PLANT MAINTENANCE MANAGER Unavailable Unavailabl e Reason for Visit * Reason Comments PT Treatment Encounter Details Date Type Department Care Team (Late st Contact Info) Description 04/09/2022 6:15 PM HEALTH SCIENCES DEPARTMENT CHAIR Therapy [facility] at [address] [place], [place] [id number] Hussain Lopez PTA Rupture of anterior cruciate [...] on file Legal Sex Male 6:31 AM HEALTH 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 Subjective Functional Outcome Measure: [...] a pole squat TREATMENT 1) bike for 5 min level 1 2) emphasized open-chain strengthening today, progressing to full range of LAQ 3) completed WB strengthening only within the pain free range 4) applied vasopneumatic with ice for 15 min at high pressure. Exercise/ Activity 03/19 03/22 03/26 04/05 04/09 Side stepping Backward walking Against one blue bane with forward walking Dynamic walking high knees and leg curls Standing TKE with band Black x15 Black x15 Leg press 3 1/2 plates bilat 2x20 1 1/2 plates right 1x10 4 plates bilat 2x20 2 plates Right x20 No today pain Double- 1/2 plates, 2 x10 Supine SLR X X 7 min with e stim X 7 min with e stim X With E-Stim LAQ 90-40 deg X Leg Extension 90-40 deg, 10 lb, 3 x10 Leg Extension, 90 - 0 deg, Double/SL ecc Standing leg curl Leg Curl- 25 lb, 2 x10 SL- 25 lb Standing heel raise Unilat x10 Standing gastroc stretch Gait training X X X SL balance x2 X Single leg stance with opposite leg swings initated Amb over sticks Patellar mobs Upright bike 10 min 5 min 5 min Active warmup X Step-up 1 book x 10 pt able to do without pain No today due to pain Step down 2 x10 Wall sit (multi angle isometrics) achieving range with uninvolved assist initiated X Multi-angle Isometrics x5 Multi-angle Isometrics x5 Triplanar stepping in star Initiated with 0-20 degrees knee flex to ext Ant, ant/lat, lat stepping Pole squat X Flowsheet [place]: X = performed, x = times/multiply, s = seconds, ea = each, st = stretch Timed Treatment: Therapeutic exercise for 35 minutes Total of Timed Treatment Codes: 35 minutes Untimed Treatment: ice Ending Pain: 0-07/02 Stop Time: 7:00pm ASSESSMENT Response to today???s treatment: good; continues to have limitations with pain at ~ 30 degrees kneeflexion with WB strengthening PLAN Continue PT with established POC Short [...] assistance or extensor lag in 4 weeks. Fdc Goals: 12 weeks 1. Patient will report [...] running at 16 weeks. Hussain Lopez PTA TH SCIENCES DEPARTMENT CHAIR documented in this encounter Plan of Treatment Not on file documented as of this encounter Visit Diagnoses Diagnosis Rupture of anterior cruciate ligament of right knee, initial encounter- Primary documented in this encounter Care Teams Contact Center Team Lead Relationship Specialty Start Date End Date No, Physician PCP - General 12/21/21 Zach Reyez, PT Physical Therapist Physical Therapy 01/20/22 [place] [address] [place] [address] Physical Therapist Physical Therapy 01/30/22 Hussain Lopez PTA Applications Trainer Physical Therapy 02/03/22 documented as of this encounter
--- OUTSIDE RECORDS SUMMARY | 2024-05-22 05:26 | XMS_ITS | Encounter Summary ---
Author Organization [facility] Healthcare Address [address] [place] [address] Care Team Providers Care Parts Sales Manager Name Role Phone No, Physician Primary Care Provider [phone] Zach Reyez PT Unavailable Unavailable Teresa Leach PT Unavailable [phone] Hussain Lopez TEST EQUIPMENT MECHANIC Unavailable Unavailabl e Reason for Visit * Reason Comments PT Treatment Encounter Details Date Type Department Care Team (Late st Contact Info) Description 03/05/2022 2:45 PM CDT Therapy [facility] at [facility] [id number] [place] [address] [address] [place] [address] [place] [address] [place] [address] Rupture of anterior cruciate ligament [...] on file Legal Sex Male 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 No longer with pain withknee flexion and sleeps better at night. --pt feels post/lat knee pain with end range knee flexion and with walking. --his brace is unlocked to 90 degrees with gait --pain level 0-3/10 Subjective Functional Outcome Measure: [...] for 10 min level 1 2) applied tape to R post lat/inf knee to stabilize biceps femoris tendon. Pt reported feeling thishelped to decrease pain with knee flexion and with walking 3) pt performed exercises per flow sheet per MD protocol. Pt unable to yet perform a 2 step up due to pain 4) applied lao stim to R quads for 10 min 10/10 sec on/off for LAQ with 4# 90-40, and with supine SLR with 0# 5) applied vasopneumatic with ice for 10 min at high pressure. Exercise/ Activity 02/22 02/26 03/01 03/05 Side stepping X Backward walking X Standing TKE with band X 10 black band Quad sets X With E-Stim With E-Stim Supine SLR X With E-Stim With E-Stim X with e stim Prone hip ext/side lying hip abd/add all with knee extended Seated knee flexion Supine heel slides with strap X X X Prone knee flexion with strap PROM X Prone leg curl X x10 Long sitting VMO isometric X Seated hamstring/gastroc stretch LAQ 90-40 deg X 5 lb x10 4# with e stim Standing leg curl X Standing heel raise X X Standing gastroc stretch x3 X Gait training Brace unlocked @ counter Brace unlocked/ X SL balance x3 Amb over sticks Init forward and sideways. Unable to do hurdles yet Patellar mobs X X X E stim lao X X 10 min, 10/10 X Upright bike X 5 min 5 min 10 min Active warmup X Step-up 2 x10 2 - pain Unable to due to pain Pole squat 1/4 x10 1/4 x10 X Flowsheet [place]: X = performed, x = times/multiply, s = seconds, ea = each, st = stretch Timed Treatment: Therapeutic exercise for 35 minutes: see above Neuromuscular re-education for 15 min Total of Timed Treatment Codes: 50 minutes Untimed Treatment: ice, knee taping Ending Pain: 0-2/10 Stop Time: 4:00 pm ASSESSMENT Response to today???s treatment: good, tape to stabilize R biceps tendon decreased pain with walking PLAN Continue PT with established POC Short [...] assistance or extensor lag in 4 weeks. Long-Term Goals: 12 weeks 1. Patient will report [...] Primary documented in this encounter Care Teams Parts Sales Manager Relationship Specialty Start Date End Date No, Physician PCP - General 12/21/21 Zach Reyez, PT Physical Therapist Physical Therapy 01/20/22 [place] [address] [place] [address] Physical Therapist Physical Therapy 01/30/22 Hussain Lopez, TEST EQUIPMENT MECHANIC Cytology Manager Physical Therapy 02/03/22 documented as of this encounter
--- OUTSIDE RECORDS SUMMARY | 2024-05-22 05:26 | XMS_ITS | Encounter Summary ---
Author Organization [facility] Address [address] [place] [address] Phone Care Team Providers Care Shipmaster Name Role Phone No, Physician Primary Care Provider [phone] Reason for Referral * Consultation (Routine) - Closed Specialty Diagnoses / Procedures Referred By Danny t Referred To Contact Physical Therapy Diagnoses Rupture of anterior cruciate ligament of right knee, initial encounter Antonio Suh IV, MD Phone: tel: fax: External Order Referral ID Status Reason Start Date Expiration Date V isits Requested Visits Authorized [id number] Closed Specialty Services Required 01/15/2022 02/14/2023 24 24 Question Answer PTRFR PT Evaluate and Treat Therapy options discussed with patient? Yes Location provided for therapy services is: Patient requested/Patient preferred Please select the performing region: External Order [[id number]] # of visits: 24 Comments Today: 01/15/22 Name: Zayda Torres : 1975 Last Surgery Date: 01/15/2022 Diagnosis: s/p right ACL Reconstruction and Meniscal Repair medial and lateral Visits: 4 Frequency: 2x/week Duration: 2 weeks -Evaluate and Treat -Home Program ACL RECONSTRUCTION AND MENISCAL REPAIR PHYSICAL THERAPY PRESCRIPTION Instructions/Modifications: Phase: 1 Phase I: 0-2 Weeks s/p ACL Reconstruction [...] adduction/abduction strengthening Standing heel raises with resistance Phase III: Strengthening & control (min 6 [...] control allows No deep flexion with WB Bicycle/elliptical/[place] track/ stairclimber Full arc progressive resistance exercises-emphasize quads Begin functional exercise program ( steps up/down, sports cord) Strengthening isokinetic Quadriceps distal pad/squats/leg press/hamstring curl Phase V: Begin running (min 16 Weeks s/p ACL Reconstruction & meniscal repair) Straight line jogging, progress to running as tolerated Full arc progressive quad/hamstring resistance exercises Bicycle/elliptical/[place] track/stairclimber Progress running program to cutting Agility drills Advanced functional exercises Phase : Return to full activity and sport (min 20 Weeks s/p ACL Reconstruction & meniscal repair) No deep squats until 6 months postop Jumping/landing Sprinting/change of direction Aggressive strengthing Sport specific activities Hip and core control for coronal stability Please send progress notes. Antonio Suh IV, MD SCHEDULING PHYSICAL THERAPY APPOINTMENT 1. Call the member service number on the back of your insurance card to find out if you have: Physical therapy benefits; if YES Where you can go for physical therapy. Does Physical therapy service require prior authorization; 'yes or no' (ONLY if yes, make sure you follow the instructions on #3). 2. Call the therapy facility and schedule your appointment. 3. If prior authorization is required by your insurance company for physical therapy services contact Pre-Certification at [phone]. If pre-certification/ prior authorization is required by your insurance company you must call at least 48 hours prior to your therapy appointment to ensure authorization is obtained from insurance company. - Please give your name - Date of -Phone number of the therapy facility -Date of your appointment -Your physician's name 4. Your physician's office will give you prescription/orders at the time of your appointment to take to the therapist. The therapist will not see you without your prescription/orders. 5. Workers' Compensation patients: You must call your clinical case manager to be referred to physical therapy. 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 Gender Identity Not on file Sexual Orientation Not on file documented as of this encounter Plan of Treatment Scheduled Referrals Name Type Priority Associated Diagnoses Order Schedule Ambulatory referral order to Physical Therapy - Outpatient Referral Routine Rupture of anterior cruciate ligament of right knee, initial encounter Expected: 01/29/2022 (Approximate), Expires: 01/15/2023 documented as of this encounter Visit Diagnoses Diagnosis Rupture of anterior cruciate ligament of right knee, initial encounter- Primary documented in this encounter Care Teams Shipmaster Relationship Specialty Start Date End Date No, Physician PCP - General 12/21/21 documented as of this encounter
--- OUTSIDE RECORDS SUMMARY | 2024-05-22 05:26 | XMS_ITS | Encounter Summary ---
Author Organization [facility] Healthcare Address [address] [place] [address] Care Team Providers Care Inorganic Chemistry Teacher Name Role Phone No, Physician Primary Care Provider [phone] Zach Reyez PT Unavailable Unavailable Reason for Visit * Reason Comments PT Treatment Encounter Details Date Type Department Care Team (Late st Contact Info) Description 01/27/2022 9:45 AM CDT Therapy [facility] at [address] [place] [address] [place] [address] [place], [place] [id number] Rupture of anterior cruciate ligament of right [...] on file 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 Patient/Caregiver Goals: to fully recovery from surgery and return to work Subjective Functional Outcome Measure: Knee Injury and Osteoarthritis Outcome Score: 7.5% OBJECTIVE: Gait: Ambulates WBAT with bilaterally axillary crutches with improved quad contraction in R stance phase Range of Motion: (01/27/22) Supine Left Knee: +3?? Extension: 130?? Flexion Right Knee: -2?? Extension; 95?? Flexion, prone with strap: 88 degrees Muscle Length: Hamstring, gastroc, and quadricep moderately restricted on right Palpation: moderate swelling R knee Strength (Manual Muscle Test): Knee Extension: Left 5/5; Right NT/5 Knee Flexion: Left 5/5; Right NT/5 Hip Abduction: Left 5/5; Right 4/5 Hip Adduction: Left 5/5; Right 4+/5 Hip Extension: Left 5/5; Right 4/5 Extensor lag present still present with straight leg raise prior to e stim but without lag duringand after e stim. Palpation: Minimal tenderness anteromedially generally at knee TREATMENT 1) reviewed HEP per flow sheet with verbal and manual cues. See also additions per protocol/flow sheet. 2) applied norwegian stimulation to R quads with long sitting quad contraction and supine SLR for 15 min at 10/20 on/off intervals 3) applied vasopneumatic with ice for 15 min at min pressure and 34 degrees Exercise/ Activity Date: 01/22 Date: 01/27 Date: Date: Date: Date: Quad sets X X with e stim Supine SLR X with brace on 10 reps X with e stim Prone hip ext/side lying hip abd/add all with knee extended X with brace on x 10 reps X Supine heel slides with strap x10 X Prone knee flexion with strap PROM initiated Prone leg curl initiated Long sitting VMO isometric initiated Seated hamstring/gastroc stretch initiated Standing heel raise Initiated x10 x10 Standing gastroc stretch initiated Patellar mobs Performed and reviewed for self mobs X E stim Initiated with long sitting quad bj and SLR Flowsheet [place]: X = performed, x = times/multiply, s = seconds, ea = each, st = stretch Timed Treatment Therapeutic exercise for 45 minutes Neuromuscular re education for 15 min Total of Timed Treatment Codes: 60 minutes Untimed Treatment: ice Ending Pain: 06/01 Stop Time: 11:00 am ASSESSMENT Response to today???s treatment: good [...] assistance or extensor lag in 4 weeks. Wardrobe Coordinator Goals: 12 weeks 1. Patient will report [...] running at 16 weeks. Teresa Leach, PT documented in this encounter Plan of Treatment Not on file documented as of this encounter Visit Diagnoses Diagnosis Rupture of anterior cruciate ligament of right knee, initial encounter- Primary documented in this encounter Care Teams Inorganic Chemistry Teacher Relationship Specialty Start Date End Date No, Physician PCP - General 12/21/21 Zach Reyez, PT Physical Therapist Physical Therapy 01/20/22 documented as of this encounter
--- OUTSIDE RECORDS SUMMARY | 2024-05-22 05:26 | XMS_ITS | Encounter Summary ---
Author Organization [facility] Healthcare Address [address] [place] [address] Care Team Providers Care Tank Driver Name Role Phone No, Physician Primary Care Provider [phone] Zach Reyez PT Unavailable Unavailable Teresa Leach PT Unavailable [phone] Hussain Lopez RETORT CONDENSER ATTENDANT Unavailable Unavailabl e Reason for Visit * Reason Comments PT Treatment Encounter Details Date Type Department Care Team (Late st Contact Info) Description 02/26/2022 12:00 PM CDT Therapy [facility] at [address] [place], [place] [id number] Hussain Lopez PTA Rupture of anterior cruciate [...] file 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 Gender Identity Not on file Sexual Orientation Not on file documented as of this encounter Progress Notes * Hussain Lopez PTA - 02/26/2022 12:00 PM CDT [facility] STAR: Sports Therapy and Rehabilitation [...] is 4 weeks post op Today's date: 02/26/2022 Start Time: 12:00pm SUBJECTIVE --pt says he followed up with his surgeon who was pleased with his progress; patient says he is a little nervous to walk with brace unlocked despite Dr Suh progressing him to the next phase of hisprotocol; also reports that he frequently gets some pain and mild buckling at end-range extension with WB Pain level 0-2/10 Subjective Functional Outcome Measure: [...] with min to no cues. 3) applied taiwanese stim to R quads for 18 min 10/10 sec on/off ( 8 min with SLR, 10 min with LAQ 90-40 with 3#) 4) gait without crutch and with brace without cues 5) pt to ice at home Exercise/ Activity Date: 02/10 02/15 02/20 02/22 02/26 Quad sets With e stim for 5 min Added ball squeeze for VMO contraction X With E-Stim Supine SLR With E-Stim With e stim for 5 min With e stim for 8 min X With E-Stim Prone hip ext/side lying hip abd/add all with knee extended Seated knee flexion x10 Supine heel slides with strap X, without strap this day X with strap x5 X X X Prone knee flexion with strap PROM x10 X X Prone leg curl X 10 X X x10 Long sitting VMO isometric X 10 X Seated hamstring/gastroc stretch LAQ 90-40 deg 2lb with E-stim 3# x 5 min with e stim With e stim at 3# for 10 min X Standing leg curl x10 home X Standing heel raise home X Standing gastroc stretch X home x3 E-Stim Bolivian 10 min, R quad, 10/10 X X X Gait training Without assistive device X Brace unlocked @ counter Patellar mobs X X X E stim X X X X Upright bike 10 min X X 5 min Active warmup X Step-up 2 x10 Pole squat 1/4 x10 Flowsheet [place]: X = performed, x = times/multiply, s = seconds, ea = each, st = stretch Timed Treatment: Therapeutic exercise for 35 minutes: see above Total of Timed Treatment Codes: 35 minutes Ending Pain: 0-2/10 Stop Time: 1:00pm ASSESSMENT Response to today???s treatment: good PLAN [...] assistance or extensor lag in 4 weeks. Mapping Specialist Goals: 12 weeks 1. Patient will report [...] Primary documented in this encounter Care Teams Tank Driver Relationship Specialty Start Date End Date No, Physician PCP - General 12/21/21 Zach Reyez, PT Physical Therapist Physical Therapy 01/20/22 [place] [address] [place] [address] Physical Therapist Physical Therapy 01/30/22 Hussain Lopez PTA Metal Refiner Physical Therapy 02/03/22 documented as of this encounter
--- OUTSIDE RECORDS SUMMARY | 2024-05-22 05:26 | XMS_ITS | Encounter Summary ---
Author Organization [facility] Healthcare Address [address] [place] [address] Care Team Providers Care Rotary Soil Stabilizer Operator Name Role Phone No, Physician Primary Care Provider [phone] Zach Reyez PT Unavailable Unavailable Teresa Leach PT Unavailable [phone] Hussain Lopez VOLUNTEER SERVICES ASSISTANT Unavailable Unavailabl e Reason for Visit * Reason Comments PT Treatment Encounter Details Date Type Department Care Team (Late st Contact Info) Description 02/05/2022 6:00 PM CDT Therapy [facility] at [address] [place], [place] [id number] Hussain Lopez PTA Rupture of anterior cruciate [...] on file 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 Patient is continuing to use single crutch for ambulation but says he is able to stand static without any support to tolerate 50% WB Patient/Caregiver Goals: to fully recovery from surgery [...] Date: 01/30 Date: 02/01 Date: 02/05 Date: Quad sets X X with e stim X with e stim for 10 min With E-Stim With E-Stim Supine SLR X with brace on 10 reps X with e stim X with e stim for 5 min With E-Stim With E-Stim Prone hip ext/side lying hip abd/add all with knee extended X with brace on x 10 reps X X X Seated knee flexion x10 x5 Supine heel slides with strap x10 X X X Prone knee flexion with strap PROM initiated X10 Manual x3 Prone leg curl initiated x10 Long sitting VMO isometric Initiated with ball squeeze Seated hamstring/gastroc stretch initiated X HS stretch x3 HS- Long- Sitting x3 LAQ 90-40 deg x10 2 lb, 2 x10 Standing leg curl initiated X Standing heel raise Initiated x10 x10 home x20 X Standing gastroc stretch initiated home x2 x2 E-Stim Austrian 10 min, R quad, 10/10 10 min, R quad, 10/10 Patellar mobs Performed and reviewed for self mobs X X E stim Initiated with long sitting quad bj and SLR X X X Upright bike ROM, 5 min ROM, 5 min Flowsheet [place]: X = performed, x = times/multiply, s = seconds, ea = each, st = stretch Timed Treat Therapeutic exercise for 40 minutes: Progressed to isotonic resist with LAQ 90- 40 degrees; instructed patient in long-sitting HS stretch; continued quad strengthening with E-Stim completing SLR Total of Timed Treatment Codes: 40 minutes Ending Pain: 06/01 Stop Time: 6:40pm ASSESSMENT Response to today???s treatment: good PLAN [...] Primary documented in this encounter Care Teams Rotary Soil Stabilizer Operator Relationship Specialty Start Date End Date No, Physician PCP - General 12/21/21 Zach Reyez, PT Physical Therapist Physical Therapy 01/20/22 [place] [address] [place] [address] Physical Therapist Physical Therapy 01/30/22 Hussain Lopez PTA Mold Inspector Physical Therapy 02/03/22 documented as of this encounter
--- OUTSIDE RECORDS SUMMARY | 2024-05-22 05:26 | XMS_ITS | Encounter Summary ---
Author Organization [facility] Healthcare Address [address] [place] [address] Phone Care Team Providers Care Shingle Weaver Name Role Phone No, Physician Primary Care Provider [phone] Zach Reyez PT Unavailable Unavailable Reason for Referral * Diagnostic Imaging (Routine) - Closed Specialty Diagnoses / Procedures Referred By Danny cannon Referred To Contact Diagnoses S/P ACL reconstruction Procedures XR Knee Right 1 or 2 Views Antonio Suh IV, MD Phone: tel: fax: [facility] Referral ID Status Reason Start Date Expiration Date Visits Re quested Visits Authorized [id number] Closed 01/27/2022 02/26/2023 1 1 Reason for Visit * Reason Comments Follow-up Encounter Details Date Type Department Care Team (Latest Contact Info) Description 01/28/2022 1:20 PM CDT Office Visit [facility] Orthopaedic Surgery [address] [place] [address] [place] [address] [facility] [address] [place] [address] S/P ACL reconstruction (Primary Dx); S/P medial meniscus repair of right knee; S/P lateral meniscus repair of left knee Social History Tobacco Use Types Packs/Day [...] on file 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 Patient Name: Zayda Torres Date: 01/28/2022 INTERIM HISTORY: Follow up from Right Knee Arthroscopy - Anterior Cruciate Ligament Reconstruction With Bone Tendon Bone Autograft, Medial And Lateral Meniscus Repair , Patella Chondroplasty - Right on 01/15/2022 The patient has recently had pain: every day The current level of pain is: 2 The worst it has been in the last few days is: 5 Wound complaints: None Patient is recovering appropriately PHYSICAL EXAM: Incision: well healed Erythema: No Edema: No Effusion: No Ecchymosis: No Discharge: No Knee out to full extension brace X-Rays: Appropriate placement of tunnels and hardware IMPRESSION/DIAGNOSIS: Recovering appropriately 2 weeks following surgery. PLAN: Sutures were removed and steri-strips were applied Arthroscopic pictures were reviewed with the patient Progress Physical Therapy with continue weight-bearing as tolerated with the brace locked in extension He is going to try to go back to half days at work next week Return to clinic: 4 weeks documented in this encounter Plan of [...] lateral meniscus repair of left knee S/P ACL reconstruction Other postprocedural status documented in this encounter Care Teams Shingle Weaver Relationship Specialty Start Date End Date No, Physician PCP - General 12/21/21 Zach Reyez PT Physical Therapist Physical Therapy 01/20/22 documented as of this encounter
--- OUTSIDE RECORDS SUMMARY | 2024-05-22 05:26 | XMS_ITS | Encounter Summary ---
Author Organization [facility] Healthcare Address [address] [place] [address] Care Team Providers Care Property Management Coordinator Name Role Phone No, Physician Primary Care Provider [phone] Zach Reyez PT Unavailable Unavailable Teresa Leach PT Unavailable [phone] Hussain Lopez AUDIOLOGY ASSISTANT Unavailable Unavailabl e Reason for Visit * Reason Comments PT Treatment Encounter Details Date Type Department Care Team (Late st Contact Info) Description 03/12/2022 2:15 PM CDT Therapy [facility] at [address] [place], [place] [id number] Hussain Lopez PTA Rupture of anterior cruciate [...] on file 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 -- mild swelling R knee Tendency to offload to L LE with a pole squat TREATMENT 1) bike for 10 min level 1 2) tactile cues for decreased offloading to the L with a pole squat, cues for instruction 3) applied welsh stim to R quads for 10 min 10/10 sec on/off for LAQ with 5 lb 90-40, and with supine SLR with 0# 4) not today ;applied vasopneumatic with ice for 10 min at high pressure. (Pt to ice at home) Exercise/ Activity 03/05 03/08 03/15 Side stepping [...] for 8 min 5 lb, with E-Stim, 5 min Standing leg curl Standing heel raise X X Standing gastroc stretch X x2 Gait training X X X SL balance X Amb over sticks Init forward and sideways. Unable to do hurdles yet Progressed to hurdles all directions 6 forward, lateral Patellar mobs E stim welsh X X 10 min, 10 Upright bike 10 min X 10 min Active warmup X Step-up Unable to due to pain Unable to do due to medial knee pain Step down 2 x 10, and back up with L LE Pole squat X x10 x15 Flowsheet [place]: X = performed, x = times/multiply, s = seconds, ea = each, st = stretch Timed Treatment: Therapeutic exercise for 45 minutes: see above Total of Timed Treatment Codes: 45 minutes Untimed Treatment: 0 Ending Pain: 0-2/10 Stop Time: 3:00pm ASSESSMENT [...] assistance or extensor lag in 4 weeks. Guide Dog Mobility Instructor Goals: 12 weeks 1. Patient will report [...] Primary documented in this encounter Care Teams Property Management Coordinator Relationship Specialty Start Date End Date No, Physician PCP - General 12/21/21 Zach Reyez, PT Physical Therapist Physical Therapy 01/20/22 [place] [address] [place] [address] Physical Therapist Physical Therapy 01/30/22 Hussain Lopez PTA Patching Machine Operator Physical Therapy 02/03/22 documented as of this encounter
--- OUTSIDE RECORDS SUMMARY | 2024-05-22 05:26 | XMS_ITS | Encounter Summary ---
Author Organization [facility] Healthcare Address [address] [place] [address] Care Team Providers Care Costume Shop Coordinator Name Role Phone No, Physician Primary Care Provider [phone] Zach Reyez PT Unavailable Unavailable Teresa Leach PT Unavailable [phone] Hussain Lopez HATCHERY MAN Unavailable Unavailabl e Reason for Visit * Reason Comments PT Treatment Encounter Details Date Type Department Care Team (Late st Contact Info) Description 04/21/2022 5:30 PM OVERHEAD CRANE INSPECTOR Therapy [facility] at [facility] [id number] [place] [address] [address] [place] [address] [place] [address] [place] [address] Rupture of anterior cruciate ligament [...] on file Legal Sex Male 6:31 AM OVERHEAD CRANE INSPECTOR Gender Identity Not on file Sexual Orientation Not on file documented as of this encounter Progress Notes * Teresa Leach, PT - 04/21/2022 5:30 PM CST [facility]: Sports Therapy and Rehabilitation [...] control allows No deep flexion with WB Bicycle/elliptical/[place]nona track/ stairclimber Full arc progressive resistance exercises-emphasize quads Begin functional exercise program ( steps up/down, sports cord) Strengthening isokinetic Quadriceps distal pad/squats/leg press/hamstring curl pt is 13 weeks post op Today's date: 04/21/2022 Start Time: 5:15 pm SUBJECTIVE --pt reports 4-5 days after he had his knee drained, his swelling has returned. He reports he stillhas trouble with closed chain terminal knee ext due to medial knee pain. Pain level 0-2/10 Subjective Functional Outcome Measure: [...] belly proximally). -- moderate swelling R knee today, especially infrapatellar region --note R patella lateral glide and tilt --noted clicking and nodule lateral patellar region with knee flex/ext Tendency to offload to L LE with a pole squat TREATMENT 1) bike for 5 min level 1 2) applied patellar taping to R knee to promote medial glide and tilt 3) applied electrical stimulation with trigger switch and used with all LE/quad strengthening exercises 4) exercise per flow sheet:emphasized open-chain strengthening today, progressing to full range of LAQ, as well as completed concentric WB strengthening only within the pain free range 90-30 degrees,and full range eccentric WB ex. By the last few reps of the leg press doing this activity, pt was then able to perform concentric WB for a few reps 5) applied vasopneumatic with ice for 15 min at high pressure. Exercise/ Activity 03/19 03/22 03/26 04/05 04/09 04/21 Side stepping Backward walking Against one blue [...] degrees with 2 1/2 plates (With stim) Supine SLR X X 7 min with e stim X 7 min with e stim X With E-Stim LAQ 90-40 deg X Leg Extension 90-40 deg, 10 lb, 3 x10 Leg Extension, 90 - 0 deg, Double/SL ecc X with e stim Standing leg curl Leg Curl- 25 lb, 2 x10 SL- 25 lb Standing heel raise Unilat x10 Standing gastroc stretch Gait training X X X SL balance x2 X Single leg stance with opposite leg swings initated Amb over sticks Supine and quadriped leg press against black band Initiated with black band for home Patellar mobs Upright bike 10 min 5 min 5 min 10 min Active [...] for 15 minutes Neuromuscular re education for 20 minutes Total of Timed Treatment Codes: 35 minutes Untimed Treatment: ice, knee taping Ending Pain: 0-2/10 Stop Time: 6:30 pm ASSESSMENT Response to today???s treatment: good; continues to have limitations with pain at terminal knee extension (0-30 degrees) PLAN Continue PT with established POC [...] assistance or extensor lag in 4 weeks. Configuration Engineer Goals: 12 weeks 1. Patient will report [...] return to running at 16 weeks. Teresa Laech, PT HEAD CRANE INSPECTOR documented in this encounter Plan of Treatment Not on file documented as of this encounter Visit Diagnoses Diagnosis Rupture of anterior cruciate ligament of right knee, initial encounter- Primary documented in this encounter Care Teams Costume Shop Coordinator Relationship Specialty Start Date End Date No, Physician PCP - General 12/21/21 Zach Reyez, PT Physical Therapist Physical Therapy 01/20/22 [place] [address] [place] [address] Physical Therapist Physical Therapy 01/30/22 Hussain Lopez, HATCHERY MAN Geological E Logger Physical Therapy 02/03/22 documented as of this encounter
--- OUTSIDE RECORDS SUMMARY | 2024-05-22 05:26 | XMS_ITS | Encounter Summary ---
Author Organization [facility] Address [address] [place] [address] Phone Care Team Providers Care Client Project Coordinator Name Role Phone No, Physician Primary Care Provider [phone] Zach Reyez PT Unavailable Unavailable Teresa Leach PT Unavailable [phone] Hussain Lopez SOFTWARE PROGRAMMER Unavailable Unavailabl e Reason for Visit * Reason Comments Follow-up Encounter Details Date Type Department Care Team (Latest Contact Info) Description 02/25/2022 3:50 PM CDT Office Visit [facility] Orthopaedic Surgery [address] [place] [address] [place] [address] [place] [address] S/P ACL reconstruction (Primary Dx); S/P lateral meniscus repair of left knee; [...] on file 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 Patient Name: Zayda Torres Date: 02/25/2022 INTERIM HISTORY: Follow up from Right Knee Arthroscopy - Anterior Cruciate Ligament Reconstruction With Bone Tendon Bone Autograft, Medial And Lateral Meniscus Repair , Patella Chondroplasty - Right on 01/15/2022 The patient has recently had pain: every day The current level of pain is: 1 The worst it has been in the last few days is: 4 Wound complaints: None Patient is recovering appropriately but has noticed some more swelling and loss of flexion recently PHYSICAL EXAM: Incision: well healed Erythema: No Edema: No Effusion: Moderate Ecchymosis: No Discharge: No 0-110 degrees of flexion 1A Ed, 1A anterior drawer negative pivot shift IMPRESSION/DIAGNOSIS: Doing well other than swelling 6 weeks after surgery PLAN: I would recommend an aspiration of the knee today and a month of meloxicam. I encouraged icing. Under sterile conditions, I aspirated 23 mLs of benign yellow serous fluid from the knee. Progress Physical Therapy and adjust brace to allow 0-90 degrees of flexion Reviewed precautions Return to clinic: 6 weeks documented in [...] by mouth daily for 10 days Reorder 01/15/2022 02/25/2022 documented as of this encounter Care Teams Client Project Coordinator Relationship Specialty Start Date End Date No, Physician PCP - General 12/21/21 Zach Reyez, PT Physical Therapist Physical Therapy 01/20/22 [place] [address] [place] [address] Physical Therapist Physical Therapy 01/30/22 Hussain Lopez, SOFTWARE PROGRAMMER Property Officer Physical Therapy 02/03/22 documented as of this encounter
--- OUTSIDE RECORDS SUMMARY | 2024-05-22 05:27 | XMS_ITS | Encounter Summary ---
Author Organization [facility] Care Team Providers Care Clerical Investigator Name Role Phone Unavailable Primary Care Provider Unavailabl e Encounter Details Date Type Department Care Team (Late st Contact Info) Description 10/01/2013 9:38 AM CDT - 10/01/2013 4:00 PM CDT [facility] [address] [address] Pain in joint, shoulder region; Other postprocedural states Social History Tobacco Use Types Packs/Day Years Used Date Smoking Tobacco: Never Sex and Gender Information Value Date Recorded Sex Assigned at Not on file 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 Surgeon: David Lewis M.D. Dictating: David Lewis M.D. Service Dt: 10/01/2013 OPERATIVE REPORT PREOPERATIVE DIAGNOSIS (ES): Right shoulder status post rotator cuff and labral repair with intraarticular suture anchors and postoperative arthrofibrosis. POSTOPERATIVE DIAGNOSIS (ES): Right shoulder status post rotator cuff and labral repair with intraarticular suture anchors and postoperative arthrofibrosis. NAME OF OPERATION: Right shoulder removal of retained suture and loose suture anchors, removal of retained loose sutures and arthroscopic release of the rotator interval and posterior capsule as well as biceps tenotomy. DESCRIPTION OF PROCEDURE: The patient was taken to the operating room, placed under general endotracheal anesthesia after placement of block and then placed in the beach chair position. The right upper extremity was prepped and draped in the usual sterile fashion. An additional examination under anesthesia showed severe arthrofibrosis with external rotation at the side to about minus 10. Forward elevation was about 70 degrees. A gentle manipulation forward elevation only was performed and this achieved full forward elevation after an audible lysis of adhesions. An arthroscope was then inserted from posterior and then upon entrance to the joint, excellent visualization was obtained. There was a substantial scar inside the joint as well as ecchymosis and the rotator interval was then visualized and then an anterior portal quickly established. A comprehensive release of the rotator interval was performed with the ArthroCare device, then removing at least a 7 meter thick scar tissue that was present in this location. The release was taken all the way to the anterior leading edge of the supraspinatus as well as the upper edge of the subscapularis. The CA ligament as well as coracoid was visualized through the defect at the end of the release. The release was then taken through the middle glenohumeral ligament down through the inferior glenohumeral ligament into the inferior capsule. After doing the release, visualization was improved dramatically. There were several loose sutures throughout the joint. These were collected with a grasper or cut and collected after release from the anchors. Superiorly, there was a retained anchor piece adjacent to the biceps tendon which was substantially inflamed, synovitic, and adherent to the upper portion of the cuff as well as through the groove. The biceps tendon was then released off the glenoid, it did not retract, consistent with an autotenodesis phenomenon. The arm was abducted and externally rotated to get a clear picture of the undersurface of the cuff and multiple other suture anchor fragments were identified in these locations and these were removed sequentially at four different adherence points to the rotator cuff. A hole for the superior suture anchor was appreciated just medial to the anatomic neck. This was debrided of loose tissue also. The posterior cuff otherwise looked quite pristine and healthy. After release of adhesions and latter-day ability to raise the shoulder, a subacromial resecting was then performed and substantial inflammation was encountered here so an ArthroCare device was used to remove the bursa only. At the end of the case, spinal needles were placed both in subacromial and intraarticular spaces and 5 milliliters of quarter percent Marcaine containing 20 mg of Kenalog were injected into both locations. A bulky dressing and sling was applied. Anesthesia was reversed after closure of the wounds. The patient was taken to the Recovery Room, having tolerated the procedure well, having sustained no intraoperative complications. COMPLICATIONS: None. PRESENT STATEMENT: Please note that I was present for all critical portions of the case including the entire procedure up to the closure. I was immediately available for non-critical portions. Electronically Signed By David Lewis M.D. 10/04/2013 12:06 P Rosalinda Alejandro/donna #[id number] Editing MT: TD: 10/01/2013 14:58:00 cc: Orthopedic Billing David Lewis M.D. documented in this encounter Plan of Treatment Not on file documented as of this encounter Visit Diagnoses Diagnosis Pain in joint, shoulder region Other postprocedural states documented in this encounter
--- OUTSIDE RECORDS SUMMARY | 2024-05-22 05:27 | XMS_ITS | Encounter Summary ---
Author Organization [facility] Healthcare Address [address] [place] [address] Care Team Providers Care Radio Recorder Name Role Phone No, Physician Primary Care Provider Encounter Details Date Type Department Care Team (Latest Contact Info) Description 12/31/2021 5:09 PM CDT Hospital Encounter [facility] [address] [place] [address] [phone] Discharge Disposition: Discharge to home or self care Social History Tobacco Use Types Packs/Day Years Used Date Smoking Tobacco: Never AUDIT-C Answer Date Recorded Q1: How often do you have a drink containing alc ohol? 2-4 times a month 01/01/2022 Q2: How many drinks containi ng alcohol do you have on a typical day when you are drinking? 1 or 2 01/01/2022 Q3: How often do you have si x or more drinks on one occasion? 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 Gender Identity Not on file Sexual Orientation Not on file documented as of this encounter Medications at Time of Discharge naproxen (ALEVE) 220 mg tablet Take by mouth every 12 (twelve) hours as needed for pain 01/01/2022 documented as of this encounter Discharge Disposition Disposition Code Departure Means Destination Discharge to home or self care documented in this encounter Plan of Treatment Not on file documented as of this encounter Procedures Procedure Name Priority Date/Time Associated Diagnosis Comments MSK CT MR OUTSIDE REFERENCE Routine 12/31/2021 5:09 PM CDT Diagnosis unknown documented in this encounter Results * MSK CT MR Outside Reference (12/31/2021 5:09 PM CDT) Impressions [facility] - 12/31/2021 5:09 PM CDT These images are for Reference purposes only and have not been reviewed by [facility]. ??There will be no report generated by a [facility] Radiologist. Narrative [facility] - 12/31/2021 5:09 PM CDT EXAMINATION: ??Images For Reference Purposes Only us Antonio Suh IV, MD IMG CT PROCEDURES Fin al Result [facility] documented in this encounter Visit Diagnoses Not on filedocumented in this encounter Care Teams Radio Recorder Relationship Specialty Start Date End Date No, Physician PCP - General 12/21/21 documented as of this encounter
--- OUTSIDE RECORDS SUMMARY | 2024-05-22 05:27 | XMS_ITS | Encounter Summary ---
Author Organization [facility] Facility Care Team Providers Care Instruction Librarian Name Role Phone Unavailable Primary Care Provider Unavailabl e Encounter Details Date Type Department Care Team (Late st Contact Info) Description 09/18/2013 9:21 AM CDT - 09/18/2013 4:00 PM CDT Hospital Encounter [facility] Amilcar Portillo MD [address] [address] Disuse osteoporosis; Pain in joint, shoulder region; Other specified disorders of rotator cuff syndrome of shoulder and allied disorders Social History Tobacco Use Types Packs/Day Years Used Date Smoking Tobacco: Never Assessed Sex and Gender Information Value Date Recorded Sex Assigned at Not on file 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 Gender Identity Not on file Sexual Orientation Not on file documented as of this encounter Plan of Treatment Not on file documented as of this encounter Procedures Procedure Name Priority Date/Time Associated Diagnosis Comments XR SHOULDER 2+ VW Routine 09/18/2013 12: 05 PM CDT MRI UPPER EXTREMITY JOINT W CONTRAST Routine 09/18/2013 11:16 AM CDT XR INJECT SHOULDER ARTHRO ONLY Routine 09/18/2013 10:23 AM CDT FLUORO GUIDED NEEDLE PLACEMENT Routine 09/18/2013 10:23 AM CDT documented in this encounter Results * XR Shoulder 2+ Vw (09/18/2013 12:05 PM CDT) Anatomical Region Laterality Modality Shoulder N/A Radiographic Eloina ging 09/18/2013 12:0 5 PM CDT Narrative 09/18/2013 12:36 PM CDT BASSEM SOSA M.D. FINAL REPORT ACC# ??Date Time ??Exam [id number] Sep 18, 2013 12:05:00 [id number] Shoulder minimum 2 views R EXAMINATION: ?Right shoulder minimum 2 views HISTORY: ??Shoulder pain after rotator cuff repair, displaced suture anchor FINDINGS: ?? Four view examination of the right shoulder is compared with MR performed earlier today. 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 High attenuation within the joint capsule reflects dilute iodinate contrast from the recent arthrographic injection. The displaced suture anchors seen on recent MR are not visualized, as they are radiolucent. The glenohumeral and acromioclavicular joint spaces and alignment are normal. There is no fracture. IMPRESSION: ?? 1. Right shoulder disuse osteoporosis. 2. Displaced suture anchors demonstrated on recent MR are not identified on the shoulder radiographs. Requested By: AMILCAR VEGA ??M.D. Dictated By: ?? BASSEM SOSA M.D. ??on Sep 18 2013 12:36P This document has been electronically signed by: BASSEM SOSA M.D. on Sep 18 2013 12:36P Procedure Note Provider, MD Hiren - 09/26/2016 BASSEM SOSA M.D. FINAL REPORT ACC# Date Time Exam [id number] Sep 18, 2013 12:05:00 [id number] Shoulder minimum 2 views R EXAMINATION: Right shoulder minimum 2 views HISTORY: Shoulder pain after rotator cuff repair, displaced sutureanchor FINDINGS: Four view examination of the right shoulder is compared with MR performed earlier today. 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 High attenuation within the joint capsule reflects dilute iodinate contrast from the recent arthrographic injection. The displaced suture anchors seen on recent MR are not visualized, as they are radiolucent. The glenohumeral and acromioclavicular joint spaces and alignment are normal. There is no fracture. IMPRESSION: 1. Right shoulder disuse osteoporosis. 2. Displaced suture anchors demonstrated on recent MR are not identified on the shoulder radiographs. Requested By: AMILCAR VEGA M.D. Dictated By: BASSEM SOSA M.D. on Sep 18 2013 12:36P This document has been electronically signed by: BASSEM SOSA M.D. on Sep 18 2013 12:36P us Historical Provider IMMonalisa XR PROCEDURES Final R esult * MRI Upper Extremity Joint W Contrast (09/18/2013 11:16 AM CDT) Anatomical Region Laterality Modality Upper Extremities N/A Magnetic Reson ance 09/18/2013 11:1 6 AM CDT Narrative 09/18/2013 2:48 PM CDT Rosalinda DAS M.D. HO FINAL REPORT The radiology attending physician has personally reviewed this study, and has reviewed and/or edited this written report and agrees with it. ACC# ??Date Time ??Exam [id number] Sep 18, 2013 11:16:00 [id number] MRI Joint Upper Extrm with R EXAMINATION: ?? MR right shoulder with contrast. HISTORY: Recurrent anterior shoulder pain after rotator cuff and labral repair FINDINGS: There are no radiographs available for review. Following the intra-articular injection of dilute gadolinium into the right glenohumeral joint (details reported under a separate accession number), an MR examination of the right shoulder was done using a local coil. Transverse, oblique coronal, and oblique sagittal short TR/TE and fast spin-echo images were obtained. Subsequently, traction transverse fast spin echo images were performed. The patient was unable to tolerate additional images with the shoulder in abduction and external rotation. There has been subacromial decompression with release of the coracoclavicular ligament. There is mild acromioclavicular osteoarthritis with a small amount of acromioclavicular joint fluid. There is a small amount of fluid but no injected contrast within the subacromial-subdeltoid bursa. There has been right rotator cuff repair with 2 suture anchor tunnels within the humeral head; however, two suture anchors have backed out and migrated from the humeral head into the joint. The posterior suture anchors is fractured, and the anterior suture anchor is located within the rotator interval just superior and posterior to the biceps tendon. There is an associated recurrent or residual near full-thickness undersurface tear of the infraspinatus tendon with delaminating component and ??`contrast imbibition. The supraspinatus tendon is tendinopathic. There is edema of the posterior supraspinatus and the infraspinatus muscles without fatty atrophy. Subscapularis muscle and tendon are intact. The intra-articular biceps tendon is normal. There are has been superior and anteroinferior labral repair with 4 suture anchors in the glenoid. There is a large residual or recurrent superior labral tear. The repair of the anteroinferior glenoid labrum is intact, with labral fraying in the axillary recess. There is minimal chondrosis of the superior glenoid. The glenohumeral ligaments appear intact. There is synovitis within the glenohumeral joint. ?? IMPRESSION: 1. Failed right rotator cuff repair with recurrent or residual, near full-thickness undersurface tear of the infraspinatus tendon and two loose suture anchors in the joint. 2. Glenoid labral repair with recurrent or residual superior labral tear, but intact anteroinferior labral repair. 3. Subacromial decompression and release of the coracoclavicular ligament. 4. Mild acromioclavicular osteoarthritis and subacromial-subdeltoid bursitis. ?? Requested By: AMILCAR VEGA ??Rosalinda Dictated By: ?? Rosalinda EVANS ??on Sep 18 2013 12:20P This document has been electronically signed by: BASSEM SOSA M.D. on Sep 18 2013 ??2:48P Procedure Note Provider, MD Hiren - 09/26/2016 Rosalinda DAS M.D. HO FINAL REPORT The radiology attending physician has personally reviewed this study, and has reviewed and/or edited this written report and agrees with it. ACC# Date Time Exam [id number] Sep 18, 2013 11:16:00 [id number] MRI Joint Upper Extrm with R EXAMINATION: MR right shoulder with contrast. HISTORY: Recurrent anterior shoulder pain after rotator cuff and labral repair FINDINGS: There are no radiographs available for review. Following the intra-articular injection of dilute gadolinium into the right glenohumeral joint (details reported under a separate accession number), an MR examination of the right shoulder was done using a local coil. Transverse, oblique coronal, and oblique sagittal short TR/TE and fast spin-echo images were obtained. Subsequently, traction transverse fast spin echo images were performed. The patient was unable to tolerate additional images with the shoulder in abduction and external rotation. There has been subacromial decompression with release of the coracoclavicular ligament. There is mild acromioclavicular osteoarthritis with a small amount of acromioclavicular joint fluid. There is a small amount of fluid but no injected contrast within the subacromial-subdeltoid bursa. There has been right rotator cuff repair with 2 suture anchor tunnels within the humeral head; however, two suture anchors have backed out and migrated from the humeral head into the joint. The posterior suture anchors is fractured, and the anterior suture anchor is located within the rotator interval just superior and posterior to the biceps tendon. There is an associated recurrent or residual near full-thickness undersurface tear of the infraspinatus tendon with delaminating component and `contrast imbibition. The supraspinatus tendon is tendinopathic. There is edema of the posterior supraspinatus and the infraspinatus muscles without fatty atrophy. Subscapularis muscle and tendon areintact. The intra-articular biceps tendon is normal. There are has been superior and anteroinferior labral repair with 4 suture anchors in the glenoid. There is a large residual or recurrent superior labral tear. The repair of the anteroinferior glenoid labrum is intact, with labral fraying in the axillary recess. There is minimal chondrosis of the superior glenoid. The glenohumeral ligaments appear intact. There is synovitis within the glenohumeral joint. IMPRESSION: 1. Failed right rotator cuff repair with recurrent or residual, near full-thickness undersurface tear of the infraspinatus tendon and two loose suture anchors in the joint. 2. Glenoid labral repair with recurrent or residual superior labral tear, but intact anteroinferior labral repair. 3. Subacromial decompression and release of the coracoclavicularligament. 4. Mild acromioclavicular osteoarthritis and subacromial-subdeltoid bursitis. Requested By: AMILCAR VEGA M.D. Dictated By: MARSHA ESTRADA M.D. HO on Sep 18 2013 12:20P This document has been electronically signed by: BASSEM SOSA M.D. on Sep 18 2013 2:48P us Historical Provider MD LINARES MRI PROCEDURES Final Result * Fluoro Guided Needle Placement (09/18/2013 10:23 AM CDT) Anatomical Region Laterality Modality Body N/A Radiographic Eloina ging 09/18/2013 10:2 3 AM CDT Narrative 09/18/2013 10:48 AM CDT MARSHA ESTRADA M.D. FINAL REPORT ACC# ??Date Time ??Exam [id number] Sep 18, 2013 10:23:00 [id number] Fluoro Guide for ndle [facility] [id number] Sep 18, 2013 10:23:00 [id number] Inject Shoulder Arthrogram R EXAMINATION: ?? 1. Right shoulder injection. 2. Fluoroscopic guidance for needle placement. HISTORY: Right shoulder labral tear TECHNIQUE: The procedure was explained to the patient, his questions were answered, and he agreed to proceed. Using sterile technique, fluoroscopic guidance, and 1 mL subcutaneous 1% lidocaine for local anesthesia, a 22-gauge spinal needle was introduced into the right glenohumeral joint from an anterior approach. The intra-articular position of the needle was confirmed with a 15 mL injection of a 20 mL solution consisting of 10 mL 1: 100 OptiMARK in sterile saline, 5 mL 1% lidocaine and 5 mL Conray-60 under fluoroscopic control. The needle was removed. There were no complications of the injection, which was performed by Dr. Estrada. IMPRESSION: ?? Successful right glenohumeral intra-articular injection of contrast for subsequent MR examination. Requested By: AMILCAR VEGA ??Rosalinda Dictated By: ?? MARSHA ESTRADA M.D. ??on Sep 18 2013 10:48A This document has been electronically signed by: MARSHA ESTRADA M.D. on Sep 18 2013 10:48A Procedure Note Provider, Hiren, - 09/26/2016 MARSHA ESTRADA M.D. FINAL REPORT ACC# Date Time Exam [id number] Sep 18, 2013 10:23:00 [id number] Fluoro Guide for ndle [facility] [id number] Sep 18, 2013 10:23:00 [id number] Inject Shoulder Arthrogram R EXAMINATION: 1. Right shoulder injection. 2. Fluoroscopic guidance for needle placement. HISTORY: Right shoulder labral tear TECHNIQUE: The procedure was explained to the patient, his questions were answered, and he agreed to proceed. Using sterile technique, fluoroscopic guidance, and 1 mL subcutaneous 1% lidocaine for local anesthesia, a 22-gauge spinal needle was introduced into the right glenohumeral joint from an anterior approach. The intra-articular position of the needle was confirmed with a 15 mL injection of a 20 mL solution consisting of 10 mL 1: 100 OptiMARK in sterile saline, 5 mL 1% lidocaine and 5 mL Conray-60 under fluoroscopic control. The needle was removed. There were no complications of the injection, which was performed by Dr. Estrada. IMPRESSION: Successful right glenohumeral intra-articular injection of contrast for subsequent MR examination. Requested By: AMILCAR VEGA M.D. Dictated By: MARSHA ESTRADA M.D. on Sep 18 2013 10:48A This document has been electronically signed by: MARSHA ESTRADA M.D. on Sep 18 2013 10:48A Historical Provider MD LINARES FLUOROSCOPY PROCEDURE S Final Result * XR Inject Shoulder Arthro Only (09/18/2013 10:23 AM CDT) Anatomical Region Laterality Modality Shoulder N/A Radiographic Eloina ging 09/18/2013 10:2 3 AM CDT Narrative 09/18/2013 10:48 AM CDT MARSHA ESTRADA M.D. FINAL REPORT ACC# ??Date Time ??Exam [id number] Sep 18, 2013 10:23:00 [id number] Fluoro Guide for ndle plc [id number] Sep 18, 2013 10:23:00 [id number] Inject Shoulder Arthrogram R EXAMINATION: ?? 1. Right shoulder injection. 2. Fluoroscopic guidance for needle placement. HISTORY: Right shoulder labral tear TECHNIQUE: The procedure was explained to the patient, his questions were answered, and he agreed to proceed. Using sterile technique, fluoroscopic guidance, and 1 mL subcutaneous 1% lidocaine for local anesthesia, a 22-gauge spinal needle was introduced into the right glenohumeral joint from an anterior approach. The intra-articular position of the needle was confirmed with a 15 mL injection of a 20 mL solution consisting of 10 mL 1: 100 OptiMARK in sterile saline, 5 mL 1% lidocaine and 5 mL Conray-60 under fluoroscopic control. The needle was removed. There were no complications of the injection, which was performed by Dr. Estrada. IMPRESSION: ?? Successful right glenohumeral intra-articular injection of contrast for subsequent MR examination. Requested By: AMILCAR VEGA ??Rosalinda Dictated By: ?? MARSHA ESTRADA M.D. ??on Sep 18 2013 10:48A This document has been electronically signed by: MARSHA ESTRADA M.D. on Sep 18 2013 10:48A Procedure Note Provider, MD Hiren - 09/26/2016 MARSHA ESTRADA M.D. FINAL REPORT ACC# Date Time Exam [id number] Sep 18, 2013 10:23:00 [id number] Fluoro Guide for ndle plc [id number] Sep 18, 2013 10:23:00 [id number] Inject Shoulder Arthrogram R EXAMINATION: 1. Right shoulder injection. 2. Fluoroscopic guidance for needle placement. HISTORY: Right shoulder labral tear TECHNIQUE: The procedure was explained to the patient, his questions were answered, and he agreed to proceed. Using sterile technique, fluoroscopic guidance, and 1 mL subcutaneous 1% lidocaine for local anesthesia, a 22-gauge spinal needle was introduced into the right glenohumeral joint from an anterior approach. The intra-articular position of the needle was confirmed with a 15 mL injection of a 20 mL solution consisting of 10 mL 1: 100 OptiMARK in sterile saline, 5 mL 1% lidocaine and 5 mL Conray-60 under fluoroscopic control. The needle was removed. There were no complications of the injection, which was performed by Dr. Estrada. IMPRESSION: Successful right glenohumeral intra-articular injection of contrast for subsequent MR examination. Requested By: AMILCAR VEGA M.D. Dictated By: MARSHA ESTRADA M.D. on Sep 18 2013 10:48A This document has been electronically signed by: MARSHA ESTRADA M.D. on Sep 18 2013 10:48A us Historical Provider MD LINARES XR PROCEDURES Final R esult documented in this encounter Visit Diagnoses Diagnosis Disuse osteoporosis Pain in joint, shoulder region Other specified disorders of rotator cuff syndrome of shoulder and allied disorders documented in this encounter
--- OUTSIDE RECORDS SUMMARY | 2024-05-22 05:27 | XMS_ITS | Encounter Summary ---
Author Organization 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 FINAL REPORT ACC# ??Date Time ??Exam [id number] Mar 26, 2014 15:55:00 [id number] Shoulder minimum 2 views R EXAMINATION: ?Right shoulder minimum 2 views HISTORY: ??Right shoulder pain FINDINGS: ?? Four views of the right shoulder are performed with comparison to right shoulder radiographs on 09/18/2013. There is normal alignment of the right shoulder. The glenohumeral and acromioclavicular joint spaces are normal. No fracture. Disuse osteoporosis is improving. No fracture. IMPRESSION: ?? Normal right shoulder radiographs. Requested By: Dictated By: ?? TORIE JUDGE M.D. ??on Mar?2013 ??4:08P This document has been electronically signed by: TORIE JUDGE M.D. on Mar?2013 ??4:08P Procedure Note Provider, Hiren, - 09/26/2016 TORIE JUDGE M.D. FINAL REPORT ACC# Date Time Exam [id number] Mar 26, 2014 15:55:00 [id number] Shoulder minimum 2 views R EXAMINATION: Right shoulder minimum 2 views HISTORY: Right shoulder pain FINDINGS: Four views of the right shoulder are performed with comparison to right shoulder radiographs on 09/18/2013. There is normal alignment of the right shoulder. The glenohumeral and acromioclavicular joint spaces are normal. No fracture. Disuse osteoporosis is improving. No fracture. IMPRESSION: Normal right shoulder radiographs. Requested By: Dictated By: TORIE JUDGE M.D. on Mar 26 2014 4:08P This document has been electronically signed by: TORIE JUDGE M.D. on Mar 26 2014 4:08P us Historical Provider IMMonalisa XR PROCEDURES Final R esult documented in this encounter Visit Diagnoses Diagnosis Pain in joint, shoulder region documented in this encounter
--- OUTSIDE RECORDS SUMMARY | 2024-05-22 05:27 | XMS_ITS | Encounter Summary ---
Author Organization [facility] Address [address] [address] Care Team Providers Care Commercial Helicopter Pilot Name Role Phone No, Physician Primary Care Provider [phone] Reason for Visit * Auth/Cert Specialty Diagnoses / Procedures Referred By Dnany t Referred To Contact Diagnoses Complete tear of right ACL, subsequent encounter Complex tear of medial meniscus of right knee as current injury, subsequent encounter Complete tear of right ACL, subsequent encounter [S83.511D] Complex tear of medial meniscus of right knee as current injury, subsequent encounter [S83.231D] Procedures MN KNEE SCOPE,MED OR LAT MENIS REPAIR MN KNEE SCOPE,MED/LAT MENISECTOMY MN KNEE SCOPE,AID ANT CRUCIATE REPAIR RIGHT KNEE ARTHROSCOPY - ANTERIOR CRUCIATE LIGAMENT RECONSTRUCTION WITH BONE TENDON BONE AUTOGRAFT, PARTIAL MEDIAL MENISCECTOMY VERSUS REPAIR RIGHT RIGHT Referral ID Status Reason Start Date Expiration Date Visits Re quested Visits Authorized [id number] 1 1 Encounter Details Date Type Department Care Team (Late st Contact Info) Description 01/15/2022 3:35 PM CDT Anesthesia Event [facility] [address] [place] [id number] Uriah Quinones MD [address] [place] [address] Kayleen Kinney NP [address] [facility] [phone] [place] [address] Anesthesia Record Procedure Summary Procedure Name Responsible Anesthesiologist Anesthesia Start Time Anesthesia Stop Time RIGHT KNEE ARTHROSCOPY - ANTERIOR CRUCIATE LIGAMENT RECONSTRUCTION WITH BONE TENDON BONE AUTOGRAFT, MEDIAL AND LATERAL MENISCUS REPAIR , PATELLA CHONDROPLASTY (Right: Knee) Uriah Quinones MD 01/15/22 1535 01/15/22 1738 Events Date Time Event Comment 01/15/2022 1401 1436 Time out - Regional 1436 Face Time 1436 Start Supplemental O2 1436 An Block Induction The patie nt was reevaluated immediately before moderate or deep sedation and before anesthesia induction. 1436 Block Placed 1535 AN Equip Check 1535 An Start 1535 In Room 1535 An Start Data 1538 An Induction The patient was reevaluated immediately before moderate or deep sedation use and before anesthesia induction. 1542 An LMA 1551 Anesthesia Ready 1554 an tahir now 1554 Quick Note Tourniquet up 2 50 mmHg right upper leg 1554 Proc Start 1554 Incision Start 1559 Quick Note Tourniquet down 1728 Proc Fin 1730 Airway Removed 1730 Out of Room 1730 an stop data 1738 Handoff to RN I completed my handoff [...] disposition at the time of handoff: PACU 1738 An Stop 1747 Release from care Meds Name Total midazolam 2 mg/2 mL 2 mg fentaNYL PF 300 mcg propofol 200 mg propofol 189.68 mg bupivacaine 0.5 % PF 40 mL Lido 2% Infilt 2 mL lidocaine 2 % 5 mL Mepiv Infilt 1% 2 mL dexamethasone 4 mg/mL 8 mg ondansetron PF 8 mg ceFAZolin (ANCEF) 2,000 mg/50 mL in dext ritu (premix) 2,000 mg 2,000 mg hydrALAZINE 2.5 mg Lactated Ringer's (LR) infusion 1,100 mL * Agents Name O2 Sevoflurane Inspired Sevoflurane * Blood No blood administrations on file. Lines, Drains, and Airways Type Details Placement Removal Peripheral IV Placement Date: 01/15/22; Placement Time: 1346; Orientation: Left, Posterior; Location: Hand; Technique: Anatomical landmarks; Inserted by: Analy Willett RN; Insertion Attempts: 1; Patient Tolerance: Tolerated well; Removal Date: 01/15/22; Removal Time: 183; Removal Reason: Discharge 01/15/22 1346 by Analy Willett RN 01/15/22 1834 by Bre Moreno RN PNB catheter Placement Date: 01/15/22; Placement Time: 143 (created via procedure documentation); Removal Date: Injectable, Topical, None; Removal Time: Tolerated well; 01/18/22; 1244 01/15/22 1437 by Uriah Quinones MD 01/18/22 1244 by Allie Harris NP Supraglottic Airway Placement Date: 01/15/22; Placement Time: 160 (created via procedure documentation); Mask Ventilation: 1; Size: 4; Insertion Attempts: 1; Removal Date: 01/15/22; Removal Time: 17301/15/22 1602 by Peter Brasher CRNA 01/15/22 1730 by Peter Brasher CRNA RETIRED Surgical Site 01/15/22; 1618; Ri ght; Leg; 01/15/22; 1833; Discharge 01/15/22 1618 by Mercedes Beasley RN 01/15/22 1833 by Bre Moreno, YURIY documented in this encounter Social History [...] on file Legal Sex Male 6:31 AM DOGMAN/WOMAN Gender Identity Not on file Sexual Orientation Not on file documented as of this encounter OR Notes * Anesthesia Postprocedure Evaluation - Uriah Quinones MD - 01/15/2022 5:47 PM CDT Patient: Zayda Torres Procedure Summary Date: 01/15/22 Room / Location: [facility] OPERATING ROOM 4 / [facility] OPERATING RO[facility] Anesthesia Start: 1535 Anesthesia Stop: 173 Procedure: RIGHT KNEE ARTHROSCOPY - ANTERIOR CRUCIATE LIGAMENT RECONSTRUCTION WITH BONE TENDON BONEAUTOGRAFT, MEDIAL AND LATERAL MENISCUS REPAIR , PATELLA CHONDROPLASTY (Right Knee) Diagnosis: Complete tear of right ACL, subsequent encounter Complex tear of medial meniscus of right knee as current injury, subsequent encounter (Complete tear of right ACL, subsequent encounter [S83.511D]) (Complex tear of medial meniscus of right knee as current injury, subsequent encounter [S83.231D]) Providers: Antonio Suh IV, MD Responsible Provider: Uriah Quinones MD Anesthesia Type: general, regional for postop pain per surgeon request, PNB - continuous catheter, PNB - single shot ASA Status: 2 Anesthesia Type: general, regional for postop pain per surgeon request, PNB - continuous catheter, PNB - single shot Last vitals BP 117/76 Pulse 54 Temp 36.4 ??C (97.5 ??F) (Temporal) Resp 18 SpO2 100% Anesthesia Post Evaluation Patient location during evaluation: PACU Patient participation: complete - patient participated Level of consciousness: fully awake Pain score: 5 Pain management: adequate Airway patency: adequate Evidence of recall: no Cardiovascular status: hemodynamically stable and acceptable Respiratory status: acceptable and room air Hydration status: acceptable Pt is: normothermic Nausea/Vomiting status: none No complications documented. * Anesthesia Procedure Notes - Peter Brasher CRNA - 01/15/2022 4:01 PM CDT Associated Order(s): Airway Airway Patient location: OR Urgency: elective Indications for airway management: anesthesia Difficult airway: no Staff: Placed by: CALL CENTER RECRUITER: Peter Brasher CRNA Emergent airway documentation: Risks and benefits discussed: yes Consent obtained: yes Consent given by: patient Airway prep: Preoxygenated: yes Patient position: sniffing Mask difficulty assessment: 1 - vent by mask Sedation level during airway: GA Final airway details: Final airway type: supraglottic airway Final supraglottic airway: unique SGA size: 4 Number of attempts: 1 * Anesthesia Procedure Notes - Uriah Quinones MD - 01/15/2022 2:37 PM CDT Associated Order(s): Peripheral Block Peripheral Block Patient location during procedure: pre-op holding Reason for block: post-op pain management per surgeon request Ultrasound image in chart or stored: yes Block type: catheter continuous infusion Laterality: right Block type: femoral nerve block (distal mid thigh ) Procedure prep: Preprocedure checklist: patient identified, procedure contraindications assessed, site marked, procedure consent, surgical consent, IV checked, risks, benefits and alternatives discussed, monitors and equipment checked and timeout performed Patient position: supine Procedure performed while patient: sedate with meaningful contact Monitoring: ECG, oximetry and blood pressure Supplemental O2: nasal cannula Prep solution: chlorhexidine/alcohol PPE: provider hat/mask, sterile gloves, sterile drape, sterile gown and sterile probe cover and gel Skin infiltrated with lidocaine 1%: yes Peripheral nerve block: Technique: ultrasound guided Needle type: insulated, echogenic and short-bevel Needle gauge: 19ga. Needle length: 100 mm Injection assessment: injection made incrementally with constant monitoring, local visualized surrounding nerve on ultrasound, negative aspiration for heme, no paresthesias noted, normal resistance to injection and see flowsheet for medication details Assessment: Block success: full evaluation pending Events: patient tolerated procedure well with no complications Additional comments: ASSISTED BY DIMAS CLEVELAND-Funmi * Anesthesia Procedure Notes - Uriah Quinones MD - 01/15/2022 2:36 PM CDT Associated Order(s): Peripheral Block Peripheral Block [...] equipment checked and timeout performed Patient position: left lateral decubitus Procedure performed while patient: sedate with meaningful contact Monitoring: oximetry, ECG and blood pressure Supplemental O2: nasal cannula Prep solution: chlorhexidine/alcohol Sterile barriers: Probe Cover. Skin infiltrated with lidocaine 1%: yes Peripheral nerve block: Technique: ultrasound guided Needle type: short-bevel and echogenic Needle gauge: 21 G Needle length: 80 mm Injection assessment: injection made incrementally with constant monitoring, local visualized surrounding nerve on ultrasound, negative aspiration for heme, no paresthesias noted, normal resistance to injection and see flowsheet for medication details Assessment: Block success: full evaluation pending Events: patient tolerated procedure well with no complications Additional comments: ASSISTED BY EARL CLEVELAND * Anesthesia Preprocedure Evaluation - Uriah Quinones MD - 01/06/2022 11:57 AM CDT [facility] Preoperative Evaluation Record Evaluation type/location: [facility] from [facility] Planned procedure site: [facility] Date: 01/06/22 NOTE: This note represents a preoperative evaluation initiated via telephone interview. NO PHYSICALEXAM was performed at the time of initial assessment. A physical exam may be added to this note anddocumented below. Anesthesia Evaluation Zayda Torres is a 46 y.o. male Procedure(s): RIGHT KNEE ARTHROSCOPY - ANTERIOR CRUCIATE LIGAMENT RECONSTRUCTION WITH BONE TENDON BONE AUTOGRAFT,PARTIAL MEDIAL MENISCECTOMY VERSUS REPAIR RIGHT RIGHT Pre-Op Diagnosis Codes: * Complete tear of right ACL, subsequent encounter [S83.511D] * Complex tear of medial meniscus of right knee as current injury, subsequent encounter [S83.231D] HISTORY HPI 46 year old without significant past medical history being evaluated prior to undergoing Procedure(s):RIGHT KNEE ARTHROSCOPY - ANTERIOR CRUCIATE LIGAMENT RECONSTRUCTION WITH BONE TENDON BONE AUTOGRAFT, PARTIAL MEDIAL MENISCECTOMY VERSUS REPAIR 2/2 Complete tear of right ACL and tear of medial meniscus Past Medical History Information obtained from: patient and chart. Neurological Pertinent negatives: neuromuscular disease; CVA/stroke and [...] cancer history; transplanted organ and infectious disease Obesity: BMI 31.47. Functional Capacity Functional capacity: 4-6 METs Comments: Able to climb two flights of stairs w/o SOB or CP -Denies change in functional capacity Review of Systems Pertinent negatives: productive cough; [...] of 6. Functional capacity is 4-6 METs. Patient's COVID19 status is: Unexposed. The patient currently has no concerning symptoms of COVID19. . Patient's COVID-19 vaccination status is Up to date with 3 mRNA vaccines. Vaccination status verbally confirmed with patient. . Plan for pre-procedure COVID19 testing: Patient is asymptomatic and up to date with their COVID-19 vaccine. COVID-19 testing not indicated. . Obstructive sleep apnea (RAJ) screening status is STOP-BANG incomplete but suspected to be 0-2 suggesting low risk for RAJ. Neck circumference pending.. This assessment was performed via telephone. Therefore the physical exam has been deferred to the day of surgery team. The patient was provided with preoperative instructions for their medications. Patient instructions were provided by telephone and electronically sent via [employer]. Patient verbalized understanding of preoperative plan. Blood bank needs for day of procedure: No type and screen needed Pending labs/tests include: None Preoperative evaluation performed by Kayleen Kinney NP on 01/06/22 at 12:26 PM TPAP Assessment complete . Patient Active Problem List Diagnosis ??? Arthralgia of shoulder ??? Elbow pain ??? Complete tear of right ACL, subsequent encounter ??? Complex tear of medial meniscus of right knee as current injury No past medical history on file. Past Surgical History: Procedure Laterality Date ??? ROTATOR CUFF REPAIR Right x2, 2013 No Known Allergies Med List Status: Nurse Complete Set By: Rena Jennings RN at 01/01/2022 10:03 AM No medications reported. No current facility-administered medications for this encounter. No current outpatient medications on file. Social History Tobacco Use Smoking Status Never Smoker Smokeless Tobacco Never Used Alcohol Use: Not At Risk ??? Frequency of Alcohol Consumption: 2-4 times a month ??? Average Number of Drinks: 1 or 2 ??? Frequency of Binge Drinking: Never Substance and Sexual Activity Drug Use Never No family history on file. There were no vitals filed for this [...] and allergies reviewed. Attestation: This PAT evaluation 01/15/2022. Airway Exam: Mallampati: II Cervical ROM: FROM Cardiovascular Exam: Rate: regular Rhythm: regular Pulmonary Exam: LCTA, bilat Anesthesia Plan ASA 2 My patient is approved for the Anesthesia Controlled Medication protocol when under care of a CALL CENTER RECRUITER Planned anesthesia: General, regional for postop pain per surgeon request, PNB - continuous catheter and PNB - single shot Team communication plan: LMA Lower extremity: IPACK and femoral nerve block (distal mid thigh) Informed Consent: Anesthesia plan and risks discussed with patient. Plan and Consent Comments: Scop patch, emesis prophylaxis, propofol infusion intra-op Consent and Attending signature: I and/or my [...] Addendum Note - Allie Harris NP - 01/18/2022 12:44 PM CDT Addendum created 01/18/22 1244 by Allie Harris NP LDA properties accepted documented in this encounter Plan of Treatment Not on file documented as of this encounter Procedures Procedure Name Priority Date/Time Associated Diagnosis Comments MN AN PROCEDURE PLACEHOLDER Routine 01/15/2022 4:01 PM CDT MN AN ELECTIVE SUPRAGLOTTIC AIRWAY Routine 01/15/2022 4:01 PM CDT MN AN PROCEDURE PLACEHOLDER Routine 01/15/2022 2:37 PM CDT BW IP ANE LDA PERIPHERAL NERVE CATHETER Routine 01/15/2022 2:37 PM CDT MN AN PROCEDURE PLACEHOLDER Routine 01/15/2022 2:36 PM CDT documented in this encounter Results * MN AN ELECTIVE SUPRAGLOTTIC AIRWAY, MN AN PROCEDURE PLACEHOLDER (01/15/2022 4:01 PM CDT) Peter Kendrick CRNA - 01/15/2022 4:01 PM CDT Peter Brasher CRNA ? 01/15/2022 ??4:02 PM Airway Patient location: OR Urgency: elective Indications for airway management: anesthesia Difficult airway: no Staff: Placed by: CALL CENTER RECRUITER: Peter Brasher CRNA Emergent airway documentation: Risks and benefits discussed: yes Consent obtained: yes Consent given by: patient Airway prep: Preoxygenated: yes Patient position: sniffing Mask difficulty assessment: 1 - vent by mask Sedation level during airway: GA Final airway details: Final airway type: supraglottic airway Final supraglottic airway: unique SGA size: 4 Number of attempts: 1 us Uriah Quinones MD ANESTHESIA ORDERABLES Final Re sult * BW IP ANE LDA PERIPHERAL NERVE CATHETER, MN AN PROCEDURE PLACEHOLDER (01/15/2022 2:37 PM CDT) Narrative Uriah Quinones MD - 01/15/2022 2:37 PM CDT Uriah Quinones MD ? 01/15/2022 ??2:37 PM Peripheral Block Patient location during procedure: pre-op holding Reason for block: post-op pain management per surgeon request Ultrasound image in chart or stored: yes Block type: catheter continuous infusion Laterality: right Block type: femoral nerve block (distal mid thigh ) Procedure prep: Preprocedure checklist: patient identified, procedure contraindications assessed, site marked, procedure consent, surgical consent, IV checked, risks, benefits and alternatives discussed, monitors and equipment checked and timeout performed Patient position: supine Procedure performed while patient: sedate with meaningful contact Monitoring: ECG, oximetry and blood pressure Supplemental O2: nasal cannula Prep solution: chlorhexidine/alcohol PPE: provider hat/mask, sterile gloves, sterile drape, sterile gown and sterile probe cover and gel Skin infiltrated with lidocaine 1%: yes Peripheral nerve block: Technique: ultrasound guided Needle type: insulated, echogenic and short-bevel Needle gauge: 19ga. Needle length: 100 mm Injection assessment: injection made incrementally with constant monitoring, local visualized surrounding nerve on ultrasound, negative aspiration for heme, no paresthesias noted, normal resistance to injection and see flowsheet for medication details Assessment: Block success: full evaluation pending Events: patient tolerated procedure well with no complications Additional comments: ASSISTED BY EARL C[place]AND us Uriah Quinones MD ANESTHESIA ORDERABLES Final Re sult * MN AN PROCEDURE PLACEHOLDER (01/15/2022 2:36 PM CDT) Narrative Uriah Quinones MD - 01/15/2022 2:36 PM CDT Uriah Quinones MD ? 01/15/2022 ??2:37 PM Peripheral Block Patient location during procedure: pre-op [...] equipment checked and timeout performed Patient position: left lateral decubitus Procedure performed while patient: sedate with meaningful contact Monitoring: oximetry, ECG and blood pressure Supplemental O2: nasal cannula Prep solution: chlorhexidine/alcohol Sterile barriers: Probe Cover. Skin infiltrated with lidocaine 1%: yes Peripheral nerve block: Technique: ultrasound guided Needle type: short-bevel and echogenic Needle gauge: 21 G Needle length: 80 mm Injection assessment: injection made incrementally with constant monitoring, local visualized surrounding nerve on ultrasound, negative aspiration for heme, no paresthesias noted, normal resistance to injection and see flowsheet for medication details Assessment: Block success: full evaluation pending Events: patient tolerated procedure well with no complications Additional comments: ASSISTED BY EARL C[place]AND us Uriah Quinones MD ANESTHESIA ORDERABLES Final Re sult documented in this encounter Visit Diagnoses Not on filedocumented in this encounter Administered Medications Inactive Administered Medications - up to 3 most recent administrations Medication Order MAR Action Action Date Dose Rate Site bupivacaine (MARCAINE) 0.5 % (5 mg/mL) preservative free injection perineural, As needed, Starting on Tue01/15/22 at 1436, Anesthesia Intra-op Given 01/15/2022 2:36 PM CDT 40 mL ceFAZolin (ANCEF) 2,000 mg/50 mL in dextrose (premix) 2,000 mg 2,000 mg, intravenous, at 100 mL/hr, Administer over 30 Minutes, Once, On Tue01/15/22 at 1400, For 1 dose, Pre-Op, Administer within 60 minutes of incision. Duplex bag - activate before hanging. , Indications: Prophylaxis, SurgicalIndications:Prophylaxis, Surgical Given 01/15/2022 3:44 PM CDT 2,000 mg dexAMETHasone (DECADRON) 4 mg/mL injection intravenous, Administer over 2 Minutes, As needed, Starting on Tue01/15/22 at 1432, Anesthesia Intra-op Given 01/15/2022 3:49 PM CDT 4 mg Given 01/15/2022 2:32 PM CDT 4 mg fentaNYL (SUBLIMAZE) preservative free injection intravenous, As needed, Starting on Tue01/15/22 at 1436, Anesthesia Intra-op Given 01/15/2022 5:15 PM CDT 25 mcg Given 01/15/2022 4:55 PM CDT 25 mcg Given 01/15/2022 4:37 PM CDT 25 mcg hydrALAZINE (APRESOLINE) injection intravenous, Administer over 2 Minutes, As needed, Starting on Tue01/15/22 at 1632, Anesthesia Intra-op, Indications: hypertensionIndications:hypertension Given 01/15/2022 4:32 PM CDT 2.5 mg Lactated Ringer's (LR) infusion 30 mL/hr, intravenous, Continuous, Starting on Tue01/15/22 at 1400, Pre-Op, Use a 500 ml bag for End Stage Renal Disease Patients New Bag 01/15/2022 4:33 PM CDT Rate/Dose Verify 01/15/2022 3:35 PM CDT 30 mL/h r New Bag 01/15/2022 1:50 PM CDT 30 mL/hr 30 mL/hr lidocaine (XYLOCAINE) 20 mg/mL (2 %) injection infiltration, As needed, Starting on Tue01/15/22 at 1436, Anesthesia Intra-op, Indications: Administration of Local AnesthesiaIndications:Administration of Local Anesthesia Given 01/15/2022 2:36 PM CDT 2 mL lidocaine (XYLOCAINE) 20 mg/mL (2 %) injection intravenous, As needed, Starting on Tue01/15/22 at 1538, Anesthesia Intra-op, Indications: Administration of Local AnesthesiaIndications:Administration of Local Anesthesia Given 01/15/2022 3:38 PM CDT 5 mL mepivacaine (CARBOCAINE) 10 mg/mL (1 %) preservative free injection infiltration, As needed, Starting on Tue01/15/22 at 1436, Anesthesia Intra-op Given 01/15/2022 2:36 PM CDT 2 mL midazolam (VERSED) 1 mg/mL injection intravenous, As needed, Starting on Tue01/15/22 at 1436, Anesthesia Intra-op Given 01/15/2022 2:36 PM CDT 2 mg ondansetron (ZOFRAN) injection intravenous, Administer over 2 Minutes, As needed, Starting on Tue01/15/22 at 1432, Anesthesia Intra-op Given 01/15/2022 4:52 PM CDT 4 mg Given 01/15/2022 2:32 PM CDT 4 mg propofoL (DIPRIVAN) 10 mg/mL IV intravenous, As needed, Starting on Tue01/15/22 at 1539, Anesthesia Intra-op Given 01/15/2022 3:39 PM CDT 200 mg propofoL (DIPRIVAN) 10 mg/mL IV intravenous, Continuous PRN, Starting on Tue01/15/22 at 1545, Anesthesia Intra-op New Bag 01/15/2022 3:45 PM CDT 30 mcg/kg/min 17.244 mL/hr documented in this encounter Care Teams Commercial Helicopter Pilot Relationship Specialty Start Date End Date No, Physician PCP - General 12/21/21 documented as of this encounter
--- OUTSIDE RECORDS SUMMARY | 2024-05-22 05:27 | XMS_ITS | Encounter Summary ---
Author Organization [facility] Address [address] [place] [address] Phone Care Team Providers Care Commission For The Blind Director Name Role Phone No, Physician Primary Care Provider [phone] Reason for Referral * Durable Medical Equipment (Routine) - Closed Specialty Diagnoses / Procedures Referred By Danny t Referred To Contact Diagnoses Rupture of anterior cruciate ligament of right knee, initial encounter Procedures Miscellaneous DME Antonio Suh IV, MD Phone: tel: fax: [facility] (All Locations) Referral ID Status Reason Start Date Expiration Date Visits Re quested Visits Authorized [id number] Closed 01/18/2022 02/17/2023 1 1 Reason for Visit * Reason Comments Pain Encounter Details Date Type Department Care Team (Late st Contact Info) Description 12/31/2021 1:40 PM CDT Office Visit 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 CHIEF COMPLAINT Right knee pain and instability for 5 weeks since an injury HISTORY The patient is a 46 y.o. male seen in clinic for right knee pain and instability. The pain was located anteriorly when the injury occurred, but has since resolved. The patient characterizes the intensity of pain as a 3 out of 10 at worst. The pain started 5 weeks ago. The mechanism of injury was noncontact twisting injury while playing volleyball. Patient felt a pop, pain, and swelling. Patient now describes instability and pinching with full extension, continues to have an effusion. The patient has tried icing, compression, NSAIDs. Symptoms have remained stable since the injury. No previous knee problems or surgery. 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 He would like to get back to working out. PAST MEDICAL HISTORY He has no past medical history on file. PAST SURGICAL HISTORY He has no past surgical history on file. INITIAL REVIEW OF MEDICATIONS He has a current medication list which includes the following prescription(s): naproxen. DRUG ALLERGIES He has no allergies on file. SOCIAL HISTORY He reports that he has never smoked. He does not have any smokeless tobacco history on file. No alcohol history on file. FAMILY HISTORY His family history is not on file. REVIEW OF SYSTEMS Review of symptoms were filled out by the patient on the enclosed intake form, which was reviewed and signed by me. PHYSICAL EXAMINATION The patient is a pleasant male in no acute distress. Height: 5 ft, 9 in, Weight: 95 kg. Alert and oriented x3. Respirations are regular and without distress. Hearing intact to the spoken word. Ambulates with a normal gait. Right knee - +pain with squat test, +pain with Thessaly. Left knee - No pain with squat test, no pain with Thessaly. Right knee - Skin is intact. No incisions. No erythema, edema, ecchymosis. Moderate effusion. Left knee - Skin is intact. No incisions. No erythema, edema, ecchymosis or effusion. Right knee - No joint line or other tenderness. Left knee - No joint line or other tenderness. Right knee - 0 to 130 degrees of flexion. No crepitus. No pain with hyperflexion, +pain with hyperextension. Left knee - 0 to 130 degrees of flexion. No crepitus. No pain with hyperflexion or hyperextension. Right knee - 3B Ed, 3B anterior drawer, 1A posterior drawer. 1+ pivot shift. Stable to varus and valgus stress at 0 and 30 degrees of flexion. Left knee - 1A Ed, 1A anterior drawer, 1A posterior drawer. Negative pivot shift. Stable to varus and valgus stress at 0 and 30 degrees of flexion. Negative Dial test bilaterally. Right lower extremity - Intact light touch over the lateral thigh, medial and lateral leg, dorsum of the foot, including first web space, and plantar aspect of the foot. 5/5 tib ant, EHL, and gastrocsoleus strength bilaterally. Palpable posterior tib pulse with regular rate and rhythm. Left lower extremity - Intact light touch over the lateral thigh, medial and lateral leg, dorsum ofthe foot, including first web space, and plantar aspect of the foot. 5/5 tib ant, EHL, and gastrocsoleus strength bilaterally. Palpable posterior tib pulse with regular rate and rhythm. REVIEW OF X-RAYS/STUDIES I independently reviewed three plain films of the right knee, including bilateral Merchant and Sigala views, taken 11/24/2021 which show no significant degenerative change or fracture. I independently reviewed the MRI of his right knee from 12/14/2021 which showed an ACL rupture with medial meniscus posterior horn tear. MCL sprain but no obvious disruption. Moderate effusion. ASSESSMENT Right knee ACL tear and medial meniscus tear TREATMENT/PLAN I went over the MRI with the patient. I explained that he is eligible for an ACL reconstruction andpossible partial medial meniscectomy versus medial meniscus repair. I explained that his MCL appears to be stable. I discussed use of BTB autograft with a decreased risk of retear with activity and decreased risk of infection but an increased risk of kneeling pain versus a hamstring autograft. He appeared comfortable with the BTB autograft. I explained that he would be in a brace locked out straight for 6 weeks after surgery if I repaired the medial meniscus tear and then adjust the brace to allow 0-90 degrees of flexion for another 6 weeks. I explained what would be involved in the surgery and recovery. I explained it would be an outpatient procedure. The patient would come in and go home the same day. I recommend ywl-inofji-lijcylz for2 days. The patient could start to weight bear after 2 days but I explained it would take 2 weeks to get off crutches completely. The patient would start PT 3 or 4 days after surgery. I will see the patient back in the clinic at about 2 weeks where I would check the wounds, get an X-ray, go over the arthroscopic pictures, and assess progress. The patient will continue with PT and I usually see the patient back about every 4-6 weeks for the first 6 months after surgery. I explained the patient can usually get on the stationary bike within 2-3 weeks and jog by 3-4 months. The earliest the patient could think about return to sport is 6 months although it is preferable to wait closer to at least 8 or 9 months. I discussed the risk and benefits of the surgery including but not limited to the risk of infection, risk of anesthesia, risk of blood clot, risk of nerve and blood vessel injury, risk of fracture, loose body, or displaced hardware requiring surgery, risk of arthrofibrosis or scar tissue requiring additional surgery, risk of recurrent ACL tear and increased risk of tearing the contralateral ACL, risk of kneeling pain, and increased risk of osteoarthritis in the long run not offset by the surgery itself. The patient appears to understand the injury, treatment alternatives, indications for surgery, risks and benefits, and what is involved in the recovery and wishes to proceed.We can schedule surgery at their convenience. I would be careful with the knee in the interim. The patient had all questions answered and appears comfortable with this plan going forward. Angel Vieyra MD I was present for the critical portion of the history and physical examination. All radiographic studies were personally interpreted by me and I determined the diagnosis and treatment plan and communicated them to the patient. Antonio Suh MD Professor Sports Medicine [facility] Orthopedics Dictated using MModal Fluency Direct. Hand Knitter variations may occur. documented in this encounter Miscellaneous Notes * Addendum Note - Teagan Coy MS - 12/31/2021 1:40 PM CDTAddended by: TEAGAN COY on: 01/18/2022 10:40 AM Modules accepted: Orders documented in this encounter Plan of Treatment Not on file documented as of this encounter Visit Diagnoses Diagnosis Rupture of anterior cruciate ligament of right knee, initial encounter- Primary Complex tear of medial meniscus of right knee as current injury, initial encounter documented in this encounter Historical Medications * This list may reflect changes made after this encounter. naproxen (ALEVE) 220 mg tablet Take by mouth every 12 (twelve) hours as needed for pain 01/01/2022 added in this encounter Orders General Supply Count Last Ordered Date First Or dered Date MISCELLANEOUS DME 1 01/18/2022 documented in this encounter Care Teams Commission For The Blind Director Relationship Specialty Start Date End Date No, Physician PCP - General 12/21/21 documented as of this encounter
--- OUTSIDE RECORDS SUMMARY | 2024-05-22 05:27 | XMS_ITS | Encounter Summary ---
Author Organization [facility] Address [address] [address] Care Team Providers Care Pantry Steward/Stewardess Name Role Phone No, Physician Primary Care Provider [phone] Reason for Visit * Auth/Cert Specialty Diagnoses / Procedures Referred By Danny t Referred To Contact Diagnoses Complete tear of right ACL, subsequent encounter Complex tear of medial meniscus of right knee as current injury, subsequent encounter Complete tear of right ACL, subsequent encounter [S83.511D] Complex tear of medial meniscus of right knee as current injury, subsequent encounter [S83.231D] Procedures IA KNEE SCOPE,MED OR LAT MENIS REPAIR IA KNEE SCOPE,MED/LAT MENISECTOMY IA KNEE SCOPE,AID ANT CRUCIATE REPAIR RIGHT KNEE ARTHROSCOPY - ANTERIOR CRUCIATE LIGAMENT RECONSTRUCTION WITH BONE TENDON BONE AUTOGRAFT, PARTIAL MEDIAL MENISCECTOMY VERSUS REPAIR RIGHT RIGHT Referral ID Status Reason Start Date Expiration Date Visits Re quested Visits Authorized [id number] 1 1 Encounter Details Date Type Department Care Team (Latest Contact Info) Description 01/15/2022 1:10 PM CDT - 01/15/2022 6:35 PM CDT Hospital Encounter [facility] [address] [place] [address] Antonio Suh IV, MD [address] [place] [address] Discharge Disposition: Discharge to home or self [...] on file 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 Gender Identity Not on file Sexual Orientation Not on file documented as of this encounter Last Filed Vital Signs Vital Sign Reading Time Taken Comments Blood Pressure 93/67 01/15/2022 6:05 PM CDT Pulse 74 01/15/2022 6:15 PM CDT Temperature 36.4 ??C (97.5 ??F) 01/15/2022 6:15 PM CD T Respiratory Rate 17 01/15/2022 6:15 PM CDT Oxygen Saturation 97% 01/15/2022 6:15 PM CDT Inhaled Oxygen Concentration - - [...] - 01/15/2022 2:26 PM CDT Zayda Torres [id number] 01/15/2022 Surgeon(s) and Role: * Antonio Suh [...] H&P Notes * Lu Mcfadden NP - 01/15/2022 2:52 PM CDT Outpatient Pre-Procedure History and Physical Subjective Patient is a 46 y.o. male with chief complaint of right knee pain. Indication For Procedure: Pre-op Diagnosis * Complete tear of right ACL, subsequent encounter [S83.092D] * Complex tear of medial meniscus of right knee as current injury, subsequent encounter [S83.231D] Planned Procedure RIGHT KNEE ARTHROSCOPY - ANTERIOR [...] MD - Fellow Anesthesiologist: Uriah Quinones MD CRM MARKETING ANALYST: Peter Brasher CRNA; Manisha Valenzuela CRNA Paper Testing Supervisor: Aayush Peralta RN Paper Testing Supervisor Relief: Mercedes Beasley RNFA Scrub: Zeynep Reynolds RN Trimming Department Blocker: Lu Mcfadden NP DATE OF SURGERY : [...] Implant Name Type Inv. Item Serial No. Counter Waiter Lot No. LRB No. Used Action [employer] IMPLANT MENICUS REPAIR FIBERSTITCH CURVED AR-4570 - [id number] [employer] IMPLANT MENICUS REPAIR FIBERSTITCH CURVED AR-4570 [employer] [id number] Right 1 Implanted [employer] IMPLANT MENICUS REPAIR FIBERSTITCH CURVED AR-4570 - [id number] [employer] IMPLANT MENICUS REPAIR FIBERSTITCH CURVED AR-4570 [employer] [id number] Right 1 Implanted [employer] SCREW FASTTHREAD BIOCOMPOSITE INTERFERENCE 8MM X 20MM AR-4020C-08 - [id number] [employer] Screw Fastthread Biocomposite Interference 8mm X 20mm AR-4020C-08 [employer] [id number] Right 1 Implanted [employer] SCREW FASTTHREAD BIOCOMPOSITE INTERFERENCE 10MM X 20MM AR-4020C-10 - [id number] [employer] Screw Fastthread Biocomposite Interference 10mm X 20mm AR-4020C-10 [employer] [id number] Right 1Implanted Blood/Blood Products Transfused: 0 mls [...] repair andpatella chondroplasty. SURGEON Dr. Antonio Suh. BATH DESIGN SALES CONSULTANT SURGEON Dr. Angel Vieyra. ANESTHESIA General plus [...] the bone plug out of the bed. Carman were used to release the tendinous attachments [...] the bone plug out of the bed. Carman were used to release the tendinous attachments [...] during drilling of the femoral tunnel. A engine specialist was used to create a starting point [...] was placed on the knee and a engine specialist was used to create a starting point. [...] in the room. Job ID/Internal Job ID: [id number] * Pre-Procedure Instructions - Yvette Lazaro RN - 01/14/2022 8:29 AM CDT We are pleased that you and your doctor have chosen [facility] for your surgery. We hope the following information will help make your visit a pleasant one. The name of the building is [facility] in [place]. Directions to facility (address is [address] [place] [address] [address] [facility] exit. Zip [address] When you enter the building, look directly to your left, you will see 2 glass double doors. These double doors say [address]. Go through those double doors and check in with the receptionist telephone operator. Pt. Needs crutches and needs to learn [...] out. Instructed to patient to refer to [facility] surgery guide page 6 for any questions regarding eating and drinking day of surgery. For medications that the Nurse Practitioner instructed you to take on the morning of surgery, take the medications with a few sips of water. Pt's. Friend -Farhat to bring pt and -Aditya [phone] will be with patient and care for [...] the refreshment area. * Pre-Procedure Instructions - Nirmal Kayleen TripathiJAMAL pathak - 01/06/2022 12:24 PM CDT [facility] Location: [facility] The night before your surgery: [...] Planning Perioperative Nursing Note Telephone Preoperative Evaluation ([facility]) - TELEPHONE ONLY, NO PHYSICAL EXAM Date: [...] not in Chart: Copy requested from family Communication/Fireperson Needs Communication Needs: None Patient's Preferred Language: Cameroonian Does caregiver's language differ from patient's?: No Is an human resources executive needed? : No Assistive Devices/DME: None Hearing - Right Ear: Functional Hearing - Left Ear: Functional Discharge Planning Type of Residence: Private residence Living Arrangements: Spouse/significant other Support Systems: Spouse/significant other Patient expects to be discharged to:: Private residence ( or friend will be box truck driver after surgery.) COVID Screening Covid-19 Screening [...] in a congregate living facility (ex. assisted living/mcc facility, senior care, senior living)?: No Have you tested positive for COVID-19 [...] 20 seconds. Use an alcohol- based hand real estate executive assistant that contains at least 60% alcohol if [...] your insurance card, a photo ID (example: Programming Coordinator's License) and a method of payment for [...] Pathway to Excellent Care by the followinglink: [email or web address] How To Prepare Your Skin [...] Remove nail coverings, artificial nails and nail luxembourgish. The Morning of Surgery: Take a shower [...] eligible.. If you are going to a [facility] Testing Site for COVID testing, please arrive at least 30 minutes PRIOR to lab closing time. If you have COVID testing or should have COVID testing for your surgery/procedure, please read below section: If you need to reschedule your COVID test to a different location or if your surgery gets rescheduled, you MUST call [phone] Tuesday-Tuesday 8am-4:30pm to get your COVID testing rescheduled or your lab order will not be available at Testing Sites. COVID Testing is only valid for up to 96 hours prior to surgery date, unless otherwise specified. If you are unable to reach staff at the above phone number, please call the CPAP Staff at [phone]. This number cannot order a lab test, [...] least 20 seconds. Use an alcohol-based hand real estate executive assistant that contains at least 60% alcohol if [...] for the most updated information. Information on [facility]: Please view [email or web address] (Patient & Visitor Information) for additional details regarding Advanced Directive forms, AWARE, directions, parking information, lodging, Internet access, dining and more. Information on [facility] or [facility] ([facility]): Please view [email or web address] (Patient and Visitor Information) for parking/directions and more. For MyChart information, to activate account or password recovery, please go to [email or web address] or call [phone] (toll-free: [phone]). Information for Suicide Prevention: National Suicide Prevention Lifeline (4-177- 937-YQXH (6816)). Surgery Times: For [facility], if your surgeon's office has not notified you of your surgery time by NOON THE BUSINESS DAY BEFORE your surgery, please call the surgery center [phone]. documented in this encounter Plan of Treatment [...] as current injury documented in this encounter Admitting Diagnoses Diagnosis [...] Sickness, Prevention of Post-Operative Nausea and Vomiting 0429 (Medication Rudy lied - Provider: Analy Willett RN)1211 (Due: Medication Removed - Provider: Automatic Discharge [...] blood return and clamp open,with Arline Rust RN)1833 (Continued after Discharge - Provider: Bre Moreno [...] site. 1351 (Given - Provid er: Analy Willett, RN) meperidine (DEMEROL) preservative free injection 12.5 [...] mL, intra-catheter, As needed, line care, Flush Hewitt Block Hep Locks to keep vein open., [...] 1 01/15/2022 Lactated Ringer's (LR) infusion 1 Lactated Ringer's (LR) irrigation 1 022 meperidine (DEMEROL) preserv ative free injection 12.5 [...] 01/15/2022 documented in this encounter Care Teams Pantry Steward/Stewardess Relationship Specialty Start Date End Date No, Physician PCP - General 12/21/21 documented as of this encounter
--- OUTSIDE RECORDS SUMMARY | 2024-05-22 05:27 | XMS_ITS | Encounter Summary ---
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 ??There will be no report generated by a [facility] Radiologist. Narrative [facility] - 12/31/2021 5:10 PM CDT EXAMINATION: ??Images For Reference Purposes Only us Antonio Suh IV, MD IMG XR PROCEDURES Fin al Result [facility] documented in this encounter Visit Diagnoses Not on filedocumented in this encounter Care Teams Pullboat Engineer Relationship Specialty Start Date End Date No, Physician PCP - General 12/21/21 documented as of this encounter
--- OUTSIDE RECORDS SUMMARY | 2024-05-22 05:27 | XMS_ITS | Encounter Summary ---
Author Organization [facility] Address [address] [place] [address] Phone Care Team Providers Care Stiff Leg Operator Name Role Phone No, Physician Primary Care Provider [phone] Encounter Details Date Type Department Care Team (Late st Contact Info) Description 01/13/2022 Orders Only [facility] Orthopaedic Surgery [address] [place] [id number] [place] [address] [place] [address] Social History Tobacco Use Types [...] on file 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
== END 2024-05-15 07:53 | disposition home or self-care (01) ==
LOC: ANHGOSHLAB 07:52
PROVIDERS: Visit Provider Nurse Practitioner
DX: R73.09 Other abnormal glucose (principal); E53.8 Deficiency of other specified B group vitamins; E55.9 Vitamin D deficiency, unspecified; Z13.6 Encounter for screening for cardiovascular disorders; E03.9 Hypothyroidism, unspecified; E78.5 Hyperlipidemia, unspecified; Z12.5 Encounter for screening for malignant neoplasm of prostate
CPT/HCPCS: 36415; 80053; 80061; 82306; 82607; 83036; 83695; 84153; 84443; 85027; G0103